=== PATIENT | male | born 1940 | race Caucasian/White ===

== ENCOUNTER 2018-07-26 14:46 | Emergency (ER) | payer MEDICARE, OTHER, SELFPAY ==
[2018-07-26 14:46] VITALS: BP 102/68; PULSE 129; RESP 18; TEMP 35.5; O2SAT 97; BMI 29.9
[2018-07-26 14:49] VITALS: BP 102/68; PULSE 129; RESP 18; TEMP 35.5; O2SAT 97
[2018-07-26 14:56] VITALS: BP 143/103; PULSE 133; RESP 18; O2SAT 91
[2018-07-26 15:02] VITALS: O2SAT 95
--- NOTE | 2018-07-26 15:19 | EKG12_ITS ---
Test Reason : PALPATIONS Blood Pressure : / mmHG Vent. Rate : 114 BPM Atrial Rate : 288 BPM P-R Int : 000 ms QRS Dur : 096 ms QT Int : 358 ms P-R-T Axes : 242 008 069 degrees QTc Int : 493 ms Atrial flutter with variable A-V block Nonspecific ST abnormality Abnormal ECG Confirmed by JUSTIN CROCKETT, MARIO ([id number]), editor at large GIBRAN WEBSTER ([id number]) on 07/29/2018 9:09:01 AM Referred By: TAD Confirmed By:MARIO ANDERSON MD
--- NOTE | 2018-07-26 15:20 | RAD_ITS ---
STUDY: X-RAY CHEST REASON FOR EXAM: Male, 78 years old. Cough TECHNIQUE: Single frontal view of the chest. COMPARISON: July 23, 2015 FINDINGS: Bipolar AICD on the right unchanged. Bilateral airspace disease slightly improved. Small bilateral pleural effusions. Normal size heart. Normal mediastinum and gino. Normal visualized pulmonary arteries. Normal visualized aortic arch and descending thoracic aorta. Normal visualized thoracic spine. Normal visualized ribs, clavicles, and shoulders. There is no demonstrated abnormality of the visualized soft tissue structures of the upper abdomen. RAD/Chest 1 View (Portable) IMPRESSION: Slight improvement in airspace disease. Electronically Signed: Rei Bates MD at 17:03 EST , Service support ,
--- NOTE | 2018-07-26 15:23 | ED.VISSUMM ---
- ER Visit Summary Date of Service: 07/26/18 Chief Complaint: Short of breath, cough History of Present Illness: The patient is a 78 M with short of breath, wheezing, cough, and occasional posttussive emesis over the past 2 weeks. He was seen by his PCP and given a 7-day course of a maroon and bah antibiotic. It may have been Keflex. Patient states he still has 2 days of this left but overall is not feeling like he is improving. His is ill with similar symptoms and is also here to be seen. Patient has a history of coronary disease, CHF, COPD, diabetes, paroxysmal A. fib, pulmonary hypertension. He does wear home oxygen as needed and is on Coumadin. Physical Examination: Vital signs include a blood pressure of 143/103, temperature 96, heart rate 133, respiratory rate 18, pulse ox 91% on room air. Patient is sitting upright in bed. He speaking full sentences. Head neck examination is grossly unremarkable. Heart is irregular and slightly tachycardic with a rate around 108 at the time of my exam. Lung sounds are slightly diminished throughout. Abdomen is soft nontender. Test Results: EKG is a flutter at [address] change. Portable chest x-ray shows slight improvement in airspace disease when compared to prior chest x-ray from 2016. He has chronic changes. CBC is normal. Chemistry studies significant only for glucose of 232. INR is therapeutic at 2.9. Emergency Department Course and Treatment: Patient was given a DuoNeb treatment along with slight IV fluids. On repeat evaluation lung sounds are grossly clear. Heart rate is between 89 and 115 at the time of my exam. He is on metoprolol twice daily and did take his dose this morning. His primary care physician is making arrangements for him to follow-up with Dr. Travis. At this time he will be treated with prednisone, Augmentin, and Zithromax. He does have home oxygen although was not requiring it currently. I do not believe he needs hospitalization at this time. Treatment Plan: [] Disposition: Discharge Impression: COPD exacerbation This note was generated with [employer] dictation software. It may contain incorrect words, spelling, and punctuation that were not noted in review of the chart prior to signing ED Disposition - Plan for ED Patient: Chief Complaint: Cough Referrals: Rik Murillo MD [Primary Care Provider] -
[2018-07-26] MEDS: 0.9% Normal Saline 1,000 ML 150 ML IV (15:28)
[2018-07-26 15:29] VITALS: PULSE 115; RESP 17
[2018-07-26] MEDS: Ipratropium/Albuterol Sulfate 3 ML AMPUL.NEB INHALATION (15:29)
[2018-07-26 15:33] LABS: Absolute Lymphocyte Count 1.42 X10^3/ul (0.83-4.51); Absolute Neutrophil Count 5.1 X10^3/uL (2.0-7.7); Basophil# 0.02 X10^3/uL; Basophil% 0.3 % (0-1); Eosinophil# 0.23 X10^3/uL; Eosinophils% 3.1 % (0-5); Hematocrit 41.7 % (40-54); Hemoglobin 14.1 g/dl (13.0-16.5); Lymphocyte # 1.42 X10^3/ul (4.0); Lymphocyte % 19.2 % (19-41); Mean Corp Hgb Conc 33.8 g/gl (32-36); Mean Corpuscular Hgb 31.1 pg (27.0-32.0); Mean Corpuscular Volume 91.9 fL (80-94); Mean Platelet Vol. 9.9 fl (6.2-12.0); Monocyte# 0.58 X10^3/uL; Monocyte% 7.8 % (0-10); Neutrophil # 5.12 X10^3/uL (2.7-7.7); Neutrophil % 69.3 % (47-70); POSITIVE COUNT NO; POSITIVE DIFFERENTIAL NO; POSITIVE MORPHOLOGY NO; Platelet Count 279 K/mm3 (150-450); RBC Distribution Width CV 13.7 % (11.6-14.6); RBC Distribution Width SD 45.5 fl (35.1-43.9); Red Blood Count 4.54 M/mm3 (4.6-6.2); White Blood Count 7.4 K/mm3 (4.4-11.0)
[2018-07-26 15:44] LABS: Anion Gap 10 (5-15); BUN 23 mg/dL (7-18); Calcium,Total 8.8 mg/dL (8.5-10.1); Chloride 103 mmol/L (98-107); Creatinine, Serum 1.28 mg/dL (0.70-1.30); EST Glomerular Filtration Rate 57 mL/min (>60); Est Glom Filt Rate - Afr Amer 70 mL/min (>60); Estimated Creatinine Clearance 46.03 ml/min; Glucose 232 mg/dL (74-106); Potassium 3.9 mmol/L (3.5-5.1); Sodium Level 137 mmol/L (136-145)
[2018-07-26 15:59] LABS: International Normalized Ratio 2.9; Prothrombin Time (Protime)PT. 30.7 SECONDS (11.7-14.9)
--- NOTE | 2018-07-26 16:01 | ED.RN ---
CANCEL SEPSIS SCREEN PER MD.
--- NOTE | 2018-07-26 17:25 | ED.DEP ---
ED Disposition - Plan for ED Patient: Disposition: Home or Assisted Living Chief Complaint: Cough Instructions: ED COPD Flare Prescriptions: Amox/Clavulanate Tablet [Augmentin Tablet] 875 mg PO Q12H #20 tablet Azithromycin [Zithromax] 250 mg PO DAILY #4 tablet Prednisone [Deltasone] 40 mg PO DAILY #10 tablet Referrals: Rik Murillo MD [Primary Care Provider] - 1 Week
[2018-07-26] MEDS: predniSONE 20 MG Tablet 40 MG PO (17:35)
[2018-07-26] MEDS: Azithromycin 250 MG Tablet 500 MG PO (17:35)
[2018-07-26] MEDS: Amox/Clavulanate 875 MG Tablet PO (17:35)
[2018-07-26 17:38] VITALS: BP 124/105; PULSE 100; RESP 20; TEMP 35.5
== END 2018-07-26 17:43 | disposition home or self-care (01) ==
PROVIDERS: Emergency Provider Emergency Medicine; Family Provider Internal Medicine; PCP Internal Medicine
DX: J44.1 Chronic obstructive pulmonary disease with (acute) exacerbation (principal); I25.10 Atherosclerotic heart disease of native coronary artery without angina pectoris; I48.0 Paroxysmal atrial fibrillation; I27.20 Pulmonary hypertension, unspecified; E11.9 Type 2 diabetes mellitus without complications; Z95.5 Presence of coronary angioplasty implant and graft; Z95.810 Presence of automatic (implantable) cardiac defibrillator; Z79.4 Long term (current) use of insulin; Z79.01 Long term (current) use of anticoagulants; Z99.81 Dependence on supplemental oxygen; Z79.899 Other long term (current) drug therapy; Z87.891 Personal history of nicotine dependence
CPT/HCPCS: 71045; 80048; 85025; 85610; 93005; 94640; 96360; 96361; 99285; J7030; A4216

== ENCOUNTER 2018-08-19 16:12 | Inpatient (IN) | payer MEDICARE, OTHER, SELFPAY ==
[2018-08-19] VITALS (10 sets, daily range): BP systolic 86–130; BP diastolic 55–80; PULSE 46–104; RESP 13–23; TEMP 36.3–36.6; O2SAT 95–100; BMI 29.0
--- NOTE | 2018-08-19 16:20 | EKG12_ITS ---
Test Reason : Blood Pressure : / mmHG Vent. Rate : 099 BPM Atrial Rate : 288 BPM P-R Int : 000 ms QRS Dur : 106 ms QT Int : 374 ms P-R-T Axes : 253 011 -02 degrees QTc Int : 479 ms Atrial flutter with variable A-V block Abnormal ECG Confirmed by JUSTIN CROCKETT, MARIO ([id number]), online content editor GIBRAN WEBSTER ([id number]) on 08/22/2018 3:23:51 PM Referred By: Romina Lilly Confirmed By:MARIO ANDERSON MD
--- NOTE | 2018-08-19 16:30 | RAD_ITS ---
STUDY: X-RAY CHEST REASON FOR EXAM: Male, 78 years old. Chest pain TECHNIQUE: Single AP portable view of the chest. COMPARISON: July 26, 2018, July 21, 2015 FINDINGS: There is a right side pacer defibrillator. There is persistent fibrotic change and pleural plaquing in the left chest. There is bilateral pleural plaquing of the hemidiaphragms. There is similar-appearing fibrosis in the right lung base. There is mild cardiac enlargement. Normal mediastinum and gino. Normal visualized pulmonary arteries. There is atherosclerotic calcification of the aortic arch with tortuosity. There are diffuse degenerative changes of the visualized thoracic spine. Normal visualized ribs, clavicles, and shoulders. There is no demonstrated abnormality of the visualized soft tissue structures of the upper abdomen. RAD/Chest 1 View (Portable) IMPRESSION: Chronic fibrotic changes in the left chest. 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 No visualized acute focal infiltrate. Pacer defibrillator. Electronically Signed: Shiela Muñoz MD at 16:47 EST Tel , Service support ,
--- NOTE | 2018-08-19 16:43 | ED.VISSUMM ---
- ER Visit Summary Date of Service: 08/19/18 Chief Complaint: Shortness of breath, chest pain History of Present Illness: The patient is a 78 M presenting with shortness of breath, chest pain. Patient states he has not been feeling well since [place] time. He states that he has had shortness of breath which is worse with exertion. He also complains of intermittent chest pain. He states today he was too weak to stand. He needed help getting dressed. He states he felt very dizzy. He has been worsening over the past week. He was seen by Dr. Garcia a week ago and his Lasix and potassium were doubled. He states this is not improving. He saw Dr. Garcia again today and was advised to come to the ED for admission for decompensated heart failure. Physical Examination: Vitals are stable. Patient is afebrile. Alert no acute distress. HEENT exam is unremarkable. Neck is supple. Lungs are rales bilateral bases Heart is irregularly irregular Abdomen is soft nontender nondistended. Extremities are unremarkable. Skin is warm and dry. No focal neurologic deficit. Remainder of exam is unremarkable. Emergency Department Course and Treatment: EKG is a flutter rate of 99 with variable AV block. Chest x-ray shows chronic changes. CBC unremarkable. Chemistries show glucose 167, BUN 23, creatinine 1.53. INR is 2.0. Troponin is negative. BNP 172.9. He was given aspirin, Lasix IV. He is unable to ambulate without significant shortness of breath. Will discuss with the hospitalist for admission. Disposition: Admission Impression: CHF exacerbation, failed outpatient treatment This note was generated with [employer] dictation software. It may contain incorrect words, spelling, and punctuation that were not noted in review of the chart prior to signing ED Disposition - Plan for ED Patient: Chief Complaint: Chest Pain Referrals: Rik Murillo MD [Primary Care Provider] -
[2018-08-19 16:49] LABS: Absolute Lymphocyte Count 1.33 X10^3/ul (0.83-4.51); Absolute Neutrophil Count 5.5 X10^3/uL (2.0-7.7); Basophil# 0.05 X10^3/uL; Basophil% 0.6 % (0-1); Eosinophil# 0.38 X10^3/uL; Eosinophils% 4.7 % (0-5); Hematocrit 44.3 % (40-54); Hemoglobin 14.8 g/dl (13.0-16.5); Lymphocyte # 1.33 X10^3/ul (4.0); Lymphocyte % 16.5 % (19-41); Mean Corp Hgb Conc 33.4 g/gl (32-36); Mean Corpuscular Volume 92.9 fL (80-94); Mean Platelet Vol. 10.1 fl (6.2-12.0); Monocyte# 0.77 X10^3/uL; Monocyte% 9.6 % (0-10); Neutrophil % 68.2 % (47-70); Platelet Count 290 K/mm3 (150-450); RBC Distribution Width CV 13.7 % (11.6-14.6); RBC Distribution Width SD 44.9 fl (35.1-43.9); Red Blood Count 4.77 M/mm3 (4.6-6.2); White Blood Count 8.1 K/mm3 (4.4-11.0)
[2018-08-19 16:50] LABS: POSITIVE COUNT NO; POSITIVE DIFFERENTIAL NO; POSITIVE MORPHOLOGY NO
[2018-08-19 17:07] LABS: Anion Gap 9 (5-15); BUN 23 mg/dL (7-18); Chloride 102 mmol/L (98-107); Creatinine, Serum 1.53 mg/dL (0.70-1.30); EST Glomerular Filtration Rate 47 mL/min (>60); Est Glom Filt Rate - Afr Amer 57 mL/min (>60); Estimated Creatinine Clearance 38.51 ml/min; Glucose 167 mg/dL (74-106); Sodium Level 137 mmol/L (136-145)
[2018-08-19 17:17] LABS: BNP,B-Type NATRIURETIC PEPTIDE 172.9 pg/mL (0-100)
[2018-08-19] MEDS: Furosemide 40 MG/4 ML Vial IV (17:50)
[2018-08-19] MEDS: Aspirin 325 MG Tablet PO (17:50)
--- NOTE | 2018-08-19 18:23 | PCM.HP.STD ---
Problem List (1) Obstructive sleep apnea Status: Chronic (2) Paroxysmal a-fib Status: Chronic (3) Pulmonary hypertension Status: Chronic (4) Dyslipidemia Status: Chronic (5) CAD (coronary artery disease) Status: Chronic (6) History of heart artery stent Status: Chronic (7) COPD (chronic obstructive pulmonary disease) Status: Chronic (8) Diabetes mellitus Status: Chronic History of Present Illness Date of Admission: 08/19/18 Chief Complaint: Shortness of breath. The patient is a 78 year old M with past medical history as mentioned above was sent from Dr. Garcia's office to the ED for evaluation for worsening shortness of breath. Patient stated has been having trouble with breathing since [place], shortness of breath on minimal exertion, only can walk for a few steps before getting short of breath, aggravated by more activity, relieved by rest, associated with dry cough without sputum production and sometimes, he has been having intermittent chest tightness. Around 1 week ago, he was called by his communications analyst office and instructed to take Lasix 40 mg 4 times a day, he was on 40 mg twice a day before that. He mentioned that this change of Lasix did not help him with his breathing and he continued to get more short of breath with exertion. In the emergency department, he was afebrile, heart rate has been around 90s, blood pressure is stable, pulse ox is 95% on 2 L. His routine blood work was remarkable for BUN of 23 and creatinine of 1.53, otherwise normal. Troponin was less than 0.015. BNP was 172. EKG revealed atrial flutter, rate has been around 100, no acute ischemic changes. Chest x-ray revealed cardiomegaly, left small pleural effusion, pulmonary vascular congestion, more on the right side. He is being admitted for acute on chronic diastolic CHF. Past Medical History Past Medical History (Chronic Problems): Chronic Problems Mesothelioma (Chronic) Heart failure (Chronic) Obstructive sleep apnea (Chronic) Paroxysmal a-fib (Chronic) Pulmonary hypertension (Chronic) Dyslipidemia (Chronic) CAD (coronary artery disease) (Chronic) History of heart artery stent (Chronic) Acute respiratory failure with hypoxia (Chronic) COPD (chronic obstructive pulmonary disease) (Chronic) Diabetes mellitus (Chronic) Allergies sulfamethoxazole [From Septra] Allergy (Verified 08/19/18 16:18) Other trimethoprim [From Septra] Allergy (Verified 08/19/18 16:18) Other niacin [From Niaspan Extended-Release] Adverse Reaction (Verified 08/19/18 16:18) Rash Home Medications: Ambulatory Orders Medication Instructions Recorded Albuterol Aerosols [Ventolin 2.5 mg INHALATION Q6H PRN PRN 07/21/15 Aerosols] Amlodipine [Norvasc] 10 mg PO DAILY 07/21/15 Aspirin E.C. [Ecotrin] 81 mg PO DAILY@0800 07/21/15 Fluticasone 0.05% [Flonase Nasal 2 spray NASAL DAILY 07/21/15 [place]] Glimepiride [Amaryl] 4 mg PO DAILY 07/21/15 Ipratropium/Albuterol Respimat 1 puff INHALATION 4X/DAY 07/21/15 [Combivent Respimat Inhal [place]] Metformin HCl [Glucophage] 1,000 mg PO BIDCM 07/21/15 Metoprolol Tartrate [Lopressor 150 mg PO BID 07/21/15 (beta jostin)] Taylor-3S/Dha/Epa/Fish Oil/D3 [Fish 1 each PO DAILY 07/21/15 Ugl-[id number]-8-Vit D Softgel] Sildenafil Citrate [Viagra] 100 mg PO PRN PRN 07/21/15 Simvastatin [Zocor] 20 mg PO QHS 07/21/15 Tamsulosin HCl [Flomax] 0.4 mg PO DAILY 07/21/15 Warfarin Sodium [Jantoven] 7 mg PO QODAY 07/21/15 hydrALAZINE [Apresoline] 25 mg PO TID 07/21/15 Oxygen, Home [Home Oxygen] 2 - 4 lpm NASAL CONT #1 unit 07/26/15 Furosemide [Lasix] 40 mg PO Q6H 08/19/18 Potassium Chloride [K-Dur] 20 meq PO BID 08/19/18 Surgical History: cholecystectomy, pacemaker implantation, - - ICD, cardiac stents. Lives: Spouse/ Significant Other Smoking Status: Former smoker Alcohol: None Drugs: None - *Family History Paternal History Items: No pertinent history Maternal History Items: No pertinent history Review of Systems Constitutional: Reports: Weakness. Denies: Anorexia, Chills, Fever Eyes: Denies: Blurred vision, Double vision, Drainage, Redness HEENT: Denies: Difficulty Hearing, Ear Pain, Eye Pain, Nasal Congestion, Sore Throat Cardiovascular: Reports: Chest Tightness. Denies: Chest Pain, Chest Pressure, Edema, Heaviness, Light Headedness, Orthopnea, Paroxysmal Noc. Dyspnea Respiratory: Reports: Cough, Shortness of Breath, Shortness of breath upon exertion. Denies: Sputum production, Wheezing Gastrointestinal: Denies: Abdominal Pain, Constipation, Diarrhea, Nausea, Vomiting Genitourinary: Denies: Dysuria, Frequency, Hematuria Musculoskeletal: Denies: Arm Pain, Back Pain, Foot Pain Skin: Denies: Dryness, Rash Neurological: Denies: Balance problems, Blurred vision, Double vision, Change in Speech, Slurred speech, Headaches, Incoordination Psychiatric: Denies: Anxiety, Depression Endocrine: Denies: Change in Body Habitus, Polydipsia VTE Information - Inpt Only VTE Present on Admission: No VTE Mechan Device Prophylaxis: None VTE Pharm Prophylaxis ordered?: No - Physical Exam General: Alert, Oriented x3, Cooperative, No apparent distress HEENT: Atraumatic, PERRLA, EOMI, Normocephalic Oral: Moist Mucosa, No Gingival or Mucosal Lesions/ Ulcerations Neck: Supple, No JVD, Negative Carotid Bruits, Trachea Midline, Thyroid Normal Size and Texture Lungs: No rhonchi, No wheeze, Diminished, Rales, Short of Breath, - - Decreased breath sounds bilateral, more at the bases, bilateral basal crackles, more on the left base. Cardiovascular: Normal S1, Normal S2, No murmurs, PMI Normal, Irregular Rate Abdomen: Bowel Sounds Present, Soft, Non Tender, Non-Distended, No Hepato-splenomegaly Extremities: No clubbing, No cyanosis, No edema Skin: No rashes, No breakdown Lymphatic: No Cervical, Supraclavicular, or Inguinal Adenopathy Neurological: Cranial nerves II-XII grossly intact, Motor Exam 5/5 strength throughout Psych/Mental Status: Normal Affect, Appropriate, Alert and oriented to time, place, person, mood and affect Vital Signs Temp Pulse Resp BP Pulse Ox 98 F 46 L 18 112/67 97 08/19/18 16:13 08/19/18 18:07 08/19/18 18:07 08/19/18 18:07 08/19/18 18:07 Oxygen Flow Rate (L/min) 2 Oxygen Delivery Method Nasal Cannula Weight: 203 lb 7.787 oz Body Mass Index (BMI) 30.0 Laboratory Tests Past 24 Hrs 08/19/18 08/19/18 08/19/18 16:38 16:38 16:38 WBC 8.1 RBC 4.77 Hgb 14.8 Hct 44.3 MCV 92.9 MCH 31.0 MCHC 33.4 RDW 13.7 RDW Differential 44.9 H Plt Count 290 MPV 10.1 Immature Gran % (Auto) 0.400 Neut % (Auto) 68.2 Lymph % (Auto) 16.5 L [place] % (Auto) 9.6 Eos % (Auto) 4.7 Baso % (Auto) 0.6 Absolute Neuts (auto) 5.5 Absolute Lymphs (auto) 1.33 Total Counted Not Reportable PT 23.0 H INR 2.0 Sodium 137 Potassium 4.0 Chloride 102 Carbon Dioxide 26.0 Anion Gap 9 BUN 23 H Creatinine 1.53 H Estim Creat Clear Calc 38.51 Est GFR (MDRD) Af Amer 57 L Est GFR (MDRD) Non-Af 47 L BUN/Creatinine Ratio 15.0 Glucose 167 H Calcium 9.0 Troponin I < 0.015 B-Natriuretic Peptide 08/19/18 16:38 WBC RBC Hgb Hct MCV MCH MCHC RDW RDW Differential Plt Count MPV Immature Gran % (Auto) Neut % (Auto) Lymph % (Auto) [place] % (Auto) Eos % (Auto) Baso % (Auto) Absolute Neuts (auto) Absolute Lymphs (auto) Total Counted PT INR Sodium Potassium Chloride Carbon Dioxide Anion Gap BUN Creatinine Estim Creat Clear Calc Est GFR (MDRD) Af Amer Est GFR (MDRD) Non-Af BUN/Creatinine Ratio Glucose Calcium Troponin I B-Natriuretic Peptide 172.9 H Clinical Impression(s) from Imaging Studies Chest X-Ray 08/19/18 16:30 IMPRESSION: Chronic fibrotic changes in the left chest. 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 No visualized acute focal infiltrate. Pacer defibrillator. Electronically Signed: Shiela Muñoz MD at 16:47 EST Tel , Service support , Assessment/Plan This is an 78 years old male patient was sent from Dr. Garcia's office for worsening exertional shortness of breath, found to have acute on chronic diastolic CHF and he is being admitted for treatment. #1 acute on chronic diastolic CHF: With failure of outpatient therapy, Lasix was increased by Dr. Garcia from 40 mg p.o. twice daily up to 40 mg p.o. 4 times daily without improvement. EKG reviewed as above. Chest x-ray revealed findings consistent with CHF. He had 2D echocardiogram on June, revealed segmental dysfunction with ejection fraction of 60%, RVSP of 66, mildly enlarged left atrium. Troponin is negative. Plan: Admit to PCU, cardiac monitoring, serial cardiac enzymes, repeat EKG tomorrow morning, start IV Lasix 60 mg every 8 hours, input output chart, repeat CBC and BMP tomorrow morning, continue aspirin, metoprolol and hydralazine, PT OT evaluation and treatment. #2 acute kidney injury: Baseline kidney function is normal, creatinine was 1.28 on July 26, 2018, admission creatinine is 1.53. This is likely because of the dose of Lasix that was increased last week. Patient is on total of 160 mg Lasix daily. Expect kidney function to worsen with IV Lasix, repeat BMP tomorrow morning. #3 paroxysmal atrial fibrillation: Rate has been around 100, EKG reviewed as above. Plan to continue metoprolol for rate control, continue Coumadin for anti-correlation, repeat INR tomorrow morning. #4 coronary artery disease status post stents: Stable, no chest pain. EKG reviewed as above. Continue aspirin, statins, beta-blockers and hydralazine. #5 COPD: DuoNeb every 6 hours, albuterol as needed, oxygen by nasal cannula to keep O2 saturation more than 92%. #6 type 2 diabetes mellitus: ADA diet, Accu-Cheks, insulin sliding scale, continue glimepiride, hold metformin. #7 hypertension: Continue Norvasc, metoprolol and hydralazine, IV Lasix as above. #8 DVT prophylaxis: On Coumadin, INR is therapeutic. This note was generated with [employer] dictation software. It may contain incorrect words, spelling, and punctuation that were not noted in checking the note before signing. Code Visit Inpatient E&M: 02736 Init Hosp L3
--- NOTE | 2018-08-19 18:27 | HP.PCM_ITS ---
Problem List (1) Obstructive sleep apnea Status: Chronic (2) Paroxysmal a-fib Status: Chronic (3) Pulmonary hypertension Status: Chronic (4) Dyslipidemia Status: Chronic (5) CAD (coronary artery disease) Status: Chronic (6) History of heart artery stent Status: Chronic (7) COPD (chronic obstructive pulmonary disease) Status: Chronic (8) Diabetes mellitus Status: Chronic History of Present Illness Date of Admission: 08/19/18 Chief Complaint: Shortness of breath. The patient is a 78 year old M with past medical history as mentioned above was sent from Dr. Garcia's office to the ED for evaluation for worsening shortness of breath. Patient stated has been having trouble with breathing since [place], shortness of breath on minimal exertion, only can walk for a few steps before getting short of breath, aggravated by more activity, relieved by rest, associated with dry cough without sputum production and sometimes, he has been having intermittent chest tightness. 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 He mentioned that this change of Lasix did not help him with his breathing and he continued to get more short of breath with exertion. In the emergency department, he was afebrile, heart rate has been around 90s, blood pressure is stable, pulse ox is 95% on 2 L. His routine blood work was remarkable for BUN of 23 and creatinine of 1.53, otherwise normal. Troponin was less than 0.015. BNP was 172. EKG revealed atrial flutter, rate has been around 100, no acute ischemic changes. Chest x-ray revealed cardiomegaly, left small pleural effusion, pulmonary vascular congestion, more on the right side. He is being admitted for acute on chronic diastolic CHF. Past Medical History Past Medical History (Chronic Problems): Chronic Problems Mesothelioma (Chronic) Heart failure (Chronic) Obstructive sleep apnea (Chronic) Paroxysmal a-fib (Chronic) Pulmonary hypertension (Chronic) Dyslipidemia (Chronic) CAD (coronary artery disease) (Chronic) History of heart artery stent (Chronic) Acute respiratory failure with hypoxia (Chronic) COPD (chronic obstructive pulmonary disease) (Chronic) Diabetes mellitus (Chronic) Allergies sulfamethoxazole [From Septra] Allergy (Verified 08/19/18 16:18) Other trimethoprim [From Septra] Allergy (Verified 08/19/18 16:18) Other niacin [From Niaspan Extended-Release] Adverse Reaction (Verified 08/19/18 16:18) Rash Home Medications: Ambulatory Orders Medication Instructions Recorded Albuterol Aerosols [Ventolin 2.5 mg INHALATION Q6H PRN PRN 07/21/15 Aerosols] Amlodipine [Norvasc] 10 mg PO DAILY 07/21/15 Aspirin E.C. [Ecotrin] 81 mg PO DAILY@0800 07/21/15 Fluticasone 0.05% [Flonase Nasal 2 spray NASAL DAILY 07/21/15 [place]] Glimepiride [Amaryl] 4 mg PO DAILY 07/21/15 Ipratropium/Albuterol Respimat 1 puff INHALATION 4X/DAY 07/21/15 [Combivent Respimat Inhal [place]] Metformin HCl [Glucophage] 1,000 mg PO BIDCM 07/21/15 Metoprolol Tartrate [Lopressor 150 mg PO BID 07/21/15 (beta jostin)] [place]-3S/Dha/Epa/Fish Oil/D3 [Fish 1 each PO DAILY 07/21/15 Ssq-Adamx-6-Vit D Softgel] Sildenafil Citrate [Viagra] 100 mg PO PRN PRN 07/21/15 Simvastatin [Zocor] 20 mg PO QHS 07/21/15 Tamsulosin HCl [Flomax] 0.4 mg PO DAILY 07/21/15 Warfarin Sodium [Jantoven] 7 mg PO QODAY 07/21/15 hydrALAZINE [Apresoline] 25 mg PO TID 07/21/15 Oxygen, Home [Home Oxygen] 2 - 4 lpm NASAL CONT #1 unit 07/26/15 Furosemide [Lasix] 40 mg PO Q6H 08/19/18 Potassium Chloride [K-Dur] 20 meq PO BID 08/19/18 Surgical History: cholecystectomy, pacemaker implantation, - - ICD, cardiac stents. Lives: Spouse/ Significant Other Smoking Status: Former smoker Alcohol: None Drugs: None - *Family History Paternal History Items: No pertinent history Maternal History Items: No pertinent history Review of Systems Constitutional: Reports: Weakness. Denies: Anorexia, Chills, Fever Eyes: Denies: Blurred vision, Double vision, Drainage, Redness HEENT: Denies: Difficulty Hearing, Ear Pain, Eye Pain, Nasal Congestion, Sore Throat Cardiovascular: Reports: Chest Tightness. Denies: Chest Pain, Chest Pressure, Edema, Heaviness, Light Headedness, Orthopnea, Paroxysmal Noc. Dyspnea Respiratory: Reports: Cough, Shortness of Breath, Shortness of breath upon exertion. Denies: Sputum production, Wheezing Gastrointestinal: Denies: Abdominal Pain, Constipation, Diarrhea, Nausea, Vomit ing Genitourinary: Denies: Dysuria, Frequency, Hematuria Musculoskeletal: Denies: Arm Pain, Back Pain, Foot Pain Skin: Denies: Dryness, Rash Neurological: Denies: Balance problems, Blurred vision, Double vision, Change in Speech, Slurred speech, Headaches, Incoordination Psychiatric: Denies: Anxiety, Depression Endocrine: Denies: Change in Body Habitus, Polydipsia VTE Information - Inpt Only VTE Present on Admission: No VTE Mechan Device Prophylaxis: None VTE Pharm Prophylaxis ordered?: No - Physical Exam General: Alert, Oriented x3, Cooperative, No apparent distress HEENT: Atraumatic, PERRLA, EOMI, Normocephalic Oral: Moist Mucosa, No Gingival or Mucosal Lesions/ Ulcerations Neck: Supple, No JVD, Negative Carotid Bruits, Trachea Midline, Thyroid Normal Size and Texture Lungs: No rhonchi, No wheeze, Diminished, Rales, Short of Breath, - - Decreased breath sounds bilateral, more at the bases, bilateral basal crackles, more on the left base. Cardiovascular: Normal S1, Normal S2, No murmurs, PMI Normal, Irregular Rate Abdomen: Bowel Sounds Present, Soft, Non Tender, Non-Distended, No Hepato- splenomegaly Extremities: No clubbing, No cyanosis, No edema Skin: No rashes, No breakdown Lymphatic: No Cervical, Supraclavicular, or Inguinal Adenopathy Neurological: Cranial nerves II-XII grossly intact, Motor Exam 5/5 strength throughout Psych/Mental Status: Normal Affect, Appropriate, Alert and oriented to time, place, person, mood and affect Vital Signs Temp Pulse Resp BP Pulse Ox 98 F 46 L 18 112/67 97 08/19/18 16:13 08/19/18 18:07 08/19/18 18:07 08/19/18 18:07 08/19/18 18:07 Oxygen Flow Rate (L/min) 2 Oxygen Delivery Method Nasal Cannula Weight: 203 lb 7.787 oz Body Mass Index (BMI) 30.0 Laboratory Tests Past 24 Hrs 08/19/18 08/19/18 08/19/18 16:38 16:38 16:38 WBC 8.1 RBC 4.77 Hgb 14.8 Hct 44.3 MCV 92.9 MCH 31.0 MCHC 33.4 RDW 13.7 RDW Differential 44.9 H Plt Count 290 MPV 10.1 Immature Gran % (Auto) 0.400 Neut % (Auto) 68.2 Lymph % (Auto) 16.5 L [place] % (Auto) 9.6 Eos % (Auto) 4.7 Baso % (Auto) 0.6 Absolute Neuts (auto) 5.5 Absolute Lymphs (auto) 1.33 Total Counted Not Reportable PT 23.0 H INR 2.0 Sodium 137 Potassium 4.0 Chloride 102 Carbon Dioxide 26.0 Anion Gap 9 BUN 23 H Creatinine 1.53 H Estim Creat Clear Calc 38.51 Est GFR (MDRD) Af Amer 57 L Est GFR (MDRD) Non-Af 47 L BUN/Creatinine Ratio 15.0 Glucose 167 H Calcium 9.0 Troponin I < 0.015 B-Natriuretic Peptide 08/19/18 16:38 WBC RBC Hgb Hct MCV MCH MCHC RDW RDW Differential Plt Count MPV Immature Gran % (Auto) Neut % (Auto) Lymph % (Auto) [place] % (Auto) Eos % (Auto) Baso % (Auto) Absolute Neuts (auto) Absolute Lymphs (auto) Total Counted PT INR Sodium Potassium Chloride Carbon Dioxide Anion Gap BUN Creatinine Estim Creat Clear Calc Est GFR (MDRD) Af Amer Est GFR (MDRD) Non-Af BUN/Creatinine Ratio Glucose Calcium Troponin I B-Natriuretic Peptide 172.9 H Clinical Impression(s) from Imaging Studies Chest X-Ray 08/19/18 16:30 IMPRESSION: Chronic fibrotic changes in the left chest. 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 No visualized acute focal infiltrate. Pacer defibrillator. Electronically Signed: Shiela Muñoz MD at 16:47 EST Tel , Service support , Assessment/Plan This is an 78 years old male patient was sent from Dr. Garcia's office for worsening exertional shortness of breath, found to have acute on chronic diastolic CHF and he is being admitted for treatment. #1 acute on chronic diastolic CHF: With failure of outpatient therapy, Lasix was increased by Dr. Garcia from 40 mg p.o. twice daily up to 40 mg p.o. 4 times daily without improvement. EKG reviewed as above. Chest x-ray revealed findings consistent with CHF. He had 2D echocardiogram on June, revealed segmental dysfunction with ejection fraction of 60%, RVSP of 66, mildly enlarged left atrium. Troponin is negative. Plan: Admit to PCU, cardiac monitoring, serial cardiac enzymes, repeat EKG tomorrow morning, start IV Lasix 60 mg every 8 hours, input output chart, repeat CBC and BMP tomorrow morning, continue aspirin, metoprolol and hydralazine, PT OT evaluation and treatment. #2 acute kidney injury: Baseline kidney function is normal, creatinine was 1.28 on July 26, 2018, admission creatinine is 1.53. This is likely because of the dose of Lasix that was increased last week. Patient is on total of 160 mg Lasix daily. Expect kidney function to worsen with IV Lasix, repeat BMP tomorrow morning. #3 paroxysmal atrial fibrillation: Rate has been around 100, EKG reviewed as above. Plan to continue metoprolol for rate control, continue Coumadin for anti-correlation, repeat INR tomorrow morning. #4 coronary artery disease status post stents: Stable, no chest pain. EKG reviewed as above. Continue aspirin, statins, beta-blockers and hydralazine. #5 COPD: DuoNeb every 6 hours, albuterol as needed, oxygen by nasal cannula to keep O2 saturation more than 92%. #6 type 2 diabetes mellitus: ADA diet, Accu-Cheks, insulin sliding scale, continue glimepiride, hold metformin. #7 hypertension: Continue Norvasc, metoprolol and hydralazine, IV Lasix as above. #8 DVT prophylaxis: On Coumadin, INR is therapeutic. This note was generated with [employer] software. It may contain incorrect words, spelling, and punctuation that were not noted in checking the note before signing. Code Visit Inpatient E&M: 44068 Init Hosp L3
[2018-08-19 23:11] LABS: Bedside Glucose 289 mg/dL (70-110)
[2018-08-19] MEDS: Atorvastatin Calcium 10 MG Tablet PO (23:18)
[2018-08-19] MEDS: Insulin Lispro 100 UNIT/ML INSULN.PEN SQ (23:19)
[2018-08-20] VITALS (19 sets, daily range): BP systolic 103–146; BP diastolic 58–115; PULSE 66–140; RESP 16–21; TEMP 36.4–36.6; O2SAT 94–98
[2018-08-20] MEDS: hydrALAZINE 25 MG Tablet PO ×3 (05:41→23:05)
[2018-08-20] MEDS: Furosemide 100 MG/10 ML Vial 60 MG IV (05:42)
[2018-08-20] MEDS: 0.9% NaCl Peripheral Flush Adult/Peds IV ×3 (05:44→23:09)
[2018-08-20 06:47] LABS: Absolute Lymphocyte Count 1.21 X10^3/ul (0.83-4.51); Absolute Neutrophil Count 3.8 X10^3/uL (2.0-7.7); Basophil# 0.02 X10^3/uL; Basophil% 0.3 % (0-1); Eosinophil# 0.29 X10^3/uL; Eosinophils% 4.9 % (0-5); Hematocrit 40.9 % (40-54); Hemoglobin 13.7 g/dl (13.0-16.5); Lymphocyte # 1.21 X10^3/ul (4.0); Lymphocyte % 20.6 % (19-41); Mean Corp Hgb Conc 33.5 g/gl (32-36); Mean Corpuscular Hgb 30.8 pg (27.0-32.0); Mean Corpuscular Volume 91.9 fL (80-94); Mean Platelet Vol. 10.3 fl (6.2-12.0); Monocyte# 0.53 X10^3/uL; Neutrophil # 3.79 X10^3/uL (2.7-7.7); Neutrophil % 64.9 % (47-70); Platelet Count 248 K/mm3 (150-450); RBC Distribution Width CV 13.4 % (11.6-14.6); RBC Distribution Width SD 44.2 fl (35.1-43.9); Red Blood Count 4.45 M/mm3 (4.6-6.2); White Blood Count 5.9 K/mm3 (4.4-11.0)
[2018-08-20 06:49] LABS: International Normalized Ratio 2.3; Prothrombin Time (Protime)PT. 25.6 SECONDS (11.7-14.9)
[2018-08-20 06:52] LABS: POSITIVE COUNT NO; POSITIVE DIFFERENTIAL NO; POSITIVE MORPHOLOGY NO
[2018-08-20 06:56] LABS: Bedside Glucose 143 mg/dL (70-110)
[2018-08-20 07:17] LABS: Anion Gap 8 (5-15); BUN 20 mg/dL (7-18); Calcium,Total 8.4 mg/dL (8.5-10.1); Chloride 103 mmol/L (98-107); Creatinine, Serum 1.05 mg/dL (0.70-1.30); EST Glomerular Filtration Rate 72 mL/min (>60); Est Glom Filt Rate - Afr Amer 87 mL/min (>60); Estimated Creatinine Clearance 56.11 ml/min; Glucose 114 mg/dL (74-106); Potassium 3.4 mmol/L (3.5-5.1); Sodium Level 139 mmol/L (136-145)
[2018-08-20] MEDS: Ipratropium/Albuterol Sulfate 3 ML AMPUL.NEB INHALATION ×2 (07:48→19:00)
[2018-08-20] MEDS: Glimepiride 4 MG Tablet PO (08:07)
[2018-08-20] MEDS: Aspirin E.C. 81 MG Tablet PO (08:07)
[2018-08-20] MEDS: Tamsulosin HCl 0.4 MG Capsule PO (08:07)
[2018-08-20] MEDS: Metoprolol Tartrate 100 MG Tablet 150 MG PO ×2 (09:33→23:07)
[2018-08-20] MEDS: amLODIPine 10 MG Tablet PO (09:33)
[2018-08-20] MEDS: Fluticasone 0.05% 1 SPRAY NASAL.SRY 2 SPRAY NASAL (09:34)
--- NOTE | 2018-08-20 10:09 | PCM.PN.HOSP ---
Subjective: Patient is an 78-year-old gentleman with multiple comorbidities including hypertension, CAD with previous stent placement, known diastolic congestive heart failure who presented with progressive shortness of breath. An assessment of acute diastolic congestive heart failure made. Admitted to a monitored bed for subsequent management Objective: GENERAL: Dyspneic at rest HEENT: Atraumatic; moist oral mucosa EYES; Anicteric, Normal Conjunctiva NECK; supple, normal thyroid, no distended JVD. RESPIRATORY: Diminished to auscultation bilaterally, bibasilar crackles CARDIOVASCULAR: Irregular S1 S2, GI: soft, non-tender, normoactive bowel sounds, : No Renal angle tenderness; EXTREMITIES: Trace edema, no clubbing, no cyanosis. MUSCULOSKELETAL: No Joint Tenderness; no muscle waisting NEURO: Awake; no lateralizing signs. SKIN: No Rash PSYCH; Normal affect Vitals/I&O's: Vital Signs Temp Pulse Resp BP Pulse Ox 97.8 F 97 16 146/115 H 95 08/20/18 09:26 08/20/18 09:33 08/20/18 09:26 08/20/18 09:33 08/20/18 09:26 Oxygen Flow Rate (L/min) 2 Oxygen Delivery Method Nasal Cannula Weight: 91 kg Body Mass Index (BMI) 29.0 Intake and Output for Last 24 Hours 08/18/18 08/19/18 08/20/18 23:59 23:59 23:59 Intake Total 120 / 120 60 / 60 Output Total 575 / 575 575 / 575 Balance -455 / -455 -515 / -515 Laboratory Results 08/19/18 16:38: WBC 8.1, RBC 4.77, Hgb 14.8, Hct 44.3, MCV 92.9, MCH 31.0, MCHC 33.4, RDW 13.7, RDW Differential 44.9 H, Plt Count 290, MPV 10.1, Immature Gran % (Auto) 0.400, Neut % (Auto) 68.2, Lymph % (Auto) 16.5 L, [place] % (Auto) 9.6, Eos % (Auto) 4.7, Baso % (Auto) 0.6, Absolute Neuts (auto) 5.5, Absolute Lymphs (auto) 1.33, Total Counted Not Reportable 08/19/18 16:38: Sodium 137, Potassium 4.0, Chloride 102, Carbon Dioxide 26.0, Anion Gap 9, BUN 23 H, Creatinine 1.53 H, Estim Creat Clear Calc 38.51, Est GFR (MDRD) Af Amer 57 L, Est GFR (MDRD) Non-Af 47 L, BUN/Creatinine Ratio 15.0, Glucose 167 H, Calcium 9.0, Troponin I < 0.015 08/19/18 16:38: PT 23.0 H, INR 2.0 08/19/18 16:38: B-Natriuretic Peptide 172.9 H 08/19/18 20:49: Troponin I < 0.015 08/19/18 23:03: Troponin I < 0.015 08/19/18 23:05: POC Glucose 289 H 08/20/18 05:55: WBC 5.9, RBC 4.45 L, Hgb 13.7, Hct 40.9, MCV 91.9, MCH 30.8, MCHC 33.5, RDW 13.4, RDW Differential 44.2 H, Plt Count 248, MPV 10.3, Immature Gran % (Auto) 0.300, Neut % (Auto) 64.9, Lymph % (Auto) 20.6, [place] % (Auto) 9.0, Eos % (Auto) 4.9, Baso % (Auto) 0.3, Absolute Neuts (auto) 3.8, Absolute Lymphs (auto) 1.21, Total Counted Not Reportable 08/20/18 05:55: PT 25.6 H, INR 2.3 08/20/18 05:55: Sodium 139, Potassium 3.4 L, Chloride 103, Carbon Dioxide 28.0, Anion Gap 8, BUN 20 H, Creatinine 1.05, Estim Creat Clear Calc 56.11, Est GFR (MDRD) Af Amer 87, Est GFR (MDRD) Non-Af 72, BUN/Creatinine Ratio 19.0, Glucose 114 H, Calcium 8.4 L 08/20/18 06:47: POC Glucose 143 H Current Medications Acetaminophen (Tylenol) 650 mg PO Q6H PRN PRN PRN Reason: Mild Pain (scale 0-3)/T>100.7 Albuterol Sulfate (Ventolin Aerosols) 2.5 mg INHALATION Q2H PRN PRN PRN Reason: Shortness of breath, wheezing Albuterol/Ipratropium (Duoneb) 3 ml INHALATION Q6H.RT [facility] Last Admin: 08/20/18 07:48 Dose: 3 ml Amlodipine Besylate (Norvasc) 10 mg PO DAILY [facility] Last Admin: 08/20/18 09:33 Dose: 10 mg Aspirin (Ecotrin) 81 mg PO DAILY@0800 [facility] Last Admin: 08/20/18 08:07 Dose: 81 mg Atorvastatin Calcium (Lipitor) 10 mg PO QHS [facility] Last Admin: 08/19/18 23:18 Dose: 10 mg Fluticasone Propionate (Flonase Nasal [place]) 2 spray NASAL DAILY [facility] Last Admin: 08/20/18 09:34 Dose: 2 spray Furosemide (Lasix) 60 mg IV Q8 [facility] Last Admin: 08/20/18 05:42 Dose: 60 mg [facility]l) [facility] Admin: 08/20/18 08:07 Dose: 4 mg Hydralazine HCl (Apresoline) 25 mg PO TID [facility] Last Admin: 08/20/18 05:41 Dose: 25 mg Insulin Human Lispro (Humalog Kwikpen (Bkc)) 0 unit SQ [facility]; Protocol Last Admin: 08/20/18 08:01 Dose: Not Given Magnesium Hydroxide (Milk Of Magnesia) 30 ml PO DAILY PRN PRN Reason: Constipation Metoprolol Tartrate (Lopressor (Beta Uriel)) 150 mg PO BID [facility] Last Admin: 08/20/18 09:33 Dose: 150 mg Nutritional Formula (Lactose Free) (Ensure Enlive) 120 ml PO 4X/DAY [facility] Last Admin: 08/20/18 09:32 Dose: Not Given Ondansetron HCl (Zofran) 4 mg IV Q8H PRN PRN PRN Reason: Nausea Potassium Chloride (K-Dur) [facility] Last Admin: 08/20/18 08:07 Dose: 20 meq Sodium Chloride () 5 - 15 ml IV UD PRN PRN Reason: SALINE FLUSH Last Admin: 08/20/18 05:44 Dose: 10 ml Tamsulosin HCl (Flomax) 0.4 mg PO DAILY@0830 [facility] Last Admin: 08/20/18 08:07 Dose: 0.4 mg Warfarin Sodium (Coumadin (Pbkc)) 5 mg PO DAILY@1700 [facility] Last Admin: 08/20/18 01:31 Dose: 5 mg Warfarin Sodium (Coumadin (Pbkc)) 2 mg PO QODAY@1700 [facility] Medical Necessity - Tobacco Use Smoking Status: Former smoker Tobacco Use: Secondhand Assessment/Plan Patient is an 78-year-old gentleman with multiple comorbidities including hypertension, CAD with previous stent placement, known diastolic congestive heart failure who presented with progressive shortness of breath. An assessment of acute diastolic congestive heart failure made. Admitted to a monitored bed for subsequent management 1. Acute on chronic systolic heart failure (heart failure with preserved ejection fraction. Patient echo on June 2018 demonstrated EF of 60% with RVSP of 66 mmHg. Patient has been admitted to monitored bed placed on fluid restriction, strict input and output, daily weights as well as IV Lasix. Patient Lasix dose adjusted this a.m. 2. Acute kidney injury secondary to cardiorenal syndrome patient kidney function did improve with diuresis 3. Paroxysmal atrial fibrillation rate controlled on systemic anticoagulation with Coumadin with a therapeutic INR 4. Diabetes mellitus type 2 held patient oral agent placed on Accu-Cheks with sliding scale coverage 5. CAD with previous stent placement 6. Hypertension-blood pressure controlled, home medications continued with dose adjustment as needed 7. COPD not in exacerbation did continue with home regimen 8. Dyslipidemia-patient is on statin therapy, continued at home dose 9. Pulmonary hypertension with RVSP of 66 mmHg 10. BPH patient on Flomax 11. DVT prophylaxis and on Coumadin no need for additional measures 12. Chronic hypoxic respiratory failure secondary to COPD patient is on baseline 4 L home oxygen Advance planning; did discuss with the patient and family regarding his advanced directives as well as CODE STATUS. Did explain the various modalities involved ( FULL CODE, DNR CCA, DNR CCA with no intubation, and DNR CC ) patient elected to be DNR CCA no intubation. Order was placed. Time spent on discussion 20 minutes. Active Medications Acetaminophen (Tylenol) 650 mg PO Q6H PRN PRN PRN Reason: Mild Pain (scale 0-3)/T>100.7 Albuterol Sulfate (Ventolin Aerosols) 2.5 mg INHALATION Q2H PRN PRN PRN Reason: Shortness of breath, wheezing Albuterol/Ipratropium (Duoneb) 3 ml INHALATION Q6H.RT [facility] Last Admin: 08/20/18 07:48 Dose: 3 ml Amlodipine Besylate (Norvasc) 10 mg PO DAILY [facility] Last Admin: 08/20/18 09:33 Dose: 10 mg Aspirin (Ecotrin) 81 mg PO DAILY@0800 [facility] Last Admin: 08/20/18 08:07 Dose: 81 mg Atorvastatin Calcium (Lipitor) 10 mg PO QHS [facility] Last Admin: 08/19/18 23:18 Dose: 10 mg Fluticasone Propionate (Flonase Nasal [place]) 2 spray NASAL DAILY [facility] Last Admin: 08/20/18 09:34 Dose: 2 spray Furosemide (Lasix) 40 mg IV Q8 [facility] Glimepiride (Amaryl) [facility] Last Admin: 08/20/18 08:07 Dose: 4 mg Hydralazine HCl (Apresoline) 25 mg PO TID [facility] Last Admin: 08/20/18 05:41 Dose: 25 mg Insulin Human Lispro (Humalog Kwikpen (Bkc)) 0 unit SQ ACHS [facility]; Protocol Last Admin: 08/20/18 08:01 Dose: Not Given Magnesium Hydroxide (Milk Of Magnesia) 30 ml PO DAILY PRN PRN Reason: Constipation Metoprolol Tartrate (Lopressor (Beta Uriel)) 150 mg PO BID [facility] Last Admin: 08/20/18 09:33 Dose: 150 mg Nutritional Formula (Lactose Free) (Ensure Enlive) 120 ml PO 4X/DAY [facility] Last Admin: 08/20/18 09:32 Dose: Not Given Ondansetron HCl (Zofran) 4 mg IV Q8H PRN PRN PRN Reason: Nausea Potassium Chloride (K-Dur) 20 meq [facility] Last Admin: 08/20/18 08:07 Dose: 20 meq Sodium Chloride () 5 - 15 ml IV UD PRN PRN Reason: SALINE FLUSH Last Admin: 08/20/18 05:44 Dose: 10 ml Tamsulosin HCl (Flomax) 0.4 mg PO DAILY@0830 [facility] Last Admin: 08/20/18 08:07 Dose: 0.4 mg Warfarin Sodium (Coumadin (Pbkc)) 5 mg PO DAILY@1700 [facility] Last Admin: 08/20/18 01:31 Dose: 5 mg Warfarin Sodium (Coumadin (Pbkc)) 2 mg PO QODAY@1700 [facility] Clinical Impression(s) from Imaging Studies Chest X-Ray 08/19/18 16:30 IMPRESSION: Chronic fibrotic changes in the left chest. 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 No visualized acute focal infiltrate. Pacer defibrillator. Electronically Signed: Shiela Muñoz MD at 16:47 EST Tel , Service support , Code Visit Inpatient E&M: 03978 Subs Hosp L3 Procedures: 87160 Advncd Care Plan 30 Min
--- NOTE | 2018-08-20 10:10 | CT_ITS ---
STUDY: CT CHEST WITHOUT CONTRAST REASON FOR EXAM: Male, 78 years old. Cough. RADIATION DOSAGE (If Supplied By Facility): CTDIvol = ( 21.15 ) mGy, DLP = ( 810.31 ) mGycm TECHNIQUE: Transaxial imaging was performed without the administration of intravenous contrast material. Multiplanar coronal and sagittal images were reformatted. Individualized dose optimization techniques were used for this CT. COMPARISON: Comparison is made with prior chest radiograph dated August 19, 2018. FINDINGS: There is evidence of emphysematous changes. Increased interstitial markings are seen in the upper lobes and lower lobes with subpleural blebs worse in the lower lobes suggestive of chronic interstitial fibrosis. Densely calcified pleural plaques worse in the left hemithorax. Sternal cerclage wires and vascular clips are present from a prior sternotomy and coronary artery bypass graft procedure (CABG). Right-sided dual-chamber pacemaker. There are calcifications of the coronary arteries. There are multiple small lymph nodes within the mediastinum, which are normal in size and morphology most compatible with reactive lymph hyperplasia. Normal hilar regions. Normal unenhanced pulmonary arteries. There is atherosclerotic calcification of the aortic arch with tortuosity and elongation of the aortic arch and descending thoracic aorta. There are multi-level degenerative changes of the thoracic spine. Hepatic cysts. Prior cholecystectomy. CT/Chest without Contrast IMPRESSION: Findings indicative of chronic tissues or fibrosis with bullous changes worse in the lower lobes. Densely calcified pleural plaques worse on the left side. Electronically Signed: Spencer Perez MD at 13:40 EST , Service support ,
--- NOTE | 2018-08-20 10:14 | CASEMGMT ---
SW met with pt and daughter in room. 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 Pt dgt states she will bring forms in for medical record. PIERRE Dc
[2018-08-20 12:01] LABS: Bedside Glucose 395 mg/dL (70-110)
[2018-08-20] MEDS: Insulin Lispro 100 UNIT/ML INSULN.PEN SQ ×3 (12:46→23:15)
--- NOTE | 2018-08-20 14:37 | CASEMGMT ---
EMILY ZHENG assessment: Face to Face with patient for initial transition planning/care coordination assessment. EMILY ZHENG introduced self and role at [facility], pt voices understanding and consents to assessment at this time. Pt is sitting up in chair in no distress at this time. Pt is A/Ox4 at this time and answers all questions appropriately at this time. Pt's daughter is at bedside during assessment. Care providers, pharmacy, and demographics verified at this time. PCP: Chidi Specialists: Angy cardio; bob Covarrubias Preferred [facility]acy: [facility] Insurance: [facility] A/B, MMO Prescription Benefit: Yes Living Will/HPOA: Pt states has LW/HPOA and his , Shasha Guzman, is HPOA. Pt is aware that AD's are not on file at [facility] at this time. LNOK: Shasha Guzman, Living Arrangements: Pt states lives with in 1 story home with 3 steps to get in and states no concerns at home at this time. Transportation: Pt states drives self and states no transportation concerns at this time. DME/HHC: Pt states has 3-4 walkers at home, cpap and home oxygen('that I don't use', per pt). Pt states that his oxygen and cpap are still set up thru [facility] and he never had them transferred. This EMILY ZHENG informed pt and daughter on how to get oxygen and cpap transferred, voice understanding. Pt states his was just set up with oxygen thru [facility] and he will probably just go with them. Pt states no hx of HHC or SNF in the past. Pt states no concerns with going home at time of discharge. 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 Pt states he does not smoke or drink ETOH. Pt states no further concerns/needs at this time. CM to follow PT/OT evals, home oxygen eval, and for any further discharge planning/needs. Advised pt to ask for CM if any further questions/concerns/needs arise, voices understanding. Plan: [place] EMILY ZHENG
[2018-08-20] MEDS: Furosemide 40 MG/4 ML Vial IV ×2 (14:55→23:05)
[2018-08-20 17:15] LABS: Bedside Glucose 156 mg/dL (70-110)
--- NOTE | 2018-08-20 17:37 | NURSING ---
1710 called and spoke with Guy in Pharmacy to clarify if coumadin was safe to administer since 5mg dose given early today at 0045 - Pharmacist stated it was safe to give with INR and patient had not taken yesterday
[2018-08-20] MEDS: Atorvastatin Calcium 10 MG Tablet PO (23:07)
[2018-08-21] VITALS (21 sets, daily range): BP systolic 97–120; BP diastolic 58–72; PULSE 69–103; RESP 16–20; TEMP 36.4–36.7; O2SAT 95–98
--- NOTE | 2018-08-21 02:46 | NURSING ---
Pt. BGT at was 329. Glucometer did not register result in compter
[2018-08-21 06:41] LABS: Hematocrit 42.5 % (40-54); Hemoglobin 14.3 g/dl (13.0-16.5); Mean Corp Hgb Conc 33.6 g/gl (32-36); Mean Platelet Vol. 10.1 fl (6.2-12.0); Platelet Count 284 K/mm3 (150-450); RBC Distribution Width CV 13.4 % (11.6-14.6); RBC Distribution Width SD 44.5 fl (35.1-43.9); Red Blood Count 4.62 M/mm3 (4.6-6.2); White Blood Count 6.9 K/mm3 (4.4-11.0)
[2018-08-21 06:46] LABS: International Normalized Ratio 2.3; Prothrombin Time (Protime)PT. 25.1 SECONDS (11.7-14.9)
[2018-08-21 06:52] LABS: Scan Indicated on CBC? Y/N NO
[2018-08-21 06:53] LABS: Anion Gap 11 (5-15); BUN 25 mg/dL (7-18); BUN/Creat Ratio 19.2 RATIO (10-20); Calcium,Total 8.5 mg/dL (8.5-10.1); Chloride 101 mmol/L (98-107); EST Glomerular Filtration Rate 56 mL/min (>60); Est Glom Filt Rate - Afr Amer 68 mL/min (>60); Estimated Creatinine Clearance 45.32 ml/min; Glucose 163 mg/dL (74-106); Potassium 3.6 mmol/L (3.5-5.1); Sodium Level 140 mmol/L (136-145)
[2018-08-21] MEDS: Furosemide 40 MG/4 ML Vial IV ×3 (07:00→21:30)
[2018-08-21] MEDS: hydrALAZINE 25 MG Tablet PO ×3 (07:03→21:30)
[2018-08-21] MEDS: 0.9% NaCl Peripheral Flush Adult/Peds IV ×2 (07:04→21:35)
[2018-08-21 07:06] LABS: Bedside Glucose 329 mg/dL (70-110)
[2018-08-21 07:06] LABS: Bedside Glucose 329 mg/dL (70-110)
[2018-08-21] MEDS: Ipratropium/Albuterol Sulfate 3 ML AMPUL.NEB INHALATION ×3 (07:13→19:10)
[2018-08-21 07:15] LABS: Bedside Glucose 154 mg/dL (70-110)
[2018-08-21] MEDS: Tamsulosin HCl 0.4 MG Capsule PO (08:09)
[2018-08-21] MEDS: Aspirin E.C. 81 MG Tablet PO (08:09)
[2018-08-21] MEDS: Glimepiride 4 MG Tablet PO (08:09)
[2018-08-21] MEDS: Insulin Lispro 100 UNIT/ML INSULN.PEN SQ ×4 (08:12→21:34)
[2018-08-21] MEDS: Metoprolol Tartrate 100 MG Tablet 150 MG PO ×2 (09:37→21:34)
[2018-08-21] MEDS: amLODIPine 10 MG Tablet PO (09:37)
[2018-08-21] MEDS: Fluticasone 0.05% 1 SPRAY NASAL.SRY 2 SPRAY NASAL (09:39)
--- NOTE | 2018-08-21 09:55 | PCM.PN.HOSP ---
Subjective: Patient seen. Breathing still remains labored at rest. CT of the chest without contrast ordered the day prior demonstrated Findings indicative of chronic tissues or fibrosis with bullous changes worse in the lower lobes.Densely calcified pleural plaques worse on the left side. Objective: GENERAL: Dyspneic at rest HEENT: Atraumatic; moist oral mucosa EYES; Anicteric, Normal Conjunctiva NECK; supple, normal thyroid, no distended JVD. RESPIRATORY: Diminished to auscultation bilaterally, bibasilar crackles CARDIOVASCULAR: Irregular S1 S2, GI: soft, non-tender, normoactive bowel sounds, : No Renal angle tenderness; EXTREMITIES: Trace edema, no clubbing, no cyanosis. MUSCULOSKELETAL: No Joint Tenderness; no muscle waisting NEURO: Awake; no lateralizing signs. SKIN: No Rash PSYCH; Normal affect Vitals/I&O's: Vital Signs Temp Pulse Resp BP Pulse Ox 97.8 F 88 20 H 116/68 96 08/21/18 07:00 08/21/18 09:37 08/21/18 07:14 08/21/18 09:37 08/21/18 07:14 Oxygen Flow Rate (L/min) 2 Oxygen Delivery Method Nasal Cannula Weight: 89 kg Body Mass Index (BMI) 29.0 Intake and Output for Last 24 Hours 08/19/18 08/20/18 08/21/18 23:59 23:59 23:59 Intake Total 120 / 120 1080 / 1080 100 / 100 Output Total 575 / 575 2625 / 2625 825 / 825 Balance -455 / -455 -1545 / -1545 -725 / -725 Laboratory Results 08/20/18 11:53: POC Glucose 395 H 08/20/18 17:05: POC Glucose 156 H 08/20/18 23:12: POC Glucose 329 H 08/20/18 23:14: POC Glucose 329 H 08/21/18 06:05: WBC 6.9, RBC 4.62, Hgb 14.3, Hct 42.5, MCV 92.0, MCH 31.0, MCHC 33.6, RDW 13.4, RDW Differential 44.5 H, Plt Count 284, MPV 10.1 08/21/18 06:05: PT 25.1 H, INR 2.3 08/21/18 06:05: Sodium 140, Potassium 3.6, Chloride 101, Carbon Dioxide 28.0, Anion Gap 11, BUN 25 H, Creatinine 1.30, Estim Creat Clear Calc 45.32, Est GFR (MDRD) Af Amer 68, Est GFR (MDRD) Non-Af 56 L, BUN/Creatinine Ratio 19.2, Glucose 163 H, Calcium 8.5, Magnesium 2.0 08/21/18 07:07: POC Glucose 154 H Current Medications Acetaminophen (Tylenol) 650 mg PO Q6H PRN PRN PRN Reason: Mild Pain (scale 0-3)/T>100.7 Albuterol Sulfate (Ventolin Aerosols) 2.5 mg INHALATION Q2H PRN PRN PRN Reason: Shortness of breath, wheezing Albuterol/Ipratropium (Duoneb) 3 ml INHALATION Q6H.RT [facility] Last Admin: 08/21/18 07:13 Dose: 3 ml Amlodipine Besylate (Norvasc) 10 mg PO DAILY [facility] Last Admin: 08/21/18 09:37 Dose: 10 mg Aspirin (Ecotrin) 81 mg PO DAILY@0800 [facility] Last Admin: 08/21/18 08:09 Dose: 81 mg Atorvastatin Calcium (Lipitor) 10 mg PO QHS [facility] Last Admin: 08/20/18 23:07 Dose: 10 mg Fluticasone Propionate (Flonase Nasal [place]) 2 spray NASAL DAILY [facility] Last Admin: 08/21/18 09:39 Dose: 2 spray Furosemide (Lasix) 40 mg IV Q8 [facility] Last Admin: 08/20/18 23:05 Dose: 40 mg Glimepiride (Amaryl) 4 mg PO DAILYCM [facility] Last Admin: 08/21/18 08:09 Dose: 4 mg Hydralazine HCl (Apresoline) 25 mg PO TID [facility] Last Admin: 08/21/18 07:03 Dose: 25 mg Insulin Human Lispro (Humalog Kwikpen (Bkc)) 0 unit SQ ACHS [facility]; Protocol Last Admin: 08/21/18 08:12 Dose: 1 u Magnesium Hydroxide (Milk Of Magnesia) 30 ml PO DAILY PRN PRN Reason: Constipation Metoprolol Tartrate (Lopressor (Beta Uriel)) 150 mg PO BID [facility] Last Admin: 08/21/18 09:37 Dose: 150 mg Ondansetron HCl (Zofran) 4 mg IV Q8H PRN PRN PRN Reason: Nausea Potassium Chloride (K-Dur) 20 meq PO BIDCM [facility] Last Admin: 08/21/18 08:09 Dose: 20 meq Sodium Chloride () 5 - 15 ml IV UD PRN PRN Reason: SALINE FLUSH Last Admin: 08/21/18 07:04 Dose: 10 ml Tamsulosin HCl (Flomax) 0.4 mg PO DAILY@0830 [facility] Last Admin: 08/21/18 08:09 Dose: 0.4 mg Warfarin Sodium (Coumadin (Pbkc)) 5 mg PO DAILY@1700 [facility] Last Admin: 08/20/18 17:10 Dose: 5 mg Warfarin Sodium (Coumadin (Pbkc)) 2 mg PO QODAY@1700 [facility] Last Admin: 08/20/18 17:10 Dose: 2 mg Medical Necessity - Tobacco Use Smoking Status: Former smoker Tobacco Use: Secondhand Assessment/Plan Patient is an 78-year-old gentleman with multiple comorbidities including hypertension, CAD with previous stent placement, known diastolic congestive heart failure who presented with progressive shortness of breath. An assessment of acute diastolic congestive heart failure made. Admitted to a monitored bed for subsequent management 1. Acute on chronic systolic heart failure (heart failure with preserved ejection fraction. Patient echo on June 2018 demonstrated EF of 60% with RVSP of 66 mmHg. Patient has been admitted to monitored bed placed on fluid restriction, strict input and output, daily weights as well as IV Lasix. Patient Lasix dose adjusted this a.m. patient still remains significantly dyspneic at rest plan is to assess patient for continuous home O2 use on discharge 2. Acute kidney injury secondary to cardiorenal syndrome patient kidney function did improve with diuresis 3. Paroxysmal atrial fibrillation rate controlled on systemic anticoagulation with Coumadin with a therapeutic INR 4. Diabetes mellitus type 2 held patient oral agent placed on Accu-Cheks with sliding scale coverage 5. CAD with previous stent placement 6. Hypertension-blood pressure controlled, home medications continued with dose adjustment as needed 7. COPD not in exacerbation did continue with home regimen 8. Dyslipidemia-patient is on statin therapy, continued at home dose 9. Pulmonary hypertension with RVSP of 66 mmHg 10. BPH patient on Flomax 11. DVT prophylaxis and on Coumadin no need for additional measures 12. Chronic hypoxic respiratory failure secondary to COPD patient is on baseline 4 L home oxygen at night 13. 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 No visualized acute focal infiltrate. Pacer defibrillator. Electronically Signed: Shiela Muñoz MD at 16:47 EST Tel , Service support , Chest CT 08/20/18 10:10 IMPRESSION: Findings indicative of chronic tissues or fibrosis with bullous changes worse in the lower lobes. Densely calcified pleural plaques worse on the left side. Electronically Signed: Spencer Preez MD at 13:40 EST , Service support , Code Visit Inpatient E&M: [id number] Subs Hosp L3
--- NOTE | 2018-08-21 10:01 | PN_ITS ---
Subjective: Patient seen. Breathing still remains labored at rest. CT of the chest without contrast ordered the day prior demonstrated Findings indicative of chronic tissues or fibrosis with bullous changes worse in the lower lobes.Densely calcified pleural plaques worse on the left side. Objective: GENERAL: Dyspneic at rest HEENT: Atraumatic; moist oral mucosa EYES; Anicteric, Normal Conjunctiva NECK; supple, normal thyroid, no distended JVD. RESPIRATORY: Diminished to auscultation bilaterally, bibasilar crackles CARDIOVASCULAR: Irregular S1 S2, GI: soft, non-tender, normoactive bowel sounds, : No Renal angle tenderness; EXTREMITIES: Trace edema, no clubbing, no cyanosis. MUSCULOSKELETAL: No Joint Tenderness; no muscle waisting NEURO: Awake; no lateralizing signs. SKIN: No Rash PSYCH; Normal affect Vitals/I&O's: Vital Signs Temp Pulse Resp BP Pulse Ox 97.8 F 88 20 H 116/68 96 08/21/18 07:00 08/21/18 09:37 08/21/18 07:14 08/21/18 09:37 08/21/18 07:14 Oxygen Flow Rate (L/min) 2 Oxygen Delivery Method Nasal Cannula Weight: 89 kg Body Mass Index (BMI) 29.0 Intake and Output for Last 24 Hours 08/19/18 08/20/18 08/21/18 23:59 23:59 23:59 Intake Total 120 / 120 1080 / 1080 100 / 100 Output Total 575 / 575 2625 / 2625 825 / 825 Balance -455 / -455 -1545 / -1545 -725 / -725 Laboratory Results 08/20/18 11:53: POC Glucose 395 H 08/20/18 17:05: POC Glucose 156 H 08/20/18 23:12: POC Glucose 329 H 08/20/18 23:14: POC Glucose 329 H 08/21/18 06:05: WBC 6.9, RBC 4.62, Hgb 14.3, Hct 42.5, MCV 92.0, MCH 31.0, MCHC 33.6, RDW 13.4, RDW Differential 44.5 H, Plt Count 284, MPV 10.1 08/21/18 06:05: PT 25.1 H, INR 2.3 08/21/18 06:05: Sodium 140, Potassium 3.6, Chloride 101, Carbon Dioxide 28.0, Anion Gap 11, BUN 25 H, Creatinine 1.30, Estim Creat Clear Calc 45.32, Est GFR (MDRD) Af Amer 68, Est GFR (MDRD) Non-Af 56 L, BUN/Creatinine Ratio 19.2, Glucose 163 H, Calcium 8.5, Magnesium 2.0 08/21/18 07:07: POC Glucose 154 H Current Medications Acetaminophen (Tylenol) 650 mg PO Q6H PRN PRN PRN Reason: Mild Pain (scale 0-3)/T>100.7 Albuterol Sulfate (Ventolin Aerosols) 2.5 mg INHALATION Q2H PRN PRN PRN Reason: Shortness of breath, wheezing Albuterol/Ipratropium (Duoneb) 3 ml INHALATION Q6H.RT [facility] Last Admin: 08/21/18 07:13 Dose: 3 ml Amlodipine Besylate (Norvasc) 10 mg PO DAILY [facility] Last Admin: 08/21/18 09:37 Dose: 10 mg Aspirin (Ecotrin) 81 mg PO DAILY@0800 [facility] Last Admin: 08/21/18 08:09 Dose: 81 mg Atorvastatin Calcium (Lipitor) 10 mg PO QHS [facility] Last Admin: 08/20/18 23:07 Dose: 10 mg Fluticasone Propionate (Flonase Nasal [place]) 2 spray NASAL DAILY [facility] Last Admin: 08/21/18 09:39 Dose: 2 spray Furosemide (Lasix) 40 mg IV Q8 [facility] Last Admin: 08/20/18 23:05 Dose: 40 mg Glimepiride (Amaryl) 4 mg PO DAILYCM [facility] Last Admin: 08/21/18 08:09 Dose: 4 mg Hydralazine HCl (Apresoline) 25 mg PO TID [facility] Last Admin: 08/21/18 07:03 Dose: 25 mg Insulin Human Lispro (Humalog Kwikpen (Bkc)) 0 unit SQ ACHS [facility]; Protocol Last Admin: 08/21/18 08:12 Dose: 1 u Magnesium Hydroxide (Milk Of Magnesia) 30 ml PO DAILY PRN PRN Reason: Constipation Metoprolol Tartrate (Lopressor (Beta Uriel)) 150 mg PO BID [facility] Last Admin: 08/21/18 09:37 Dose: 150 mg Ondansetron HCl (Zofran) 4 mg IV Q8H PRN PRN PRN Reason: Nausea Potassium Chloride (K-Dur) 20 meq PO BIDCM [facility] Last Admin: 08/21/18 08:09 Dose: 20 meq Sodium Chloride () 5 - 15 ml IV UD PRN PRN Reason: SALINE FLUSH Last Admin: 08/21/18 07:04 Dose: 10 ml Tamsulosin HCl (Flomax) 0.4 mg PO DAILY@0830 [facility] Last Admin: 08/21/18 08:09 Dose: 0.4 mg Warfarin Sodium (Coumadin (Pbkc)) 5 mg PO DAILY@1700 [facility] Last Admin: 08/20/18 17:10 Dose: 5 mg Warfarin Sodium (Coumadin (Pbkc)) 2 mg PO QODAY@1700 [facility] Last Admin: 08/20/18 17:10 Dose: 2 mg Medical Necessity - Tobacco Use Smoking Status: Former smoker Tobacco Use: Secondhand Assessment/Plan Patient is an 78-year-old gentleman with multiple comorbidities including hypertension, CAD with previous stent placement, known diastolic congestive heart failure who presented with progressive shortness of breath. An assessment of acute diastolic congestive heart failure made. Admitted to a monitored bed for subsequent management 1. Acute on chronic systolic heart failure (heart failure with preserved ejection fraction. Patient echo on June 2018 demonstrated EF of 60% with RVSP of 66 mmHg. Patient has been admitted to monitored bed placed on fluid restriction, strict input and output, daily weights as well as IV Lasix. Patient Lasix dose adjusted this a.m. patient still remains significantly dyspneic at rest plan is to assess patient for continuous home O2 use on discharge 2. Acute kidney injury secondary to cardiorenal syndrome patient kidney function did improve with diuresis 3. Paroxysmal atrial fibrillation rate controlled on systemic anticoagulation with Coumadin with a therapeutic INR 4. Diabetes mellitus type 2 held patient oral agent placed on Accu-Cheks with sliding scale coverage 5. CAD with previous stent placement 6. Hypertension-blood pressure controlled, home medications continued with dose adjustment as needed 7. COPD not in exacerbation did continue with home regimen 8. Dyslipidemia-patient is on statin therapy, continued at home dose 9. Pulmonary hypertension with RVSP of 66 mmHg 10. BPH patient on Flomax 11. DVT prophylaxis and on Coumadin no need for additional measures 12. Chronic hypoxic respiratory failure secondary to COPD patient is on baseline 4 L home oxygen at night 13. 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 No visualized acute focal infiltrate. Pacer defibrillator. Electronically Signed: Shiela Muñoz MD at 16:47 EST Tel , Service support , Chest CT 08/20/18 10:10 IMPRESSION: Findings indicative of chronic tissues or fibrosis with bullous changes worse in the lower lobes. Densely calcified pleural plaques worse on the left side. Electronically Signed: Spencer Perez MD at 13:40 EST , Service support , Code Visit Inpatient E&M: [id number] Subs Hosp L3
--- NOTE | 2018-08-21 10:56 | CASEMGMT ---
Per Dr. Cole, pt's daughter was inquiring about a portable oxygen tank at discharge. This RN CM to room and advised pt/daughter that they will need to transfer pt's oxygen order from /[facility] as he never took care of that previously. Pt states he would like home oxygen to be through [facility], as his just signed up through them. Call to [facility] and [place] faxed this RN CM a release at this time. Pt/daughter given the release and this RN CM will obtain once signed and fax back to [facility] for pt at this time. SStbraxton RN CM
[2018-08-21 11:41] LABS: Bedside Glucose 264 mg/dL (70-110)
[2018-08-21 16:30] LABS: Bedside Glucose 289 mg/dL (70-110)
[2018-08-21] MEDS: Atorvastatin Calcium 10 MG Tablet PO (21:35)
[2018-08-21 22:05] LABS: Bedside Glucose 362 mg/dL (70-110)
[2018-08-22] VITALS (14 sets, daily range): BP systolic 98–118; BP diastolic 52–72; PULSE 50–93; RESP 18–22; TEMP 36.4–36.7; O2SAT 94–98
[2018-08-22] MEDS: Ipratropium/Albuterol Sulfate 3 ML AMPUL.NEB INHALATION ×2 (00:44→07:20)
[2018-08-22] MEDS: Furosemide 40 MG/4 ML Vial IV (05:33)
[2018-08-22] MEDS: 0.9% NaCl Peripheral Flush Adult/Peds IV (05:34)
[2018-08-22 06:03] LABS: Hematocrit 41.8 % (40-54); Mean Corp Hgb Conc 33.5 g/gl (32-36); Mean Corpuscular Hgb 30.9 pg (27.0-32.0); Mean Corpuscular Volume 92.3 fL (80-94); Mean Platelet Vol. 10.1 fl (6.2-12.0); Platelet Count 284 K/mm3 (150-450); RBC Distribution Width CV 13.3 % (11.6-14.6); Red Blood Count 4.53 M/mm3 (4.6-6.2); White Blood Count 7.4 K/mm3 (4.4-11.0)
[2018-08-22] MEDS: hydrALAZINE 25 MG Tablet PO (06:03)
[2018-08-22 06:04] LABS: International Normalized Ratio 2.2; Prothrombin Time (Protime)PT. 24.8 SECONDS (11.7-14.9); Scan Indicated on CBC? Y/N NO
[2018-08-22 06:14] LABS: Anion Gap 10 (5-15); BUN 28 mg/dL (7-18); BUN/Creat Ratio 23.9 RATIO (10-20); Calcium,Total 8.4 mg/dL (8.5-10.1); Chloride 101 mmol/L (98-107); Creatinine, Serum 1.17 mg/dL (0.70-1.30); EST Glomerular Filtration Rate 64 mL/min (>60); Est Glom Filt Rate - Afr Amer 77 mL/min (>60); Estimated Creatinine Clearance 50.36 ml/min; Glucose 186 mg/dL (74-106); Potassium 3.8 mmol/L (3.5-5.1); Sodium Level 139 mmol/L (136-145)
[2018-08-22 07:11] LABS: Bedside Glucose 169 mg/dL (70-110)
[2018-08-22] MEDS: Insulin Lispro 100 UNIT/ML INSULN.PEN SQ ×2 (08:26→11:22)
[2018-08-22] MEDS: Aspirin E.C. 81 MG Tablet PO (08:28)
[2018-08-22] MEDS: Tamsulosin HCl 0.4 MG Capsule PO (08:28)
[2018-08-22] MEDS: Metoprolol Tartrate 100 MG Tablet 150 MG PO (08:28)
[2018-08-22] MEDS: Glimepiride 4 MG Tablet PO (08:28)
[2018-08-22] MEDS: Fluticasone 0.05% 1 SPRAY NASAL.SRY 2 SPRAY NASAL (08:29)
[2018-08-22] MEDS: amLODIPine 10 MG Tablet PO (08:30)
--- NOTE | 2018-08-22 10:22 | PCM.DC ---
You will use the following diet at home:: Cardiac, Fluid restricted (specify 2000 mls, 1500 mls) - 1999 Your food should be the consistency of: Regular Discharge Activity: Return to Normal Activity Allergies/Adverse Reactions: Allergies sulfamethoxazole [From Septra] Allergy (Verified 08/19/18 16:18) Other trimethoprim [From Septra] Allergy (Verified 08/19/18 16:18) Other niacin [From Niaspan Extended-Release] Adverse Reaction (Verified 08/19/18 16:18) Rash Medications to take at Discharge Albuterol Aerosols [Ventolin Aerosols] 2.5 mg INHALATION Q6H PRN PRN 07/21/15 Amlodipine [Norvasc] 10 mg PO DAILY 07/21/15 Aspirin E.C. [Ecotrin] 81 mg PO DAILY@0800 07/21/15 Fluticasone 0.05% [Flonase Nasal [place]] 2 spray NASAL DAILY 07/21/15 Glimepiride [Amaryl] 4 mg PO DAILY 07/21/15 Ipratropium/Albuterol Respimat [Combivent Respimat Inhal [place]] 1 puff INHALATION 4X/DAY 07/21/15 Metformin HCl [Glucophage] 1,000 mg PO BIDCM 07/21/15 Metoprolol Tartrate [Lopressor (beta jostin)] 150 mg PO BID 07/21/15 [place]-3S/Dha/Epa/Fish Oil/D3 [Fish Jdl-Vkdoq-4-Vit D Softgel] 1 each PO DAILY 07/21/15 Sildenafil Citrate [Viagra] 100 mg PO PRN PRN 07/21/15 Simvastatin [Zocor] 20 mg PO QHS 07/21/15 Tamsulosin HCl [Flomax] 0.4 mg PO DAILY 07/21/15 hydrALAZINE [Apresoline] 25 mg PO TID 07/21/15 Oxygen, Home [Home Oxygen] 2 - 4 lpm NASAL CONT #1 unit 07/26/15 Furosemide [Lasix] 40 mg PO Q6H 08/19/18 Potassium Chloride [K-Dur] 20 meq PO BID 08/19/18 Warfarin Sodium [Coumadin] 2 mg PO 08/20/18 Warfarin [Coumadin] 5 mg PO 08/20/18 Warfarin [Coumadin] 7 mg PO 08/20/18 Benzonatate [Tessalon Perle] 100 mg PO Q4H PRN PRN #30 capsule 08/22/18 The following prescriptions were given: Benzonatate [Tessalon Perle] 100 mg PO Q4H PRN PRN #30 capsule PRN Reason: Cough Primary Care Physician: Rik Murillo MD [Primary Care Provider] - Please follow up with your Primary Care Physician in: in 5-7days Test Results: Test results from this visit will be discussed in further detail at your follow-up appointment, if applicable. Proposed Discharge Date: 08/22/18
--- NOTE | 2018-08-22 10:25 | PCM.DC.SUM ---
Discharge Date and Diagnosis - Problem List Patient Problems: Active and Suspected Problems CHF exacerbation (Acute) Date of Admission: 08/19/18 Date of Discharge: 08/22/18 - Primary Discharge Diagnosis Active and Suspected Problems CHF exacerbation (Acute) - Secondary Discharge Diagnosis Chronic Problems Mesothelioma (Chronic) Heart failure (Chronic) Obstructive sleep apnea (Chronic) Paroxysmal a-fib (Chronic) Pulmonary hypertension (Chronic) Dyslipidemia (Chronic) CAD (coronary artery disease) (Chronic) History of heart artery stent (Chronic) Acute respiratory failure with hypoxia (Chronic) COPD (chronic obstructive pulmonary disease) (Chronic) Diabetes mellitus (Chronic) Hospital Course and Treatment Imaging Results: Clinical Impression(s) from Imaging Studies Chest X-Ray 08/19/18 16:30 IMPRESSION: Chronic fibrotic changes in the left chest. 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 No visualized acute focal infiltrate. Pacer defibrillator. Electronically Signed: Shiela Muñoz MD at 16:47 EST Tel , Service support , Chest CT 08/20/18 10:10 IMPRESSION: Findings indicative of chronic tissues or fibrosis with bullous changes worse in the lower lobes. Densely calcified pleural plaques worse on the left side. Electronically Signed: Spencer Perez MD at 13:40 EST , Service support , Operations: None Summary of Care Provided: Patient is an 78-year-old gentleman with multiple comorbidities including hypertension, CAD with previous stent placement, known diastolic congestive heart failure who presented with progressive shortness of breath. An assessment of acute diastolic congestive heart failure made. Admitted to a monitored bed for subsequent management 1. Acute on chronic diastolic heart failure (heart failure with preserved ejection fraction.) Patient echo on June 2018 demonstrated EF of 60% with RVSP of 66 mmHg. Patient has been admitted to monitored bed placed on fluid restriction, strict input and output, daily weights as well as IV Lasix.. Patient was assessed for continuous home O2 use prior to discharge. Patient did not qualify. 2. Acute kidney injury secondary to cardiorenal syndrome patient kidney function did improve with diuresis 3. Paroxysmal atrial fibrillation rate controlled on systemic anticoagulation with Coumadin with a therapeutic INR 4. Diabetes mellitus type 2 held patient oral agent placed on Accu-Cheks with sliding scale coverage 5. CAD with previous stent placement 6. Hypertension-blood pressure controlled, home medications continued with dose adjustment as needed 7. COPD not in exacerbation did continue with home regimen 8. Dyslipidemia-patient is on statin therapy, continued at home dose 9. Pulmonary hypertension with RVSP of 66 mmHg 10. BPH patient on Flomax 11. DVT prophylaxis and on Coumadin no need for additional measures 12. Chronic hypoxic respiratory failure secondary to COPD patient is on baseline 4 L home oxygen at night 13. 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 PSYCH; Normal affect - Physical Exam Vital Signs Temp Pulse Resp BP Pulse Ox 97.6 F L 71 22 H 118/68 98 08/22/18 06:00 08/22/18 08:28 08/22/18 07:20 08/22/18 08:28 08/22/18 07:20 Oxygen Flow Rate (L/min) 2 Oxygen Delivery Method Nasal Cannula Weight: 88.7 kg Body Mass Index (BMI) 29.0 Intake and Output for Last 24 Hours 08/20/18 08/21/18 08/22/18 23:59 23:59 23:59 Intake Total 1080 / 1080 1195 / 1195 100 / 100 Output Total 2625 / 2625 1725 / 1725 275 / 275 Balance -1545 / -1545 -530 / -530 -175 / -175 Laboratory Tests Past 24 Hrs 08/22/18 08/22/18 08/22/18 05:25 05:25 05:25 WBC 7.4 RBC 4.53 L Hgb 14.0 Hct 41.8 MCV 92.3 MCH 30.9 MCHC 33.5 RDW 13.3 RDW Differential 44.0 H Plt Count 284 MPV 10.1 PT 24.8 H INR 2.2 Sodium 139 Potassium 3.8 Chloride 101 Carbon Dioxide 28.0 Anion Gap 10 BUN 28 H Creatinine 1.17 Estim Creat Clear Calc 50.36 Est GFR (MDRD) Af Amer 77 Est GFR (MDRD) Non-Af 64 BUN/Creatinine Ratio 23.9 H Glucose 186 H Calcium 8.4 L POC Glucose 08/22/18 08/21/18 08/21/18 07:02 21:28 16:00 POC Glucose 169 H 362 H 289 H 08/21/18 11:10 POC Glucose 264 H Discharge Diet: Low fat/ Low Cholesterol, 8 Cup Fluid Restriciton Discharge Activity: Return to Normal Activity Home Medications: Medications to take at Discharge Albuterol Aerosols [Ventolin Aerosols] 2.5 mg INHALATION Q6H PRN PRN 07/21/15 Amlodipine [Norvasc] 10 mg PO DAILY 07/21/15 Aspirin E.C. [Ecotrin] 81 mg PO DAILY@0800 07/21/15 Fluticasone 0.05% [Flonase Nasal [place]] 2 spray NASAL DAILY 07/21/15 Glimepiride [Amaryl] 4 mg PO DAILY 07/21/15 Ipratropium/Albuterol Respimat [Combivent Respimat Inhal [place]] 1 puff INHALATION 4X/DAY 07/21/15 Metformin HCl [Glucophage] 1,000 mg PO BIDCM 07/21/15 Metoprolol Tartrate [Lopressor (beta jostin)] 150 mg PO BID 07/21/15 [place]-3S/Dha/Epa/Fish Oil/D3 [Fish Mnl-Cnwgy-7-Vit D Softgel] 1 each PO DAILY 07/21/15 Sildenafil Citrate [Viagra] 100 mg PO PRN PRN 07/21/15 Simvastatin [Zocor] 20 mg PO QHS 07/21/15 Tamsulosin HCl [Flomax] 0.4 mg PO DAILY 07/21/15 hydrALAZINE [Apresoline] 25 mg PO TID 07/21/15 Oxygen, Home [Home Oxygen] 2 - 4 lpm NASAL CONT #1 unit 07/26/15 Furosemide [Lasix] 40 mg PO Q6H 08/19/18 Potassium Chloride [K-Dur] 20 meq PO BID 08/19/18 Warfarin Sodium [Coumadin] 2 mg PO 08/20/18 Warfarin [Coumadin] 5 mg PO 08/20/18 Warfarin [Coumadin] 7 mg PO 08/20/18 Benzonatate [Tessalon Perle] 100 mg PO Q4H PRN PRN #30 capsule 08/22/18 Following Prescrptions Were Given to Patient: Benzonatate [Tessalon Perle] 100 mg PO Q4H PRN PRN #30 capsule PRN Reason: Cough Primary Care Physician: Rik Murillo MD [Primary Care Provider] - Please follow up with your Primary Care Physician in: in 5-7days Disposition: Home Minutes spent on discharge:: 35 Patient Condition:: Stable Medical Necessity - Tobacco Use Smoking Status: Former smoker Tobacco Use: Secondhand Meaningful Use Info Meaningful Use Diagnoses (Choose all that apply): CHF - CHF JUAN RAMON/ARB ordered at discharge?: No Reason JUAN RAMON/ARB not ordered?: Worsening renal disease Documented LVEF (%): 35 Code Visit Inpatient E&M: 62462 Disch Hosp
--- NOTE | 2018-08-22 10:46 | CASEMGMT ---
Addendum entered by Jennifer Rich 08/22/18 12:15: Per Luz @ [employer], in order to transfer oxygen supply company to receive from [facility], pt will need new Script for O2 and Home O2 qualification testing done. Home O2 qualification testing completed. See documented findings. Pt does not qualify for new script for O2 at this time. Pt and daughter made aware. Pt and daughter both state they will just keep [facility] (for [facility]) as pt's oxygen supplier and CPAP. Luz @ [employer] called and notified pt will be keeping [facility] for oxygen needs and CPAP. Original Note: EMILY ZHENG NOTE: Call placed to [facility] for [facility]. They state pt is currently receiving Oxygen through them and order is for 2-4 L/M continuously. Amina KAUR RN CM
[2018-08-22 11:36] LABS: Bedside Glucose 281 mg/dL (70-110)
--- NOTE | 2018-08-25 15:36 | CASEMGMT ---
RN NORM DC PHONE CALL DC DATE: 08/22/18 DC DISPOSITION: Home LACE/STRATA:06/24 Intro role of CM to patient via phone. Pt states he is feeling better, no questions re: prescriptions or instructions. reviewed f/u appointment with pt. No care improvement suggestions given. Dina SIGALAN RN ACM
== END 2018-08-22 12:36 | disposition home or self-care (01) | DRG 292 ==
LOC: ED 16:59 → PCU 18:26
PROVIDERS: Admitting Provider Hospitalist; Emergency Provider Emergency Medicine; Family Provider Internal Medicine; PCP Internal Medicine; Referring Provider Hospitalist; Visit Provider Internal Medicine
DX: I11.0 Hypertensive heart disease with heart failure (principal); N17.9 Acute kidney failure, unspecified; J96.11 Chronic respiratory failure with hypoxia; I50.33 Acute on chronic diastolic (congestive) heart failure; J44.9 Chronic obstructive pulmonary disease, unspecified; E11.9 Type 2 diabetes mellitus without complications; I25.10 Atherosclerotic heart disease of native coronary artery without angina pectoris; I48.0 Paroxysmal atrial fibrillation; Z99.81 Dependence on supplemental oxygen; N40.0 Benign prostatic hyperplasia without lower urinary tract symptoms; E78.5 Hyperlipidemia, unspecified; I27.20 Pulmonary hypertension, unspecified; Z66 Do not resuscitate; Z95.5 Presence of coronary angioplasty implant and graft; Z79.84 Long term (current) use of oral hypoglycemic drugs; Z79.899 Other long term (current) drug therapy; C45.9 Mesothelioma, unspecified; Z77.090 Contact with and (suspected) exposure to asbestos; G47.33 Obstructive sleep apnea (adult) (pediatric); Z87.891 Personal history of nicotine dependence; Z77.22 Contact with and (suspected) exposure to environmental tobacco smoke (acute) (chronic)
CPT/HCPCS: 36415; 71045; 71250; 80048; 82962; 83735; 83880; 84484; 85025; 85027; 85610; 93005; 94640; 94667; 94668; 97162; 97165; 97530; 97802; 99283; A4216; J1940

== ENCOUNTER → 2018-10-23 12:49 | Outpatient (CLI) | payer MEDICARE, OTHER, SELFPAY ==
[2018-08-19 19:45] VITALS: BMI 29.0
--- NOTE | 2018-10-23 12:50 | RAD_ITS ---
STUDY: SWALLOWING STUDY REASON FOR EXAM: Male, 78 years old. Dysphagia.. TECHNIQUE: The examination was performed with Speech Pathology in attendance. Under fluoroscopic observation, the patient ingested thin barium, thick barium, barium pudding, and barium coated cracker. FLUOROSCOPY TIME: 2:32 minutes/seconds. 2322 fluoroscopic images were obtained. RADIOLOGIST INVOLVEMENT: Radiologist was present and providing direct supervision. COMPARISON: None. FINDINGS: The following was observed during swallowing of the various mixtures of barium: Thin Barium: Transient penetration with ingestion of thin liquids. Thick Barium: There was no evidence of aspiration or laryngeal penetration. Barium Pudding: There was no evidence of aspiration or laryngeal penetration. Barium Coated Cracker: There was no evidence of aspiration or laryngeal penetration. RAD/Swallowing Function w/Video IMPRESSION: Transient penetration with ingestion of thin liquids. The swallow study findings were discussed with the patient by the speech pathologist at the conclusion of the examination. Please see speech pathology report for more information and recommendations. Electronically Signed: Spencer Perez, at 15:03 EDT , Service support ,
--- NOTE | 2018-10-23 13:51 | SP.MBSS_ITS ---
PRIMARY / SECONDARY DIAGNOSIS: Dysphagia, unspecified (R13.10) REFERRING PHYSICIAN: Dr. Rik Murillo CURRENT DIET: Regular Textures/Thin Liquids DENTITION: upper and lower dentures MENTAL STATUS: WFL RESPIRATORY STATUS: O2 via room air for MBSS PREVIOUS MODIFIED BARIUM SWALLOW STUDY: N/A REASON FOR REFERRAL: Patient referred due to coughing with liquids and food getting stuck. MEDICAL HISTORY: CHF, obstructive sleep apnea, paroxysmal a-fib, pulmonary hypertension, dyslipidemia, CAD, hx of heart artery stent, COPD, and diabetes melitis. STUDY FINDINGS: Patient participated in a Modified Barium Swallow (MBS) study on 10/23/2018. Dr. Perez was the radiologist present for this evaluation. This study was recorded in the lateral view and images were sent to PACs for storage. The following consistencies were presented to this patient for analysis of oropharyngeal swallow function: thin liquid, nectar thick liquids, pudding, and a regular textured, Rosie Doone cookie. Results of the MBS are as follows: PENETRATION / ASPIRATION SCALE (HANSEN): 1 = does not enter airway 2 = enters airway/above vocal folds/ejected 3 = enters airway/above vocal folds/not ejected 4 = enters airway/contacts vocal folds/ejected 5 = enters airway/contacts vocal folds/not ejected 6 = enters airway/below vocal folds/ejected 7 = enters airway/below vocal folds/not ejected despite effort 8 = enters airway/below vocal folds/no effort PENETRATION / ASPIRATION SCALE (SCORE): 1) thin liquids via teaspoon = 1 2) thin liquids via teaspoon = 1 3) thin liquids via small single sip from cup = 1 4) thin liquids via large single sip from cup = 1 5) thin liquids via sequential sips = 1 6) nectar thick liquids via small single sip from cup = 1 7) nectar thick liquids via large single sip from cup = 1 8) pudding = 1 9) cookie = 1 10) thin liquids via chin tuck = 1 * questionable penetration initially with all liquids, although upon closer review determined to be calcification. IMPRESSION: mild pharyngeal dysphagia (R13.13) ORAL PHASE CHARACTERIZED BY: LABIAL SEAL: no labial escape TONGUE CONTROL DURING BOLUS MANIPULATION: cohesive bolus between tongue to palatal seal BOLUS PREPARATION / MASTICATION: timely and efficient chewing and mashing BOLUS TRANSPORT / LINGUAL MOTION: brisk tongue motion ORAL RESIDUE: trace residue lining oral structures PHARYNGEAL PHASE CHARACTERIZED BY: INITIATION OF PHARYNGEAL SWALLOW: bolus head at posterior angle of ramus at first hyoid excursion SOFT PALATE ELEVATION: no bolus between soft palate and pharyngeal wall LARYNGEAL ELEVATION: partial superior movement of thyroid cartilage/partial approximation of arytenoids cartilage to epiglottic petiole ANTERIOR HYOID EXCURSION: partial anterior movement EPIGLOTTIC MOVEMENT: complete epiglottic inversion LARYNGEAL VESTIBULE CLOSURE AT HEIGHT OF SWALLOW: complete laryngeal vestibule closure with no air/contrast in laryngeal vestibule PHARYNGEAL STRIPPING WAVE: pharyngeal stripping wave present / complete PHARYNGOESOPHAGEAL SEGMENT OPENING: partial distension and partial duration; partial obstruction of flow TONGUE BASE RETRACTION: trace column of contrast between tongue base and posterior pharyngeal wall PHARYNGEAL RESIDUE: trace residue within or on pharyngeal structures ESOPHAGEAL PHASE CHARACTERIZED BY: ESOPHAGEAL BOLUS CLEARANCE IN THE UPRIGHT POSITION: * could not view EFFECTS OF TREATMENT STRATEGIES ATTEMPTED: Chin tuck posture = no change in tolerance INTERPRETATION OF RESULTS: Patient presents with mild pharyngeal dysphagia (R13.13) likely secondary to debility from CHF and/or COPD in addition to presbyphagia. Pt tolerated pudding textures and Rosie Doone shortbread cookie with adequate mastication and appropriate anterior to posterior transfer timing. Slightly decreased laryngeal elevation and hyoid excursion noted with liquids, however adequate laryngeal vestibule pressure occurred. Of note, there was calcification on the anterior surface of the laryngeal wall initially thought to be penetration of liquids however upon closer examination was not the case. Also of note, there appeared to be a pouch-like structure above the PES causing slight pooling of liquids/solids with deglutition. Would consider additional assessment of the patients esophageal functioning to explore further. No aspiration noted throughout trials this date/time. Globus sensation patient is describing possibly attributed to gathering of bolus in pouch-like structure described above and/or acid reflux. RECOMMENDATIONS: Will recommend a regular textured, thin liquid diet with the following compensatory strategies: decreased bolus size and rate, upright 90 degrees during PO intake and 30-60 minutes after meals (GERD precaution), and medications one at a time with liquid chaser or with purees per patient preference. Spoke with the patient and spouse immediately following MBSS completion regarding importance of follow-up with ordering physician to discuss MBSS results. The patient and spouse verbalized understanding and agreement with all recommendations and education provided. No further skilled speech- language services warranted at this time targeting dysphagia. IMAGE COUNT: [id number] Patricia Dey M.A., [facility]-EDUCATIONAL TECHNOLOGY COORDINATOR Speech Language Pathologist [address] [place] [address] [email or web address] [phone]
== END ==
PROVIDERS: Family Provider Internal Medicine; PCP Internal Medicine; Referring Provider Internal Medicine; Visit Provider Internal Medicine
DX: R13.10 Dysphagia, unspecified (principal)
CPT/HCPCS: 74230; 92611

== ENCOUNTER 2018-10-23 13:59 | Inpatient (IN) | payer MEDICARE, OTHER, SELFPAY ==
[2018-08-19 19:45] VITALS: BMI 29.0
[2018-10-23] VITALS (19 sets, daily range): BP systolic 110–175; BP diastolic 70–114; PULSE 70–149; RESP 12–40; TEMP 36.6–36.9; O2SAT 91–100; BMI 30.8; BMI 30.9; BMI 29.7
--- NOTE | 2018-10-23 14:08 | RAD_ITS ---
STUDY: X-RAY CHEST REASON FOR EXAM: Male, 78 years old. Shortness of breath. TECHNIQUE: Single AP portable view of the chest. COMPARISON: Comparison is made with prior study dated August 19, 2018. FINDINGS: EKG electrodes are seen. There now is evidence of a mild degree of CHF superimposed on chronic bilateral interstitial fibrosis. Blunting of both costo phrenic angles. Pleural plaque calcification bilaterally worse on the left side. Normal size heart. A right-sided ICD is seen. Normal mediastinum and gino. Normal visualized pulmonary arteries. There is atherosclerotic calcification of the aortic arch with tortuosity. There are diffuse degenerative changes of the visualized thoracic spine. There is degenerative osteoarthritis of the bilateral shoulders. There is no demonstrated abnormality of the visualized soft tissue structures of the upper abdomen. RAD/Chest 1 View (Portable) IMPRESSION: Findings suggestive of CHF superimposed on chronic interstitial scarring and bilateral pleural thickening with the calcific plaques. Electronically Signed: Spencer Perez, at 15:02 EDT , Service support ,
--- NOTE | 2018-10-23 14:09 | EKG12_ITS ---
Test Reason : SOB Blood Pressure : / mmHG Vent. Rate : 149 BPM Atrial Rate : 149 BPM P-R Int : 168 ms QRS Dur : 098 ms QT Int : 246 ms P-R-T Axes : 000 018 195 degrees QTc Int : 387 ms Atrial tachycardia Marked ST abnormality, possible anterolateral subendocardial injury Abnormal ECG Confirmed by JUSTIN CROCKETT, MARIO ([id number]), newspaper copy editor SHARAN SANDRA ([id number]) on 10/27/2018 10:49:28 AM Referred By: Rik Murillo Confirmed By:MARIO ANDERSON MD
[2018-10-23 14:29] LABS: Absolute Lymphocyte Count 0.81 X10^3/ul (0.83-4.51); Absolute Neutrophil Count 9.7 X10^3/uL (2.0-7.7); Basophil# 0.01 X10^3/uL; Basophil% 0.1 % (0-1); Eosinophil# 0.01 X10^3/uL; Eosinophils% 0.1 % (0-5); Hematocrit 40.2 % (40-54); Hemoglobin 13.3 g/dl (13.0-16.5); Lymphocyte # 0.81 X10^3/ul (4.0); Lymphocyte % 7.3 % (19-41); Mean Corp Hgb Conc 33.1 g/gl (32-36); Mean Corpuscular Hgb 30.1 pg (27.0-32.0); Mean Platelet Vol. 10.3 fl (6.2-12.0); Monocyte# 0.51 X10^3/uL; Monocyte% 4.6 % (0-10); Neutrophil # 9.69 X10^3/uL (2.7-7.7); Neutrophil % 87.6 % (47-70); Platelet Count 284 K/mm3 (150-450); RBC Distribution Width CV 14.2 % (11.6-14.6); RBC Distribution Width SD 46.6 fl (35.1-43.9); Red Blood Count 4.42 M/mm3 (4.6-6.2); White Blood Count 11.1 K/mm3 (4.4-11.0)
[2018-10-23 14:32] LABS: POSITIVE COUNT NO; POSITIVE DIFFERENTIAL NO; POSITIVE MORPHOLOGY NO
[2018-10-23 14:45] LABS: International Normalized Ratio 2.9; Prothrombin Time (Protime)PT. 30.2 SECONDS (11.7-14.9)
[2018-10-23 14:47] LABS: Partial Thromboplast Time 63.8 Seconds (24.1-36.2)
--- NOTE | 2018-10-23 14:48 | ED.VIS.GEN ---
History of Present Illness Chief Complaint: Shortness of Breath Detail of Chief Complaint: Worse over the past several days Informant: Patient, Family Onset: Days Context: Gradual Onset Timing: Continuous Quality: Shortness of breath, dyspnea on exertion, chronic orthopnea Location: Respiratory Current Severity: Severe Maximum Severity: Severe Worsened by: Activity and cough Relieved by: Nothing Associated Symptoms: Cough that is nonproductive. Narrative: Patient is an elderly male with multiple medical problems who presents with increasing shortness of breath. Pulse ox at the urgent care was 73% on room air. He occasionally will does wear oxygen. He does report chest discomfort which he cannot qualitative quantitate. He does report shortness of breath which has gotten worse over the past several days. He denies history of pulmonary embolus or DVT. He denies fever, chills night sweats. He does report mild nasal congestion. He reports chronic orthopnea. Denies PND. He was unaware that he has mild swelling of his lower extremities. States he is compliant with medication and diet. He denies GI symptoms. He denies urologic symptoms. Prior similar symptoms: No Recent Illness/Hospitalization: No - Past Medical History (1) CHF exacerbation Status: Acute (2) Acute respiratory failure with hypoxia Status: Chronic (3) CAD (coronary artery disease) Status: Chronic (4) COPD (chronic obstructive pulmonary disease) Status: Chronic (5) Diabetes mellitus Status: Chronic (6) Dyslipidemia Status: Chronic (7) Heart failure Status: Chronic (8) Mesothelioma Status: Chronic (9) Obstructive sleep apnea Status: Chronic (10) Paroxysmal a-fib Status: Chronic (11) Pulmonary hypertension Status: Chronic Past Medical History - Allergies and Home Meds Allergies/Adverse Reactions: Allergies sulfamethoxazole [From Septra] Allergy (Verified 10/23/18 14:11) Other trimethoprim [From Septra] Allergy (Verified 10/23/18 14:11) Other niacin [From Niaspan Extended-Release] Adverse Reaction (Verified 10/23/18 14:11) Rash Primary Care Physician: Rik Murillo MD [Primary Care Provider] - Prior records reviewed: Yes Surgical History: cholecystectomy, pacemaker implantation, - - ICD, cardiac stents. Lives: Spouse/ Significant Other Smoking Status: Former smoker Alcohol: None Drugs: None - Family History Paternal Family History: Reports: No pertinent history Maternal Family History: Reports: No pertinent history Review of Systems General: Reports: Malaise. Denies: Chills, Fever, Sweats, Weight loss Eyes: Denies: Visual changes - bilaterally, Blurred Vision - bilaterally, Diplopia ENT: Denies: Bilateral ear pain, Rhinorrhea, Sore throat Cardiovascular: Reports: Chest pain, Palpitations, Heart racing Respiratory: Reports: Dyspnea, Cough, Dyspnea on exertion, Orthopnea. Denies: Sputum, Paroxysmal nocturnal dyspnea Gastrointestinal: Denies: Abdominal pain, Nausea, Vomiting, Diarrhea, Melena, Hematochezia Genitourinary: Denies: Dysuria, Hematuria, Frequency Musculoskeletal: Denies: Back pain, Extremity Pain Skin: Denies: Rash, Wounds Neurological: Reports: Weakness Psych: Denies: Depression Hematologic: Denies: Easy bruising, Easy bleeding Allergy: Denies: Uticaria, Swelling of the mouth Physical Exam Vital Signs/Narrative: Vital Signs Temp Pulse Resp BP Pulse Ox 10/23/18 14:00 98.2 F 149 H 34 H 171/105 H 91 Inital Vital Signs reviewed: Yes General: Well nourished, Well developed, Obese, Acute Distress Head: Normocephalic, Atraumatic Eyes: Perrl, EOMI ENT: Moist mucous membranes, No rhinorrhea, TM's clear Neck: Supple, Nontender Cardiovascular: Regular rate, Regular rhythm, No murmurs, Tachycardia Respiratory: No distress, Chest nontender, Rales, Wheezing, Diminished, Decreased Air Movement Abdomen: Soft, Nontender, Nondistended, Normal bowel sounds Back: Nontender, Normal Inspection Extremities: Nontender, Edema - 1+ symmetric lower extremities Skin: Normal color, No rash. Negative for: Cyanosis, Jaundice Neurological: Alert, Oriented x3, Cranial nerves II-XII grossly intact, Normal Strength, Normal Sensation Psychological: Normal affect, Normal Mood Diagnostic/Tx/Re-eval Chest X-Ray - ED: 1 View, Read by ED Physician, Normal, Heart, Bony Structures, Chronic Changes, Cardiomegaly, CHF Impressions Chest X-Ray 10/23/18 14:08 IMPRESSION: Findings suggestive of CHF superimposed on chronic interstitial scarring and bilateral pleural thickening with the calcific plaques. Electronically Signed: Spencer Perez, at 15:02 EDT , Service support , 10/23/18 14:08 Chest 1 View (Portable) [RAD] Stat Laboratory Results 10/23/18 10/23/18 10/23/18 14:10 14:10 14:10 WBC 11.1 H RBC 4.42 L Hgb 13.3 Hct 40.2 MCV 91.0 MCH 30.1 MCHC 33.1 RDW 14.2 RDW Differential 46.6 H Plt Count 284 MPV 10.3 Immature Gran % (Auto) 0.300 Neut % (Auto) 87.6 H Lymph % (Auto) 7.3 L Hickman % (Auto) 4.6 Eos % (Auto) 0.1 Baso % (Auto) 0.1 Absolute Neuts (auto) 9.7 H Absolute Lymphs (auto) 0.81 L Total Counted Not Reportable PT 30.2 H INR 2.9 APTT 63.8 H Specimen Type Sample Site pH Bicarbonate Actual POC Total CO2 Base Excess O2 Saturation ABG pCO2 ABG pO2 Tae Test O2 Delivery Device Liter Flow Blood Gas Notified Whom Blood Gas Notified Time Sodium 134 L Potassium 3.8 Chloride 101 Carbon Dioxide 24.0 Anion Gap 9 BUN 18 Creatinine 1.11 Estim Creat Clear Calc 53.08 Est GFR (MDRD) Af Amer 82 Est GFR (MDRD) Non-Af 68 BUN/Creatinine Ratio 16.2 Glucose 298 H Lactic Acid Calcium 8.9 Troponin I < 0.015 B-Natriuretic Peptide 10/23/18 10/23/18 10/23/18 14:10 14:10 14:43 WBC RBC Hgb Hct MCV MCH MCHC RDW RDW Differential Plt Count MPV Immature Gran % (Auto) Neut % (Auto) Lymph % (Auto) Hickman % (Auto) Eos % (Auto) Baso % (Auto) Absolute Neuts (auto) Absolute Lymphs (auto) Total Counted PT INR APTT Specimen Type ART Sample Site L Radial pH 7.43 Bicarbonate Actual 20.4 L POC Total CO2 21 Base Excess -4 L O2 Saturation 95 ABG pCO2 31.1 L ABG pO2 74 L Tae Test POS O2 Delivery Device Nasal Can Liter Flow 6.0 Blood Gas Notified Whom ED MD Blood Gas Notified Time 236 Sodium Potassium Chloride Carbon Dioxide Anion Gap BUN Creatinine Estim Creat Clear Calc Est GFR (MDRD) Af Amer Est GFR (MDRD) Non-Af BUN/Creatinine Ratio Glucose Lactic Acid 3.2 H Calcium Troponin I B-Natriuretic Peptide 238.6 H Patient is still tachypneic on 6 L of oxygen. BiPAP was ordered to help reduce work of breathing. Since he is clinically fluid overloaded IV Lasix was ordered and IV nitroglycerin for preload reduction. Hospitalist has been paged for admission. The troponin is pending. - Rhythm Strip Rhythm Strip: Sinus Tach Rate: 139 Ectopy: None - EKG Initial EKG Interpretation: Sinus Tachycardia - Ventricular rate is 149. There is marked lateral changes consistent with ischemia. There is ST elevation in aVR which may suggest multivessel disease. FL interval is normal. QRS duration is slightly prolonged at 98 ms. QT interval is normal. [place] is normal. - Medical Decision Making Patient in obvious respiratory distress. In light of his past medical history, present history of illness, physical findings need to evaluate for pneumonia, exacerbate COPD, CHF, cardiac ischemia. Pulmonary embolus is in the differential. Appropriate blood work including troponin and BNP were obtained. Chest x-ray and he was placed on oxygen. Blood gas was obtained as well because of concern for CO2 retention. Patient CO2 is 31. In light of his respiratory rate would expect it to be lower. Probably has history of chronic CO2 retention. Base excess is -4. There is an AA gradient. PaO2 was 74 on 6 L by nasal cannula. - Critical Care Time Critical care time (excluding procedures): 30-74 minutes, Discussing w/Patient &/or Family/Water Tanker Driver, Discussing w/Consultants, Arranging Admission or Transfer, Performing Direct Patient Care at Bedside ED Disposition - Plan for ED Patient: Disposition: Acute Care [facility] Diagnosis: Acute respiratory failure with hypoxia, Acute exacerbation of congestive heart failure, EKG lateral ischemia, Sinus tachycardia by electrocardiogram, Hypertension, accelerated, with diastolic congestive heart failure, NYHA class 1 Referrals: Rik Murillo MD [Primary Care Provider] -
[2018-10-23 14:50] LABS: Allen Test POS; Base Excess -4 mmol/L (-2 to +2); Bicarbonate 20.4 mmol/L (22-26); Blood Gas Specimen Type ART; O2 Delivery Device Nasal Can; PO2 74 mmHG (75-100); SITE L Radial; SO2 95 % (95-99); Time Given 236; Total Carbon Dioxide 21 mmol/L; pCO2 31.1 mmHg (35-45); pH 7.43 (7.35-7.45)
--- NOTE | 2018-10-23 14:53 | ED.DCSUM_ITS ---
History of Present Illness Chief Complaint: Shortness of Breath Detail of Chief Complaint: Worse over the past several days Informant: Patient, Family Onset: Days Context: Gradual Onset Timing: Continuous Quality: Shortness of breath, dyspnea on exertion, chronic orthopnea Location: Respiratory Current Severity: Severe Maximum Severity: Severe Worsened by: Activity and cough Relieved by: Nothing Associated Symptoms: Cough that is nonproductive. Narrative: Patient is an elderly male with multiple medical problems who presents with increasing shortness of breath. Pulse ox at the urgent care was 73% on room air. He occasionally will does wear oxygen. He does report chest discomfort which he cannot qualitative quantitate. He does report shortness of breath which has gotten worse over the past several days. He denies history of pulmonary embolus or DVT. He denies fever, chills night sweats. He does report mild nasal congestion. He reports chronic orthopnea. Denies PND. He was unaware that he has mild swelling of his lower extremities. States he is compliant with medication and diet. He denies GI symptoms. He denies urologic symptoms. Prior similar symptoms: No Recent Illness/Hospitalization: No - Past Medical History (1) CHF exacerbation Status: Acute (2) Acute respiratory failure with hypoxia Status: Chronic (3) CAD (coronary artery disease) Status: Chronic (4) COPD (chronic obstructive pulmonary disease) Status: Chronic (5) Diabetes mellitus Status: Chronic (6) Dyslipidemia Status: Chronic (7) Heart failure Status: Chronic (8) Mesothelioma Status: Chronic (9) Obstructive sleep apnea Status: Chronic (10) Paroxysmal a-fib Status: Chronic (11) Pulmonary hypertension Status: Chronic Past Medical History - Allergies and Home Meds Allergies/Adverse Reactions: Allergies sulfamethoxazole [From Septra] Allergy (Verified 10/23/18 14:11) Other trimethoprim [From Septra] Allergy (Verified 10/23/18 14:11) Other niacin [From Niaspan Extended-Release] Adverse Reaction (Verified 10/23/18 14:11) Rash Primary Care Physician: Rik Murillo MD [Primary Care Provider] - Prior records reviewed: Yes Surgical History: cholecystectomy, pacemaker implantation, - - ICD, cardiac stents. Lives: Spouse/ Significant Other Smoking Status: Former smoker Alcohol: None Drugs: None - Family History Paternal Family History: Reports: No pertinent history Maternal Family History: Reports: No pertinent history Review of Systems General: Reports: Malaise. Denies: Chills, Fever, Sweats, Weight loss Eyes: Denies: Visual changes - bilaterally, Blurred Vision - bilaterally, Diplopia ENT: Denies: Bilateral ear pain, Rhinorrhea, Sore throat Cardiovascular: Reports: Chest pain, Palpitations, Heart racing Respiratory: Reports: Dyspnea, Cough, Dyspnea on exertion, Orthopnea. Denies: Sputum, Paroxysmal nocturnal dyspnea Gastrointestinal: Denies: Abdominal pain, Nausea, Vomiting, Diarrhea, Melena, Hematochezia Genitourinary: Denies: Dysuria, Hematuria, Frequency Musculoskeletal: Denies: Back pain, Extremity Pain Skin: Denies: Rash, Wounds Neurological: Reports: Weakness Psych: Denies: Depression Hematologic: Denies: Easy bruising, Easy bleeding Allergy: Denies: Uticaria, Swelling of the mouth Physical Exam Vital Signs/Narrative: Vital Signs Temp Pulse Resp BP Pulse Ox 10/23/18 14:00 98.2 F 149 H 34 H 171/105 H 91 Inital Vital Signs reviewed: Yes General: Well nourished, Well developed, Obese, Acute Distress Head: Normocephalic, Atraumatic Eyes: Perrl, EOMI ENT: Moist mucous membranes, No rhinorrhea, TM's clear Neck: Supple, Nontender Cardiovascular: Regular rate, Regular rhythm, No murmurs, Tachycardia Respiratory: No distress, Chest nontender, Rales, Wheezing, Diminished, Decreased Air Movement Abdomen: Soft, Nontender, Nondistended, Normal bowel sounds Back: Nontender, Normal Inspection Extremities: Nontender, Edema - 1+ symmetric lower extremities Skin: Normal color, No rash. Negative for: Cyanosis, Jaundice Neurological: Alert, Oriented x3, Cranial nerves II-XII grossly intact, Normal Strength, Normal Sensation Psychological: Normal affect, Normal Mood Diagnostic/Tx/Re-eval Chest X-Ray - ED: 1 View, Read by ED Physician, Normal, Heart, Bony Structures, Chronic Changes, Cardiomegaly, CHF Impressions Chest X-Ray 10/23/18 14:08 IMPRESSION: Findings suggestive of CHF superimposed on chronic interstitial scarring and bilateral pleural thickening with the calcific plaques. Electronically Signed: Spencer Perez, at 15:02 EDT , Service support , 10/23/18 14:08 Chest 1 View (Portable) [RAD] Stat Laboratory Results 10/23/18 10/23/18 10/23/18 14:10 14:10 14:10 WBC 11.1 H RBC 4.42 L Hgb 13.3 Hct 40.2 MCV 91.0 MCH 30.1 MCHC 33.1 RDW 14.2 RDW Differential 46.6 H Plt Count 284 MPV 10.3 Immature Gran % (Auto) 0.300 Neut % (Auto) 87.6 H Lymph % (Auto) 7.3 L [place] % (Auto) 4.6 Eos % (Auto) 0.1 Baso % (Auto) 0.1 Absolute Neuts (auto) 9.7 H Absolute Lymphs (auto) 0.81 L Total Counted Not Reportable PT 30.2 H INR 2.9 APTT 63.8 H Specimen Type Sample Site pH Bicarbonate Actual POC Total CO2 Base Excess O2 Saturation ABG pCO2 ABG pO2 Tae Test O2 Delivery Device Liter Flow Blood Gas Notified Whom Blood Gas Notified Time Sodium 134 L Potassium 3.8 Chloride 101 Carbon Dioxide 24.0 Anion Gap 9 BUN 18 Creatinine 1.11 Estim Creat Clear Calc 53.08 Est GFR (MDRD) Af Amer 82 Est GFR (MDRD) Non-Af 68 BUN/Creatinine Ratio 16.2 Glucose 298 H Lactic Acid Calcium 8.9 Troponin I < 0.015 B-Natriuretic Peptide 10/23/18 10/23/18 10/23/18 14:10 14:10 14:43 WBC RBC Hgb Hct MCV MCH MCHC RDW RDW Differential Plt Count MPV Immature Gran % (Auto) Neut % (Auto) Lymph % (Auto) [place] % (Auto) Eos % (Auto) Baso % (Auto) Absolute Neuts (auto) Absolute Lymphs (auto) Total Counted PT INR APTT Specimen Type ART Sample Site L Radial pH 7.43 Bicarbonate Actual 20.4 L POC Total CO2 21 Base Excess -4 L O2 Saturation 95 ABG pCO2 31.1 L ABG pO2 74 L Tae Test POS O2 Delivery Device Nasal Can Liter Flow 6.0 Blood Gas Notified Whom ED MD Blood Gas Notified Time 236 Sodium Potassium Chloride Carbon Dioxide Anion Gap BUN Creatinine Estim Creat Clear Calc Est GFR (MDRD) Af Amer Est GFR (MDRD) Non-Af BUN/Creatinine Ratio Glucose Lactic Acid 3.2 H Calcium Troponin I B-Natriuretic Peptide 238.6 H Patient is still tachypneic on 6 L of oxygen. BiPAP was ordered to help reduce work of breathing. Since he is clinically fluid overloaded IV Lasix was ordered and IV nitroglycerin for preload reduction. Hospitalist has been paged for admission. The troponin is pending. - Rhythm Strip Rhythm Strip: Sinus Tach Rate: 139 Ectopy: None - EKG Initial EKG Interpretation: Sinus Tachycardia - Ventricular rate is 149. There is marked lateral changes consistent with ischemia. There is ST elevation in aVR which may suggest multivessel disease. [place] interval is normal. QRS duration is slightly prolonged at 98 ms. QT interval is normal. [place] is normal. - Medical Decision Making Patient in obvious respiratory distress. In light of his past medical history, present history of illness, physical findings need to evaluate for pneumonia, exacerbate COPD, CHF, cardiac ischemia. Pulmonary embolus is in the dif ferential. Appropriate blood work including troponin and BNP were obtained. Chest x-ray and he was placed on oxygen. Blood gas was obtained as well because of concern for CO2 retention. Patient CO2 is 31. In light of his respiratory rate would expect it to be lower. Probably has history of chronic CO2 retention. Base excess is -4. There is an AA gradient. PaO2 was 74 on 6 L by nasal cannula. - Critical Care Time Critical care time (excluding procedures): 30-74 minutes, Discussing w/Patient &/or Family/Crayon Sawyer, Discussing w/Consultants, Arranging Admission or Transfer, Performing Direct Patient Care at Bedside ED Disposition - Plan for ED Patient: Disposition: Acute Care Hospital [facility] Diagnosis: Acute respiratory failure with hypoxia, Acute exacerbation of congestive heart failure, EKG lateral ischemia, Sinus tachycardia by electrocardiogram, Hyp ertension, accelerated, with diastolic congestive heart failure, NYHA class 1 Referrals: Rik Murillo MD [Primary Care Provider] -
[2018-10-23 15:00] LABS: Anion Gap 9 (5-15); BUN 18 mg/dL (7-18); BUN/Creat Ratio 16.2 RATIO (10-20); Calcium,Total 8.9 mg/dL (8.5-10.1); Chloride 101 mmol/L (98-107); Creatinine, Serum 1.11 mg/dL (0.70-1.30); EST Glomerular Filtration Rate 68 mL/min (>60); Est Glom Filt Rate - Afr Amer 82 mL/min (>60); Estimated Creatinine Clearance 53.08 ml/min; Glucose 298 mg/dL (74-106); Potassium 3.8 mmol/L (3.5-5.1); Sodium Level 134 mmol/L (136-145)
[2018-10-23 15:06] LABS: Lactic Acid 3.2 mmol/L (0.4-2.0)
[2018-10-23 15:07] LABS: BNP,B-Type NATRIURETIC PEPTIDE 238.6 pg/mL (0-100)
--- NOTE | 2018-10-23 15:40 | NURSING ---
DR BARRETT IN ROOM
--- NOTE | 2018-10-23 15:43 | NURSING ---
ICU [facility] ED RESP FAILURE, CHF, ACCELERATED HYPERTENSION
[2018-10-23] MEDS: Furosemide 40 MG/4 ML Vial IV (15:44)
--- NOTE | 2018-10-23 15:49 | ED.RN ---
zaid kinney cancels sepsis alert
--- NOTE | 2018-10-23 15:53 | NURSING ---
ICU 2
[2018-10-23 16:00] LABS: Bedside Glucose 313 mg/dL (70-110)
--- NOTE | 2018-10-23 16:02 | PCM.HP.STD ---
Problem List (1) Acute respiratory failure with hypoxia Status: Acute (2) COPD exacerbation Status: Chronic (3) (HFpEF) heart failure with preserved ejection fraction Status: Acute Qualifiers: Heart failure chronicity: acute Qualified Code(s): I50.31 - Acute diastolic (congestive) heart failure History of Present Illness Date of Admission: 10/23/18 Chief Complaint: shortness of breath. The patient is a 78 year old M who was in his normal state of health up until about a week ago where he started feeling short of breath. The shortness of breath progressively got worse. Presented in urgent care where his pulse ox was 73% and sent to the emergency room. In the emergency room, patient had a chest x-ray that was concerning for heart failure and had an elevated BNP. Patient was put on BiPAP as his pulse ox was in the low 90s on 6 L of oxygen. Patient received IV Lasix in the emergency room. Patient had been short of breath and sick for about a week. Patient had complaints of flulike illness with just cough that was nonproductive and malaise. Patient has not been weighing himself but was on Lasix but was stopped due to dehydration and dizziness. Patient denies any increased lower extremity edema. Patient does not weigh himself daily. [] Past Medical History Past Medical History (Chronic Problems): Chronic Problems COPD exacerbation (Chronic) Mesothelioma (Chronic) Heart failure (Chronic) Obstructive sleep apnea (Chronic) Paroxysmal a-fib (Chronic) Pulmonary hypertension (Chronic) Dyslipidemia (Chronic) CAD (coronary artery disease) (Chronic) History of heart artery stent (Chronic) Acute respiratory failure with hypoxia (Chronic) COPD (chronic obstructive pulmonary disease) (Chronic) Diabetes mellitus (Chronic) Allergies sulfamethoxazole [From Septra] Allergy (Verified 10/23/18 14:11) Other trimethoprim [From Septra] Allergy (Verified 10/23/18 14:11) Other niacin [From Niaspan Extended-Release] Adverse Reaction (Verified 10/23/18 14:11) Rash Home Medications: Ambulatory Orders Medication Instructions Recorded Albuterol Aerosols [Ventolin 2.5 mg INHALATION Q6H PRN PRN 07/21/15 Aerosols] Amlodipine [Norvasc] 10 mg PO DAILY 07/21/15 Aspirin E.C. [Ecotrin] 81 mg PO DAILY@0800 07/21/15 Glimepiride [Amaryl] 4 mg PO DAILY 07/21/15 Metformin HCl [Glucophage] 1,000 mg PO BIDCM 07/21/15 Metoprolol Tartrate [Lopressor 150 mg PO BID 07/21/15 (beta jostin)] [place]-3S/Dha/Epa/Fish Oil/D3 [Fish 1 each PO DAILY 07/21/15 Ylv-Rhzlr-3-Vit D Softgel] Sildenafil Citrate [Viagra] 100 mg PO PRN PRN 07/21/15 Simvastatin [Zocor] 80 mg PO QHS 07/21/15 Tamsulosin HCl [Flomax] 0.4 mg PO DAILY 07/21/15 Oxygen, Home [Home Oxygen] 2 - 4 lpm NASAL CONT #1 unit 07/26/15 Warfarin Sodium [Coumadin] 2.5 mg PO 08/20/18 Warfarin [Coumadin] 5 mg PO DAILY 08/20/18 Lisinopril 30 mg PO DAILY 10/23/18 Surgical History: cholecystectomy, pacemaker implantation, - - ICD, cardiac stents. Lives: Spouse/ Significant Other Smoking Status: Former smoker Alcohol: None Drugs: None - *Family History Paternal History Items: No pertinent history Maternal History Items: No pertinent history Review of Systems Constitutional: Reports: Malaise. Denies: Anorexia, Chills, Fever Eyes: Denies: Blurred vision, Double vision HEENT: Denies: Head Aches, Sinus Congestion, Sinus Drainage Cardiovascular: Reports: Chest Pain - Chronic. Denies: Edema Respiratory: Reports: Cough, Shortness of Breath. Denies: Sputum production Gastrointestinal: Denies: Abdominal Pain, Nausea, Vomiting Genitourinary: Denies: Dysuria Musculoskeletal: Denies: Joint Pain, Joint Tenderness Skin: Denies: Rash, Wounds Neurological: Denies: Numbness, Tingling, Focal weakness Psychiatric: Denies: Anxiety, Depression Hematologic/ Lymphatic: Denies: Easy Bruising, Easy Bleeding, Hx of blood clot Comment: A 10 point review of systems were negative except as mentioned in the history of present illness and the other review of systems. VTE Information - Inpt Only VTE Present on Admission: No VTE Pharm Prophylaxis ordered?: Yes Patient Problems: Active and Suspected Problems Sinus tachycardia by electrocardiogram (Acute) Hypertension, accelerated, with diastolic congestive heart failure, NYHA class 1 (Acute) Acute respiratory failure with hypoxia (Acute) (HFpEF) heart failure with preserved ejection fraction (Acute) CHF exacerbation (Acute) - Physical Exam General: Alert, No apparent distress, - - On BiPAP. Alert. No respiratory distress. No conversational dyspnea. HEENT: Atraumatic, Normocephalic, - - No scleral icterus Oral: Moist Mucosa, No Gingival or Mucosal Lesions/ Ulcerations Neck: No Nodes, Thyroid Normal Size and Texture Lungs: Diminished, - - Clear on BiPAP Cardiovascular: Irregular Rate, Tachycardic Abdomen: Bowel Sounds Present, Soft, Non Tender, Non-Distended, No Hepato-splenomegaly Extremities: No edema, No Calf Tenderness Skin: No rashes, No breakdown Musculoskeletal: No Tenderness to Palpation of Joints or Extremities, No Muscle Wasting Neurological: Neuro grossly intact, Muscle tone normal, Coordination normal Psych/Mental Status: Normal Affect, Appropriate Vital Signs Temp Pulse Resp BP Pulse Ox 36.8 C 108 H 16 148/114 H 98 10/23/18 14:00 10/23/18 15:47 10/23/18 15:47 10/23/18 15:47 10/23/18 15:47 Oxygen Flow Rate (L/min) 6 Oxygen Delivery Method Room Air Weight: 94.8 kg Body Mass Index (BMI) 30.8 Finger Stick Blood Glucose 313 Laboratory Tests Past 24 Hrs 10/23/18 10/23/18 10/23/18 14:10 14:10 14:10 WBC 11.1 H RBC 4.42 L Hgb 13.3 Hct 40.2 MCV 91.0 MCH 30.1 MCHC 33.1 RDW 14.2 RDW Differential 46.6 H Plt Count 284 MPV 10.3 Immature Gran % (Auto) 0.300 Neut % (Auto) 87.6 H Lymph % (Auto) 7.3 L [place] % (Auto) 4.6 Eos % (Auto) 0.1 Baso % (Auto) 0.1 Absolute Neuts (auto) 9.7 H Absolute Lymphs (auto) 0.81 L Total Counted Not Reportable PT 30.2 H INR 2.9 APTT 63.8 H Specimen Type Sample Site pH Bicarbonate Actual POC Total CO2 Base Excess O2 Saturation ABG pCO2 ABG pO2 Tae Test O2 Delivery Device Liter Flow Blood Gas Notified Whom Blood Gas Notified Time Sodium 134 L Potassium 3.8 Chloride 101 Carbon Dioxide 24.0 Anion Gap 9 BUN 18 Creatinine 1.11 Estim Creat Clear Calc 53.08 Est GFR (MDRD) Af Amer 82 Est GFR (MDRD) Non-Af 68 BUN/Creatinine Ratio 16.2 Glucose 298 H Lactic Acid Calcium 8.9 Troponin I < 0.015 B-Natriuretic Peptide 10/23/18 10/23/18 10/23/18 14:10 14:10 14:43 WBC RBC Hgb Hct MCV MCH MCHC RDW RDW Differential Plt Count MPV Immature Gran % (Auto) Neut % (Auto) Lymph % (Auto) [place] % (Auto) Eos % (Auto) Baso % (Auto) Absolute Neuts (auto) Absolute Lymphs (auto) Total Counted PT INR APTT Specimen Type ART Sample Site L Radial pH 7.43 Bicarbonate Actual 20.4 L POC Total CO2 21 Base Excess -4 L O2 Saturation 95 ABG pCO2 31.1 L ABG pO2 74 L Tae Test POS O2 Delivery Device Nasal Can Liter Flow 6.0 Blood Gas Notified Whom ED MD Blood Gas Notified Time 236 Sodium Potassium Chloride Carbon Dioxide Anion Gap BUN Creatinine Estim Creat Clear Calc Est GFR (MDRD) Af Amer Est GFR (MDRD) Non-Af BUN/Creatinine Ratio Glucose Lactic Acid 3.2 H Calcium Troponin I B-Natriuretic Peptide 238.6 H POC Glucose 10/23/18 14:04 POC Glucose 313 H Chest x-ray reviewed and showed pulmonary vascular congestion bilaterally. Assessment/Plan All Active Problems Sinus tachycardia by electrocardiogram (Acute) Hypertension, accelerated, with diastolic congestive heart failure, NYHA class 1 (Acute) Acute respiratory failure with hypoxia (Acute) (HFpEF) heart failure with preserved ejection fraction (Acute) CHF exacerbation (Acute) 1. Acute hypoxic respiratory failure Patient had a pulse ox of 73% prior to arrival. Patient did require high level oxygen with BiPAP is maintaining sats on 6 L of 91%. Improved after the BiPAP Secondary to what I feel is acute exacerbation of CHF as well as [employer] SERVICES MA[employer]GER patient currently stable on the BiPAP at this point time.D Patient will be placed in progressive care unit stepdown for now. Wean oxygen as tolerated 2. Acute heart failure with preserved ejection fraction Patient had a ejection fraction of 60% from June 2015 Continue with beta-jostin and lisinopril IV Lasix She had been taken off of Lasix about 3 weeks. Unclear how much that is contributing to his current episode. Patient's weight is up from earlier this year but unclear how accurate that is with the scales. 3. Acute exacerbation of COPD Continue with steroids and bronchodilators 4. Atrial fibrillation with RVR Likely reactive given the respiratory failure Improved with no direct treatment of his heart rate Treat the respiratory failure and the problems causing that and continue with his rate controlling medications for now. Currently anticoagulated on Coumadin 5. DVT prophylaxis: Patient is anticoagulated. 6. Disposition: Anticipated length of stay is at least 48-72 hours at this time. Code Visit Inpatient E&M: 15681 Init Hosp L3
--- NOTE | 2018-10-23 16:06 | HP.PCM_ITS ---
Problem List (1) Acute respiratory failure with hypoxia Status: Acute (2) COPD exacerbation Status: Chronic (3) (HFpEF) heart failure with preserved ejection fraction Status: Acute Qualifiers: Heart failure chronicity: acute Qualified Code(s): I50.31 - Acute diastolic (congestive) heart failure History of Present Illness Date of Admission: 10/23/18 Chief Complaint: shortness of breath. The patient is a 78 year old M who was in his normal state of health up until about a week ago where he started feeling short of breath. The shortness of breath progressively got worse. Presented in urgent care where his pulse ox was 73% and sent to the emergency room. In the emergency room, patient had a chest x-ray that was concerning for heart failure and had an elevated BNP. Patient was put on BiPAP as his pulse ox was in the low 90s on 6 L of oxygen. Patient received IV Lasix in the emergency room. Patient had been short of breath and sick for about a week. Patient had complaints of flulike illness with just cough that was nonproductive and malaise. Patient has not been weighing himself but was on Lasix but was stopped due to dehydration and dizziness. Patient denies any increased lower extremity edema. Patient does not weigh himself daily. [] Past Medical History Past Medical History (Chronic Problems): Chronic Problems COPD exacerbation (Chronic) Mesothelioma (Chronic) Heart failure (Chronic) Obstructive sleep apnea (Chronic) Paroxysmal a-fib (Chronic) Pulmonary hypertension (Chronic) Dyslipidemia (Chronic) CAD (coronary artery disease) (Chronic) History of heart artery stent (Chronic) Acute respiratory failure with hypoxia (Chronic) COPD (chronic obstructive pulmonary disease) (Chronic) Diabetes mellitus (Chronic) Allergies sulfamethoxazole [From Septra] Allergy (Verified 10/23/18 14:11) Other trimethoprim [From Septra] Allergy (Verified 10/23/18 14:11) Other niacin [From Niaspan Extended-Release] Adverse Reaction (Verified 10/23/18 14:11) Rash Home Medications: Ambulatory Orders Medication Instructions Recorded Albuterol Aerosols [Ventolin 2.5 mg INHALATION Q6H PRN PRN 07/21/15 Aerosols] Amlodipine [Norvasc] 10 mg PO DAILY 07/21/15 Aspirin E.C. [Ecotrin] 81 mg PO DAILY@0800 07/21/15 Glimepiride [Amaryl] 4 mg PO DAILY 07/21/15 Metformin HCl [Glucophage] 1,000 mg PO BIDCM 07/21/15 Metoprolol Tartrate [Lopressor 150 mg PO BID 07/21/15 (beta jostin)] [place]-3S/Dha/Epa/Fish Oil/D3 [Fish 1 each PO DAILY 07/21/15 Ieu-Ajidz-7-Vit D Softgel] Sildenafil Citrate [Viagra] 100 mg PO PRN PRN 07/21/15 Simvastatin [Zocor] 80 mg PO QHS 07/21/15 Tamsulosin HCl [Flomax] 0.4 mg PO DAILY 07/21/15 Oxygen, Home [Home Oxygen] 2 - 4 lpm NASAL CONT #1 unit 07/26/15 Warfarin Sodium [Coumadin] 2.5 mg PO 08/20/18 Warfarin [Coumadin] 5 mg PO DAILY 08/20/18 Lisinopril 30 mg PO DAILY 10/23/18 Surgical History: cholecystectomy, pacemaker implantation, - - ICD, cardiac stents. Lives: Spouse/ Significant Other Smoking Status: Former smoker Alcohol: None Drugs: None - *Family History Paternal History Items: No pertinent history Maternal History Items: No pertinent history Review of Systems Constitutional: Reports: Malaise. Denies: Anorexia, Chills, Fever Eyes: Denies: Blurred vision, Double vision HEENT: Denies: Head Aches, Sinus Congestion, Sinus Drainage Cardiovascular: Reports: Chest Pain - Chronic. Denies: Edema Respiratory: Reports: Cough, Shortness of Breath. Denies: Sputum production Gastrointestinal: Denies: Abdominal Pain, Nausea, Vomiting Genitourinary: Denies: Dysuria Musculoskeletal: Denies: Joint Pain, Joint Tenderness Skin: Denies: Rash, Wounds Neurological: Denies: Numbness, Tingling, Focal weakness Psychiatric: Denies: Anxiety, Depression Hematologic/ Lymphatic: Denies: Easy Bruising, Easy Bleeding, Hx of blood clot Comment: A 10 point review of systems were negative except as mentioned in the history of present illness and the other review of systems. VTE Information - Inpt Only VTE Present on Admission: No VTE Pharm Prophylaxis ordered?: Yes Patient Problems: Active and Suspected Problems Sinus tachycardia by electrocardiogram (Acute) Hypertension, accelerated, with diastolic congestive heart failure, NYHA class 1 (Acute) Acute respiratory failure with hypoxia (Acute) (HFpEF) heart failure with preserved ejection fraction (Acute) CHF exacerbation (Acute) - Physical Exam General: Alert, No apparent distress, - - On BiPAP. Alert. No respiratory distress. No conversational dyspnea. HEENT: Atraumatic, Normocephalic, - - No scleral icterus Oral: Moist Mucosa, No Gingival or Mucosal Lesions/ Ulcerations Neck: No Nodes, Thyroid Normal Size and Texture Lungs: Diminished, - - Clear on BiPAP Cardiovascular: Irregular Rate, Tachycardic Abdomen: Bowel Sounds Present, Soft, Non Tender, Non-Distended, No Hepato- splenomegaly Extremities: No edema, No Calf Tenderness Skin: No rashes, No breakdown Musculoskeletal: No Tenderness to Palpation of Joints or Extremities, No Muscle Wasting Neurological: Neuro grossly intact, Muscle tone normal, Coordination normal Psych/Mental Status: Normal Affect, Appropriate Vital Signs Temp Pulse Resp BP Pulse Ox 36.8 C 108 H 16 148/114 H 98 10/23/18 14:00 10/23/18 15:47 10/23/18 15:47 10/23/18 15:47 10/23/18 15:47 Oxygen Flow Rate (L/min) 6 Oxygen Delivery Method Room Air Weight: 94.8 kg Body Mass Index (BMI) 30.8 Finger Stick Blood Glucose 313 Laboratory Tests Past 24 Hrs 10/23/18 10/23/18 10/23/18 14:10 14:10 14:10 WBC 11.1 H RBC 4.42 L Hgb 13.3 Hct 40.2 MCV 91.0 MCH 30.1 MCHC 33.1 RDW 14.2 RDW Differential 46.6 H Plt Count 284 MPV 10.3 Immature Gran % (Auto) 0.300 Neut % (Auto) 87.6 H Lymph % (Auto) 7.3 L [place] % (Auto) 4.6 Eos % (Auto) 0.1 Baso % (Auto) 0.1 Absolute Neuts (auto) 9.7 H Absolute Lymphs (auto) 0.81 L Total Counted Not Reportable PT 30.2 H INR 2.9 APTT 63.8 H Specimen Type Sample Site pH Bicarbonate Actual POC Total CO2 Base Excess O2 Saturation ABG pCO2 ABG pO2 Tae Test O2 Delivery Device Liter Flow Blood Gas Notified Whom Blood Gas Notified Time Sodium 134 L Potassium 3.8 Chloride 101 Carbon Dioxide 24.0 Anion Gap 9 BUN 18 Creatinine 1.11 Estim Creat Clear Calc 53.08 Est GFR (MDRD) Af Amer 82 Est GFR (MDRD) Non-Af 68 BUN/Creatinine Ratio 16.2 Glucose 298 H Lactic Acid Calcium 8.9 Troponin I < 0.015 B-Natriuretic Peptide 10/23/18 10/23/18 10/23/18 14:10 14:10 14:43 WBC RBC Hgb Hct MCV MCH MCHC RDW RDW Differential Plt Count MPV Immature Gran % (Auto) Neut % (Auto) Lymph % (Auto) [place] % (Auto) Eos % (Auto) Baso % (Auto) Absolute Neuts (auto) Absolute Lymphs (auto) Total Counted PT INR APTT Specimen Type ART Sample Site L Radial pH 7.43 Bicarbonate Actual 20.4 L POC Total CO2 21 Base Excess -4 L O2 Saturation 95 ABG pCO2 31.1 L ABG pO2 74 L Tae Test POS O2 Delivery Device Nasal Can Liter Flow 6.0 Blood Gas Notified Whom ED MD Blood Gas Notified Time 236 Sodium Potassium Chloride Carbon Dioxide Anion Gap BUN Creatinine Estim Creat Clear Calc Est GFR (MDRD) Af Amer Est GFR (MDRD) Non-Af BUN/Creatinine Ratio Glucose Lactic Acid 3.2 H Calcium Troponin I B-Natriuretic Peptide 238.6 H POC Glucose 10/23/18 14:04 POC Glucose 313 H Chest x-ray reviewed and showed pulmonary vascular congestion bilaterally. Assessment/Plan All Active Problems Sinus tachycardia by electrocardiogram (Acute) Hypertension, accelerated, with diastolic congestive heart failure, NYHA class 1 (Acute) Acute respiratory failure with hypoxia (Acute) (HFpEF) heart failure with preserved ejection fraction (Acute) CHF exacerbation (Acute) 1. Acute hypoxic respiratory failure * Patient had a pulse ox of 73% prior to arrival. Patient did require high level oxygen with BiPAP is maintaining sats on 6 L of 91%. * Improved after the BiPAP * Secondary to what I feel is acute exacerbation of CHF as well as MFT patient currently stable on the BiPAP at this point time.D * Patient will be placed in progressive care unit stepdown for now. * Wean oxygen as tolerated 2. Acute heart failure with preserved ejection fraction * Patient had a ejection fraction of 60% from June 2015 * Continue with beta-jostin and lisinopril * IV Lasix * She had been taken off of Lasix about 3 weeks. Unclear how much that is contributing to his current episode. * Patient's weight is up from earlier this year but unclear how accurate that is with the scales. 3. Acute exacerbation of COPD * Continue with steroids and bronchodilators 4. Atrial fibrillation with RVR * Likely reactive given the respiratory failure * Improved with no direct treatment of his heart rate * Treat the respiratory failure and the problems causing that and continue with his rate controlling medications for now. * Currently anticoagulated on Coumadin 5. DVT prophylaxis: Patient is anticoagulated. 6. Disposition: Anticipated length of stay is at least 48-72 hours at this time. Code Visit Inpatient E&M: 36646 Init Hosp L3
--- NOTE | 2018-10-23 16:06 | NURSING ---
NOW GOING TO [facility]
--- NOTE | 2018-10-23 17:02 | ECHOD_ITS ---
Reason For Study: CHF Procedure This was a 2D Doppler, Color Flow transthoracic echocardiogram. The study was technically difficult. Exam performed portable in patient room. Left Ventricle Normal left ventricle. Left ventricular systolic function is normal. The estimated ejection fraction is 55 %. Stage 3 diastolic dysfunction. No regional wall motion abnormalities noted. Right Ventricle Normal RV size. ICD or pacer leads identified within the right ventricle. Normal systolic function. Atria Normal left atrium. Normal right atrium. Mitral Valve There is mild mitral annular calcification. Mild (1+) eccentric mitral valve insufficiency. Tricuspid Valve Normal tricuspid valve. Moderate (2+) tricuspid valve insufficiency. Pulmonary artery systolic pressure is 68 mmHg. Moderate pulmonary hypertension. Aortic Valve Trisinus/trileaflet aortic valve. Mild focal aortic valve calcification. Pulmonic Valve Normal pulmonic valve. Great Vessels Normal aortic root. The pulmonary artery is normal size. Normal inferior vena cava. Pericardium/Pleural No pericardial effusion. MMode/2D Measurements & Calculations LVIDd: 5.0 cm IVSd: 1.3 cm Ao root diam: 3.3 cm LVIDs: 3.1 cm FS: 38.1 % LA dimension: 4.3 cm RVDd: 3.9 cm LAV(MOD-sp4): 69.0 ml LA A4 area: 20.9 cm2 RA A4 area: 18.3 cm2 Time Measurements MV dec time: 0.17 sec Doppler Measurements & Calculations MV E max timothy: 145.6 cm/sec Lat Peak E' Timothy: 8.6 cm/sec Med Peak E' Timothy: 8.6 cm/sec MV A max timothy: 71.3 cm/sec E/E' lat: 17.0 E/E' med: 17.0 MV E/A: 2.0 MV V2 max: 167.6 cm/sec MV P1/2t max timothy: 170.5 cm/sec Ao V2 max: 109.4 cm/sec MV max P.2 mmHg MV P1/2t: 100.2 msec Ao max P.8 mmHg MV V2 mean: 77.7 cm/sec MV dec slope: 498.1 cm/sec2 MV mean P.2 mmHg MVA(P1/2t): 2.2 cm2 MV V2 VTI: 44.0 cm LV V1 max: 85.9 cm/sec PA V2 max: 78.5 cm/sec TR max timothy: 399.3 cm/sec LV V1 max P.9 mmHg TR max P.8 mmHg Interpretation Summary Normal left ventricle. Left ventricular systolic function is normal. The estimated ejection fraction is 55 %. Stage 3 diastolic dysfunction. Moderate (2+) tricuspid valve insufficiency. Pulmonary artery systolic pressure is 68 mmHg. Moderate pulmonary hypertension. Compared to prior study, there is no significant change. Ordering Physician: Evens Valenzuela Performed By: Jorge Crocker RCS
[2018-10-23 17:26] LABS: Bedside Glucose 187 mg/dL (70-110)
[2018-10-23 17:41] LABS: Base Excess 0 mmol/L (-2 to +2); Blood Gas Specimen Type ART; EPAP 5; FI02 40; IPAP 12; PO2 90 mmHG (75-100); RR 12; SITE R Brachial; SO2 97 % (95-99); Time Given 1730; Total Carbon Dioxide 25 mmol/L; pCO2 34.2 mmHg (35-45); pH 7.45 (7.35-7.45)
[2018-10-23] MEDS: Insulin Lispro 100 UNIT/ML INSULN.PEN SQ ×2 (18:08→21:48)
[2018-10-23 18:16] LABS: Reflex Lactate? Y
[2018-10-23] MEDS: metFORMIN HCl 1,000 MG Tablet 1000 MG PO (18:16)
[2018-10-23] MEDS: Ipratropium/Albuterol Sulfate 3 ML AMPUL.NEB INHALATION ×2 (18:46→23:10)
[2018-10-23] MEDS: Metoprolol Tartrate 5 MG/5 ML Vial IV (19:43)
[2018-10-23] MEDS: 0.9% NaCl Peripheral Flush Adult/Peds IV ×4 (19:44→21:35)
[2018-10-23 19:46] LABS: Lactic Acid 1.3 mmol/L (0.4-2.0)
[2018-10-23] MEDS: Metoprolol Tartrate 100 MG Tablet 150 MG PO (21:33)
[2018-10-23] MEDS: Tamsulosin HCl 0.4 MG Capsule PO (21:34)
[2018-10-23] MEDS: Atorvastatin Calcium 40 MG Tablet PO (21:34)
[2018-10-23] MEDS: guaiFENesin 1,200 MG Tablet 1200 MG PO (21:34)
[2018-10-23 22:20] LABS: Bedside Glucose 294 mg/dL (70-110)
[2018-10-23 23:25] LABS: Bedside Glucose 312 mg/dL (70-110)
[2018-10-24] VITALS (31 sets, daily range): BP systolic 111–134; BP diastolic 49–93; PULSE 56–115; RESP 12–27; TEMP 36.1–36.6; O2SAT 95–99
[2018-10-24] MEDS: 0.9% NaCl Peripheral Flush Adult/Peds IV ×6 (05:16→21:59)
[2018-10-24 05:26] LABS: Anion Gap 8 (5-15); BUN 21 mg/dL (7-18); BUN/Creat Ratio 20.2 RATIO (10-20); Calcium,Total 8.5 mg/dL (8.5-10.1); Chloride 102 mmol/L (98-107); Creatinine, Serum 1.04 mg/dL (0.70-1.30); EST Glomerular Filtration Rate 73 mL/min (>60); Est Glom Filt Rate - Afr Amer 88 mL/min (>60); Estimated Creatinine Clearance 56.65 ml/min; Glucose 298 mg/dL (74-106); International Normalized Ratio 3.1; Potassium 4.7 mmol/L (3.5-5.1); Prothrombin Time (Protime)PT. 32.2 SECONDS (11.7-14.9); Sodium Level 135 mmol/L (136-145)
[2018-10-24] MEDS: Ipratropium/Albuterol Sulfate 3 ML AMPUL.NEB INHALATION ×5 (06:48→23:12)
[2018-10-24 07:01] LABS: Bedside Glucose 290 mg/dL (70-110)
[2018-10-24] MEDS: Glucerna Shake 120 ML LIQUID PO (08:19)
[2018-10-24] MEDS: Furosemide 40 MG/4 ML Vial IV ×2 (08:21→17:06)
[2018-10-24] MEDS: Aspirin E.C. 81 MG Tablet PO (08:21)
[2018-10-24] MEDS: Glimepiride 4 MG Tablet PO (08:21)
[2018-10-24] MEDS: metFORMIN HCl 1,000 MG Tablet 1000 MG PO ×2 (08:22→17:05)
[2018-10-24] MEDS: Metoprolol Tartrate 100 MG Tablet 150 MG PO ×2 (08:22→22:00)
[2018-10-24] MEDS: guaiFENesin 1,200 MG Tablet 1200 MG PO ×2 (08:23→22:00)
[2018-10-24] MEDS: amLODIPine 10 MG Tablet PO (08:24)
[2018-10-24] MEDS: Lisinopril 20 MG Tablet 30 MG PO (08:24)
[2018-10-24] MEDS: Insulin Lispro 100 UNIT/ML INSULN.PEN SQ ×3 (08:34→17:51)
--- NOTE | 2018-10-24 11:15 | CASEMGMT ---
Pt will need new home oxygen testing for [facility] medical per April DIAZ CM and green sheet on chart for home oxygen with signed order. Aravind DIAZ CM
[2018-10-24 11:30] LABS: Bedside Glucose 369 mg/dL (70-110)
--- NOTE | 2018-10-24 12:00 | CPS ---
Pt's family stated that Dr informed them they could take Bipap mask home with them upon discharge from hospital. Family was informed that our masks do not work with home Bipap machines and were discouraged from trying to use mask. Pt and family were advised to call their home health company to obtain a new mask if pt's current mask was not fitting him and uncomfortable
--- NOTE | 2018-10-24 13:32 | PCM.PROGNOTE ---
<Edison Rosa - Last Filed: 10/24/18 13:32> Patient Problems: Active and Suspected Problems Sinus tachycardia by electrocardiogram (Acute) Hypertension, accelerated, with diastolic congestive heart failure, NYHA class 1 (Acute) Acute respiratory failure with hypoxia (Acute) (HFpEF) heart failure with preserved ejection fraction (Acute) CHF exacerbation (Acute) Subjective: Pt still somewhat SOB, overall he feels that he is improving. C/o home Bipap mask not working, states the one here works better and plans to take it home. He is still coughing, nonproductive. No fever or chills. LE edema appears resolved at this point. He is still on 3 lpm O2. He does not regularly use O2 night time babysitter at home. He also does have a nebulizer at home. Follows pulmonology at [facility]. - Physical Exam General: Alert, Oriented x3, Cooperative HEENT: Atraumatic, PERRLA, EOMI, Normocephalic Neck: Supple, No JVD, Negative Carotid Bruits Lungs: Rales Cardiovascular: Regular rate, No murmurs, Irregular Rate Abdomen: Bowel Sounds Present, Soft, Non Tender Extremities: No edema, Capillary Refill Less than 3 Seconds Skin: No rashes, No breakdown Musculoskeletal: No Tenderness to Palpation of Joints or Extremities Neurological: Cranial nerves II-XII grossly intact Psych/Mental Status: Normal Affect, Appropriate, Alert and oriented to time, place, person, mood and affect Vital Signs Temp Pulse Resp BP Pulse Ox 97.8 F 72 23 H 117/93 H 97 10/24/18 13:11 10/24/18 13:11 10/24/18 13:11 10/24/18 13:11 10/24/18 13:11 Oxygen Flow Rate (L/min) 3 Oxygen Delivery Method Nasal Cannula Weight: 201 lb 4.513 oz Body Mass Index (BMI) 29.7 Finger Stick Blood Glucose 313 Intake and Output for Last 24 Hours 10/22/18 10/23/18 10/24/18 23:59 23:59 23:59 Intake Total 220 / 220 525 / 525 Output Total 825 / 825 450 / 450 Balance -605 / -605 75 / 75 Microbiology Past 72 Hours 10/23/18 17:30 Influenza Types A,B Direct FA (JEANNE) - Final Mucosa - Nose Laboratory Tests Past 24 Hrs 0410/23/18 10/23/18 14:10 14:10 14:10 WBC 11.1 H RBC 4.42 L Hgb 13.3 Hct 40.2 MCV 91.0 MCH 30.1 MCHC 33.1 RDW 14.2 RDW Differential 46.6 H Plt Count 284 MPV 10.3 Immature Gran % (Auto) 0.300 Neut % (Auto) 87.6 H Lymph % (Auto) 7.3 L [place] % (Auto) 4.6 Eos % (Auto) 0.1 Baso % (Auto) 0.1 Absolute Neuts (auto) 9.7 H Absolute Lymphs (auto) 0.81 L Total Counted Not Reportable PT 30.2 H INR 2.9 APTT 63.8 H Specimen Type Sample Site pH Bicarbonate Actual POC Total CO2 Base Excess O2 Saturation O2 % ABG pCO2 ABG pO2 Tae Test Respiration Rate O2 Delivery Device Liter Flow EPAP IPAP Blood Gas Notified Whom Blood Gas Notified Time Sodium 134 L Potassium 3.8 Chloride 101 Carbon Dioxide 24.0 Anion Gap 9 BUN 18 Creatinine 1.11 Estim Creat Clear Calc 53.08 Est GFR (MDRD) Af Amer 82 Est GFR (MDRD) Non-Af 68 BUN/Creatinine Ratio 16.2 Glucose 298 H Lactic Acid Calcium 8.9 Troponin I < 0.015 B-Natriuretic Peptide 10/23/18 10/23/18 10/23/18 14:10 14:10 14:43 WBC RBC Hgb Hct MCV MCH MCHC RDW RDW Differential Plt Count MPV Immature Gran % (Auto) Neut % (Auto) Lymph % (Auto) [place] % (Auto) Eos % (Auto) Baso % (Auto) Absolute Neuts (auto) Absolute Lymphs (auto) Total Counted PT INR APTT Specimen Type ART Sample Site L Radial pH 7.43 Bicarbonate Actual 20.4 L POC Total CO2 21 Base Excess -4 L O2 Saturation 95 O2 % ABG pCO2 31.1 L ABG pO2 74 L Tae Test POS Respiration Rate O2 Delivery Device Nasal Can Liter Flow 6.0 EPAP IPAP Blood Gas Notified Whom ED MD Blood Gas Notified Time 236 Sodium Potassium Chloride Carbon Dioxide Anion Gap BUN Creatinine Estim Creat Clear Calc Est GFR (MDRD) Af Amer Est GFR (MDRD) Non-Af BUN/Creatinine Ratio Glucose Lactic Acid 3.2 H Calcium Troponin I B-Natriuretic Peptide 238.6 H 10/23/18 10/23/18 10/23/18 17:38 18:05 18:10 WBC RBC Hgb Hct MCV MCH MCHC RDW RDW Differential Plt Count MPV Immature Gran % (Auto) Neut % (Auto) Lymph % (Auto) [place] % (Auto) Eos % (Auto) Baso % (Auto) Absolute Neuts (auto) Absolute Lymphs (auto) Total Counted PT INR APTT Specimen Type ART Sample Site R Brachial pH 7.45 Bicarbonate Actual 24.0 POC Total CO2 25 Base Excess 0 O2 Saturation 97 O2 % 40 ABG pCO2 34.2 L ABG pO2 90 Tae Test Respiration Rate 12 O2 Delivery Device Bi / C PAP Liter Flow EPAP 5 IPAP 12 Blood Gas Notified Whom [facility] Blood Gas Notified Time 1730 Sodium Potassium Chloride Carbon Dioxide Anion Gap BUN Creatinine Estim Creat Clear Calc Est GFR (MDRD) Af Amer Est GFR (MDRD) Non-Af BUN/Creatinine Ratio Glucose Lactic Acid 1.3 Calcium Troponin I < 0.015 B-Natriuretic Peptide 10/23/18 10/24/18 10/24/18 21:10 04:28 04:28 WBC RBC Hgb Hct MCV MCH MCHC RDW RDW Differential Plt Count MPV Immature Gran % (Auto) Neut % (Auto) Lymph % (Auto) [place] % (Auto) Eos % (Auto) Baso % (Auto) Absolute Neuts (auto) Absolute Lymphs (auto) Total Counted PT 32.2 H INR 3.1 APTT Specimen Type Sample Site pH Bicarbonate Actual POC Total CO2 Base Excess O2 Saturation O2 % ABG pCO2 ABG pO2 Tae Test Respiration Rate O2 Delivery Device Liter Flow EPAP IPAP Blood Gas Notified Whom Blood Gas Notified Time Sodium 135 L Potassium 4.7 Chloride 102 Carbon Dioxide 25.0 Anion Gap 8 BUN 21 H Creatinine 1.04 Estim Creat Clear Calc 56.65 Est GFR (MDRD) Af Amer 88 Est GFR (MDRD) Non-Af 73 BUN/Creatinine Ratio 20.2 H Glucose 298 H Lactic Acid Calcium 8.5 Troponin I < 0.015 B-Natriuretic Peptide POC Glucose 10/24/18 10/24/18 10/23/18 11:20 06:44 23:19 POC Glucose 369 H 290 H 312 H 04/04/19 04/04/19 04/04/19 21:46 17:19 14:04 POC Glucose 294 H 187 H 313 H Medical Necessity - Tobacco Use Smoking Status: Former smoker Tobacco Use: Secondhand Assessment/Plan All Active Problems Sinus tachycardia by electrocardiogram (Acute) Hypertension, accelerated, with diastolic congestive heart failure, NYHA class 1 (Acute) Acute respiratory failure with hypoxia (Acute) (HFpEF) heart failure with preserved ejection fraction (Acute) CHF exacerbation (Acute) 1. Paroxysmal Afib with RVR - improved. Still in fib but rate controlled now. Continue lopressor, coumadin. 2. Acute hypoxic respiratory failure 2/2 acute diastolic CHF exacerbation and acute COPD exacerbation - continue lasix, steroids, aerosols. Improving. Remains on 3lpm o2. CXR c/w CHF. Trop neg x 3. BNP 238 at admission. Lactic acidosis 2/2 hypoxic resp failure - now resolved. Repeat echo is pending. last echo 2014 EF 60% 3. Dysphagia - upright when eating, continue PTOT. 4. RAISA - continue Bipap qhs 5. DMt2 - metformin, ssi 6. CAD prior stent DVT ppx: coumadin DC planning: PTOT, likely needs SNF This patient was seen by Edison Rosa PA-C under the supervision of Dr. Boone. <Doni Boone F - Last Filed: 10/24/18 17:20> - Physical Exam Vital Signs Temp Pulse Resp BP Pulse Ox 97.9 F 88 20 H 127/65 H 95 10/24/18 17:00 10/24/18 17:00 10/24/18 17:00 10/24/18 17:00 10/24/18 17:00 Oxygen Flow Rate (L/min) 3 Oxygen Delivery Method Nasal Cannula Weight: 201 lb 4.513 oz Body Mass Index (BMI) 29.7 Finger Stick Blood Glucose 313 Intake and Output for Last 24 Hours 10/22/18 10/23/18 10/24/18 23:59 23:59 23:59 Intake Total 220 / 220 525 / 525 Output Total 825 / 825 450 / 450 Balance -605 / -605 75 / 75 Microbiology Past 72 Hours 10/23/18 17:30 Influenza Types A,B Direct FA (JEANNE) - Final Mucosa - Nose Laboratory Tests Past 24 Hrs 10/23/18 10/23/18 10/23/18 17:38 18:05 18:10 PT INR Specimen Type ART Sample Site R Brachial pH 7.45 Bicarbonate Actual 24.0 POC Total CO2 25 Base Excess 0 O2 Saturation 97 O2 % 40 ABG pCO2 34.2 L ABG pO2 90 Respiration Rate 12 O2 Delivery Device Bi / C PAP EPAP 5 IPAP 12 Blood Gas Notified Whom HOSP MD Blood Gas Notified Time 1730 Sodium Potassium Chloride Carbon Dioxide Anion Gap BUN Creatinine Estim Creat Clear Calc Est GFR (MDRD) Af Amer Est GFR (MDRD) Non-Af BUN/Creatinine Ratio Glucose Lactic Acid 1.3 Calcium Troponin I < 0.015 10/23/18 10/24/18 10/24/18 21:10 04:28 04:28 PT 32.2 H INR 3.1 Specimen Type Sample Site pH Bicarbonate Actual POC Total CO2 Base Excess O2 Saturation O2 % ABG pCO2 ABG pO2 Respiration Rate O2 Delivery Device EPAP IPAP Blood Gas Notified Whom Blood Gas Notified Time Sodium 135 L Potassium 4.7 Chloride 102 Carbon Dioxide 25.0 Anion Gap 8 BUN 21 H Creatinine 1.04 Estim Creat Clear Calc 56.65 Est GFR (MDRD) Af Amer 88 Est GFR (MDRD) Non-Af 73 BUN/Creatinine Ratio 20.2 H Glucose 298 H Lactic Acid Calcium 8.5 Troponin I < 0.015 POC Glucose 10/24/18 10/24/18 10/24/18 16:06 11:20 06:44 POC Glucose 312 H 369 H 290 H 10/23/18 10/23/18 10/23/18 23:19 21:46 17:19 POC Glucose 312 H 294 H 187 H Code Visit Addendum: Dr. Boone I personally examined the patient and reviewed the chart. I agree with the above. 78 yo M with a h/o CHF and COPD presenting with acute hypoxic respiratory failure 2/2 acute diastolic CHF exacerbation and acute COPD exacerbation. C/w steroids and nebulizer treatments. He ran out of his lasix 4 weeks ago and never f/u with his pharmacy or PCP to see if he had refills or needed a new prescription. C/w diuresis and he can obtain an outpatient echo for further evaluation after discharge as this is likely 2/2 to a lack of medications and not worsening of his cardiac function. Inpatient E&M: 60739 Subs Hosp L2
--- NOTE | 2018-10-24 15:05 | CASEMGMT ---
RN CM METAL INSPECTOR CM to room to meet with patient for initial transition planning/care coordination assessment. RN NORM introduced self and role at [facility]. Pt voices understanding and consents to assessment at this time. Pt resting in bed in no distress at this time. DaughterElsa, @ bedside. Pt is A/O at this time and answers all questions appropriately. Care providers, pharmacy, and demographics verified/updated at this time. PCP: Chidi Specialists: Angy-cardiology, Satish-pulmonology. Preferred Pharmacy: [facility] [place] Insurance: [facility], [place] Prescription Benefit: FAST FELT Living Will/HPOA: Has both LW and HCPOA, who is his , Shasha. LNOK: , Shasha. DaughterElsa Living Arrangements: Lives with his in one-story home. 3 steps to enter. Denies difficulty. Transportation: Pt states drives self and states no transportation concerns at this time. or dtr able to transport home on d/c. DME: has the following DME: Walker (has but does not use), nebulizer, glucometer(states works properly and has all needed supplies) has O2 @ home, 4 L/M, that he uses PRN. He states he has portable tanks but that there is a broken plastic piece on the concentrator and so he cannot use. He states he has 9 portable tanks @ his home. got thru [facility] and never ended up transferring records over to [facility]. Call placed to [facility] and they state they do not have current orders. They instructed this RN CM to call Laurita @ [facility] @ [phone]. She states pt can give verbal consent to have records tx'd to [facility] if he chooses to do so. Pt stated he did want to tx to [facility] and he spoke to Laurita and gave verbal consent. Per Laurita, pt will need new home o2 qualification testing and script for O2 faxed to [facility] on d/c d/t their order is . RN CM also informed Laurita that concentrator has a broken plastic piece and that pt states he is unable to use it, and that it will need to be serviced. Pt states he likes the CPAP mask he is using @ [facility] better than the one he has at home, stating, I don't use mine at home because of the mask, but I was able to sleep well with this one here. Pt made aware often the masks can be interchangeable and made aware he can take mask from [facility] home with him to try. RN, Evy, made aware to pass along in report for CPAP mask to be sent home with pt on d/c. Pt states no need for further DME at this time. HHC/SNF: No history of either and denies needs. No needs identified. Pt wishes to return home and states has no concerns with going home at time of discharge. 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 CM to follow for home oxygen needs and any further discharge planning/needs. Pt voices no further concerns/needs at this time. Advised pt to ask for CM if any further questions/concerns/needs arise. Voices understanding. PLAN: Home. Will need Home O2 qualification testing prior to discharge. If qualifies, will need new script. Amina KAUR RN CM
--- NOTE | 2018-10-24 15:18 | NURSING ---
per respiratory therapist, pt is unable to take hospital bipap mask home. our masks do not have an exhalation valve like pt's home unit. pt and pt's family given teaching per respiratory therapy. Valente DIAZ
[2018-10-24 16:16] LABS: Bedside Glucose 312 mg/dL (70-110)
[2018-10-24] MEDS: Acetaminophen 325 MG Tablet 650 MG PO (20:13)
[2018-10-24] MEDS: Atorvastatin Calcium 40 MG Tablet PO (21:59)
[2018-10-24] MEDS: Tamsulosin HCl 0.4 MG Capsule PO (21:59)
[2018-10-24 22:11] LABS: Bedside Glucose 398 mg/dL (70-110)
[2018-10-25] VITALS (24 sets, daily range): BP systolic 101–130; BP diastolic 55–68; PULSE 67–121; RESP 12–25; TEMP 36.3–36.9; O2SAT 93–98
[2018-10-25] MEDS: 0.9% NaCl Peripheral Flush Adult/Peds IV ×6 (06:34→22:30)
[2018-10-25] MEDS: Ipratropium/Albuterol Sulfate 3 ML AMPUL.NEB INHALATION ×5 (06:36→23:17)
[2018-10-25 06:50] LABS: Bedside Glucose 328 mg/dL (70-110)
[2018-10-25 06:54] LABS: Anion Gap 11 (5-15); BUN 39 mg/dL (7-18); BUN/Creat Ratio 27.9 RATIO (10-20); Calcium,Total 8.4 mg/dL (8.5-10.1); Chloride 101 mmol/L (98-107); EST Glomerular Filtration Rate 52 mL/min (>60); Est Glom Filt Rate - Afr Amer 63 mL/min (>60); Estimated Creatinine Clearance 42.08 ml/min; Glucose 367 mg/dL (74-106); Potassium 4.4 mmol/L (3.5-5.1); Sodium Level 136 mmol/L (136-145)
[2018-10-25] MEDS: Glucerna Shake 120 ML LIQUID PO (08:21)
[2018-10-25] MEDS: metFORMIN HCl 1,000 MG Tablet 1000 MG PO (08:22)
[2018-10-25] MEDS: Glimepiride 4 MG Tablet PO (08:22)
[2018-10-25] MEDS: Aspirin E.C. 81 MG Tablet PO (08:22)
[2018-10-25] MEDS: Furosemide 40 MG/4 ML Vial IV (08:23)
[2018-10-25] MEDS: Metoprolol Tartrate 100 MG Tablet 150 MG PO ×2 (08:23→22:14)
[2018-10-25] MEDS: amLODIPine 10 MG Tablet PO (08:24)
[2018-10-25] MEDS: guaiFENesin 1,200 MG Tablet 1200 MG PO ×2 (08:24→22:14)
[2018-10-25] MEDS: Lisinopril 20 MG Tablet 30 MG PO (08:25)
[2018-10-25] MEDS: Insulin Lispro 100 UNIT/ML INSULN.PEN SQ (08:30)
--- NOTE | 2018-10-25 10:30 | RAD_ITS ---
STUDY: X-RAY CHEST REASON FOR EXAM: Male, 78 years old. Shortness of breath. TECHNIQUE: Single AP portable view of the chest. COMPARISON: 10/23/2018. FINDINGS: There again is a dual-chamber left pacemaker in stable position. Bilateral infiltrates/edema markedly worse on the left side are again seen but improved on the right side since previous examination. There may be small left pleural effusion. Normal size heart. Normal mediastinum and gino. Normal visualized pulmonary arteries. There is atherosclerotic calcification of the aortic arch with tortuosity. There are diffuse degenerative changes of the visualized thoracic spine. There is degenerative osteoarthritis of the bilateral shoulders. There is no demonstrated abnormality of the visualized soft tissue structures of the upper abdomen. RAD/Chest 1 View (Portable) IMPRESSION: Bilateral infiltrates/edema improved on the right side since previous examination. Electronically Signed: Reggie Cevallos MD at 14:41 EDT Tel , Service support ,
[2018-10-25] MEDS: Insulin Lispro 100 UNIT/ML INSULN.PEN SC ×3 (11:09→22:13)
[2018-10-25 11:17] LABS: International Normalized Ratio 4.3; Prothrombin Time (Protime)PT. 41.5 SECONDS (11.7-14.9)
[2018-10-25 11:26] LABS: Bedside Glucose 368 mg/dL (70-110)
--- NOTE | 2018-10-25 13:20 | PCM.PROGNOTE ---
<Edison Rosa - Last Filed: 10/25/18 13:20> Patient Problems: Active and Suspected Problems Sinus tachycardia by electrocardiogram (Acute) Hypertension, accelerated, with diastolic congestive heart failure, NYHA class 1 (Acute) Acute respiratory failure with hypoxia (Acute) (HFpEF) heart failure with preserved ejection fraction (Acute) CHF exacerbation (Acute) Subjective: Patient resting comfortably in bed NAD. Still on 3lpm. Breathing improved. Productive cough continues. No LE edema. No CP. No LH/Dizziness. Pt states he still has not ambulated. No fevers or chills. - Physical Exam General: Alert, Oriented x3, Cooperative HEENT: Atraumatic, PERRLA, EOMI, Normocephalic Neck: Supple, No JVD, Negative Carotid Bruits Lungs: Clear to auscultation, Normal air movement Cardiovascular: Regular rate, No murmurs Abdomen: Bowel Sounds Present, Soft, Non Tender Extremities: No edema, Capillary Refill Less than 3 Seconds Skin: No rashes, No breakdown Musculoskeletal: No Tenderness to Palpation of Joints or Extremities Neurological: Cranial nerves II-XII grossly intact Psych/Mental Status: Normal Affect, Appropriate, Alert and oriented to time, place, person, mood and affect Vital Signs Temp Pulse Resp BP Pulse Ox 97.5 F L 73 18 119/65 98 10/25/18 08:14 10/25/18 10:51 10/25/18 10:39 10/25/18 08:14 10/25/18 10:39 Oxygen Flow Rate (L/min) 3 Oxygen Delivery Method Nasal Cannula Weight: 203 lb 0.732 oz Body Mass Index (BMI) 29.7 Finger Stick Blood Glucose 313 Intake and Output for Last 24 Hours 10/23/18 10/24/18 10/25/18 23:59 23:59 23:59 Intake Total 220 / 220 1235 / 1235 745 / 745 Output Total 825 / 825 1475 / 1475 725 / 725 Balance -605 / -605 -240 / -240 20 / 20 Microbiology Past 72 Hours 10/23/18 17:30 Influenza Types A,B Direct FA (JEANNE) - Final Mucosa - Nose Laboratory Tests Past 24 Hrs 10/25/18 10/25/18 05:10 10:46 PT 41.5 H INR 4.3 H* Sodium 136 Potassium 4.4 Chloride 101 Carbon Dioxide 24.0 Anion Gap 11 BUN 39 H Creatinine 1.40 H Estim Creat Clear Calc 42.08 Est GFR (MDRD) Af Amer 63 Est GFR (MDRD) Non-Af 52 L BUN/Creatinine Ratio 27.9 H Glucose 367 H Calcium 8.4 L POC Glucose 10/25/18 10/25/18 10/24/18 11:07 06:44 21:58 POC Glucose 368 H 328 H 398 H 10/24/18 16:06 POC Glucose 312 H Medical Necessity - Tobacco Use Smoking Status: Former smoker Tobacco Use: Secondhand Assessment/Plan All Active Problems Sinus tachycardia by electrocardiogram (Acute) Hypertension, accelerated, with diastolic congestive heart failure, NYHA class 1 (Acute) Acute respiratory failure with hypoxia (Acute) (HFpEF) heart failure with preserved ejection fraction (Acute) CHF exacerbation (Acute) 1. Paroxysmal Afib with RVR - improved. Still in fib but rate controlled now. Continue lopressor, coumadin - hold for high INR. 2. Acute hypoxic respiratory failure 2/2 acute diastolic CHF exacerbation and acute COPD exacerbation, complicated by pulmonary htn - improved. lasix to po. continue steroids, bipap qhs, aerosols. Echo with stage 3 diastolic dysfxn, EF55%, 2+ TVI, PASP 68mmHg, noted no change since prior study. -repeat cxr pending 3. Dysphagia - upright when eating, continue ST. 4. RAISA - continue Bipap qhs 5. DMt2 - hold metformin, continue amaryl, SSI, resume lantus 6. CAD prior stent 7. KEON - lasix to PO, hold cyril, DVT ppx: coumadin (hold) DC planning: PTOT, likely needs SNF This patient was seen by Edison Rosa PA-C under the supervision of Dr. Boone. <Doni Boone F - Last Filed: 10/25/18 14:52> - Physical Exam Vital Signs Temp Pulse Resp BP Pulse Ox 97.4 F L 73 18 110/55 L 95 10/25/18 14:10 10/25/18 14:10 10/25/18 14:10 10/25/18 14:10 10/25/18 14:10 Oxygen Flow Rate (L/min) 3 Oxygen Delivery Method Nasal Cannula Weight: 203 lb 0.732 oz Body Mass Index (BMI) 29.7 Finger Stick Blood Glucose 313 Intake and Output for Last 24 Hours 10/23/18 10/24/18 10/25/18 23:59 23:59 23:59 Intake Total 220 / 220 1235 / 1235 745 / 745 Output Total 825 / 825 1475 / 1475 725 / 725 Balance -605 / -605 -240 / -240 20 / 20 Microbiology Past 72 Hours 10/23/18 17:30 Influenza Types A,B Direct FA (JEANNE) - Final Mucosa - Nose Laboratory Tests Past 24 Hrs 10/25/18 10/25/18 05:10 10:46 PT 41.5 H INR 4.3 H* Sodium 136 Potassium 4.4 Chloride 101 Carbon Dioxide 24.0 Anion Gap 11 BUN 39 H Creatinine 1.40 H Estim Creat Clear Calc 42.08 Est GFR (MDRD) Af Amer 63 Est GFR (MDRD) Non-Af 52 L BUN/Creatinine Ratio 27.9 H Glucose 367 H Calcium 8.4 L POC Glucose 10/25/18 10/25/18 10/24/18 11:07 06:44 21:58 POC Glucose 368 H 328 H 398 H 10/24/18 16:06 POC Glucose 312 H Code Visit Addendum: Dr. Boone I personally examined the patient and reviewed the chart. I agree with the above. 78 yo M with a h/o CHF and COPD presenting with acute hypoxic respiratory failure 2/2 acute diastolic CHF exacerbation and acute COPD exacerbation. C/w steroids and nebulizer treatments. He ran out of his lasix 4 weeks ago and never f/u with his pharmacy or PCP to see if he had refills or needed a new prescription. C/w diuresis echo was unchanged from previous. There has been interval improvement in his pleural effusion on the right, will continue with diuresis and plan for discharge tomorrow hopefully. Inpatient E&M: 80174 Subs Hosp L2
[2018-10-25 16:46] LABS: Bedside Glucose 310 mg/dL (70-110)
[2018-10-25] MEDS: Furosemide 40 MG Tablet PO (17:30)
[2018-10-25] MEDS: Tamsulosin HCl 0.4 MG Capsule PO (22:13)
[2018-10-25] MEDS: Atorvastatin Calcium 40 MG Tablet PO (22:14)
[2018-10-25 23:16] LABS: Bedside Glucose 363 mg/dL (70-110)
[2018-10-26] VITALS (18 sets, daily range): BP systolic 131–142; BP diastolic 56–80; PULSE 50–99; RESP 12–29; TEMP 36.4–37; O2SAT 86–99
[2018-10-26] MEDS: Ipratropium/Albuterol Sulfate 3 ML AMPUL.NEB INHALATION ×4 (02:53→14:39)
--- NOTE | 2018-10-26 04:47 | EKG12_ITS ---
Test Reason : CP Blood Pressure : / mmHG Vent. Rate : 088 BPM Atrial Rate : 300 BPM P-R Int : 000 ms QRS Dur : 104 ms QT Int : 368 ms P-R-T Axes : 000 016 -34 degrees QTc Int : 445 ms Atrial flutter with variable A-V block Abnormal ECG When compared with ECG of 23-OCT-2018 14:03, MANUAL COMPARISON REQUIRED, DATA IS UNCONFIRMED Confirmed by JUSTIN CROCKETT, MARIO ([id number]), publication editor SHARAN SANDRA ([id number]) on 10/28/2018 8:09:46 AM Referred By: MONICA Confirmed By:MARIO ANDERSON MD
[2018-10-26] MEDS: Calcium Carbonate 500 MG Tablet 1000 MG PO (05:44)
[2018-10-26] MEDS: 0.9% NaCl Peripheral Flush Adult/Peds IV ×4 (05:47→16:23)
[2018-10-26 06:50] LABS: Anion Gap 9 (5-15); BUN 37 mg/dL (7-18); BUN/Creat Ratio 32.7 RATIO (10-20); Calcium,Total 8.3 mg/dL (8.5-10.1); Chloride 101 mmol/L (98-107); Creatinine, Serum 1.13 mg/dL (0.70-1.30); EST Glomerular Filtration Rate 66 mL/min (>60); Est Glom Filt Rate - Afr Amer 80 mL/min (>60); Estimated Creatinine Clearance 52.14 ml/min; Glucose 314 mg/dL (74-106); International Normalized Ratio 4.1; Potassium 4.2 mmol/L (3.5-5.1); Sodium Level 136 mmol/L (136-145)
[2018-10-26 07:11] LABS: Bedside Glucose 348 mg/dL (70-110)
[2018-10-26] MEDS: Glimepiride 4 MG Tablet PO (08:40)
[2018-10-26] MEDS: Furosemide 40 MG Tablet PO ×2 (08:41→16:31)
[2018-10-26] MEDS: Aspirin E.C. 81 MG Tablet PO (08:41)
[2018-10-26] MEDS: guaiFENesin 1,200 MG Tablet 1200 MG PO (08:41)
[2018-10-26] MEDS: amLODIPine 10 MG Tablet PO (08:41)
[2018-10-26] MEDS: Glucerna Shake 120 ML LIQUID PO ×2 (08:41→12:11)
[2018-10-26] MEDS: Metoprolol Tartrate 100 MG Tablet 150 MG PO (08:41)
[2018-10-26] MEDS: Insulin Lispro 100 UNIT/ML INSULN.PEN SC ×3 (08:44→16:30)
--- NOTE | 2018-10-26 10:40 | DCINST_ITS ---
- Discharge Diagnoses Current Active Problems: Current Active and Chronic Problems Sinus tachycardia by electrocardiogram (Acute) Hypertension, accelerated, with diastolic congestive heart failure, NYHA class 1 (Acute) Acute respiratory failure with hypoxia (Acute) COPD exacerbation (Chronic) (HFpEF) heart failure with preserved ejection fraction (Acute) CHF exacerbation (Acute) Acute respiratory failure with hypoxia (Chronic) You will use the following diet at home:: Calorie/Carbohydrate Controlled (specify 1200, 1400, etc) - 1800 calories per day, Cardiac - Less than 2000 mg of sodium daily, Other - do not salt food Your food should be the consistency of: Regular Your liquids should be the consistency of: Regular/Thin Discharge Activity: Return to Normal Activity, - - Weigh yourself every day at the same time each day. If you notice a five pound fluctuation in a 24 hour period, call your doctor for further instructions. Allergies/Adverse Reactions: Allergies sulfamethoxazole [From Septra] Allergy (Verified 10/23/18 14:11) Other trimethoprim [From Septra] Allergy (Verified 10/23/18 14:11) Other niacin [From Niaspan Extended-Release] Adverse Reaction (Verified 10/23/18 14:11) Rash Medications to take at Discharge Amlodipine [Norvasc] 10 mg PO DAILY 07/21/15 Aspirin E.C. [Ecotrin] 81 mg PO DAILY@0800 07/21/15 Glimepiride [Amaryl] 4 mg PO DAILY 07/21/15 Metformin HCl [Glucophage] 1,000 mg PO BIDCM 07/21/15 Metoprolol Tartrate [Lopressor (beta jostin)] 150 mg PO BID 07/21/15 [place]-3S/Dha/Epa/Fish Oil/D3 [Fish Dmq-Ogitp-5-Vit D Softgel] 1 each PO BID 07/21/15 Tamsulosin HCl [Flomax] 0.4 mg PO QHS 07/21/15 Albuterol Aerosols [Ventolin Aerosols] 2.5 mg INHALATION Q6H PRN PRN 10/23/18 Albuterol IH (ProAir) [Proair Hfa] 2 puff INHALATION Q4H PRN PRN 10/23/18 Digoxin 250 mcg PO DAILY 10/23/18 Fluticasone Propionate 2 spray NASAL DAILY 10/23/18 Insulin Glargine,Hum.rec.anlog [Lantus] 26 unit SQ DAILY 10/23/18 Lisinopril 40 mg PO DAILY 10/23/18 Potassium Chloride [K-Dur] 20 meq PO DAILY 10/23/18 hydrALAZINE [Apresoline] 25 mg PO BID 10/23/18 Albuterol Inhaler [Ventolin Hfa] 1 puff INHALATION Q4H PRN PRN #1 inhaler 10/26/18 Furosemide [Lasix] 40 mg PO BID@1000,1800 #60 tablet 10/26/18 Prednisone 10 mg PO UD #30 tab 10/26/18 Warfarin [Coumadin] 7.5 mg PO DAILY #0 10/26/18 The following prescriptions were given: Albuterol Inhaler [Ventolin Hfa] 1 puff INHALATION Q4H PRN PRN #1 inhaler PRN Reason: Sob &/Or Wheezing Furosemide [Lasix] 40 mg PO BID@1000,1800 #60 tablet Prednisone 10 mg PO UD #30 tab Primary Care Physician: Rik Murillo MD [Primary Care Provider] - Please follow up with your Primary Care Physician in: 1-2 weeks Test Results: Test results from this visit will be discussed in further detail at your follow- up appointment, if applicable. Please Follow Up With: [facility] pulmonology When: 1-2 weeks Please Follow Up With: Maynor Travis MD When: 1-2 weeks Proposed Discharge Date: 10/26/18
[2018-10-26] MEDS: Digoxin 250 MCG Tablet PO (12:06)
[2018-10-26 12:25] LABS: Bedside Glucose 424 mg/dL (70-110)
--- NOTE | 2018-10-26 12:44 | PCM.DC.SUM ---
<Edison Rosa - Last Filed: 10/26/18 12:44> Discharge Date and Diagnosis - Problem List Patient Problems: Active and Suspected Problems Sinus tachycardia by electrocardiogram (Acute) Hypertension, accelerated, with diastolic congestive heart failure, NYHA class 1 (Acute) Acute respiratory failure with hypoxia (Acute) (HFpEF) heart failure with preserved ejection fraction (Acute) CHF exacerbation (Acute) Date of Admission: 10/23/18 Date of Discharge: 10/26/18 - Primary Discharge Diagnosis Active and Suspected Problems Afib/Flutter with RVR Acute hypoxic respiratory failure 2/2 COPD excacerbation and Acute on chronic diastolic CHF exacerbation KEON Dysphagia RAISA DMt2 CAD - Secondary Discharge Diagnosis Chronic Problems COPD exacerbation (Chronic) Mesothelioma (Chronic) Heart failure (Chronic) Obstructive sleep apnea (Chronic) Paroxysmal a-fib (Chronic) Pulmonary hypertension (Chronic) Dyslipidemia (Chronic) CAD (coronary artery disease) (Chronic) History of heart artery stent (Chronic) Acute respiratory failure with hypoxia (Chronic) COPD (chronic obstructive pulmonary disease) (Chronic) Diabetes mellitus (Chronic) Hospital Course and Treatment Imaging Results: RAD/Chest 1 View (Portable) IMPRESSION: Findings suggestive of CHF superimposed on chronic interstitial scarring and bilateral pleural thickening with the calcific plaques. Echo: Interpretation Summary Normal left ventricle. Left ventricular systolic function is normal. The estimated ejection fraction is 55 %. Stage 3 diastolic dysfunction. Moderate (2+) tricuspid valve insufficiency. Pulmonary artery systolic pressure is 68 mmHg. Moderate pulmonary hypertension. Compared to prior study, there is no significant change. RAD/Chest 1 View (Portable) IMPRESSION: Bilateral infiltrates/edema improved on the right side since previous examination. Operations: None Procedures: 2-D Echocardiogram Summary of Care Provided: Hospital course: The patient is a 78 year old M with pmhx of diastolic CHF, COPD, t2DM, HTN, dysphagia, RAISA on home bipap, who presented to the ER with increased SOB, LE edema, nonproductive cough. He was found to have elevated BNP, wheezing, CHF on CXR, and he was hypoxic requiring 3 lpm of O2 - he does not use o2 at home regularly. He was admitted for COPD exacerbation, acute hypoxic respiratory failure, and acute diastolic CHF exacerbation. He responded well to IV lasix, steroids, o2, and aerosols. He was able to be weaned off O2 at rest. He will still reqruire O2 while ambulating to maintain good sats. He was transitioned to PO lasix after he developed KEON, following which his renal function returned to near baseline. Repeat echo was performed with 55% EF, st 3 diastolic dysfunction, and other results as above. He revealed that he has a poor diet. He puts a large amount of salt on all of his food before tasting it, and he eats out daily, sometimes he eats fast food twice daily. We discussed the need to maintain <2 grams of salt in his diet daily, and to avoid fast food and eating out completely. He was also advised to check his weights daily at the same time each day and record them, and to call his doctor if he experiences a 5 lb fluctuation on a daily basis. He was discharged home in stable condition and advised to follow up with his honing machine operator Dr. Travis in 1 week, and with his PCP in 1-2 weeks. This patient was seen by Edison Rosa PA-C under the supervision of Doctor Paolo. [] Patient Problems: Active and Suspected Problems Sinus tachycardia by electrocardiogram (Acute) Hypertension, accelerated, with diastolic congestive heart failure, NYHA class 1 (Acute) Acute respiratory failure with hypoxia (Acute) (HFpEF) heart failure with preserved ejection fraction (Acute) CHF exacerbation (Acute) - Physical Exam General: Alert, Oriented x3, Cooperative HEENT: Atraumatic, PERRLA, EOMI, Normocephalic Neck: Supple, No JVD, Negative Carotid Bruits Lungs: Clear to auscultation, Normal air movement Cardiovascular: Regular rate, No murmurs Abdomen: Bowel Sounds Present, Soft, Non Tender Extremities: No edema, Capillary Refill Less than 3 Seconds Skin: No rashes, No breakdown Musculoskeletal: No Tenderness to Palpation of Joints or Extremities Neurological: Cranial nerves II-XII grossly intact Psych/Mental Status: Normal Affect, Appropriate, Alert and oriented to time, place, person, mood and affect Vital Signs Temp Pulse Resp BP Pulse Ox 97.6 F L 85 18 142/73 H 92 10/26/18 12:18 10/26/18 12:18 10/26/18 12:18 10/26/18 12:18 10/26/18 12:18 Oxygen Flow Rate (L/min) 2 Oxygen Delivery Method Room Air Weight: 205 lb 4.006 oz Body Mass Index (BMI) 29.7 Finger Stick Blood Glucose 313 Intake and Output for Last 24 Hours 10/24/18 10/25/18 10/26/18 23:59 23:59 23:59 Intake Total 1235 / 1235 1245 / 1245 485 / 485 Output Total 1475 / 1475 725 / 725 950 / 950 Balance -240 / -240 520 / 520 -465 / -465 Microbiology Past 72 Hours 10/23/18 17:30 Influenza Types A,B Direct FA (JEANNE) - Final Mucosa - Nose Laboratory Tests Past 24 Hrs 10/26/18 10/26/18 05:20 05:20 PT 40.0 H INR 4.1 H* Sodium 136 Potassium 4.2 Chloride 101 Carbon Dioxide 26.0 Anion Gap 9 BUN 37 H Creatinine 1.13 Estim Creat Clear Calc 52.14 Est GFR (MDRD) Af Amer 80 Est GFR (MDRD) Non-Af 66 BUN/Creatinine Ratio 32.7 H Glucose 314 H Calcium 8.3 L POC Glucose 10/26/18 10/26/18 10/25/18 12:09 06:54 22:11 POC Glucose 424 H 348 H 363 H 10/25/18 16:27 POC Glucose 310 H Discharge Diet: Low fat/ Low Cholesterol, 1800 Calorie Control Diet, 2000 mg Sodium Diet Discharge Activity: Return to Normal Activity, - - Weigh yourself every day at the same time each day. If you notice a five pound fluctuation in a 24 hour period, call your doctor for further instructions. Home Medications: Medications to take at Discharge Amlodipine [Norvasc] 10 mg PO DAILY 07/21/15 Aspirin E.C. [Ecotrin] 81 mg PO DAILY@0800 07/21/15 Glimepiride [Amaryl] 4 mg PO DAILY 07/21/15 Metformin HCl [Glucophage] 1,000 mg PO BIDCM 07/21/15 Metoprolol Tartrate [Lopressor (beta jostin)] 150 mg PO BID 07/21/15 [place]-3S/Dha/Epa/Fish Oil/D3 [Fish Gwf-Fzrim-0-Vit D Softgel] 1 each PO BID 07/21/15 Tamsulosin HCl [Flomax] 0.4 mg PO QHS 07/21/15 Albuterol Aerosols [Ventolin Aerosols] 2.5 mg INHALATION Q6H PRN PRN 10/23/18 Albuterol IH (ProAir) [Proair Hfa] 2 puff INHALATION Q4H PRN PRN 10/23/18 Digoxin 250 mcg PO DAILY 10/23/18 Fluticasone Propionate 2 spray NASAL DAILY 10/23/18 Insulin Glargine,Hum.rec.anlog [Lantus] 26 unit SQ DAILY 10/23/18 Lisinopril 40 mg PO DAILY 10/23/18 Potassium Chloride [K-Dur] 20 meq PO DAILY 10/23/18 hydrALAZINE [Apresoline] 25 mg PO BID 10/23/18 Albuterol Inhaler [Ventolin Hfa] 1 puff INHALATION Q4H PRN PRN #1 inhaler 10/26/18 Furosemide [Lasix] 40 mg PO BID@1000,1800 #60 tablet 10/26/18 Prednisone 10 mg PO UD #30 tab 10/26/18 Warfarin [Coumadin] 7.5 mg PO DAILY #0 10/26/18 Following Prescrptions Were Given to Patient: Albuterol Inhaler [Ventolin Hfa] 1 puff INHALATION Q4H PRN PRN #1 inhaler PRN Reason: Sob &/Or Wheezing Furosemide [Lasix] 40 mg PO BID@1000,1800 #60 tablet Prednisone 10 mg PO UD #30 tab Primary Care Physician: Rik Murillo MD [Primary Care Provider] - Please follow up with your Primary Care Physician in: 1-2 weeks Please Follow Up With: [facility] pulmonology When: 1-2 weeks Please Follow Up With: Maynor Travis MD When: 1-2 weeks Please Follow Up With: Rik Murillo MD Disposition: Home Minutes spent on discharge:: 35 Patient Condition:: Stable Medical Necessity - Tobacco Use Smoking Status: Former smoker Tobacco Use: Secondhand Meaningful Use Info Meaningful Use Diagnoses (Choose all that apply): CHF - CHF JUAN RAMON/ARB ordered at discharge?: Yes Documented LVEF (%): 55 <Doni Boone - Last Filed: 10/26/18 13:17> Discharge Date and Diagnosis - Primary Discharge Diagnosis Active and Suspected Problems Sinus tachycardia by electrocardiogram (Acute) Hypertension, accelerated, with diastolic congestive heart failure, NYHA class 1 (Acute) Acute respiratory failure with hypoxia (Acute) (HFpEF) heart failure with preserved ejection fraction (Acute) CHF exacerbation (Acute) - Secondary Discharge Diagnosis Chronic Problems COPD exacerbation (Chronic) Mesothelioma (Chronic) Heart failure (Chronic) Obstructive sleep apnea (Chronic) Paroxysmal a-fib (Chronic) Pulmonary hypertension (Chronic) Dyslipidemia (Chronic) CAD (coronary artery disease) (Chronic) History of heart artery stent (Chronic) Acute respiratory failure with hypoxia (Chronic) COPD (chronic obstructive pulmonary disease) (Chronic) Diabetes mellitus (Chronic) Hospital Course and Treatment Summary of Care Provided: The patient is a 78 year old M [] - Physical Exam Vital Signs Temp Pulse Resp BP Pulse Ox 97.6 F L 85 18 142/73 H 92 10/26/18 12:18 10/26/18 12:18 10/26/18 12:18 10/26/18 12:18 10/26/18 12:18 Oxygen Flow Rate (L/min) 2 Oxygen Delivery Method Room Air Weight: 205 lb 4.006 oz Body Mass Index (BMI) 29.7 Finger Stick Blood Glucose 313 Intake and Output for Last 24 Hours 10/24/18 10/25/18 10/26/18 23:59 23:59 23:59 Intake Total 1235 / 1235 1245 / 1245 485 / 485 Output Total 1475 / 1475 725 / 725 950 / 950 Balance -240 / -240 520 / 520 -465 / -465 Microbiology Past 72 Hours 10/23/18 17:30 Influenza Types A,B Direct FA (JEANNE) - Final Mucosa - Nose Laboratory Tests Past 24 Hrs 10/26/18 10/26/18 05:20 05:20 PT 40.0 H INR 4.1 H* Sodium 136 Potassium 4.2 Chloride 101 Carbon Dioxide 26.0 Anion Gap 9 BUN 37 H Creatinine 1.13 Estim Creat Clear Calc 52.14 Est GFR (MDRD) Af Amer 80 Est GFR (MDRD) Non-Af 66 BUN/Creatinine Ratio 32.7 H Glucose 314 H Calcium 8.3 L POC Glucose 10/26/18 10/26/18 10/25/18 12:09 06:54 22:11 POC Glucose 424 H 348 H 363 H 10/25/18 16:27 POC Glucose 310 H Code Visit Addendum: Dr. Boone I personally examined the patient and reviewed the chart. I agree with the above. 78-year-old male with a diastolic heart failure exacerbation. Echo demonstrated an EF of 55% and stage III diastolic dysfunction. He is on Lasix however he stated that he had not been on his Lasix for the last 4 weeks because he ran of the prescription and did not call Ian to see if he had a refill or his primary care physician to obtain a refill. Also of note he states that he eats salt with every meal as well as fast food twice a day. We did explain to him the significance of his diet and the role of his heart failure. However he was wanting to go home today and he does have home oxygen which she wears as needed and we did recommend that he continue to wear it until he sees his primary care doctor and can be told to take be taken off of it. He was started on IV diuresis and chest x-ray demonstrated significant improvement from admission in pleural effusion bilaterally. Inpatient E&M: [id number] [facility]
--- NOTE | 2018-10-26 12:54 | DS.PCM_ITS ---
Addendum entered and electronically signed by DIMITRIOS Schaffer 10/26/18 14:49: Code Visit Addendum: The patient requires oxygen at home and in the community going forward, and will need a concentrator and portable tanks as he was unable to be weaned off o2, 2 lpm O2 continuously via nasal cannula. Original Note: <Edison Rosa - Last Filed: 10/26/18 12:44> Discharge Date and Diagnosis - Problem List Patient Problems: Active and Suspected Problems Sinus tachycardia by electrocardiogram (Acute) Hypertension, accelerated, with diastolic congestive heart failure, NYHA class 1 (Acute) Acute respiratory failure with hypoxia (Acute) (HFpEF) heart failure with preserved ejection fraction (Acute) CHF exacerbation (Acute) Date of Admission: 10/23/18 Date of Discharge: 10/26/18 - Primary Discharge Diagnosis Active and Suspected Problems Afib/Flutter with RVR Acute hypoxic respiratory failure 2/2 COPD excacerbation and Acute on chronic diastolic CHF exacerbation KEON Dysphagia RAISA DMt2 CAD - Secondary Discharge Diagnosis Chronic Problems COPD exacerbation (Chronic) Mesothelioma (Chronic) Heart failure (Chronic) Obstructive sleep apnea (Chronic) Paroxysmal a-fib (Chronic) Pulmonary hypertension (Chronic) Dyslipidemia (Chronic) CAD (coronary artery disease) (Chronic) History of heart artery stent (Chronic) Acute respiratory failure with hypoxia (Chronic) COPD (chronic obstructive pulmonary disease) (Chronic) Diabetes mellitus (Chronic) Hospital Course and Treatment Imaging Results: RAD/Chest 1 View (Portable) IMPRESSION: Findings suggestive of CHF superimposed on chronic interstitial scarring and bilateral pleural thickening with the calcific plaques. Echo: Interpretation Summary Normal left ventricle. Left ventricular systolic function is normal. The estimated ejection fraction is 55 %. Stage 3 diastolic dysfunction. Moderate (2+) tricuspid valve insufficiency. Pulmonary artery systolic pressure is 68 mmHg. Moderate pulmonary hypertension. Compared to prior study, there is no significant change. RAD/Chest 1 View (Portable) IMPRESSION: Bilateral infiltrates/edema improved on the right side since previous examination. Operations: None Procedures: 2-D Echocardiogram Summary of Care Provided: Hospital course: The patient is a 78 year old M with pmhx of diastolic CHF, COPD, t2DM, HTN, dysphagia, RAISA on home bipap, who presented to the ER with increased SOB, LE edema, nonproductive cough. He was found to have elevated BNP, wheezing, CHF on CXR, and he was hypoxic requiring 3 lpm of O2 - he does not use o2 at home regularly. He was admitted for COPD exacerbation, acute hypoxic respiratory failure, and acute diastolic CHF exacerbation. He responded well to IV lasix, steroids, o2, and aerosols. He was able to be weaned off O2 at rest. He will still reqruire O2 while ambulating to maintain good sats. He was transitioned to PO lasix after he developed KEON, following which his renal function returned to near baseline. Repeat echo was performed with 55% EF, st 3 diastolic dysfunction, and other results as above. He revealed that he has a poor diet. He puts a large amount of salt on all of his food before tasting it, and he eats out daily, sometimes he eats fast food twice daily. We discussed the need to maintain <2 grams of salt in his diet daily, and to avoid fast food and eating out completely. He was also advised to check his weights daily at the same time each day and record them, and to call his doctor if he experiences a 5 lb fluctuation on a daily basis. He was discharged home in stable condition and advised to follow up with his oil heater installer Dr. Travis in 1 week, and with his PCP in 1-2 weeks. This patient was seen by Edison Rosa PA-C under the supervision of Doctor Boone. [] Patient Problems: Active and Suspected Problems Sinus tachycardia by electrocardiogram (Acute) Hypertension, accelerated, with diastolic congestive heart failure, NYHA class 1 (Acute) Acute respiratory failure with hypoxia (Acute) (HFpEF) heart failure with preserved ejection fraction (Acute) CHF exacerbation (Acute) - Physical Exam General: Alert, Oriented x3, Cooperative HEENT: Atraumatic, PERRLA, EOMI, Normocephalic Neck: Supple, No JVD, Negative Carotid Bruits Lungs: Clear to auscultation, Normal air movement Cardiovascular: Regular rate, No murmurs Abdomen: Bowel Sounds Present, Soft, Non Tender Extremities: No edema, Capillary Refill Less than 3 Seconds Skin: No rashes, No breakdown Musculoskeletal: No Tenderness to Palpation of Joints or Extremities Neurological: Cranial nerves II-XII grossly intact Psych/Mental Status: Normal Affect, Appropriate, Alert and oriented to time, place, person, mood and affect Vital Signs Temp Pulse Resp BP Pulse Ox 97.6 F L 85 18 142/73 H 92 10/26/18 12:18 10/26/18 12:18 10/26/18 12:18 10/26/18 12:18 10/26/18 12:18 Oxygen Flow Rate (L/min) 2 Oxygen Delivery Method Room Air Weight: 205 lb 4.006 oz Body Mass Index (BMI) 29.7 Finger Stick Blood Glucose 313 Intake and Output for Last 24 Hours 10/24/18 10/25/18 10/26/18 23:59 23:59 23:59 Intake Total 1235 / 1235 1245 / 1245 485 / 485 Output Total 1475 / 1475 725 / 725 950 / 950 Balance -240 / -240 520 / 520 -465 / -465 Microbiology Past 72 Hours 10/23/18 17:30 Influenza Types A,B Direct FA (JEANNE) - Final Mucosa - Nose Laboratory Tests Past 24 Hrs 10/26/18 10/26/18 05:20 05:20 PT 40.0 H INR 4.1 H* Sodium 136 Potassium 4.2 Chloride 101 Carbon Dioxide 26.0 Anion Gap 9 BUN 37 H Creatinine 1.13 Estim Creat Clear Calc 52.14 Est GFR (MDRD) Af Amer 80 Est GFR (MDRD) Non-Af 66 BUN/Creatinine Ratio 32.7 H Glucose 314 H Calcium 8.3 L POC Glucose 10/26/18 10/26/18 10/25/18 12:09 06:54 22:11 POC Glucose 424 H 348 H 363 H 10/25/18 16:27 POC Glucose 310 H Discharge Diet: Low fat/ Low Cholesterol, 1800 Calorie Control Diet, 2000 mg Sodium Diet Discharge Activity: Return to Normal Activity, - - Weigh yourself every day at the same time each day. If you notice a five pound fluctuation in a 24 hour period, call your doctor for further instructions. Home Medications: Medications to take at Discharge Amlodipine [Norvasc] 10 mg PO DAILY 07/21/15 Aspirin E.C. [Ecotrin] 81 mg PO DAILY@0800 07/21/15 Glimepiride [Amaryl] 4 mg PO DAILY 07/21/15 Metformin HCl [Glucophage] 1,000 mg PO BIDCM 07/21/15 Metoprolol Tartrate [Lopressor (beta jostin)] 150 mg PO BID 07/21/15 [place]-3S/Dha/Epa/Fish Oil/D3 [Fish Obp-Dbnho-9-Vit D Softgel] 1 each PO BID 07/21/15 Tamsulosin HCl [Flomax] 0.4 mg PO QHS 07/21/15 Albuterol Aerosols [Ventolin Aerosols] 2.5 mg INHALATION Q6H PRN PRN 10/23/18 Albuterol IH (ProAir) [Proair Hfa] 2 puff INHALATION Q4H PRN PRN 10/23/18 Digoxin 250 mcg PO DAILY 10/23/18 Fluticasone Propionate 2 spray NASAL DAILY 10/23/18 Insulin Glargine,Hum.rec.anlog [Lantus] 26 unit SQ DAILY 10/23/18 Lisinopril 40 mg PO DAILY 10/23/18 Potassium Chloride [K-Dur] 20 meq PO DAILY 10/23/18 hydrALAZINE [Apresoline] 25 mg PO BID 10/23/18 Albuterol Inhaler [Ventolin Hfa] 1 puff INHALATION Q4H PRN PRN #1 inhaler 10/26/18 Furosemide [Lasix] 40 mg PO BID@1000,1800 #60 tablet 10/26/18 Prednisone 10 mg PO UD #30 tab 10/26/18 Warfarin [Coumadin] 7.5 mg PO DAILY #0 10/26/18 Following Prescrptions Were Given to Patient: Albuterol Inhaler [Ventolin Hfa] 1 puff INHALATION Q4H PRN PRN #1 inhaler PRN Reason: Sob &/Or Wheezing Furosemide [Lasix] 40 mg PO BID@1000,1800 #60 tablet Prednisone 10 mg PO UD #30 tab Primary Care Physician: Rik Murillo MD [Primary Care Provider] - Please follow up with your Primary Care Physician in: 1-2 weeks Please Follow Up With: [facility] pulmonology When: 1-2 weeks Please Follow Up With: Maynor Travis MD When: 1-2 weeks Please Follow Up With: Rik Murillo MD Disposition: Home Minutes spent on discharge:: 35 Patient Condition:: Stable Medical Necessity - Tobacco Use Smoking Status: Former smoker Tobacco Use: Secondhand Meaningful Use Info Meaningful Use Diagnoses (Choose all that apply): CHF - CHF JUAN RAMON/ARB ordered at discharge?: Yes Documented LVEF (%): 55 <Kotsonis,Doni F - Last Filed: 10/26/18 13:17> Discharge Date and Diagnosis - Primary Discharge Diagnosis Active and Suspected Problems Sinus tachycardia by electrocardiogram (Acute) Hypertension, accelerated, with diastolic congestive heart failure, NYHA class 1 (Acute) Acute respiratory failure with hypoxia (Acute) (HFpEF) heart failure with preserved ejection fraction (Acute) CHF exacerbation (Acute) - Secondary Discharge Diagnosis Chronic Problems COPD exacerbation (Chronic) Mesothelioma (Chronic) Heart failure (Chronic) Obstructive sleep apnea (Chronic) Paroxysmal a-fib (Chronic) Pulmonary hypertension (Chronic) Dyslipidemia (Chronic) CAD (coronary artery disease) (Chronic) History of heart artery stent (Chronic) Acute respiratory failure with hypoxia (Chronic) COPD (chronic obstructive pulmonary disease) (Chronic) Diabetes mellitus (Chronic) Hospital Course and Treatment Summary of Care Provided: The patient is a 78 year old M [] - Physical Exam Vital Signs Temp Pulse Resp BP Pulse Ox 97.6 F L 85 18 142/73 H 92 10/26/18 12:18 10/26/18 12:18 10/26/18 12:18 10/26/18 12:18 10/26/18 12:18 Oxygen Flow Rate (L/min) 2 Oxygen Delivery Method Room Air Weight: 205 lb 4.006 oz Body Mass Index (BMI) 29.7 Finger Stick Blood Glucose 313 Intake and Output for Last 24 Hours 10/24/18 10/25/18 10/26/18 23:59 23:59 23:59 Intake Total 1235 / 1235 1245 / 1245 485 / 485 Output Total 1475 / 1475 725 / 725 950 / 950 Balance -240 / -240 520 / 520 -465 / -465 Microbiology Past 72 Hours 10/23/18 17:30 Influenza Types A,B Direct FA (JEANNE) - Final Mucosa - Nose Laboratory Tests Past 24 Hrs 10/26/18 10/26/18 05:20 05:20 PT 40.0 H INR 4.1 H* Sodium 136 Potassium 4.2 Chloride 101 Carbon Dioxide 26.0 Anion Gap 9 BUN 37 H Creatinine 1.13 Estim Creat Clear Calc 52.14 Est GFR (MDRD) Af Amer 80 Est GFR (MDRD) Non-Af 66 BUN/Creatinine Ratio 32.7 H Glucose 314 H Calcium 8.3 L POC Glucose 10/26/18 10/26/18 10/25/18 12:09 06:54 22:11 POC Glucose 424 H 348 H 363 H 10/25/18 16:27 POC Glucose 310 H Code Visit Addendum: Dr. Boone I personally examined the patient and reviewed the chart. I agree with the above. 78-year-old male with a diastolic heart failure exacerbation. Echo demonstrated an EF of 55% and stage III diastolic dysfunction. He is on Lasix however he stated that he had not been on his Lasix for the last 4 weeks because he ran of the prescription and did not call [place] to see if he had a refill or his primary care physician to obtain a refill. Also of note he states that he eats salt with every meal as well as fast food twice a day. We did explain to him the significance of his diet and the role of his heart failure. However he was wanting to go home today and he does have home oxygen which she wears as needed and we did recommend that he continue to wear it until he sees his [facility] care doctor and can be told to take be taken off of it. He was started on IV diuresis and chest x-ray demonstrated significant improvement from admission in pleural effusion bilaterally. Inpatient E&M: [id number] Disch Hosp
[2018-10-26 16:41] LABS: Bedside Glucose 339 mg/dL (70-110)
--- NOTE | 2018-10-27 13:29 | CASEMGMT ---
EMILY CM DC PHONE CALL DC DATE: 10/26/18 DC Disposition: Home LACE/STRATA: 01/11 Attempted call, no answer to phone. Dina SIGALAN RN ACM
== END 2018-10-26 18:51 | disposition home or self-care (01) | DRG 291 ==
LOC: ED 15:40 → ICU 16:06 → PCU 16:10
PROVIDERS: Physician Assistant; Emergency Provider Emergency Medicine; Family Provider Internal Medicine; PCP Internal Medicine; Visit Provider Family Medicine
DX: I11.0 Hypertensive heart disease with heart failure (principal); J96.01 Acute respiratory failure with hypoxia; J44.1 Chronic obstructive pulmonary disease with (acute) exacerbation; N17.9 Acute kidney failure, unspecified; I50.33 Acute on chronic diastolic (congestive) heart failure; G47.33 Obstructive sleep apnea (adult) (pediatric); I25.10 Atherosclerotic heart disease of native coronary artery without angina pectoris; R13.10 Dysphagia, unspecified; E11.9 Type 2 diabetes mellitus without complications; C45.9 Mesothelioma, unspecified; E78.5 Hyperlipidemia, unspecified; I27.20 Pulmonary hypertension, unspecified; I48.91 Unspecified atrial fibrillation; Z79.01 Long term (current) use of anticoagulants; Z87.891 Personal history of nicotine dependence; Z95.5 Presence of coronary angioplasty implant and graft; Z95.0 Presence of cardiac pacemaker
CPT/HCPCS: 36415; 36600; 71045; 74230; 80048; 82803; 82962; 83605; 83880; 84484; 85025; 85610; 85730; 87804; 92526; 92610; 92611; 93005; 93306; 94002; 94003; 94640; 94667; 94668; 97162; 97165; 97802; 99285; A4216; J1940

== ENCOUNTER → 2019-01-28 13:00 | Outpatient (CLI) | payer MEDICARE, OTHER, SELFPAY ==
[2018-10-23 18:20] VITALS: BMI 29.7
--- NOTE | 2019-01-28 13:00 | SP.MBSS_ITS ---
PRIMARY / SECONDARY DIAGNOSIS: dysphagia (R13.10) REFERRING PHYSICIAN: Dr. Rik Murillo MD CURRENT DIET: regular textures, thin liquids DENTITION: upper / lower dentures MENTAL STATUS: self-reported memory decline RESPIRATORY STATUS: O2 via room air REASON FOR REFERRAL: The Patient is an 78 year old male referred for a modified barium swallow (MBS) study to objectively assess the Patients oropharyngeal swallow function under fluoroscopy secondary to persistent dysphagia with both solids and liquids, with intermittent coughing during ingestion of thin liquids in addition to post prandial globus sensation following consumption of solid textures with intermittent substernal discomfort and occasional post prandial reflux of previously consumed bolus without subjective acidic qualities; furthermore the Patient reports a significant unexplained weight loss over the past 6 months (240lbs to 197lbs), with the Patient reporting a reduction in appetite and early satiety complicating diet management associated with diabetes. MEDICAL HISTORY: Chronic obstructive pulmonary disease, coronary artery disease status post stent placement, congestive heart failure, atrial fibrillation, hypertension, dyslipidemia, obstructive sleep apnea, type II diabetes mellitus. PREVIOUS MODIFIED BARIUM SWALLOW STUDY: 10/23/2018 MBS revealed mild pharyngeal dysphagia without penetration or aspiration. ASSESSMENT PARAMETERS: The Patient participated in a Modified Barium Swallow (MBS) study on 01/28/2019. Dr. Perez was the radiologist present for this evaluation. This study was recorded in the lateral view and images were sent to PACs for storage. Scoring was completed through each trial using the 8-point Penetration-Aspiration Scale (PAS), and summarized via the Modified Barium Swallow Impairment Profile (MBSImP) and the Bolus Residue Scale (BRS), with severity scoring through the Dysphagia Severity Rating Scale (DSRS) and Swallowing Performance Scale (SPS), and recommended diet textures through the International Dysphagia Diet Standardisation Initiative (IDDSI). RESULTS OF THE EVALUATION: The Patient presents with mild oropharyngeal dysphagia (DSRS: 2; SPS: 3) with intermittent shallow penetration without complete ejection of thin liquids secondary to the diagnosis of chronic obstructive pulmonary disease and secondary presbyphagia in the absence of a neurologic etiology of cause. OBJECTIVE ASSESSMENT OF SWALLOW FUNCTION (QUANTITATIVE ? PER TRIAL): PENETRATION / ASPIRATION SCALE (HANSEN): 1 = does not enter airway 2 = enters airway/above vocal folds/ejected 3 = enters airway/above vocal folds/not ejected 4 = enters airway/contacts vocal folds/ejected 5 = enters airway/contacts vocal folds/not ejected 6 = enters airway/below vocal folds/ejected 7 = enters airway/below vocal folds/not ejected despite effort 8 = enters airway/below vocal folds/no effort PENETRATION / ASPIRATION SCALE (SCORE): Thin liquid - 5 mL tsp.: 3 Thin liquids via cup (single sip): 2 Thin liquids via cup (single sip): 1 Thin liquids via cup (single sip): 3 Thin liquids via cup (sequential swallows): 1 Pudding via spoon: 1 Regular textured cookie: 1 Thin liquids via straw (chin tuck): 1 Thin liquids via straw (chin tuck): 1 OBJECTIVE ASSESSMENT OF SWALLOW FUNCTION (QUANTITATIVE ? AGGREGATE): MODIFIED BARIUM SWALLOW IMPAIRMENT PROFILE (MBSImP) LABIAL SEAL: 0 (of 4) no labial escape TONGUE CONTROL: 1 (of 3) lateral buccal cavity / floor of mouth BOLUS PREPARATION / MASTICATION: 1 (of 3) slow prolonged; complete recollection BOLUS TRANSPORT / LINGUAL MOTION: 3 (of 4) repetitive / disorganized motion ORAL RESIDUE: 2 (of 4) residue collection on oral structures INITIATION OF PHARYNGEAL SWALLOW: 2 (of 4) posterior surface of epiglottis SOFT PALATE ELEVATION: 0 (of 4) no bolus between soft palate & pharyngeal wall LARYNGEAL ELEVATION: 1 (of 3) partial superior movement / approximation ANTERIOR HYOID EXCURSION: 1 (of 2) partial movement EPIGLOTTIC MOVEMENT: 1 (of 2) partial inversion LARYNGEAL VESTIBULE CLOSURE: 1 (of 2) incomplete closure PHARYNGEAL STRIPPING WAVE: 0 (of 2) present / complete PE SEGMENT OPENIN (of 3) partial distension / duration / obstruction TONGUE BASE RETRACTION: 1 (of 4) trace column of contrast PHARYNGEAL RESIDUE: 1 (of 4) trace residue ESOPHAGEAL BOLUS CLEARANCE: could not view BOLUS RESIDUE SCALE (BRS): 1 (of 6) no residue DYSPHAGIA SEVERITY RATING SCALE (DSRS): 2 (mild) SWALLOWING PERFORMANCE SCALE (SPS): 3 (mild) OBJECTIVE ASSESSMENT OF SWALLOW FUNCTION (QUALITATIVE): ORAL PREPARATORY PHASE: mild (albeit effective) mastication inefficiency with prolonged mastication; sufficient anterior oral containment; preserved management of breathing / bolus formation. ORAL TRANSITIONAL PHASE: discoordinated lingual movements (intermittent undulations), with patterns typically identified in individuals with neurologic based dysphagia; intermittent oral phase swallow onset delay (2-3 seconds in length) most prominent during trials of thicker viscosities and with thin liquids via chin tuck; overall sufficient oral clearance; sufficient oral containment across textures. PHARYNGEAL PHASE: mild pharyngeal phase dyssynchrony contributing to intermittent shallow prandial penetration of thin liquids (ameliorated with chin tuck posture); inconsistent full hyolaryngeal excursion resulting in inconsistent laryngeal vestibule pressure generated to expel penetrated material; no signs of pharyngeal dysmotility; no signs of velopharyngeal impairments. ESOPHAGEAL PHASE: no obvious esophageal phase abnormalities observed upon initial examination; noted post prandial (~ 5 minutes following study completion) eructation, substernal discomfort, and notable eye watering, with subjective signs possibly associated with gastroesophageal reflux vs. esophageal dysmotility that would require a more appropriate assessment of gastroesophageal functioning (barium esophagram / barium swallow study). CONTRIBUTING / COMPLICATING FACTORS AND NOTABLE FINDINGS: sufficient / strong cued volitional cough intensity to expel penetrated material; very small non- obstructive cricopharyngeal bar located at the C-6 level, no impact on pharyngoesophageal motility; noted calcification along the anterior laryngeal vestibule in addition to portions of the anterior esophagus (adjacent to C-7) complicating assessment. RESPONSE TO STRATEGIES: all deficits managed successfully with reduction in bolus rate / volume adjustments, use of straws, and execution of the chin tuck posture. RECOMMENDATIONS AND CONSIDERATIONS: Would consider this Patient to be at high risk for malnutrition due to Patients suboptimal oral control and concomitant anterior fluid loss, questionable self-reported memory complications / cognitive impairments, rather significant amount of weight lost over the last 6 months (43 lbs.; 240-197 lbs.), and the Patients advanced age. The Patient may require intervention to reduce the risk of malnutrition, with considerations for food enrichment and oral nutritional supplementation. Would consider the Patient to be at higher risk of non-compliance with recommended intake precautions secondary to the reported presence of memory impairments / cognitive impairments. Will recommend continued skilled speech-language intervention targeting diet texture management and training / implementation of recommended compensatory strategies; training and implementation of a home oral care protocol to reduce the effects of xerostomia and improve / maintain the integrity of the oral mucosa reducing the risk of aspiration related pulmonary complications; considerations for implementation of thermal tactile approach to promote improved oral phase swallow onset; with considerations for assessment of the cognitive communication profile given the above mentioned complaints. Recommend a nutritional services consultation due to the Patient and Patients caregiver concern with continuing with alternative means of nutrition, with the Patient highly unlikely to be able to consistently and safely consume enough caloric intake to satisfy daily needs. Would consider consultation with a registered dietitian if weight loss or reduced intake quantities are apparel. Would further consider additional assessment of the Patients esophageal functioning, as it is outside the scope of the modified barium swallow study to objectively assess esophageal functioning (consider barium esophagram if deemed medically appropriate). DIET TEXTURE RECOMMENDATIONS: Will recommend a regular textured (IDDSI: 7), thin liquid diet (IDDSI: 0) diet RECOMMENDED COMPENSATORY STRATEGIES: Chin tuck, reduced bolus volume / rate of ingestion, straws with all liquids, seated upright at 90 degrees during PO intake, remain upright for 30-60 minutes post meal (GERD precaution), medications one at a time with a liquid chaser. IMAGE COUNT: [id number] Gil Person M.A., CCC-SUPERVISOR INSTRUMENT MAINTENANCE MBSImP Certified, LSVT Certified [facility] Speech-Language Pathology Department [email or web address]
--- NOTE | 2019-01-28 13:15 | RAD_ITS ---
STUDY: SWALLOWING STUDY REASON FOR EXAM: Male, 78 years old. Dysphagia. TECHNIQUE: The examination was performed with Speech Pathology in attendance. Under fluoroscopic observation, the patient ingested thin barium, thick barium, barium pudding, and barium coated cracker. FLUOROSCOPY TIME: 2:19 minutes/seconds. 1481 fluoroscopic images were obtained. RADIOLOGIST INVOLVEMENT: Radiologist was present and providing direct supervision. COMPARISON: Comparison is made with prior study dated October 23, 2018. FINDINGS: The following was observed during swallowing of the various mixtures of barium: Thin Barium: Transient penetration with ingestion of thin liquids. This improves with the chin tuck maneuver. Barium Pudding: There was no evidence of aspiration or laryngeal penetration. Barium Coated Cracker: There was no evidence of aspiration or laryngeal penetration. RAD/Swallowing Function w/Video IMPRESSION: Transient penetration with ingestion of thin liquids. This improves with the chin tuck maneuver. The swallow study findings were discussed with the patient by the speech pathologist at the conclusion of the examination. Please see speech pathology report for more information and recommendations. Electronically Signed: Spencer Perez, at 14:49 EDT , Service support ,
== END ==
PROVIDERS: Family Provider Internal Medicine; PCP Internal Medicine; Referring Provider Internal Medicine; Visit Provider Internal Medicine
DX: R13.10 Dysphagia, unspecified (principal)
CPT/HCPCS: 74230; 92611

== ENCOUNTER 2020-05-20 18:41 | Observation (INO) | payer MEDICARE, OTHER, SELFPAY ==
[2018-10-23 18:20] VITALS: BMI 29.7
[2020-05-20 18:42] VITALS: BP 147/74; PULSE 54; RESP 20; TEMP 35.9; O2SAT 90; BMI 21.7
--- NOTE | 2020-05-20 19:00 | RAD_ITS ---
STUDY: X-RAY CHEST REASON FOR EXAM: Male, 80 years old. Cough for approx 1 year. Recent shortness of breath, fatigue, and weight loss. TECHNIQUE: Frontal view of the chest COMPARISON: October 25 2018 FINDINGS: There is extensive chronic pulmonary disease. This makes detection of new acute disease difficult given background of extensive lung abnormality. Some diagnostic information is available. Lung volume is reduced. There is chronic irregular shaped opacity in the left mid to lower lung likely due to combination of intrinsic lung disease and dense pleural calcifications. There is increasing right lower lung and right middle lung zone disease with interstitial appearance. There is questionable nodularity in the right lower lung, increased since prior. Mediastinum is normal in size. Pacemaker is present in the right upper chest with leads terminating in the right atrium and right ventricle. There is no pneumothorax. There is possibly small left pleural effusion versus pleural scarring. Osseous structures are intact. RAD/Chest 1 View (Portable) IMPRESSION: 1. Progressive lung disease, now with involvement of the right middle and lower lobe, unclear if this is acute, subacute or chronic. Refer to chest CT. 2. Chronic left lung and pleural disease. 3. Presumably asbestos-related disease. Electronically Signed: Harriet Leblanc, at 19:53 EDT Tel , Service support ,
--- NOTE | 2020-05-20 19:00 | EKG12_ITS ---
Test Reason : N/V Blood Pressure : / mmHG Vent. Rate : 055 BPM Atrial Rate : 055 BPM P-R Int : 174 ms QRS Dur : 098 ms QT Int : 446 ms P-R-T Axes : 045 017 -40 degrees QTc Int : [address] & T wave abnormality, consider inferior ischemia Abnormal ECG Confirmed by JUSTIN CROCKETT, MARIO ([id number]), news videotape editor SHARAN SANDRA ([id number]) on 05/24/2020 11:15:06 AM Referred By: CARYN Confirmed By:MARIO ANDERSON MD
[2020-05-20] MEDS: Aspirin 325 MG Tablet PO (19:09)
--- NOTE | 2020-05-20 19:20 | ED.VIS.GEN ---
History of Present Illness Chief Complaint: Shortness of Breath Informant: Patient Onset: Weeks Context: Gradual Onset Timing: Intermittent Current Severity: Moderate Maximum Severity: Moderate Narrative: The patient is an 80-year-old male with medical history significant for coronary vascular disease, status post 5 stents, congestive heart failure, atrial flutter, permanent pacemaker placement who presents to the emergency department with multiple complaints. Patient states that he has been intermittently short of breath for the past year. He states over the past month, he feels like it is worse. He states he is had no appetite. He states if he walks a distance, he gets acutely dyspneic. He states that he has had 2 bouts of syncope when he has been exerting himself. He denies any chest pain. He does admit to orthopnea. He states he is also had significant weight loss. He denies any fevers or chills. He states his been compliant with his Coumadin. He denies any change in stools or dark tarry stools. Prior similar symptoms: Yes Recent Illness/Hospitalization: No Past Medical History - Allergies and Home Meds Allergies/Adverse Reactions: Allergies sulfamethoxazole [From Septra] Allergy (Verified 05/20/20 18:42) Other trimethoprim [From Septra] Allergy (Verified 05/20/20 18:42) Other niacin [From Niaspan Extended-Release] Adverse Reaction (Verified 05/20/20 18:42) Rash Primary Care Physician: Rik Murillo MD [Primary Care Provider] - Prior records reviewed: Yes Past Medical History: - - Coronary vascular disease with stents, congestive heart failure, hypertension, atrial flutter Surgical History: cholecystectomy, pacemaker implantation, - - ICD, cardiac stents. Smoking Status: Former smoker - Family History Paternal Family History: Reports: No pertinent history Maternal Family History: Reports: No pertinent history Review of Systems General: Denies: Chills, Fever, Sweats Eyes: Denies: Visual changes - bilaterally, Diplopia ENT: Denies: Rhinorrhea, Sore throat Cardiovascular: Denies: Chest pain, Palpitations Respiratory: Reports: Dyspnea, Cough, Dyspnea on exertion Gastrointestinal: Reports: Nausea. Denies: Abdominal pain, Vomiting, Diarrhea, Melena, Hematochezia Genitourinary: Denies: Dysuria, Hematuria, Frequency Musculoskeletal: Denies: Back pain, Extremity Pain Skin: Denies: Rash, Wounds Neurological: Denies: Headache, Weakness, Numbness Physical Exam Vital Signs/Narrative: Vital Signs Temp Pulse Resp BP Pulse Ox 05/20/20 18:42 96.7 F L 54 L 20 H 147/74 H 90 Inital Vital Signs reviewed: Yes General: Well nourished, Well developed, No Acute Distress Head: Normocephalic, Atraumatic Eyes: Perrl, EOMI ENT: Moist mucous membranes, No rhinorrhea Neck: Supple, Nontender Cardiovascular: Regular rate, Regular rhythm, No murmurs Respiratory: No distress, Chest nontender, Diminished Abdomen: Soft, Nontender, Nondistended, Normal bowel sounds Back: Nontender, Normal Inspection Extremities: Nontender, No edema Skin: Normal color, No rash Neurological: Alert, Oriented x3, Cranial nerves II-XII grossly intact, Normal Strength, Normal Sensation Psychological: Normal affect, Normal Mood Diagnostic/Tx/Re-eval Clinical Impression(s) from Imaging Studies Chest X-Ray 05/20/20 19:00 IMPRESSION: 1. Progressive lung disease, now with involvement of the right middle and lower lobe, unclear if this is acute, subacute or chronic. Refer to chest CT. 2. Chronic left lung and pleural disease. 3. Presumably asbestos-related disease. Electronically Signed: Harriet Deana, at 19:53 EDT Tel , Service support , Abnormal Lab Results 05/20/20 05/20/20 05/20/20 19:13 19:13 19:13 WBC 9.1 RBC 4.84 Hgb 14.6 Hct 43.9 MCV 90.7 MCH 30.2 MCHC 33.3 RDW Std Deviation 43.8 RDW Coeff of Felix 13.2 Plt Count 340 MPV 10.6 Immature Gran % (Auto) 0.400 Neut % (Auto) 80.8 H Lymph % (Auto) 11.3 L [place] % (Auto) 5.8 Eos % (Auto) 1.2 Baso % (Auto) 0.5 Absolute Neuts (auto) 7.3 Absolute Lymphs (auto) 1.03 Nucleated RBC % 0 PT 25.5 H INR 2.4 Sodium 135 L Potassium 4.3 Chloride 102 Carbon Dioxide 25.0 Anion Gap 8 BUN 18 Creatinine 1.20 Estim Creat Clear Calc 45.37 Est GFR (MDRD) Af Amer 75 Est GFR (MDRD) Non-Af 62 BUN/Creatinine Ratio 15.0 Glucose 254 H Calcium 9.0 Total Bilirubin 0.80 AST 30 ALT 21 Alkaline Phosphatase 96 Troponin I < 0.015 B-Natriuretic Peptide Total Protein 8.3 H Albumin 3.4 Globulin 4.9 H Albumin/Globulin Ratio 0.7 L 05/20/20 19:13 WBC RBC Hgb Hct MCV MCH MCHC RDW Std Deviation RDW Coeff of Felix Plt Count MPV Immature Gran % (Auto) Neut % (Auto) Lymph % (Auto) [place] % (Auto) Eos % (Auto) Baso % (Auto) Absolute Neuts (auto) Absolute Lymphs (auto) Nucleated RBC % PT INR Sodium Potassium Chloride Carbon Dioxide Anion Gap BUN Creatinine Estim Creat Clear Calc Est GFR (MDRD) Af Amer Est GFR (MDRD) Non-Af BUN/Creatinine Ratio Glucose Calcium Total Bilirubin AST ALT Alkaline Phosphatase Troponin I B-Natriuretic Peptide 204.7 H Total Protein Albumin Globulin Albumin/Globulin Ratio - Rhythm Strip Rhythm Strip: Sinus Rhythm Rate: 55 Ectopy: None - EKG Initial EKG Interpretation: Sinus Bradycardia, Non-Specific ST Changes Prior: Unchanged - Medical Decision Making The patient presents to the emergency department with exertional dyspnea, nausea, and syncope. He has had a 50 pound weight loss this year. He does have rather advanced mesothelioma. EKG was obtained which showed some nonspecific T wave inversions inferiorly, but unchanged from prior. Chest x-ray does show significant chronic change with questionable small effusions. BNP was mildly elevated. Patient was ambulated and had tachypnea and dyspnea. His Covid is pending. At this point, I do feel that the most prudent plan of care would be to admit the patient for diuresis and echo given his syncope. Impression 1. CHF exacerbation 2. Syncope ED Disposition - Plan for ED Patient: Referrals: Rik Murillo MD [Primary Care Provider] -
[2020-05-20 19:25] VITALS: BP 156/76; PULSE 56; RESP 18; TEMP 36.8; O2SAT 94
[2020-05-20 19:33] LABS: International Normalized Ratio 2.4; Prothrombin Time (Protime)PT. 25.5 SECONDS (11.7-14.9)
[2020-05-20 19:40] LABS: ALB/GLOB Ratio 0.7 RATIO (0.9-2.4); AST(SGOT) 30 U/L (15-37); Alanine Aminotransfer ALT/SGPT 21 U/L (16-61); Albumin, Serum 3.4 g/dL (3.2-5.0); Alkaline Phosphatase 96 U/L (45-117); Anion Gap 8 (5-15); BUN 18 mg/dL (7-18); Chloride 102 mmol/L (98-107); EST Glomerular Filtration Rate 62 mL/min (>60); Est Glom Filt Rate - Afr Amer 75 mL/min (>60); Estimated Creatinine Clearance 45.37 ml/min; Globulin 4.9 g/dL (2.2-4.2); Glucose 254 mg/dL (74-106); Potassium 4.3 mmol/L (3.5-5.1); Protein, Total 8.3 g/dL (6.4-8.2); Sodium Level 135 mmol/L (136-145)
[2020-05-20 19:41] LABS: Absolute Lymphocyte Count 1.03 X10^3/uL (0.83-4.51); Absolute Neutrophil Count 7.3 X10^3/uL (2.0-7.7); Basophil# 0.05 X10^3/uL; Basophil% 0.5 % (0-1); Eosinophil# 0.11 X10^3/uL; Eosinophils% 1.2 % (0-5); Hematocrit 43.9 % (40-54); Hemoglobin 14.6 g/dL (13.0-16.5); Lymphocyte # 1.03 X10^3/ul (4.0); Lymphocyte % 11.3 % (19-41); Mean Corp Hgb Conc 33.3 g/dL (32-36); Mean Corpuscular Hgb 30.2 pg (27.0-32.0); Mean Corpuscular Volume 90.7 fL (80-94); Mean Platelet Vol. 10.6 fl (6.2-12.0); Monocyte# 0.53 X10^3/uL; Monocyte% 5.8 % (0-10); NRBC Flagged by Analyzer 0 % (0-5); Neutrophil # 7.34 X10^3/uL (2.7-7.7); Neutrophil % 80.8 % (47-70); Platelet Count 340 K/mm3 (150-450); RBC Distribution Width CV 13.2 % (11.6-14.6); RBC Distribution Width SD 43.8 fl (35.1-43.9); Red Blood Count 4.84 M/mm3 (4.6-6.2); White Blood Count 9.1 K/mm3 (4.4-11.0)
[2020-05-20 19:50] LABS: BNP,B-Type NATRIURETIC PEPTIDE 204.7 pg/mL (0-100)
--- NOTE | 2020-05-20 21:55 | HP.PCM_ITS ---
Problem List (1) (HFpEF) heart failure with preserved ejection fraction Status: Chronic Qualifiers: Heart failure chronicity: acute Qualified Code(s): I50.31 - Acute diastolic (congestive) heart failure (2) Acute respiratory failure with hypoxia Status: Chronic (3) CAD (coronary artery disease) Status: Chronic (4) COPD (chronic obstructive pulmonary disease) Status: Chronic (5) COPD exacerbation Status: Chronic (6) Diabetes mellitus Status: Chronic (7) Dyslipidemia Status: Chronic (8) Heart failure Status: Chronic (9) History of heart artery stent Status: Chronic (10) Mesothelioma Status: Chronic (11) Obstructive sleep apnea Status: Chronic (12) Paroxysmal a-fib Status: Chronic (13) Pulmonary hypertension Status: Chronic (14) COVID-19 Status: Acute (15) SARS (severe acute respiratory syndrome) Status: Acute History of Present Illness Date of Admission: 05/20/20 Chief Complaint: nausea and vomitting The patient is a 80 year old M paroxysmal A. fib; CAD status post stents; PPM with ICD; and diabetes mellitus who presented to the emergency department with 3-week history of nausea and vomiting. Associated with his symptom is diaphoresis. Also he reports that for the past 1 and half weeks he has had 3 syncopal episodes. For the past 1 year he has been fatigue. Since July 2019 he has lost about 50 pounds. Since about September 2018 he has had a productive cough of greenish-yellowish sputum. Patient reports increased shortness of breath that occurs at rest and increases with exertion. He has home oxygen that he does not use order time. Reportedly on the day of admission he used oxygen. Past Medical History Past Medical History (Chronic Problems): Chronic Problems COPD exacerbation (Chronic) (HFpEF) heart failure with preserved ejection fraction (Chronic) Mesothelioma (Chronic) Heart failure (Chronic) Obstructive sleep apnea (Chronic) Paroxysmal a-fib (Chronic) Pulmonary hypertension (Chronic) Dyslipidemia (Chronic) CAD (coronary artery disease) (Chronic) History of heart artery stent (Chronic) Acute respiratory failure with hypoxia (Chronic) COPD (chronic obstructive pulmonary disease) (Chronic) Diabetes mellitus (Chronic) Allergies sulfamethoxazole [From Septra] Allergy (Verified 05/20/20 18:42) Other trimethoprim [From Septra] Allergy (Verified 05/20/20 18:42) Other niacin [From Niaspan Extended-Release] Adverse Reaction (Verified 05/20/20 18:42) Rash Home Medications: Ambulatory Orders Medication Instructions Recorded Amlodipine [Norvasc] 10 mg PO DAILY 07/21/15 Aspirin E.C. [Ecotrin] 81 mg PO DAILY@0800 07/21/15 Glimepiride [Amaryl] 4 mg PO DAILY 07/21/15 Metoprolol Tartrate [Lopressor 150 mg PO BID 07/21/15 (beta jostin)] [place]-3S/Dha/Epa/Fish Oil/D3 [Fish 1 each PO BID 07/21/15 Xgx-Cckfq-2-Vit D Softgel] Tamsulosin HCl [Flomax] 0.4 mg PO QHS 07/21/15 metFORMIN HCl [Glucophage] 1,000 mg PO BIDCM 07/21/15 Albuterol Aerosols [Ventolin 2.5 mg INHALATION Q6H PRN PRN 10/23/18 Aerosols] Albuterol IH (ProAir) [Proair Hfa] 2 puff INHALATION Q4H PRN PRN 10/23/18 Digoxin 250 mcg PO DAILY 10/23/18 Fluticasone Propionate 2 spray NASAL DAILY 10/23/18 Insulin Glargine,Hum.rec.anlog 26 unit SQ DAILY 10/23/18 [Lantus] Lisinopril 40 mg PO DAILY 10/23/18 Potassium Chloride [K-Dur] 20 meq PO DAILY 10/23/18 hydrALAZINE [Apresoline] 25 mg PO BID 10/23/18 Furosemide [Lasix] 40 mg PO BID@1000,1800 #60 tablet 10/26/18 Pravastatin [Pravachol] 40 mg PO DAILY 05/20/20 Warfarin [Coumadin ([facility])] 5 mg PO DAILY 05/20/20 Warfarin [Coumadin] 7.5 mg PO 05/20/20 Surgical History: cholecystectomy, pacemaker implantation, - - ICD, cardiac stents. Smoking Status: Former smoker Tobacco Use: Chew - *Family History Paternal History Items: Stroke Maternal History Items: Cancer - His father had liver cancer Review of Systems Constitutional: Reports: Weight Change - Weight loss as in HPI, Fatigue. Denies: Chills, Fever HEENT: Denies: Head Aches, Sinus Congestion, Sinus Drainage Cardiovascular: Reports: Syncope. Denies: Chest Pain, Palpitations Respiratory: Reports: Cough, Shortness of Breath, Sputum production Gastrointestinal: Denies: Abdominal Pain, Nausea, Vomiting Genitourinary: Denies: Dysuria Musculoskeletal: Denies: Joint Pain, Joint Tenderness Skin: Denies: Rash, Wounds Neurological: Denies: Numbness, Tingling, Focal weakness Psychiatric: Denies: Anxiety, Depression, Homicidal Ideations, Suicidal Ideations Hematologic/ Lymphatic: Denies: Easy Bruising, Easy Bleeding VTE Information - Inpt Only VTE Present on Admission: No VTE Mechan Device Prophylaxis: None VTE Pharm Prophylaxis ordered?: No Reason prophylaxis not ordered:: Treatment Not Indicated - Coumadin for A. fib continued. Patient Problems: Active and Suspected Problems COVID-19 (Acute) SARS (severe acute respiratory syndrome) (Acute) - Physical Exam Vitals/I&O's: Vital Signs Temp Pulse Resp BP Pulse Ox 98.3 F 56 L 18 156/76 H 94 05/20/20 19:25 05/20/20 19:25 05/20/20 19:25 05/20/20 19:25 05/20/20 19:25 Oxygen Delivery Method Room Air Weight: 67.585 kg Body Mass Index (BMI) 21.7 Finger Stick Blood Glucose 313 General: Alert, Oriented x3, Cooperative HEENT: Atraumatic, PERRLA, EOMI, Normocephalic Neck: Supple, No JVD, Negative Carotid Bruits Lungs: Clear to auscultation, Normal air movement, Diminished Cardiovascular: Regular rate, Regular Rhythm, Normal S1, Normal S2, No murmurs Abdomen: Bowel Sounds Present, Soft, Non Tender Extremities: No edema, Capillary Refill Less than 3 Seconds Skin: No rashes, No breakdown Musculoskeletal: No Tenderness to Palpation of Joints or Extremities Neurological: Cranial nerves II-XII grossly intact Psych/Mental Status: Normal Affect, Appropriate Laboratory Results 05/20/20 19:13: WBC 9.1, RBC 4.84, Hgb 14.6, Hct 43.9, MCV 90.7, MCH 30.2, MCHC 33.3, RDW Std Deviation 43.8, RDW Coeff of Felix 13.2, Plt Count 340, MPV 10.6, Immature Gran % (Auto) 0.400, Neut % (Auto) 80.8 H, Lymph % (Auto) 11.3 L, [place] % (Auto) 5.8, Eos % (Auto) 1.2, Baso % (Auto) 0.5, Absolute Neuts (auto) 7.3, Absolute Lymphs (auto) 1.03, Nucleated RBC % 0 05/20/20 19:13: PT 25.5 H, INR 2.4 05/20/20 19:13: Sodium 135 L, Potassium 4.3, Chloride 102, Carbon Dioxide 25.0, Anion Gap 8, BUN 18, Creatinine 1.20, Estim Creat Clear Calc 45.37, Est GFR (MDRD) Af Amer 75, Est GFR (MDRD) Non-Af 62, BUN/Creatinine Ratio 15.0, Glucose 254 H, Calcium 9.0, Total Bilirubin 0.80, AST 30, ALT 21, Alkaline Phosphatase 96, Troponin I < 0.015, Total Protein 8.3 H, Albumin 3.4, Globulin 4.9 H, Albumin/Globulin Ratio 0.7 L 05/20/20 19:13: B-Natriuretic Peptide 204.7 H 05/20/20 19:15: COVID-19 ([facility]) Pending Assessment/Plan All Active Problems COVID-19 (Acute) SARS (severe acute respiratory syndrome) (Acute) SARS COVID-19 infection Chest x-ray with progressive lung disease. Patient is therapeutic on Coumadin. No need for D-dimer at this time.. COVID-19 was positive. Dexamethasone 6 mg IV and then 6 mg p.o. daily ordered. Procalcitonin, strep pneumonia antigen and Legionella urine antigen ordered. Infectious disease consult and pulmonology consult. Tylenol for fever and Mucinex for cough ordered. Zofran for nausea and vomiting. Syncope Likely secondary to COVID-19. Treatment Covid as above. Heart failure with preserved ejection fraction BNP is not elevated. Stable. Echocardiogram on 10/23/2018 showed ejection fraction of 55% with stage III diastolic dysfunction. Received Lasix 40 mg IV at emergency department. Continue Lasix 40 mg twice daily. Home Lasix 40 mg p.o. twice daily continued. Chronic A. fib Stable Digoxin and metoprolol continued. Therapeutic on Coumadin. Coumadin continued Daily INR. HTN Blood pressure is stable in regard to his age. Lisinopril and hydralazine continue Metoprolol continued Trend blood pressure and adjust blood pressure medications. Diabetes mellitus Blood glucose not controlled on presentation Metformin held secondary to be in the hospital setting Lantus continued Accu-Chek with correction scale insulin ordered. CAD status post stent Aspirin continued. Lisinopril metoprolol continued. DVT prophylaxis Not indicated since patient is therapeutic on Coumadin. Coumadin continued. OBSV E&M: 28078 Initial observation care L3
[2020-05-20] MEDS: Furosemide 40 MG/4 ML Vial IV (22:09)
[2020-05-20 22:13] VITALS: BP 148/68; PULSE 59; RESP 24; TEMP 36.8; O2SAT 92
[2020-05-20 22:14] VITALS: BP 148/68; PULSE 59; RESP 24; TEMP 36.8; O2SAT 92
--- NOTE | 2020-05-20 22:59 | ED.RN ---
attempt to call the pt's daughter and to inform them that the pt is going to [facility]cu and the need for isolation if they were exposed. recieved the answering service on both phone. pt stated he would.
[2020-05-20 23:16] VITALS: BMI 27.2
[2020-05-20 23:30] VITALS: BP 138/65; PULSE 57; RESP 20; TEMP 37.1; O2SAT 94
[2020-05-20 23:34] VITALS: BMI 27.2
[2020-05-21 00:14] LABS: Procalcitonin < 0.04 ng/mL (0.00-0.09)
[2020-05-21 00:48] VITALS: BP 138/65; PULSE 57
[2020-05-21] MEDS: hydrALAZINE 25 MG Tablet PO ×2 (00:48→12:00)
[2020-05-21] MEDS: Omega-3 Acid Ethyl Esters 1 GM Capsule PO ×2 (00:48→09:35)
[2020-05-21] MEDS: dexAMETHasone 10 MG/ML Vial 6 MG IV ×2 (00:48→09:36)
[2020-05-21 00:56] LABS: Bedside Glucose 315 mg/dL (70-110)
[2020-05-21] MEDS: Insulin Lispro 100 UNIT/ML INSULN.PEN SC ×3 (01:21→12:52)
[2020-05-21 05:30] VITALS: BP 133/80; PULSE 62; RESP 19; TEMP 36.7; O2SAT 96
[2020-05-21 07:01] LABS: Bedside Glucose 412 mg/dL (70-110)
[2020-05-21 08:55] LABS: International Normalized Ratio 2.3; Prothrombin Time (Protime)PT. 25.2 SECONDS (11.7-14.9)
[2020-05-21 09:21] VITALS: BP 126/69; PULSE 55; RESP 18; TEMP 36.3; O2SAT 95
[2020-05-21] MEDS: 0.9% Saline Lock 10 ML Syringe IV (09:35)
[2020-05-21] MEDS: Glimepiride 4 MG Tablet PO (09:36)
[2020-05-21] MEDS: Aspirin E.C. 81 MG Tablet PO (09:36)
[2020-05-21] MEDS: guaiFENesin 1,200 MG Tablet 1200 MG PO (09:38)
[2020-05-21 11:51] VITALS: BP 146/70; PULSE 73; RESP 18
[2020-05-21 12:00] VITALS: BP 146/70; PULSE 73
[2020-05-21] MEDS: Digoxin 250 MCG Tablet PO (12:00)
[2020-05-21] MEDS: Furosemide 40 MG Tablet PO (12:00)
[2020-05-21] MEDS: Metoprolol Tartrate 50 MG Tablet PO (12:00)
[2020-05-21] MEDS: Lisinopril 40 MG Tablet PO (12:00)
[2020-05-21] MEDS: amLODIPine 10 MG Tablet PO (12:01)
--- NOTE | 2020-05-21 12:07 | DCINST_ITS ---
- Discharge Diagnoses Current Active Problems: Current Active and Chronic Problems COPD exacerbation (Chronic) (HFpEF) heart failure with preserved ejection fraction (Chronic) COVID-19 (Acute) SARS (severe acute respiratory syndrome) (Acute) Mesothelioma (Chronic) Heart failure (Chronic) Obstructive sleep apnea (Chronic) Paroxysmal a-fib (Chronic) Pulmonary hypertension (Chronic) Dyslipidemia (Chronic) CAD (coronary artery disease) (Chronic) History of heart artery stent (Chronic) Acute respiratory failure with hypoxia (Chronic) COPD (chronic obstructive pulmonary disease) (Chronic) Diabetes mellitus (Chronic) You will use the following diet at home:: Calorie/Carbohydrate Controlled (specify 1200, 1400, etc) - 1800 Your food should be the consistency of: Regular Your liquids should be the consistency of: Regular/Thin Discharge Activity: Return to Normal Activity, - - Get up slowly from seated position. Call your doctor if you observe: Fever of 101 or Higher, Shortness of breath, Fainting spells Additional Instructions: Self isolate for at least 10 days since symptoms began or the first postive COVID-19 test AND at least one day (24 hours) have passed since resolution of fever without the use of fever-reducing agents AND improvement of symptoms (e.g., cough, shortness of breath) When around people in the same room, wear a face mask. Individuals also in the room should wear a mask. If possible, use a different bathroom and bedroom. Perform adequate hand hygiene. Avoid sharing dishes, glasses, etc. Family members with close contact with you and/or postive for COVID-19 should follow these instructions. Allergies/Adverse Reactions: Allergies sulfamethoxazole [From Septra] Allergy (Verified 05/20/20 18:42) Other trimethoprim [From Septra] Allergy (Verified 05/20/20 18:42) Other niacin [From Niaspan Extended-Release] Adverse Reaction (Verified 05/20/20 18:42) Rash Medications to take at Discharge Aspirin E.C. [Ecotrin] 81 mg PO DAILY@0800 07/21/15 Glimepiride [Amaryl] 4 mg PO DAILY 07/21/15 Metoprolol Tartrate [Lopressor (beta jostin)] 100 mg PO BID 07/21/15 [place]-3S/Dha/Epa/Fish Oil/D3 [Fish Enx-Znzpt-2-Vit D Softgel] 1 each PO BID 07/21/15 Tamsulosin HCl [Flomax] 0.4 mg PO QHS 07/21/15 metFORMIN HCl [Glucophage] 1,000 mg PO BIDCM 07/21/15 Albuterol Aerosols [Ventolin Aerosols] 2.5 mg INHALATION Q6H PRN PRN 10/23/18 Albuterol IH (ProAir) [Proair Hfa] 2 puff INHALATION Q4H PRN PRN 10/23/18 Digoxin 250 mcg PO DAILY 10/23/18 Fluticasone Propionate 2 spray NASAL DAILY 10/23/18 Insulin Glargine,Hum.rec.anlog [Lantus] 26 unit SQ DAILY 10/23/18 Lisinopril 40 mg PO DAILY 10/23/18 Potassium Chloride [K-Dur] 20 meq PO DAILY 10/23/18 hydrALAZINE [Apresoline] 25 mg PO BID 10/23/18 Furosemide [Lasix] 40 mg PO BID@1000,1800 #60 tablet 10/26/18 Pravastatin [Pravachol] 40 mg PO DAILY 05/20/20 Warfarin [Coumadin] 5 mg PO DAILY 05/20/20 Warfarin [Coumadin] 7.5 mg PO 05/20/20 Primary Care Physician: Rik Murillo MD [Primary Care Provider] - Within 2 Weeks Test Results: Test results from this visit will be discussed in further detail at your follow- up appointment, if applicable. Please Follow Up With: Cardiology When: 4-6 weeks Proposed Discharge Date: 05/21/20
--- NOTE | 2020-05-21 12:09 | DS.PCM_ITS ---
Discharge Date and Diagnosis - Problem List Patient Problems: Active and Suspected Problems COVID-19 (Acute) Date of Admission: 05/20/20 Date of Discharge: 05/21/20 - Primary Discharge Diagnosis Acute Problems: Active Problems COVID-19 (Acute) Syncope Orthostatic hypotension - Secondary Discharge Diagnosis Chronic Problems: Chronic Problems COPD exacerbation (Chronic) (HFpEF) heart failure with preserved ejection fraction (Chronic) Mesothelioma (Chronic) Heart failure (Chronic) Obstructive sleep apnea (Chronic) Paroxysmal a-fib (Chronic) Pulmonary hypertension (Chronic) Dyslipidemia (Chronic) CAD (coronary artery disease) (Chronic) History of heart artery stent (Chronic) Acute respiratory failure with hypoxia (Chronic) COPD (chronic obstructive pulmonary disease) (Chronic) Diabetes mellitus (Chronic) Hospital Course and Treatment Imaging Results: Clinical Impression(s) from Imaging Studies Chest X-Ray 05/20/20 19:00 IMPRESSION: 1. Progressive lung disease, now with involvement of the right middle and lower lobe, unclear if this is acute, subacute or chronic. Refer to chest CT. 2. Chronic left lung and pleural disease. 3. Presumably asbestos-related disease. Electronically Signed: Harriet Leblanc, at 19:53 EDT Tel , Service support , Operations: None Procedures: None Summary of Care Provided: The patient is a 80 year old M presents with a syncopal episode. Patient states that he has been sick for roughly 2 to 3 weeks. 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 Patient said that he is try to get Covid testing but has been deferred to other places but never to any where specific. I presented with the above complaints and had a chest x-ray that was unremarkable. Orthostatic vital signs were performed in the hospital room today and his blood pressure dropped from 1 50-1 30 systolic. He was asymptomatic, however. Patient has stated that he has had some syncopal episodes at other times. Patient has remained well during the course of this hospitalization. He was started on dexamethasone and which cause blood sugars to go up. From respiratory standpoint, patient is stable and does not warrant additional dexamethasone nor remdesivir. Patient will be discharged home in stable condition. Patient has been advised to self isolate given his COVID-19 diagnosis. [] Patient Problems: Active and Suspected Problems COVID-19 (Acute) - Physical Exam Vitals/I&O's: Vital Signs Temp Pulse Resp BP Pulse Ox 36.3 C L 73 18 146/70 H 95 05/21/20 09:21 05/21/20 12:00 05/21/20 11:51 05/21/20 12:00 05/21/20 09:21 Oxygen Flow Rate (L/min) 2 Oxygen Delivery Method Nasal Cannula Weight: 83.5 kg Body Mass Index (BMI) 27.2 Finger Stick Blood Glucose 313 Intake and Output for Last 24 Hours 05/19/20 05/20/20 05/21/20 23:59 23:59 23:59 Intake Total 300 / 300 Output Total 650 / 650 Balance -350 / -350 General: Alert, No apparent distress HEENT: Atraumatic, Normocephalic Oral: Moist Mucosa, No Gingival or Mucosal Lesions/ Ulcerations Neck: No Nodes, Thyroid Normal Size and Texture Lungs: Clear to auscultation, Normal air movement, No rhonchi, No wheeze Cardiovascular: Regular rate, Regular Rhythm, Normal S1, Normal S2 Abdomen: Bowel Sounds Present, Soft, Non Tender, Non-Distended, No Hepato- splenomegaly Microbiology Past 72 Hours 05/21/20 01:25 Urine, Clean Catch Legionella Antigen - Final 05/21/20 01:25 Urine, Clean Catch Streptococcus pneumoniae Antigen (M - Final Laboratory Results 05/20/20 19:13: WBC 9.1, RBC 4.84, Hgb 14.6, Hct 43.9, MCV 90.7, MCH 30.2, MCHC 33.3, RDW Std Deviation 43.8, RDW Coeff of Felix 13.2, Plt Count 340, MPV 10.6, Immature Gran % (Auto) 0.400, Neut % (Auto) 80.8 H, Lymph % (Auto) 11.3 L, [place] % (Auto) 5.8, Eos % (Auto) 1.2, Baso % (Auto) 0.5, Absolute Neuts (auto) 7.3, Absolute Lymphs (auto) 1.03, Nucleated RBC % 0 05/20/20 19:13: PT 25.5 H, INR 2.4 05/20/20 19:13: Sodium 135 L, Potassium 4.3, Chloride 102, Carbon Dioxide 25.0, Anion Gap 8, BUN 18, Creatinine 1.20, Estim Creat Clear Calc 45.37, Est GFR (MDRD) Af Amer 75, Est GFR (MDRD) Non-Af 62, BUN/Creatinine Ratio 15.0, Glucose 254 H, Calcium 9.0, Total Bilirubin 0.80, AST 30, ALT 21, Alkaline Phosphatase 96, Troponin I < 0.015, Total Protein 8.3 H, Albumin 3.4, Globulin 4.9 H, Albumin/Globulin Ratio 0.7 L 05/20/20 19:13: B-Natriuretic Peptide 204.7 H 05/20/20 19:15: COVID-19 ([facility]) Detected 05/20/20 23:29: Procalcitonin < 0.04 05/21/20 00:50: POC Glucose 315 H 05/21/20 06:38: POC Glucose 412 H 05/21/20 07:05: PT 25.2 H, INR 2.3 Current Medications Acetaminophen (Acetaminophen 325 Mg Tablet) 650 mg PO Q6H PRN PRN PRN Reason: Pain Score 1-10/Temp > 100.7 F Albuterol Sulfate (Albuterol Sulfate 18 Gm Inhaler (200 Puffs)) 2 puff IH Q4H PRN PRN PRN Reason: sob/wheezing Amlodipine Besylate (Amlodipine 10 Mg Tablet) 10 mg PO DAILY [facility] Last Admin: 05/21/20 12:01 Dose: 10 mg Documented by: Aspirin (Aspirin E.C. 81 Mg Tablet) 81 mg PO DAILY@0800 [facility] Last Admin: 05/21/20 09:36 Dose: 81 mg Documented by: Dexamethasone Sodium Phosphate (Dexamethasone 10 Mg/Ml Vial) 6 mg IV DAILY [facility] Last Admin: 05/21/20 09:36 Dose: 6 mg Documented by: Dextrose (Dextrose 50%-Water 25 Gm/50 Ml Disp.Syrin) 0 gm IV X1 PRN; Protocol PRN Reason: Hypoglycemia Digoxin (Digoxin 250 Mcg Tablet) 250 mcg PO DAILY [facility] Last Admin: 05/21/20 12:00 Dose: 250 mcg Documented by: Furosemide (Furosemide 40 Mg Tablet) 40 mg PO BID@1000,1700 [facility] Last Admin: 05/21/20 12:00 Dose: 40 mg Documented by: Glimepiride (Glimepiride 4 Mg Tablet) 4 mg PO DAILYCM [facility] Last Admin: 05/21/20 09:36 Dose: 4 mg Documented by: Glucagon (Glucagon 1 Mg/Ml Syringe) 1 mg IM .X1 PRN PRN Reason: Hypoglycemia Guaifenesin (Guaifenesin 1,200 Mg Tablet) 1,200 mg PO BID [facility] Last Admin: 05/21/20 09:38 Dose: 1,200 mg Documented by: Hydralazine HCl (Hydralazine 25 Mg Tablet) 25 mg PO BID [facility] Last Admin: 05/21/20 12:00 Dose: 25 mg Documented by: Insulin Glargine (Insulin Glargine 100 Units/Ml Pen) 26 units SC DAILY [facility] Last Admin: 05/21/20 09:40 Dose: 26 u Documented by: Insulin Human Lispro (Insulin Lispro 100 Unit/Ml Insuln.Pen) 0 unit SC ACHS & 3AM [facility]; Protocol Last Admin: 05/21/20 06:38 Dose: 11 units Documented by: Lisinopril (Lisinopril 40 Mg Tablet) 40 mg PO DAILY [facility] Last Admin: 05/21/20 12:00 Dose: 40 mg Documented by: Metoprolol Tartrate (Metoprolol Tartrate 50 Mg Tablet) 50 mg PO BID [facility] Miscellaneous Information (Inhaler, Assist Devices 1 Each Spacer) 1 each INHALATION PRN PRN PRN Reason: WITH ALBUTEROL MDI Nutritional Formula (Lactose Free) (Ensure Enlive 120 Ml Liquid) 120 ml PO 4X/DAY [facility] Last Admin: 05/21/20 11:59 Dose: 120 ml Documented by: Tuphx-4-Byqk Ethyl Esters ([place]-3 Acid Ethyl Esters 1 Gm Capsule) 1 gm PO BID [facility] Last Admin: 05/21/20 09:35 Dose: 1 gm Documented by: Ondansetron HCl (Ondansetron 4 Mg/2 Ml Vial) 4 mg IV Q8H PRN PRN PRN Reason: NAUSEA/VOMITING Potassium Chloride (Potassium Chloride 20 Meq Tablet) [facility] Last Admin: 05/21/20 09:36 Dose: 20 meq Documented by: Pravastatin Sodium (Pravastatin 40 Mg Tablet) 40 mg PO DAILY@2200 [facility] Sodium Chloride (0.9% Saline Lock 10 Ml Syringe) 10 - 40 ml IV UD PRN PRN Reason: SALINE FLUSH Last Admin: 05/21/20 09:35 Dose: 10 ml Documented by: Warfarin Sodium (Warfarin 5 Mg Tablet) 5 mg PO SuTuThSa@1700 [facility] Warfarin Sodium (Warfarin 7.5 Mg Tablet) 7.5 mg PO MoWeFr@1700 [facility] Discharge Diet: No Restrictions Discharge Activity: Return to Normal Activity, - - Get up slowly from seated position. Call your doctor if you observe: Fever of 101 or Higher, Shortness of breath, Fainting spells Home Medications: Medications to take at Discharge Aspirin E.C. [Ecotrin] 81 mg PO DAILY@0800 07/21/15 Glimepiride [Amaryl] 4 mg PO DAILY 07/21/15 Metoprolol Tartrate [Lopressor (beta jostin)] 100 mg PO BID 07/21/15 [place]-3S/Dha/Epa/Fish Oil/D3 [Fish Jcq-Ozkti-7-Vit D Softgel] 1 each PO BID 07/21/15 Tamsulosin HCl [Flomax] 0.4 mg PO QHS 07/21/15 metFORMIN HCl [Glucophage] 1,000 mg PO BIDCM 07/21/15 Albuterol Aerosols [Ventolin Aerosols] 2.5 mg INHALATION Q6H PRN PRN 10/23/18 Albuterol IH (ProAir) [Proair Hfa] 2 puff INHALATION Q4H PRN PRN 10/23/18 Digoxin 250 mcg PO DAILY 10/23/18 Fluticasone Propionate 2 spray NASAL DAILY 10/23/18 Insulin Glargine,Hum.rec.anlog [Lantus] 26 unit SQ DAILY 10/23/18 Lisinopril 40 mg PO DAILY 10/23/18 Potassium Chloride [K-Dur] 20 meq PO DAILY 10/23/18 hydrALAZINE [Apresoline] 25 mg PO BID 10/23/18 Furosemide [Lasix] 40 mg PO BID@1000,1800 #60 tablet 10/26/18 Pravastatin [Pravachol] 40 mg PO DAILY 05/20/20 Warfarin [Coumadin] 5 mg PO DAILY 05/20/20 Warfarin [Coumadin] 7.5 mg PO 05/20/20 Primary Care Physician: Rik Murillo MD [Primary Care Provider] - Within 2 Weeks Please Follow Up With: Cardiology When: 4-6 weeks Disposition: Home Minutes spent on discharge:: 32 Patient Condition:: Good Medical Necessity - Tobacco Use Smoking Status: Former smoker Tobacco Use: Chew Meaningful Use Info Meaningful Use Diagnoses (Choose all that apply): None applicable OBSV E&M: 64196 Observation care discharge
[2020-05-21 12:56] VITALS: BP 137/71; PULSE 68; RESP 18; TEMP 36.3; O2SAT 94
[2020-05-21 16:30] LABS: Bedside Glucose > 500 mg/dL (70-110)
--- NOTE | 2020-05-24 15:57 | CASEMGMT ---
EMILY ZHENG COVID F/U Phone Call Discharge date: 05/21/2020 Call date: 05/24/2020 Call time: [phone] Admission dx: Dyspnea, COVID Pt states he is 'doing ok' since discharge, 'I am still alive.' Pt states has had similar sx's for the same amount of time as him but has not been tested. Pt states that they have someone dropping off supplies. Pt states he has been wearing oxygen since discharged on saturday. Pt still with cough on phone but able to speak in full sentences. Pt states has f/u phone appt with PCP and plans to keep. Pt voice no suggestions for [facility] at this time. Pt states that he and his are still isolated at home. Pt voices no further concerns/needs at this time. S[place]en EMILY ZHENG
== END 2020-05-21 12:08 | disposition home or self-care (01) ==
LOC: ED 19:33 → PCU 05-21 00:14
PROVIDERS: Admitting Provider Hospitalist; Emergency Provider Emergency Medicine; PCP Internal Medicine
DX: U07.1 COVID-19 (principal); I95.1 Orthostatic hypotension; Z23 Encounter for immunization; I25.10 Atherosclerotic heart disease of native coronary artery without angina pectoris; I11.0 Hypertensive heart disease with heart failure; Z87.891 Personal history of nicotine dependence; Z95.5 Presence of coronary angioplasty implant and graft; Z79.899 Other long term (current) drug therapy; Z79.82 Long term (current) use of aspirin; Z79.4 Long term (current) use of insulin; Z79.01 Long term (current) use of anticoagulants; Z95.810 Presence of automatic (implantable) cardiac defibrillator; J96.01 Acute respiratory failure with hypoxia; E11.9 Type 2 diabetes mellitus without complications; E78.5 Hyperlipidemia, unspecified; I50.32 Chronic diastolic (congestive) heart failure; G47.33 Obstructive sleep apnea (adult) (pediatric); Z85.89 Personal history of malignant neoplasm of other organs and systems; I48.0 Paroxysmal atrial fibrillation; J44.9 Chronic obstructive pulmonary disease, unspecified; I27.20 Pulmonary hypertension, unspecified; Z99.81 Dependence on supplemental oxygen
CPT/HCPCS: 36415; 71045; 80053; 82962; 83880; 84145; 84484; 85025; 85610; 87070; 87205; 87449; 87635; 93005; 96374; 96375; 96376; 99218; 99285; G0008; 90686; A4216; G0378; J1940; U0002

== ENCOUNTER 2020-06-22 16:24 | Inpatient (IN) | payer MEDICARE, OTHER, SELFPAY ==
[2020-06-22] VITALS (15 sets, daily range): BP systolic 99–148; BP diastolic 57–80; PULSE 68–95; RESP 16–26; TEMP 36.2–36.6; O2SAT 78–99; BMI 31.0; BMI 28.1
--- NOTE | 2020-06-22 16:46 | EKG12_ITS ---
Test Reason : Blood Pressure : / mmHG Vent. Rate : 079 BPM Atrial Rate : 278 BPM P-R Int : 000 ms QRS Dur : 096 ms QT Int : 384 ms P-R-T Axes : 000 009 -34 degrees QTc Int : 440 ms Atrial flutter with variable A-V block Nonspecific ST and T wave abnormality Abnormal ECG Confirmed by CHRISTIAN CROCKETT, CHEPE ([id number]), legal editor ANTON KIRBY ([id number]) on 06/24/2020 2:08:54 PM Referred By: RICCO Confirmed By:CAIT GONZALES MD
--- NOTE | 2020-06-22 16:48 | ED.DCSUM_ITS ---
- ER Visit Summary Date of Service: 06/22/20 Chief Complaint: [Shortness of breath] History of Present Illness: The patient is a 80 M [presents to the ER with shortness of breath that is been ongoing since being diagnosed with COVID-19 on May 18. Patient states that he was admitted initially for several days. Patient complains of lack of energy and exertional dyspnea. He denies any fever. He denies chest pain. Patient states that he passes out frequently with activity. Patient has history of COPD, CHF, coronary artery disease, A. fib, mesothelioma, and history of syncope.] Physical Examination: [HEENT-PERRLA, EOMI. Cranial nerves II through XII grossly intact. TMs clear. Mucous membranes moist. No adenopathy. Cardiovascular-regular rate and rhythm without murmur or ectopy Lungs-diminished bilaterally with some faint expiratory wheezes noted. Mild tachypnea. Mild conversational dyspnea. No accessory muscle use or retractions. Abdomen-normoactive bowel sounds, soft, nontender, no rebound or rigidity, no peritoneal signs. Extremities-intact ?4, normal range of motion, normal pulses, atraumatic] Test Results: [EKG obtained arrival showed atrial flutter with some nonspecific ST changes. CBC with differential showed a white count 14.3, hemoglobin 12, hematocrit 39, placed 522. Chemistries unremarkable. BUN 25 creatinine 1.22. Troponin less than 0.015. Chest x-ray read by radiology as no significant changes from prior x-ray. Patient had some chronic versus possibly new infiltrates.] Emergency Department Course and Treatment: [The line established. Patient placed on good humor vendor. Patient was given DuoNeb aerosol and Solu-Medrol 125 mg IV.] Treatment Plan: [Admit] Disposition: [Admit] Impression: [COPD exacerbation Exertional dyspnea Syncope-etiology uncertain] This note was generated with 365[employer] software. It may contain incorrect words, spelling, and punctuation that were not noted in review of the chart prior to signing ED Disposition - Plan for ED Patient: Referrals: Rik Murillo MD [Primary Care Provider] -
[2020-06-22] MEDS: MethylPREDNISolone 125 MG/2 ML Vial IV (17:09)
[2020-06-22] MEDS: Ipratropium/Albuterol Sulfate 3 ML AMPUL.NEB INHALATION (17:15)
--- NOTE | 2020-06-22 17:25 | RAD_ITS ---
STUDY: X-RAY CHEST REASON FOR EXAM: Male, 80 years old. Patient was admitted May 18 4 COVID 19 infection. Patient feels he is still sec with shortness of breath, weakness and multiple syncopal episodes at home. TECHNIQUE: Single AP portable view of the chest. COMPARISON: 05/20/2020 and 07/26/2018. FINDINGS: Telemetry wires overlie the chest. The lungs are hypoexpanded. There is persistent bilateral pulmonary infiltrates unchanged from the prior study. This is thought to be primarily chronic. Along the left heart border there is a rounded area of density not seen on the 2019 study. This is unchanged from most recent exam and is thought to represent acute infiltrate. There is no demonstrated pleural abnormality. Normal size heart. Stable cardiac pacemaker/ICD. Normal mediastinum and gino. Normal visualized pulmonary arteries. There is atherosclerotic calcification of the aortic arch with tortuosity. There are diffuse degenerative changes of the visualized thoracic spine. There is degenerative osteoarthritis of the bilateral shoulders. There is no demonstrated abnormality of the visualized soft tissue structures of the upper abdomen. RAD/Chest 1 View (Portable) IMPRESSION: No change from 05/20/2020. Question acute on chronic infiltrate. Electronically Signed: Anmol Cornell DO at 17:40 EST Tel [phone], Service support ,
[2020-06-22 17:49] LABS: Anion Gap 7 (5-15); BUN 25 mg/dL (7-18); BUN/Creat Ratio 20.5 RATIO (10-20); Calcium,Total 8.9 mg/dL (8.5-10.1); Chloride 101 mmol/L (98-107); Creatinine, Serum 1.22 mg/dL (0.70-1.30); EST Glomerular Filtration Rate 60 mL/min (>60); Est Glom Filt Rate - Afr Amer 73 mL/min (>60); Estimated Creatinine Clearance 46.68 ml/min; Glucose 242 mg/dL (74-106); Potassium 4.5 mmol/L (3.5-5.1); Sodium Level 134 mmol/L (136-145)
[2020-06-22 17:56] LABS: Absolute Lymphocyte Count 1.02 X10^3/uL (0.83-4.51); Absolute Neutrophil Count 12.3 X10^3/uL (2.0-7.7); Basophil# 0.05 X10^3/uL; Basophil% 0.4 % (0-1); Eosinophil# 0.24 X10^3/uL; Eosinophils% 1.7 % (0-5); Hematocrit 39.3 % (40-54); Hemoglobin 12.3 g/dL (13.0-16.5); Lymphocyte # 1.02 X10^3/ul (4.0); Lymphocyte % 7.1 % (19-41); Mean Corp Hgb Conc 31.3 g/dL (32-36); Mean Corpuscular Hgb 29.3 pg (27.0-32.0); Mean Corpuscular Volume 93.6 fL (80-94); Monocyte# 0.64 X10^3/uL; Monocyte% 4.5 % (0-10); NRBC Flagged by Analyzer 0 % (0-5); Neutrophil # 12.25 X10^3/uL (2.7-7.7); Neutrophil % 85.7 % (47-70); Platelet Count 522 K/mm3 (150-450); RBC Distribution Width SD 47.4 fl (35.1-43.9); White Blood Count 14.3 K/mm3 (4.4-11.0)
[2020-06-22 18:37] LABS: BNP,B-Type NATRIURETIC PEPTIDE 376.7 pg/mL (0-100)
--- NOTE | 2020-06-22 18:45 | PCM.HP.STD ---
Problem List (1) Syncope Status: Acute (2) (HFpEF) heart failure with preserved ejection fraction Status: Chronic Qualifiers: (3) CAD (coronary artery disease) Status: Chronic (4) COPD (chronic obstructive pulmonary disease) Status: Chronic (5) Diabetes mellitus Status: Chronic (6) Dyslipidemia Status: Chronic (7) Heart failure Status: Chronic (8) History of heart artery stent Status: Chronic (9) Mesothelioma Status: Chronic (10) Obstructive sleep apnea Status: Chronic (11) Paroxysmal a-fib Status: Chronic (12) Pulmonary hypertension Status: Chronic History of Present Illness Date of Admission: 06/22/20 Chief Complaint: syncope The patient is a 80 year old M with pmhx of paroxysmal afib, pacemaker/debrillator in place, diastolic CHF, COPD, chronic hypoxic respiratory failure, CAD with prior stents, DMt2, pulmonary HTN, mesothelioma, recent COVID19 who presented to the ER with c/o SOB and syncope. The patient has provided different stories regarding the syncope. He told the ER doctor he is having syncope daily then later states he has had 6 syncopal episodes over the past few weeks. He has also had ongoing SOB since he had covid. He is supposed to be on 2lpm o2 however per his family he refuses to wear it all the time and gets up and walks without it. He has not followed up with cardiology since Dr. Travis retired and does not know when he last had his pacer checked or an echo. 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 He appears SOB with conversation. He has a nonproductive cough. [] Past Medical History Past Medical History (Chronic Problems): Chronic Problems COPD exacerbation (Chronic) (HFpEF) heart failure with preserved ejection fraction (Chronic) Mesothelioma (Chronic) Heart failure (Chronic) Obstructive sleep apnea (Chronic) Paroxysmal a-fib (Chronic) Pulmonary hypertension (Chronic) Dyslipidemia (Chronic) CAD (coronary artery disease) (Chronic) History of heart artery stent (Chronic) Acute respiratory failure with hypoxia (Chronic) COPD (chronic obstructive pulmonary disease) (Chronic) Diabetes mellitus (Chronic) Allergies sulfamethoxazole [From Septra] Allergy (Verified 06/22/20 16:28) Other trimethoprim [From Septra] Allergy (Verified 06/22/20 16:28) Other niacin [From Niaspan Extended-Release] Adverse Reaction (Verified 06/22/20 16:28) Rash Home Medications: Ambulatory Orders Medication Instructions Recorded Aspirin E.C. [Ecotrin] 81 mg PO DAILY@0800 07/21/15 Glimepiride [Amaryl] 4 mg PO DAILY 07/21/15 Metoprolol Tartrate [Lopressor 100 mg PO BID 07/21/15 (beta jostin)] [place]-3S/Dha/Epa/Fish Oil/D3 [Fish 1 each PO BID 07/21/15 [place]-Cxbnl-0-Vit D Softgel] Tamsulosin HCl [Flomax] 0.4 mg PO QHS 07/21/15 metFORMIN HCl [Glucophage] 1,000 mg PO BIDCM 07/21/15 Albuterol Aerosols [Ventolin 2.5 mg INHALATION Q6H PRN PRN 10/23/18 Aerosols] Albuterol IH (ProAir) [Proair Hfa] 2 puff INHALATION Q4H PRN PRN 10/23/18 Digoxin 250 mcg PO DAILY 10/23/18 Fluticasone Propionate 2 spray NASAL DAILY 10/23/18 Insulin Glargine,Hum.rec.anlog 26 unit SQ DAILY 10/23/18 [Lantus] Lisinopril 40 mg PO DAILY 10/23/18 Potassium Chloride [K-Dur] 20 meq PO DAILY 10/23/18 hydrALAZINE [Apresoline] 25 mg PO BID 10/23/18 Furosemide [Lasix] 40 mg PO BID@1000,1800 #60 tablet 10/26/18 Pravastatin [Pravachol] 40 mg PO DAILY 05/20/20 Warfarin [Coumadin] 5 mg PO DAILY 05/20/20 Warfarin [Coumadin] 7.5 mg PO 05/20/20 Surgical History: cholecystectomy, pacemaker implantation, - - ICD, cardiac stents. Psychiatric History: No pertinent psych hx Lives: Spouse/ Significant Other Smoking Status: Never smoker Tobacco Use: Non-smoker Alcohol: None Drugs: None - *Family History Paternal History Items: Stroke Maternal History Items: Cancer - His father had liver cancer Review of Systems Constitutional: Denies: Chills, Fever, Weight Change HEENT: Denies: Head Aches, Sinus Congestion, Sinus Drainage Cardiovascular: Reports: Syncope. Denies: Chest Pain, Palpitations Respiratory: Reports: Cough, Shortness of Breath, Shortness of breath at rest, Shortness of breath upon exertion. Denies: Sputum production Gastrointestinal: Denies: Abdominal Pain, Nausea, Vomiting Genitourinary: Denies: Dysuria Musculoskeletal: Denies: Joint Pain, Joint Tenderness Skin: Denies: Rash, Wounds Neurological: Denies: Numbness, Tingling, Focal weakness Psychiatric: Denies: Anxiety, Depression, Homicidal Ideations, Suicidal Ideations Hematologic/ Lymphatic: Denies: Easy Bruising, Easy Bleeding VTE Information - Inpt Only VTE Present on Admission: No VTE Mechan Device Prophylaxis: None VTE Pharm Prophylaxis ordered?: Yes - Physical Exam Vitals/I&O's: Vital Signs Temp Pulse Resp BP Pulse Ox 97.9 F 72 21 H 125/71 H 99 06/22/20 17:28 06/22/20 17:28 06/22/20 17:28 06/22/20 17:28 06/22/20 17:28 Oxygen Flow Rate (L/min) 4 Oxygen Delivery Method Nasal Cannula Weight: 210 lb Body Mass Index (BMI) 31.0 Finger Stick Blood Glucose 313 General: Alert, Oriented x3, Cooperative HEENT: Atraumatic, PERRLA, EOMI, Normocephalic Neck: Supple, No JVD, Negative Carotid Bruits Lungs: Diminished, Rales, Short of Breath Cardiovascular: Regular rate, No murmurs Abdomen: Bowel Sounds Present, Soft, Non Tender Extremities: No edema, Capillary Refill Less than 3 Seconds Skin: No rashes, No breakdown Musculoskeletal: No Tenderness to Palpation of Joints or Extremities Neurological: Cranial nerves II-XII grossly intact Psych/Mental Status: Agitated, Alert and oriented to time, place, person, mood and affect Laboratory Results 06/22/20 17:10: WBC 14.3 H, RBC 4.20 L, Hgb 12.3 L, Hct 39.3 L, MCV 93.6, MCH 29.3, MCHC 31.3 L, RDW Std Deviation 47.4 H, RDW Coeff of Felix 14.0, Plt Count 522 H, MPV 10.0, Immature Gran % (Auto) 0.600, Neut % (Auto) 85.7 H, Lymph % (Auto) 7.1 L, [place] % (Auto) 4.5, Eos % (Auto) 1.7, Baso % (Auto) 0.4, Absolute Neuts (auto) 12.3 H, Absolute Lymphs (auto) 1.02, Nucleated RBC % 0 06/22/20 17:10: Sodium 134 L, Potassium 4.5, Chloride 101, Carbon Dioxide 26.0, Anion Gap 7, BUN 25 H, Creatinine 1.22, Estim Creat Clear Calc 46.68, Est GFR (MDRD) Af Amer 73, Est GFR (MDRD) Non-Af 60, BUN/Creatinine Ratio 20.5 H, Glucose 242 H, Calcium 8.9, Troponin I < 0.015 06/22/20 17:10: B-Natriuretic Peptide 376.7 H 06/22/20 17:10: PT Pending, INR Pending Assessment/Plan All Active Problems Orthostatic hypotension (Acute) Syncope (Acute) COVID-19 (Acute) SARS (severe acute respiratory syndrome) (Ruled-out) 1. Syncope - unclear etiology - in flutter in the ER but rate is controlled. He has a pacer / AICD. This will need interrogated. Trop is negative. This may be due to hypoxia as he takes his O2 off at home. Pt will need placed on tele. Obtain echo in AM. Check Orthostatic vitals. 2. SOB - COPD exacerbation, chronic hypoxic respiratory failure - start steroids and aerosols. Pt not compliant with home o2. 3. pAfib - rate controlled. warfarin: check INR. continue metoprolol, digoxin - EKG with aflutter. PM AICD in place. 4. CAD - prior stents. former Dr. Travis patient. Continue aspirin, statin, metoprolol, hydralazine, lisinopril 5. DMt2 - hold orals, start SSI 6. Chronic diastolic CHF - no overt edema, somewhat elevated BNP. Doubt acute exacerbation at this point - continue home lasix. 7. BPH - on flomax (raises risk of orthostatic hypotension) DVT ppx: warfarin DC planning: PTOT, pt with generalized weakness This patient was seen by Edison Rosa PA-C under the supervision of Dr. Rivers.
[2020-06-22 18:55] LABS: International Normalized Ratio 3.3; Prothrombin Time (Protime)PT. 33.4 SECONDS (11.7-14.9)
[2020-06-22 22:25] LABS: Digoxin Level 0.78 ng/mL (0.80-2.00)
[2020-06-22] MEDS: hydrALAZINE 25 MG Tablet PO (22:26)
[2020-06-22] MEDS: Tamsulosin HCl 0.4 MG Capsule PO (22:26)
[2020-06-22] MEDS: Metoprolol Tartrate 100 MG Tablet PO (22:27)
[2020-06-22] MEDS: Insulin Lispro 100 UNIT/ML INSULN.PEN SC (22:38)
[2020-06-23] VITALS (22 sets, daily range): BP systolic 114–141; BP diastolic 57–83; PULSE 65–97; RESP 16–28; TEMP 36.4–36.6; O2SAT 85–98
[2020-06-23] MEDS: 0.9% Saline Lock 10 ML Syringe IV ×4 (02:29→21:53)
[2020-06-23 06:00] LABS: Bedside Glucose 386 mg/dL (70-110)
[2020-06-23] MEDS: Insulin Lispro 100 UNIT/ML INSULN.PEN SC ×4 (06:52→21:52)
[2020-06-23 07:01] LABS: Bedside Glucose 356 mg/dL (70-110)
--- NOTE | 2020-06-23 07:02 | NURSING ---
text message sent to dr christensen for consult
[2020-06-23] MEDS: Ipratropium/Albuterol Sulfate 3 ML AMPUL.NEB INHALATION ×3 (07:13→20:11)
[2020-06-23 08:27] LABS: International Normalized Ratio 3.2; Prothrombin Time (Protime)PT. 32.5 SECONDS (11.7-14.9)
[2020-06-23] MEDS: Glimepiride 4 MG Tablet PO (08:36)
[2020-06-23] MEDS: Aspirin E.C. 81 MG Tablet PO (08:37)
--- NOTE | 2020-06-23 09:17 | CON.PCM_ITS ---
Reason for Consult Date of Consultation: 06/23/20 Reason for Consultation: COPD, pulmonary fibrosis, chronic hypoxemic re spiratory failure, RAISA History of Present Illness: The patient is an 80-year-old male, with a history as outlined below, who presented to the emergency department on June 22 with complaints of shortness of breath. The patient was last admitted to the hospital for 1 day at the end of April 2020 with Covid pneumonia. He does report that since that time he has had worsening shortness of breath. The patient does have an apparent history of COPD of unknown severity, chronic hypoxemic respiratory failure, and interstitial lung disease. He has been followed by Dr. Covarrubias at [facility], but states that he has not been seen by him for greater than 8 months. He is supposed to be wearing supplemental oxygen at his baseline but is apparently noncompliant for the most part. He does have a prior smoking history, but stated that he quit completely 30+ years ago. The patient did report having previously been employed by [employer], during which time, he does report occupatio nal exposures in the form of various chemicals. The patient also has a history of ischemic cardiomyopathy, but has not followed up with a classifier since his last provider retired 2+ years ago. On presentation to the emergency department, the patient was noted to be afebrile and hemodynamically stable. Laboratory evaluation revealed a white blood cell count of 14,000. Platelet count was elevated to 522,000. INR was therapeutic at 3.3. BNP was elevated to 376. Plain film chest x-ray revealed bilateral interstitial changes along with a density noted along the left heart border. The patient was placed on supplemental oxygen along with scheduled bronchodilators and IV steroids. He was subsequently admitted to the medical surgical floor for further management. Past Medical History Past Medical History (Chronic Problems): Chronic Problems COPD exacerbation (Chronic) (HFpEF) heart failure with preserved ejection fraction (Chronic) Mesothelioma (Chronic) Heart failure (Chronic) Obstructive sleep apnea (Chronic) Paroxysmal a-fib (Chronic) Pulmonary hypertension (Chronic) Dyslipidemia (Chronic) CAD (coronary artery disease) (Chronic) History of heart artery stent (Chronic) Acute respiratory failure with hypoxia (Chronic) COPD (chronic obstructive pulmonary disease) (Chronic) Diabetes mellitus (Chronic) Allergies sulfamethoxazole [From Septra] Allergy (Verified 06/22/20 16:28) Other trimethoprim [From Septra] Allergy (Verified 06/22/20 16:28) Other niacin [From Niaspan Extended-Release] Adverse Reaction (Verified 06/22/20 16:28) Rash Home Medications: Ambulatory Orders Medication Instructions Recorded Aspirin E.C. [Ecotrin] 81 mg PO DAILY@0800 07/21/15 Glimepiride [Amaryl] 4 mg PO DAILY 07/21/15 Metoprolol Tartrate [Lopressor 100 mg PO BID 07/21/15 (beta jostin)] Elco-3S/Dha/Epa/Fish Oil/D3 [Fish 1 each PO BID 07/21/15 Uio-Xsjzk-2-Vit D Softgel] Tamsulosin HCl [Flomax] 0.4 mg PO QHS 07/21/15 metFORMIN HCl [Glucophage] 1,000 mg PO BIDCM 07/21/15 Albuterol Aerosols [Ventolin 2.5 mg INHALATION Q6H PRN PRN 10/23/18 Aerosols] Albuterol IH (ProAir) [Proair Hfa] 2 puff INHALATION Q4H PRN PRN 10/23/18 Digoxin 250 mcg PO DAILY 10/23/18 Fluticasone Propionate 2 spray NASAL DAILY 10/23/18 Insulin Glargine,Hum.rec.anlog 26 unit SQ DAILY 10/23/18 [Lantus] Lisinopril 40 mg PO DAILY 10/23/18 Potassium Chloride [K-Dur] 20 meq PO DAILY 10/23/18 hydrALAZINE [Apresoline] 25 mg PO BID 10/23/18 Furosemide [Lasix] 40 mg PO BID@1000,1800 #60 tablet 10/26/18 Pravastatin [Pravachol] 40 mg PO DAILY 05/20/20 Warfarin [Coumadin] 5 mg PO SUTUTHSA 05/20/20 Warfarin [Coumadin] 7.5 mg PO MOWEFR 05/20/20 Surgical History: cholecystectomy, pacemaker implantation, - - ICD, cardiac stents. Psychiatric History: No pertinent psych hx Lives: Spouse/ Significant Other Smoking Status: Former smoker Tobacco Use: Cigarettes Alcohol: None Drugs: None - *Family History Paternal History Items: Stroke Maternal History Items: Cancer - His father had liver cancer Review of Systems Constitutional: Denies: Chills, Fever, Weight Change Eyes: Denies: Blurred vision, Double vision HEENT: Denies: Head Aches, Sinus Congestion, Sinus Drainage Cardiovascular: Denies: Chest Pain, Palpitations Respiratory: Reports: Cough, Shortness of Breath Gastrointestinal: Denies: Abdominal Pain, Nausea, Vomiting Genitourinary: Denies: Dysuria Musculoskeletal: Denies: Joint Pain, Joint Tenderness Skin: Denies: Rash, Wounds Neurological: Denies: Numbness, Tingling, Focal weakness Psychiatric: Denies: Anxiety, Depression, Homicidal Ideations, Suicidal Ideations Hematologic/ Lymphatic: Denies: Easy Bruising, Easy Bleeding Patient Problems: Active and Suspected Problems Syncope (Acute) Objective: The patient's most recent lab work, culture data and imaging studies have all been personally reviewed. - Physical Exam Vitals/I&O's: Vital Signs Temp Pulse Resp BP Pulse Ox 97.6 F L 75 16 114/63 91 06/23/20 05:10 06/23/20 07:37 06/23/20 07:13 06/23/20 05:10 06/23/20 07:13 Oxygen Flow Rate (L/min) 2 Oxygen Delivery Method Nasal Cannula Weight: 190 lb 8 oz Body Mass Index (BMI) 28.1 Finger Stick Blood Glucose 313 Intake and Output for Last 24 Hours 06/21/20 06/22/20 06/23/20 23:59 23:59 23:59 Intake Total 500 / 500 400 / 400 Output Total 300 / 300 550 / 550 Balance 200 / 200 -150 / -150 General: Alert, Cooperative, No apparent distress HEENT: Atraumatic, Normocephalic Oral: No Gingival or Mucosal Lesions/ Ulcerations Neck: Supple, No Nodes, Trachea Midline Lungs: Diminished, Rales Cardiovascular: Regular rate, Regular Rhythm Abdomen: Bowel Sounds Present, Soft, Non Tender Extremities: No clubbing, No cyanosis, No edema Skin: No breakdown Musculoskeletal: No Tenderness to Palpation of Joints or Extremities Lymphatic: No Cervical, Supraclavicular, or Inguinal Adenopathy Neurological: Cranial nerves II-XII grossly intact, Neuro grossly intact Psych/Mental Status: Alert and oriented to time, place, person, mood and affect Labs (Last 48 Hours) 06/22/20 06/22/20 06/22/20 17:10 17:10 17:10 WBC 14.3 H RBC 4.20 L Hgb 12.3 L Hct 39.3 L MCV 93.6 MCH 29.3 MCHC 31.3 L RDW Std Deviation 47.4 H RDW Coeff of Felix 14.0 Plt Count 522 H MPV 10.0 Immature Gran % (Auto) 0.600 Neut % (Auto) 85.7 H Lymph % (Auto) 7.1 L [place] % (Auto) 4.5 Eos % (Auto) 1.7 Baso % (Auto) 0.4 Absolute Neuts (auto) 12.3 H Absolute Lymphs (auto) 1.02 Nucleated RBC % 0 PT INR Sodium 134 L Potassium 4.5 Chloride 101 Carbon Dioxide 26.0 Anion Gap 7 BUN 25 H Creatinine 1.22 Estim Creat Clear Calc 46.68 Est GFR (MDRD) Af Amer 73 Est GFR (MDRD) Non-Af 60 BUN/Creatinine Ratio 20.5 H Glucose 242 H Calcium 8.9 Troponin I < 0.015 B-Natriuretic Peptide 376.7 H Digoxin POC Glucose 06/22/20 06/22/20 06/22/20 17:10 21:34 22:32 WBC RBC Hgb Hct MCV MCH MCHC RDW Std Deviation RDW Coeff of Felix Plt Count MPV Immature Gran % (Auto) Neut % (Auto) Lymph % (Auto) [place] % (Auto) Eos % (Auto) Baso % (Auto) Absolute Neuts (auto) Absolute Lymphs (auto) Nucleated RBC % PT 33.4 H INR 3.3 Sodium Potassium Chloride Carbon Dioxide Anion Gap BUN Creatinine Estim Creat Clear Calc Est GFR (MDRD) Af Amer Est GFR (MDRD) Non-Af BUN/Creatinine Ratio Glucose Calcium Troponin I B-Natriuretic Peptide Digoxin 0.78 L POC Glucose 386 H 06/23/20 06/23/20 06:51 07:25 WBC RBC Hgb Hct MCV MCH MCHC RDW Std Deviation RDW Coeff of Felix Plt Count MPV Immature Gran % (Auto) Neut % (Auto) Lymph % (Auto) [place] % (Auto) Eos % (Auto) Baso % (Auto) Absolute Neuts (auto) Absolute Lymphs (auto) Nucleated RBC % PT 32.5 H INR 3.2 Sodium Potassium Chloride Carbon Dioxide Anion Gap BUN Creatinine Estim Creat Clear Calc Est GFR (MDRD) Af Amer Est GFR (MDRD) Non-Af BUN/Creatinine Ratio Glucose Calcium Troponin I B-Natriuretic Peptide Digoxin POC Glucose 356 H Clinical Impression(s) from Imaging Studies Chest X-Ray 06/22/20 17:25 IMPRESSION: No change from 05/20/2020. Question acute on chronic infiltrate. Electronically Signed: Anmol Cornell DO at 17:40 EST Tel [phone], Service support , Current Medications Albuterol/Ipratropium (Ipratropium/Albuterol Sulfate 3 Ml Ampul.Neb) 3 ml INHALATION Q6H.RT [facility] Last Admin: 06/23/20 07:13 Dose: 3 ml Documented by: Aspirin (Aspirin E.C. 81 Mg Tablet) 81 mg PO DAILY@0800 [facility] Last Admin: 06/23/20 08:37 Dose: 81 mg Documented by: Furosemide (Furosemide 20 Mg Tablet) 60 mg PO BID@1000,1800 [facility] Glimepiride ([facility] 4 Mg Tablet) [facility] Last Admin: 06/23/20 08:36 Dose: 4 mg Documented by: Hydralazine HCl (Hydralazine 25 Mg Tablet) 25 mg PO BID [facility] Last Admin: 06/22/20 22:26 Dose: 25 mg Documented by: Insulin Glargine (Insulin Glargine 100 Units/Ml Pen) 20 units SC BREAKFAST [facility] Last Admin: 06/23/20 08:37 Dose: 20 u Documented by: Insulin Human Lispro (Insulin Lispro 100 Unit/Ml Insuln.Pen) 0 unit SC ACHS [facility]; Protocol Last Admin: 06/23/20 06:52 Dose: 8 u Documented by: Lisinopril (Lisinopril 40 Mg Tablet) 40 mg PO DAILY [facility] Methylprednisolone (Methylprednisolone 40 Mg/Ml Vial) 20 mg IV Q8 [facility] Last Admin: 06/23/20 05:06 Dose: 20 mg Documented by: Metoprolol Tartrate (Metoprolol Tartrate 100 Mg Tablet) 100 mg PO BID [facility] Last Admin: 06/22/20 22:27 Dose: 100 mg Documented by: Nutritional Formula (Lactose Free) (Ensure Enlive 120 Ml Liquid) 120 ml PO 4X/DAY [facility] Potassium Chloride (Potassium Chloride 20 Meq Tablet) [facility] Last Admin: 06/23/20 08:37 Dose: 20 meq Documented by: Pravastatin Sodium (Pravastatin 40 Mg Tablet) 40 mg PO DAILY [facility] Sodium Chloride (0.9% Saline Lock 10 Ml Syringe) 10 - 40 ml IV UD PRN PRN Reason: SALINE FLUSH Last Admin: 06/23/20 05:06 Dose: 10 ml Documented by: Tamsulosin HCl (Tamsulosin Hcl 0.4 Mg Capsule) 0.4 mg PO QHS [facility] Last Admin: 06/22/20 22:26 Dose: 0.4 mg Documented by: Warfarin Sodium (Warfarin 5 Mg Tablet) 5 mg PO DAILY@1700 [facility] Assessment/Plan All Active Problems Orthostatic hypotension (Acute) Syncope (Acute) COVID-19 (Acute) SARS (severe acute respiratory syndrome) (Ruled-out) RECOMMENDATIONS: 1. Obtain high-resolution chest CT for further evaluation of the patient's chest x-ray findings. 2. Obtain respiratory viral panel. 3. Continue scheduled bronchodilators. 4. Wean supplemental oxygen as tolerated to maintain saturations at or above 90%. 5. Continue attempts at diuresis as tolerated by hemodynamics and renal function. 6. Perform walking oximetry study prior to consideration for discharge home. 7. Obtain [facility] pulmonary medical records. 8. Outpatient pulmonary follow-up in 2 weeks is warranted. IMPRESSIONS: 1. Chronic hypoxemic respiratory failure/COPD of unknown severity/interstitial lung disease The patient has a multitude of chronic pulmonary medical conditions, along with a history of noncompliance with the use of supplemental oxygen. The patient does report that he has a 4 L/min baseline requirement, but has been rather noncompliant with the use of supplemental oxygen in his home environment. He has a reported history of COPD of unknown severity, having previously been followed by pulmonary medicine at [facility]. The patient does appear to have radiographic evidence of interstitial lung disease, based upon chest CT from 2019. In addition to all of the aforementioned, the patient was diagnosed with Covid at the end of April 2020. It is unclear if the patient's residual respiratory symptoms are the consequence of noncompliance with home supplemental oxygen versus underlying progression of his interstitial lung disease. At this particular juncture, I would recommend that we obtain a respiratory viral panel to rule out any other viral etiologies. In addition, a repeat noncontrasted chest CT will be obtained to evaluate for interval changes. If possible, please obtain outside pulmonary medicine medical records. The patient undoubtedly needs to follow-up in the pulmonary medicine clinic to establish care after being discharged from the hospital. 2. History of heart failure with preserved ejection fraction/pulmonary hypertension The patient does have a history of diastolic heart failure and pulmonary hypertension noted on echocardiogram from 2019. I do suspect that the vast majority of his pulmonary hypertension is likely the consequence of chronic hypoxemia and underlying obstructive lung disease. Agree with continuing diuretic therapy as tolerated by hemodynamics and renal function. 3. Advanced age/diabetes mellitus/paroxysmal atrial fibrillation/hyperlipidemia/hypertension Complicates care, management, recovery and prognosis. The patient undoubtedly needs to reestablish care with a classifier after discharge from the hospital. This note was generated with APJeT dictation software. It may contain incorrect words, spelling, and punctuation that were not noted in checking the note before signing. Inpatient E&M: 48484 Init Hosp L3
--- NOTE | 2020-06-23 09:23 | CT_ITS ---
STUDY: CT CHEST WITHOUT CONTRAST REASON FOR EXAM: Male, 80 years old. ILD, HIGH RESOLUTION RADIATION DOSAGE (If Supplied By Facility): CTDIvol = ( 16.92 ) mGy, DLP = ( 665.81 ) mGycm TECHNIQUE: Transaxial imaging was performed without the administration of intravenous contrast material. Multiplanar coronal and sagittal images were reformatted. Individualized dose optimization techniques were used for this CT. COMPARISON: Comparison is made with prior study dated 08/20/2018. FINDINGS: Since prior study, there is evidence of nonspecific groundglass appearance involving both upper lobes more prominent on the right side. Stable chronic scarring at the lung bases with the bronchiectasis and honeycombing. Once again, there is evidence of densely calcified pleural plaques. Stable left pleural thickening. Sternal cerclage wires and vascular clips are present from a prior sternotomy and coronary artery bypass graft procedure (CABG). Calcification of the coronary arteries. Right-sided dual chamber pacemaker is seen. There are multiple small lymph nodes within the mediastinum, which are normal in size and morphology most compatible with reactive lymph hyperplasia. Normal hilar regions. Normal unenhanced pulmonary arteries. There is atherosclerotic calcification of the aortic arch with tortuosity and elongation of the aortic arch and descending thoracic aorta. There are multi-level degenerative changes of the thoracic spine. Status post cholecystectomy. CT/Chest without Contrast IMPRESSION: Stable scarring at the lung bases with very new areas of groundglass appearance in the upper lobes worse on the right side. Electronically Signed: Spencer Perez, at 11:21 EST , Service support ,
[2020-06-23] MEDS: hydrALAZINE 25 MG Tablet PO ×2 (09:33→21:46)
[2020-06-23] MEDS: Metoprolol Tartrate 100 MG Tablet PO ×2 (09:33→21:46)
[2020-06-23] MEDS: Lisinopril 40 MG Tablet PO (09:33)
[2020-06-23] MEDS: Pravastatin 40 MG Tablet PO (09:33)
[2020-06-23] MEDS: Furosemide 20 MG Tablet 60 MG PO (09:33)
--- NOTE | 2020-06-23 10:01 | PCA ---
SENT REQUEST FOR MEDICAL RECORDS TO [facility] FOR PULMONARY MEDICINE REPORTS FOR DOCTOR FORBES. HAVE NOT RECEIVED ANYTHING AT THIS TIME
--- NOTE | 2020-06-23 11:05 | CASEMGMT ---
EMILY ZHENG Face to Face with patient for initial transition planning/care coordination assessment. RN CM introduced self and role at [facility]. Patient lying in bed, alert and oriented. Patient willing to participate in assessment and is able to answer all questions appropriately. Care providers, pharmacy, and demographics verified. Patient wishes to discharge home, denies need for home health at this time. Patient states he has no further needs or concerns at this time. CM to follow for discharge planning needs that may arise. PCP: Chidi Specialists: Satish sales support coordinator but transferring to Dr. Jones [facility]erred [facility]: [facility] Pres[facility] Benefit: yes Living Will/HPOA: yes, Shasha Guzman LNOK: , daughter Living Arrangements: Patient lives with in a single story home with 4-5 steps with railing to enter the home. Patient states he is independent. Transportation: self, family DME/HHC: Patient states he has cane, walker, cpap, nebulizer, and oxygen at 4 lpm with portability through [email or web address]. Paitent denies previous HHC. Disposition Plan: Patient to discharge home with family support and follow-up plans in place. Iris KAUR, RN, CM
[2020-06-23 11:40] LABS: Bedside Glucose 355 mg/dL (70-110)
--- NOTE | 2020-06-23 12:55 | CASEMGMT ---
Social Work Note SW completed Palliative Care Screening tool. Pt scored 2, no consult. Iris Lam INTERVENTION NURSE, LOG SNAKER
--- NOTE | 2020-06-23 14:26 | PCM.PROGNOTE ---
<Yecenia Patel FEATHER SEPARATOR - Last Filed: 06/23/20 14:39> Patient Problems: Active and Suspected Problems Syncope (Acute) Subjective: Patient seen and examined. Complains of shortness of breath with minimal activity. Reports nonproductive cough which has been ongoing for several months. Denies lightheadedness/syncope. - Physical Exam Vitals/I&O's: Vital Signs Temp Pulse Resp BP Pulse Ox 97.8 F 97 18 126/62 H 94 06/23/20 09:30 06/23/20 09:33 06/23/20 09:30 06/23/20 09:30 06/23/20 09:30 Oxygen Flow Rate (L/min) 4 Oxygen Delivery Method Nasal Cannula Weight: 190 lb 7.988 oz Body Mass Index (BMI) 28.1 Finger Stick Blood Glucose 313 Orthostatic Vital Signs Start: 06/23/20 09:25 Freq: q24h Status: Active Protocol: Activity Type Activity Date Activity User E-Sign Co-Sign Detail Recorded Client Recorded Date Recorded By Document 06/23/20 09:25 [id number] 06/23/20 09:32 06/23/20 09:25 Orthostatic Vitals Standing -Blood Pressure (90/60-120/80) 126/62 H -Extremity Use Right Arm -Pulse Rate (60-100) 97 Sitting -Blood Pressure (90/60-120/80) 128/73 H -Extremity Use Right Arm -Pulse Rate (60-100) 97 Lying -Blood Pressure (90/60-120/80) 129/79 H -Extremity Use Right Arm -Pulse Rate (60-100) 91 Intake and Output for Last 24 Hours 06/21/20 06/22/20 06/23/20 23:59 23:59 23:59 Intake Total 500 / 500 700 / 700 Output Total 300 / 300 900 / 900 Balance 200 / 200 -200 / -200 General: Alert, Oriented x3, Cooperative HEENT: Atraumatic, PERRLA, EOMI, Normocephalic Neck: Supple, No JVD, Negative Carotid Bruits Lungs: Diminished, Rales, - - Faint scattered crackles Cardiovascular: Regular rate, No murmurs Abdomen: Bowel Sounds Present, Soft, Non Tender Extremities: No clubbing, No cyanosis, No edema, Capillary Refill Less than 3 Seconds Skin: No rashes, No breakdown Musculoskeletal: No Tenderness to Palpation of Joints or Extremities Neurological: Cranial nerves II-XII grossly intact, Neuro grossly intact Psych/Mental Status: Normal Affect, Appropriate Microbiology Past 72 Hours 06/23/20 11:15 Mucosa - Nasopharyngeal Respiratory Panel (PCR) - Final Laboratory Results 06/22/20 17:10: WBC 14.3 H, RBC 4.20 L, Hgb 12.3 L, Hct 39.3 L, MCV 93.6, MCH 29.3, MCHC 31.3 L, RDW Std Deviation 47.4 H, RDW Coeff of Felix 14.0, Plt Count 522 H, MPV 10.0, Immature Gran % (Auto) 0.600, Neut % (Auto) 85.7 H, Lymph % (Auto) 7.1 L, Loup % (Auto) 4.5, Eos % (Auto) 1.7, Baso % (Auto) 0.4, Absolute Neuts (auto) 12.3 H, Absolute Lymphs (auto) 1.02, Nucleated RBC % 0 06/22/20 17:10: Sodium 134 L, Potassium 4.5, Chloride 101, Carbon Dioxide 26.0, Anion Gap 7, BUN 25 H, Creatinine 1.22, Estim Creat Clear Calc 46.68, Est GFR (MDRD) Af Amer 73, Est GFR (MDRD) Non-Af 60, BUN/Creatinine Ratio 20.5 H, Glucose 242 H, Calcium 8.9, Troponin I < 0.015 06/22/20 17:10: B-Natriuretic Peptide 376.7 H 06/22/20 17:10: PT 33.4 H, INR 3.3 06/22/20 21:34: Digoxin 0.78 L 06/22/20 22:32: POC Glucose 386 H 06/23/20 06:51: POC Glucose 356 H 06/23/20 07:25: PT 32.5 H, INR 3.2 06/23/20 11:32: POC Glucose 355 H Current Medications Albuterol/Ipratropium (Ipratropium/Albuterol Sulfate 3 Ml Ampul.Neb) 3 ml INHALATION Q6H.RT [facility] Last Admin: 06/23/20 07:13 Dose: 3 ml Documented by: Aspirin (Aspirin E.C. 81 Mg Tablet) 81 mg PO DAILY@0800 [facility] Last Admin: 06/23/20 08:37 Dose: 81 mg Documented by: Furosemide (Furosemide 20 Mg Tablet) 60 mg PO BID@1000,1800 [facility] Last Admin: 06/23/20 09:33 Dose: 20 mg Documented by: Glimepiride (Glimepiride 4 Mg Tablet) 4 mg PO DAILYCM [facility] Last Admin: 06/23/20 08:36 Dose: 4 mg Documented by: Hydralazine HCl (Hydralazine 25 Mg Tablet) 25 mg PO BID [facility] Last Admin: 06/23/20 09:33 Dose: 25 mg Documented by: Insulin Glargine (Insulin Glargine 100 Units/Ml Pen) 20 units SC BREAKFAST [facility] Last Admin: 06/23/20 08:37 Dose: 20 u Documented by: Insulin Human Lispro (Insulin Lispro 100 Unit/Ml Insuln.Pen) 0 unit SC ACHS [facility]; Protocol Last Admin: 06/23/20 12:23 Dose: 8 u Documented by: Lisinopril (Lisinopril 40 Mg Tablet) 40 mg PO DAILY [facility] Last Admin: 06/23/20 09:33 Dose: 40 mg Documented by: Methylprednisolone (Methylprednisolone 40 Mg/Ml Vial) 20 mg IV Q8 [facility] Last Admin: 06/23/20 05:06 Dose: 20 mg Documented by: Metoprolol Tartrate (Metoprolol Tartrate 100 Mg Tablet) 100 mg PO BID [facility] Last Admin: 06/23/20 09:33 Dose: 100 mg Documented by: Nutritional Formula (Lactose Free) (Glucerna Shake 120 Ml Liquid) 120 ml PO 4X/DAY [facility] Last Admin: 06/23/20 12:23 Dose: Not Given Documented by: Potassium Chloride (Potassium Chloride 20 Meq Tablet) [facility] Last Admin: 06/23/20 08:37 Dose: 20 meq Documented by: Pravastatin Sodium (Pravastatin 40 Mg Tablet) 40 mg PO DAILY [facility] Last Admin: 06/23/20 09:33 Dose: 40 mg Documented by: Sodium Chloride (0.9% Saline Lock 10 Ml Syringe) 10 - 40 ml IV UD PRN PRN Reason: SALINE FLUSH Last Admin: 06/23/20 05:06 Dose: 10 ml Documented by: Tamsulosin HCl (Tamsulosin Hcl 0.4 Mg Capsule) 0.4 mg PO QHS [facility] Last Admin: 06/22/20 22:26 Dose: 0.4 mg Documented by: Warfarin Sodium (Warfarin 5 Mg Tablet) 5 mg PO DAILY@1700 [facility] Medical Necessity - Tobacco Use Smoking Status: Former smoker Tobacco Use: Cigarettes Assessment/Plan All Active Problems Orthostatic hypotension (Acute) Syncope (Acute) COVID-19 (Acute) SARS (severe acute respiratory syndrome) (Ruled-out) 1. Syncope-suspect secondary to hypoxia as patient is noncompliant with home O2. Orthostatic vitals negative. 2. COPD exacerbation, chronic hypoxic respiratory failure, interstitial lung disease-IV Solu-Medrol. Albuterol DuoNeb aerosols. Continue supplement oxygen to maintain O2 at or above 90%. Repeat home O2 testing prior to discharge. Pulmonary medicine consulted. CT of chest demonstrates stable scarring at the lung bases with new areas of groundglass appearance in the upper lobes, worse on the right side. Respiratory panel negative. Patient with Covid end of April 2020. 3. Paroxysmal atrial fibrillation-continue metoprolol, digoxin, warfarin. AICD in place. 4. CAD with history of stents-continue aspirin, statin, metoprolol, hydralazine, lisinopril. 5. Type 2 diabetes [id number] with sliding scale insulin. 6. Chronic diastolic CHF-no exacerbation. Continue home Lasix regimen. 7. BPH-on Flomax. DVT prophylaxis-Coumadin This patient was seen by QASIM Do under the supervision of Dr. Swenson. <Papito Swenson - Last Filed: 06/23/20 15:11> Objective: Patient is short of breath. Patient states his shortness of breath got worse after July 2019. The COVID-19 infection in April further worsened his breathing. He has chronic dry cough. Patient is mild short of breath at rest on conversation but gets worse on exertion, dyspnea on exertion. Patient is noncompliant with oxygen that might be the reason for his pulmonary hypertension. CT chest in [address] Jones. Patient has history of COPD, chronic hypoxic respiratory failure and interstitial lung disease. Used to follow Dr Covarrubias [facility]. Physical exam General: Alert, Oriented x3, Cooperative HEENT: Atraumatic, PERRLA, EOMI, Normocephalic Oral: No Gingival or Mucosal Lesions/ Ulcerations Neck: Supple, No JVD, Negative Carotid Bruits Lungs: Air entry diminished in bilateral lungs. Dyspnea on minimal exertion bilateral coarse crepitation mainly inspiratory rales Cardiovascular: Regular rate, Regular Rhythm, Normal S1, Normal S2, No murmurs Abdomen: Bowel Sounds Present, Soft, Non Tender, Non-Distended : No renal angle tenderness. No suprapubic tenderness. Extremities: No edema, Capillary Refill Less than 3 Seconds Skin: No rashes, No breakdown Musculoskeletal: No Tenderness to Palpation of Joints or Extremities Neurological: Cranial nerves II-XII grossly intact, Deep Tendon Reflexes 2+/4 and Symmetrical, Neuro grossly intact Psych/Mental Status: Normal Affect, Appropriate. - Physical Exam Vitals/I&O's: Vital Signs Temp Pulse Resp BP Pulse Ox 97.8 F 97 18 126/62 H 94 06/23/20 09:30 06/23/20 09:33 06/23/20 09:30 06/23/20 09:30 06/23/20 09:30 Oxygen Flow Rate (L/min) 4 Oxygen Delivery Method Nasal Cannula Weight: 190 lb 7.988 oz Body Mass Index (BMI) 28.1 Finger Stick Blood Glucose 313 Orthostatic Vital Signs Start: 06/23/20 09:25 Freq: q24h Status: Active Protocol: Activity Type Activity Date Activity User E-Sign Co-Sign Detail Recorded Client Recorded Date Recorded By Document 06/23/20 09:25 ANABELA [id number] 06/23/20 09:32 ANABELA 06/23/20 09:25 Orthostatic Vitals Standing -Blood Pressure (90/60-120/80) 126/62 H -Extremity Use Right Arm -Pulse Rate (60-100) 97 Sitting -Blood Pressure (90/60-120/80) 128/73 H -Extremity Use Right Arm -Pulse Rate (60-100) 97 Lying -Blood Pressure (90/60-120/80) 129/79 H -Extremity Use Right Arm -Pulse Rate (60-100) 91 Intake and Output for Last 24 Hours 06/21/20 06/22/20 06/23/20 23:59 23:59 23:59 Intake Total 500 / 500 700 / 700 Output Total 300 / 300 900 / 900 Balance 200 / 200 -200 / -200 Microbiology Past 72 Hours 06/23/20 11:15 Mucosa - Nasopharyngeal Respiratory Panel (PCR) - Final Laboratory Results 06/22/20 17:10: WBC 14.3 H, RBC 4.20 L, Hgb 12.3 L, Hct 39.3 L, MCV 93.6, MCH 29.3, MCHC 31.3 L, RDW Std Deviation 47.4 H, RDW Coeff of Felix 14.0, Plt Count 522 H, MPV 10.0, Immature Gran % (Auto) 0.600, Neut % (Auto) 85.7 H, Lymph % (Auto) 7.1 L, Loup % (Auto) 4.5, Eos % (Auto) 1.7, Baso % (Auto) 0.4, Absolute Neuts (auto) 12.3 H, Absolute Lymphs (auto) 1.02, Nucleated RBC % 0 06/22/20 17:10: Sodium 134 L, Potassium 4.5, Chloride 101, Carbon Dioxide 26.0, Anion Gap 7, BUN 25 H, Creatinine 1.22, Estim Creat Clear Calc 46.68, Est GFR (MDRD) Af Amer 73, Est GFR (MDRD) Non-Af 60, BUN/Creatinine Ratio 20.5 H, Glucose 242 H, Calcium 8.9, Troponin I < 0.015 06/22/20 17:10: B-Natriuretic Peptide 376.7 H 06/22/20 17:10: PT 33.4 H, INR 3.3 06/22/20 21:34: Digoxin 0.78 L 06/22/20 22:32: POC Glucose 386 H 06/23/20 06:51: POC Glucose 356 H 06/23/20 07:25: PT 32.5 H, INR 3.2 06/23/20 11:32: POC Glucose 355 H Current Medications Albuterol/Ipratropium (Ipratropium/Albuterol Sulfate 3 Ml Ampul.Neb) 3 ml INHALATION Q6H.RT [facility] Last Admin: 06/23/20 07:13 Dose: 3 ml Documented by: Aspirin (Aspirin E.C. 81 Mg Tablet) 81 mg PO DAILY@0800 [facility] Last Admin: 06/23/20 08:37 Dose: 81 mg Documented by: Furosemide (Furosemide 20 Mg Tablet) 60 mg PO BID@1000,1800 [facility] Last Admin: 06/23/20 09:33 Dose: 20 mg Documented by: Glimepiride (Glimepiride 4 Mg Tablet) 4 mg PO DAILYCM [facility] Last Admin: 06/23/20 08:36 Dose: 4 mg Documented by: Hydralazine HCl (Hydralazine 25 Mg Tablet) 25 mg PO BID [facility] Last Admin: 06/23/20 09:33 Dose: 25 mg Documented by: Insulin Glargine (Insulin Glargine 100 Units/Ml Pen) 20 units SC BREAKFAST [facility] Last Admin: 06/23/20 08:37 Dose: 20 u Documented by: Insulin Human Lispro (Insulin Lispro 100 Unit/Ml Insuln.Pen) 0 unit SC ACHS [facility]; Protocol Last Admin: 06/23/20 12:23 Dose: 8 u Documented by: Lisinopril (Lisinopril 40 Mg Tablet) 40 mg PO DAILY [facility] Last Admin: 06/23/20 09:33 Dose: 40 mg Documented by: Methylprednisolone (Methylprednisolone 40 Mg/Ml Vial) 20 mg IV Q8 [facility] Last Admin: 06/23/20 05:06 Dose: 20 mg Documented by: Metoprolol Tartrate (Metoprolol Tartrate 100 Mg Tablet) 100 mg PO BID [facility] Last Admin: 06/23/20 09:33 Dose: 100 mg Documented by: Nutritional Formula (Lactose Free) (Glucerna Shake 120 Ml Liquid) 120 ml PO 4X/DAY [facility] Last Admin: 06/23/20 12:23 Dose: Not Given Documented by: Potassium Chloride (Potassium Chloride 20 Meq Tablet) [facility] Last Admin: 06/23/20 08:37 Dose: 20 meq Documented by: Pravastatin Sodium (Pravastatin 40 Mg Tablet) 40 mg PO DAILY [facility] Last Admin: 06/23/20 09:33 Dose: 40 mg Documented by: Sodium Chloride (0.9% Saline Lock 10 Ml Syringe) 10 - 40 ml IV UD PRN PRN Reason: SALINE FLUSH Last Admin: 06/23/20 05:06 Dose: 10 ml Documented by: Tamsulosin HCl (Tamsulosin Hcl 0.4 Mg Capsule) 0.4 mg PO QHS [facility] Last Admin: 06/22/20 22:26 Dose: 0.4 mg Documented by: Warfarin Sodium (Warfarin 5 Mg Tablet) 5 mg PO DAILY@1700 [facility] Assessment/Plan This patient was seen in conjunction with Yecenia SANTA. I have independently interviewed and examined the patient and reviewed pertinent history, examination findings, laboratory and plan of management. I have reviewed the note and agree with the documented findings with the few additional points. In brief, patient is 80-year-old gentleman with history of smoking quit 30 years ago, COPD, interstitial lung disease, chronic artery disease post stents was admitted with shortness of breath and syncope. The patient has been noncompliant with oxygen. CT chest August 20, 2018 showed chronic fibrosis with bullous changes worse in lower lobes. Patient was seen by gang ripsaw operator and discussed with him. HRCT was done and reported stable scarring in the lung bases with new areas of groundglass appearance in upper lobes worse on the right side. Will obtain medical record from [facility] Dr Covarrubias and cardiology work-up. Diuresis as per tolerated by kidney function and intake and output. Patient is on scheduled bronchodilator, IV Solu-Medrol, incentive spirometry and chest physiotherapy. Coronary artery disease status post PCI and stents, paroxysmal A. fib on Coumadin and chronic HFpEF status post AICD: Patient used to follow Dr. Garcia [facility] but do not see a new paint mixer or treatment determined. Last echo in October 2018 reported as EF 55% with a stage III diastolic dysfunction, 2+ TR, RVSP 68 mmHg sensitive of moderate pulmonary hypertension. INR is therapeutic. Continue Lasix. Other comorbidities type 2 diabetes mellitus BPH: Glucose elevated about 350 insulin increased. I have discussed my assessment with FEATHER SEPARATORYecenia and orders have been reviewed. Clinical Impression(s) from Imaging Studies Chest X-Ray 06/22/20 17:25 IMPRESSION: No change from 05/20/2020. Question acute on chronic infiltrate. Chest CT 06/23/20 09:23 IMPRESSION: Stable scarring at the lung bases with very new areas of groundglass appearance in the upper lobes worse on the right side. Inpatient E&M: 71057 Subs Hosp L2
[2020-06-23] MEDS: Glucerna Shake 120 ML LIQUID PO ×2 (15:48→17:43)
[2020-06-23 17:30] LABS: Bedside Glucose 339 mg/dL (70-110)
--- NOTE | 2020-06-23 18:44 | NURSING ---
attempted to reach daughter jailyn again, since shes called in two more times since we spoke earlier this afternoon. call went to , and box was full.
[2020-06-23] MEDS: guaiFENesin 1,200 MG Tablet 1200 MG PO (21:46)
[2020-06-23] MEDS: Tamsulosin HCl 0.4 MG Capsule PO (21:47)
[2020-06-23 22:41] LABS: Bedside Glucose 354 mg/dL (70-110)
[2020-06-24] VITALS (25 sets, daily range): BP systolic 119–140; BP diastolic 54–99; PULSE 63–88; RESP 20–30; TEMP 36.3–36.8; O2SAT 93–98
[2020-06-24] MEDS: Ipratropium/Albuterol Sulfate 3 ML AMPUL.NEB INHALATION ×3 (04:36→19:46)
[2020-06-24 06:05] LABS: Hematocrit 32.4 % (40-54); Hemoglobin 10.4 g/dL (13.0-16.5); Mean Corp Hgb Conc 32.1 g/dL (32-36); Mean Corpuscular Hgb 29.4 pg (27.0-32.0); Mean Corpuscular Volume 91.5 fL (80-94); Platelet Count 435 K/mm3 (150-450); RBC Distribution Width CV 13.9 % (11.6-14.6); RBC Distribution Width SD 47.1 fl (35.1-43.9); Red Blood Count 3.54 M/mm3 (4.6-6.2); White Blood Count 18.5 K/mm3 (4.4-11.0)
[2020-06-24] MEDS: Insulin Lispro 100 UNIT/ML INSULN.PEN SC ×4 (06:15→22:33)
[2020-06-24] MEDS: 0.9% Saline Lock 10 ML Syringe IV ×4 (06:17→17:20)
[2020-06-24 06:40] LABS: Anion Gap 5 (5-15); BUN 33 mg/dL (7-18); Calcium,Total 9.1 mg/dL (8.5-10.1); Chloride 102 mmol/L (98-107); Creatinine, Serum 1.22 mg/dL (0.70-1.30); EST Glomerular Filtration Rate 60 mL/min (>60); Est Glom Filt Rate - Afr Amer 73 mL/min (>60); Estimated Creatinine Clearance 46.68 ml/min; Glucose 305 mg/dL (74-106); Potassium 5.1 mmol/L (3.5-5.1); Sodium Level 133 mmol/L (136-145)
[2020-06-24 06:46] LABS: Bedside Glucose 339 mg/dL (70-110)
--- NOTE | 2020-06-24 07:38 | ECHOD_ITS ---
Version 2 Reason For Study: Dyspnea/SOB Procedure This was a 2D Doppler, Color Flow transthoracic echocardiogram. Technically difficult study, unable to utilize Definity due to increased pressures. The study was technically difficult. Exam performed portable in patient room. Left Ventricle Normal LV size. Left ventricular systolic function is normal. The estimated ejection fraction is 65 %. No regional wall motion abnormalities noted. Right Ventricle Normal RV size. ICD or pacer leads identified within the right ventricle. Normal systolic function. Atria Normal left atrium. Normal right atrium. ICD or pacer leads identified within the right atrium. No doppler evidence for ASD. Mitral Valve There is moderate mitral annular calcification. Extension of the mitral annular calcification onto the base of the posterior mitral valve leaflet. The mitral valve chordae are thickened and/or calcified. Mild-Moderate (1-2+) mitral valve insufficiency. Tricuspid Valve Normal tricuspid valve. Moderate (2+) tricuspid valve insufficiency. Right ventricular systolic pressure estimated to be 103 mmHg. Aortic Valve Trisinus/trileaflet aortic valve. Mild focal aortic valve calcification. Pulmonic Valve The pulmonic valve is not well visualized. Trivial pulmonic valve insufficiency. Great Vessels The aortic root is not well visualized. Pericardium/Pleural No pericardial effusion. MMode/2D Measurements & Calculations LVIDd: 4.4 cm IVSd: 1.4 cm LA dimension: 4.0 cm LVIDs: 3.3 cm FS: 25.1 % RVDd: 3.9 cm LAV(MOD-sp4): 51.5 ml LA A4 area: 18.0 cm2 RA A4 area: 19.8 cm2 Time Measurements MV dec time: 0.21 sec Doppler Measurements & Calculations MV E max timothy: 139.6 cm/sec Lat Peak E' Timothy: 6.6 cm/sec Med Peak E' Timothy: 4.9 cm/sec MV A max timothy: 73.9 cm/sec E/E' lat: 21.2 E/E' med: 28.5 MV E/A: 1.9 MV V2 max: 149.1 cm/sec MV P1/2t max timothy: 151.3 cm/sec Ao V2 max: 86.8 cm/sec MV max P.9 mmHg MV P1/2t: 88.8 msec Ao max P.0 mmHg MV V2 mean: 81.7 cm/sec MV dec slope: 499.2 cm/sec2 MV mean P.1 mmHg MVA(P1/2t): 2.5 cm2 MV V2 VTI: 41.7 cm LV V1 max: 92.7 cm/sec PA V2 max: 74.0 cm/sec TR max timothy: 487.0 cm/sec LV V1 max P.4 mmHg TR max P.9 mmHg Interpretation Summary The study was technically difficult. Left ventricular systolic function is normal. The estimated ejection fraction is 65 %. There is moderate mitral annular calcification. Extension of the mitral annular calcification onto the base of the posterior mitral valve leaflet. The mitral valve chordae are thickened and/or calcified. Mild-Moderate (1-2+) mitral valve insufficiency. Moderate (2+) tricuspid valve insufficiency. Mild focal aortic valve calcification. Trivial pulmonic valve insufficiency. Right ventricular systolic pressure estimated to be 103 mmHg c/w severe pulmonary hypertension. Transmitral diastolic flow velocities suggest diastolic dysfunction (pseudonormal pattern). ICD or pacer leads identified within the right atrium ICD or pacer leads identified within the right ventricle. Ordering Physician: Josue Jones Referring Physician: Rik Murillo M.D. Performed By: Jorge Crocker RCS
[2020-06-24] MEDS: Glimepiride 4 MG Tablet PO (08:07)
[2020-06-24] MEDS: Aspirin E.C. 81 MG Tablet PO (08:08)
[2020-06-24] MEDS: guaiFENesin 1,200 MG Tablet 1200 MG PO ×2 (08:11→22:30)
[2020-06-24] MEDS: Glucerna Shake 120 ML LIQUID PO ×4 (08:11→22:30)
[2020-06-24] MEDS: Metoprolol Tartrate 100 MG Tablet PO ×2 (08:11→22:30)
[2020-06-24] MEDS: Lisinopril 40 MG Tablet PO (08:12)
[2020-06-24] MEDS: Pravastatin 40 MG Tablet PO (08:12)
[2020-06-24] MEDS: hydrALAZINE 25 MG Tablet PO ×2 (08:18→22:30)
[2020-06-24] MEDS: Furosemide 40 MG/4 ML Vial IV ×2 (08:18→17:05)
[2020-06-24 08:53] LABS: Prothrombin Time (Protime)PT. 30.7 SECONDS (11.7-14.9)
--- NOTE | 2020-06-24 11:33 | PN_ITS ---
<Yecenia Patel [employer] - Last Filed: 06/24/20 11:47> Patient Problems: Active and Suspected Problems Syncope (Acute) Subjective: Patient seen and examined. Patient reports continued shortness of breath. Reports cough with bloody sputum. Denies fever, chills. - Physical Exam Vitals/I&O's: Vital Signs Temp Pulse Resp BP Pulse Ox 97.3 F L 75 24 H 130/65 H 93 06/24/20 07:57 06/24/20 11:00 06/24/20 11:00 06/24/20 08:18 06/24/20 11:00 Oxygen Flow Rate (L/min) 50 Oxygen Delivery Method Airvo Weight: 190 lb 7.988 oz Body Mass Index (BMI) 28.1 Finger Stick Blood Glucose 313 Orthostatic Vital Signs Start: 06/23/20 09:25 Freq: q24h Status: Active Protocol: Activity Type Activity Date Activity User E-Sign Co-Sign Detail Recorded Client Recorded Date Recorded By Document 06/23/20 09:25 [id number] 06/23/20 09:32 06/23/20 09:25 Orthostatic Vitals Standing -Blood Pressure (90/60-120/80) 126/62 H -Extremity Use Right Arm -Pulse Rate (60-100) 97 Sitting -Blood Pressure (90/60-120/80) 128/73 H -Extremity Use Right Arm -Pulse Rate (60-100) 97 Lying -Blood Pressure (90/60-120/80) 129/79 H -Extremity Use Right Arm -Pulse Rate (60-100) 91 Intake and Output for Last 24 Hours 06/22/20 06/23/20 06/24/20 23:59 23:59 23:59 Intake Total 500 / 500 1300 / 1300 400 / 400 Output Total 300 / 300 1925 / 1925 625 / 625 Balance 200 / 200 -625 / -625 -225 / -225 General: Alert, Oriented x3, Cooperative HEENT: Atraumatic, PERRLA, EOMI, Normocephalic Neck: Supple, No JVD, Negative Carotid Bruits Lungs: Diminished, Rales, - - Scattered crackles Cardiovascular: Regular rate, No murmurs Abdomen: Bowel Sounds Present, Soft, Non Tender, Non-Distended Extremities: No clubbing, No cyanosis, No edema, Capillary Refill Less than 3 Seconds Skin: No rashes, No breakdown Musculoskeletal: No Tenderness to Palpation of Joints or Extremities Neurological: Cranial nerves II-XII grossly intact, Neuro grossly intact Psych/Mental Status: Normal Affect, Appropriate Microbiology Past 72 Hours 06/23/20 11:15 Mucosa - Nasopharyngeal Respiratory Panel (PCR) - Final Laboratory Results 06/23/20 11:32: POC Glucose 355 H 06/23/20 17:25: POC Glucose 339 H 06/23/20 21:51: POC Glucose 354 H 06/24/20 05:30: WBC 18.5 H, RBC 3.54 L, Hgb 10.4 L, Hct 32.4 L, MCV 91.5, MCH 29.4, MCHC 32.1, RDW Std Deviation 47.1 H, RDW Coeff of Felix 13.9, Plt Count 435, MPV 10.0 06/24/20 05:30: Sodium 133 L, Potassium 5.1, Chloride 102, Carbon Dioxide 26.0, Anion Gap 5, BUN 33 H, Creatinine 1.22, Estim Creat Clear Calc 46.68, Est GFR (MDRD) Af Amer 73, Est GFR (MDRD) Non-Af 60, BUN/Creatinine Ratio 27.0 H, Glucose 305 H, Calcium 9.1 06/24/20 06:14: POC Glucose 339 H 06/24/20 08:36: PT 30.7 H, INR 3.0 Current Medications Albuterol/Ipratropium (Ipratropium/Albuterol Sulfate 3 Ml Ampul.Neb) 3 ml INHALATION Q6H.RT [facility] Last Admin: 06/24/20 11:00 Dose: 3 ml Documented by: Aspirin (Aspirin E.C. 81 Mg Tablet) 81 mg PO DAILY@0800 [facility] Last Admin: 06/24/20 08:08 Dose: 81 mg Documented by: Furosemide (Furosemide 40 Mg/4 Ml Vial) 40 mg IV BID@1000,1800 [facility] Last Admin: 06/24/20 08:18 Dose: 40 mg Documented by: Glimepiride (Glimepiride 4 Mg Tablet) [facility] Last Admin: 06/24/20 08:07 Dose: 4 mg Documented by: Guaifenesin (Guaifenesin 1,200 Mg Tablet) 1,200 mg PO BID [facility] Last Admin: 06/24/20 08:11 Dose: 1,200 mg Documented by: Hydralazine HCl (Hydralazine 25 Mg Tablet) 25 mg PO BID [facility] Last Admin: 06/24/20 08:18 Dose: 25 mg Documented by: Insulin Glargine (Insulin Glargine 100 Units/Ml Pen) 20 units SC BREAKFAST [facility] Last Admin: 06/24/20 08:08 Dose: 20 u Documented by: Insulin Human Lispro (Insulin Lispro 100 Unit/Ml Insuln.Pen) 0 unit SC ACHS [facility]; Protocol Last Admin: 06/24/20 06:15 Dose: 8 u Documented by: Lisinopril (Lisinopril 40 Mg Tablet) 40 mg PO DAILY [facility] Last Admin: 06/24/20 08:12 Dose: 40 mg Documented by: Methylprednisolone (Methylprednisolone 40 Mg/Ml Vial) 40 mg IV Q6 [facility] Metoprolol Tartrate (Metoprolol Tartrate 100 Mg Tablet) 100 mg PO BID [facility] Last Admin: 06/24/20 08:11 Dose: 100 mg Documented by: Nutritional Formula (Lactose Free) (Glucerna Shake 120 Ml Liquid) 120 ml PO 4X/DAY [facility] Last Admin: 06/24/20 08:11 Dose: 120 ml Documented by: Potassium Chloride (Potassium Chloride 20 Meq Tablet) 20 meq PO BIDCM [facility] Last Admin: 06/24/20 08:08 Dose: 20 meq Documented by: Pravastatin Sodium (Pravastatin 40 Mg Tablet) 40 mg PO DAILY [facility] Last Admin: 06/24/20 08:12 Dose: 40 mg Documented by: Sodium Chloride (0.9% Saline Lock 10 Ml Syringe) 10 - 40 ml IV UD PRN PRN Reason: SALINE FLUSH Last Admin: 06/24/20 08:18 Dose: 10 ml Documented by: Tamsulosin HCl (Tamsulosin Hcl 0.4 Mg Capsule) 0.4 mg PO QHS [facility] Last Admin: 06/23/20 21:47 Dose: 0.4 mg Documented by: Warfarin Sodium (Warfarin 5 Mg Tablet) 5 mg PO DAILY@1700 [facility] Last Admin: 06/23/20 17:43 Dose: 5 mg Documented by: Medical Necessity - Tobacco Use Smoking Status: Former smoker Tobacco Use: Cigarettes Assessment/Plan All Active Problems Orthostatic hypotension (Acute) Syncope (Acute) COVID-19 (Acute) SARS (severe acute respiratory syndrome) (Ruled-out) 1. COPD exacerbation, acute on chronic hypoxic respiratory failure, interstitial lung disease-IV Solu-Medrol. Albuterol DuoNeb aerosols. Continue supplement oxygen to maintain O2 at or above 90%. Repeat home O2 testing prior to discharge. Pulmonary medicine consulted. CT of chest demonstrates stable scarring at the lung bases with new areas of groundglass appearance in the upper lobes, worse on the right side. Respiratory panel negative. Patient with Covid end of April 2020. 2. Syncope-suspect secondary to hypoxia as patient is noncompliant with home O2. Orthostatic vitals negative. 3. Acute on Chronic diastolic CHF-suspect component of mild CHF contributing to acute on chronic hypoxic respiratory failure. Transition to IV Lasix. 4. Paroxysmal atrial fibrillation-continue metoprolol, digoxin, warfarin. AICD in place. 5. CAD with history of stents-continue aspirin, statin, metoprolol, hydralazine, lisinopril. 6. Type 2 diabetes [id number] with sliding scale insulin. 7. BPH-on Flomax. DVT prophylaxis-Coumadin This patient was seen by QASIM Do under the supervision of Dr. Swenson. <Papito Swenson - Last Filed: 06/24/20 14:44> Objective: Patient on high flow airvo to 60% FiO2. Patient is still tachypneic 20 to 24/min. Patient objectively looks very short of breath. CT chest is reviewed and shows groundglass opacity in both upper lobes more prominent right side with honeycombing and chronic scarring at lung bases with bronchiectasis Physical exam General: Alert, Oriented x3, Cooperative. Very short of breath HEENT: Atraumatic, PERRLA, EOMI, Normocephalic Oral: No Gingival or Mucosal Lesions/ Ulcerations Neck: Supple, No JVD, Negative Carotid Bruits Lungs: Air entry diminished in bilaterally. Bilateral coarse inspiratory rales present. Tachypneic. Cardiovascular: Regular rate, Regular Rhythm, Normal S1, Normal S2, No murmurs Abdomen: Bowel Sounds Present, Soft, Non Tender, Non-Distended : No renal angle tenderness. No suprapubic tenderness. Extremities: No edema, Capillary Refill Less than 3 Seconds Skin: No rashes, No breakdown Musculoskeletal: No Tenderness to Palpation of Joints or Extremities. Mild peripheral limb muscle atrophy Neurological: Cranial nerves II-XII grossly intact, Deep Tendon Reflexes 2+/4 and Symmetrical, Neuro grossly intact Psych/Mental Status: Normal Affect, Appropriate. - Physical Exam Vitals/I&O's: Vital Signs Temp Pulse Resp BP Pulse Ox 97.4 F L 72 20 H 122/54 H 96 06/24/20 14:00 06/24/20 14:00 06/24/20 14:00 06/24/20 14:00 06/24/20 14:00 Oxygen Flow Rate (L/min) 50 Oxygen Delivery Method Airvo Weight: 190 lb 7.988 oz Body Mass Index (BMI) 28.1 Finger Stick Blood Glucose 313 Orthostatic Vital Signs Start: 06/23/20 09:25 Freq: q24h Status: Active Protocol: Activity Type Activity Date Activity User E-Sign Co-Sign Detail Recorded Client Recorded Date Recorded By Document 06/23/20 09:25 ANABELA [id number] 06/23/20 09:32 06/23/20 09:25 Orthostatic Vitals Standing -Blood Pressure (90/60-120/80) 126/62 H -Extremity Use Right Arm -Pulse Rate (60-100) 97 Sitting -Blood Pressure (90/60-120/80) 128/73 H -Extremity Use Right Arm -Pulse Rate (60-100) 97 Lying -Blood Pressure (90/60-120/80) 129/79 H -Extremity Use Right Arm -Pulse Rate (60-100) 91 Intake and Output for Last 24 Hours 06/22/20 06/23/20 06/24/20 23:59 23:59 23:59 Intake Total 500 / 500 1300 / 1300 400 / 400 Output Total 300 / 300 1925 / 1925 1500 / 1500 Balance 200 / 200 -625 / -625 -1100 / -1100 Microbiology Past 72 Hours 06/23/20 11:15 Mucosa - Nasopharyngeal Respiratory Panel (PCR) - Final Laboratory Results 06/23/20 17:25: POC Glucose 339 H 06/23/20 21:51: POC Glucose 354 H 06/24/20 05:30: WBC 18.5 H, RBC 3.54 L, Hgb 10.4 L, Hct 32.4 L, MCV 91.5, MCH 29.4, MCHC 32.1, RDW Std Deviation 47.1 H, RDW Coeff of Felix 13.9, Plt Count 435, MPV 10.0 06/24/20 05:30: Sodium 133 L, Potassium 5.1, Chloride 102, Carbon Dioxide 26.0, Anion Gap 5, BUN 33 H, Creatinine 1.22, Estim Creat Clear Calc 46.68, Est GFR (MDRD) Af Amer 73, Est GFR (MDRD) Non-Af 60, BUN/Creatinine Ratio 27.0 H, Glucose 305 H, Calcium 9.1 06/24/20 06:14: POC Glucose 339 H 06/24/20 08:36: PT 30.7 H, INR 3.0 06/24/20 11:34: POC Glucose 355 H Current Medications Albuterol/Ipratropium (Ipratropium/Albuterol Sulfate 3 Ml Ampul.Neb) 3 ml INHALATION Q6H.RT [facility] Last Admin: 06/24/20 11:00 Dose: 3 ml Documented by: Aspirin (Aspirin E.C. 81 Mg Tablet) 81 mg PO DAILY@0800 [facility] Last Admin: 06/24/20 08:08 Dose: 81 mg Documented by: Furosemide (Furosemide 40 Mg/4 Ml Vial) 40 mg IV BID@1000,1800 [facility] Last Admin: 06/24/20 08:18 Dose: 40 mg Documented by: Glimepiride (Glimepiride 4 Mg Tablet) 4 mg PO DAILYCM [facility] Last Admin: 06/24/20 08:07 Dose: 4 mg Documented by: Guaifenesin (Guaifenesin 1,200 Mg Tablet) 1,200 mg PO BID [facility] Last Admin: 06/24/20 08:11 Dose: 1,200 mg Documented by: Hydralazine HCl (Hydralazine 25 Mg Tablet) 25 mg PO BID [facility] Last Admin: 06/24/20 08:18 Dose: 25 mg Documented by: Insulin Glargine (Insulin Glargine 100 Units/Ml Pen) 20 units SC BREAKFAST [facility] Last Admin: 06/24/20 08:08 Dose: 20 u Documented by: Insulin Human Lispro (Insulin Lispro 100 Unit/Ml Insuln.Pen) 0 unit SC ACHS [facility]; Protocol Last Admin: 06/24/20 11:35 Dose: 8 u Documented by: Lisinopril (Lisinopril 40 Mg Tablet) 40 mg PO DAILY [facility] Last Admin: 06/24/20 08:12 Dose: 40 mg Documented by: Methylprednisolone (Methylprednisolone 40 Mg/Ml Vial) 40 mg IV Q6 [facility] Last Admin: 06/24/20 11:36 Dose: 40 mg Documented by: Metoprolol Tartrate (Metoprolol Tartrate 100 Mg Tablet) 100 mg PO BID [facility] Last Admin: 06/24/20 08:11 Dose: 100 mg Documented by: Nutritional Formula (Lactose Free) (Glucerna Shake 120 Ml Liquid) 120 ml PO 4X/DAY [facility] Last Admin: 06/24/20 11:35 Dose: 120 ml Documented by: Potassium Chloride (Potassium Chloride 20 Meq Tablet) 20 meq PO BIDCM [facility] Last Admin: 06/24/20 08:08 Dose: 20 meq Documented by: Pravastatin Sodium (Pravastatin 40 Mg Tablet) 40 mg PO DAILY [facility] Last Admin: 06/24/20 08:12 Dose: 40 mg Documented by: Sodium Chloride (0.9% Saline Lock 10 Ml Syringe) 10 - 40 ml IV UD PRN PRN Reason: SALINE FLUSH Last Admin: 06/24/20 11:37 Dose: 10 ml Documented by: Tamsulosin HCl (Tamsulosin Hcl 0.4 Mg Capsule) 0.4 mg PO QHS [facility] Last Admin: 06/23/20 21:47 Dose: 0.4 mg Documented by: Warfarin Sodium (Warfarin 5 Mg Tablet) 5 mg PO DAILY@1700 [facility] Last Admin: 06/23/20 17:43 Dose: 5 mg Documented by: Assessment/Plan This patient was seen in conjunction with [employer], Yecenia. I have independently interviewed and examined the patient and reviewed pertinent history, examination findings, laboratory and plan of management. I have reviewed the note and agree with the documented findings with the few additional points. In brief, patient is 80-year-old gentleman with history of smoking quit 30 years ago, COPD, interstitial lung disease, chronic artery disease post stents was admitted with shortness of breath and syncope. The patient has been noncompliant with oxygen. CT chest August 20, 2018 showed chronic fibrosis with bullous changes worse in lower lobes. Patient was seen by scuba dive training instructor and discussed with him. HRCT was done and reported stable scarring in the lung bases with new areas of groundglass appearance in upper lobes worse on the right side. Will try obtain medical record from [facility] Dr Covarrubias and cardiology work-up. Diuresis as per tolerated by kidney function and intake and output. Patient is on scheduled bronchodilator, IV Solu-Medrol, incentive spirometry and chest physiotherapy. Diagnosis: Chronic hypoxic respiratory failure secondary to COPD, interstitial lung disease and severe pulmonary hypertension Coronary artery disease status post PCI and stents, paroxysmal A. fib on Coumadin and chronic HFpEF status post AICD: Patient used to follow Dr. Garcia [facility] but do not see a new hedge fund accountant or treatment determined. Last echo in October 2018 reported as EF 55% with a stage III diastolic dysfunction, 2+ TR, RVSP 68 mmHg sensitive of moderate pulmonary hypertension. INR is therapeutic. Continue Lasix. 2D echo was done and shows EF 65% with normal RV size and systolic function. Mild to moderate MR, moderate TR RVSP 103 consistent with severe pulmonary hypertension. Other comorbidities type 2 diabetes mellitus BPH: Glucose elevated about 350 insulin increased. I have discussed my assessment with CONTRACTOR GENERAL ENGINEERINGYecenia and orders have been reviewed. Clinical Impression(s) from Imaging Studies Chest X-Ray 06/22/20 17:25 IMPRESSION: No change from 05/20/2020. Question acute on chronic infiltrate. Chest CT 06/23/20 09:23 IMPRESSION: Stable scarring at the lung bases with very new areas of groundglass appearance in the upper lobes worse on the right side. Inpatient E&M: [id number] Subs Hosp L2
[2020-06-24 11:51] LABS: Bedside Glucose 355 mg/dL (70-110)
--- NOTE | 2020-06-24 12:47 | PCM.PN.PUL ---
Patient Problems: Active and Suspected Problems Syncope (Acute) Subjective: The patient was seen and examined at the bedside this morning. Events from the last 24 hours have been reviewed. The patient is currently afebrile, hemodynamically stable and maintaining appropriate oxygen saturations on Airvo heated high flow supplemental oxygen with an FiO2 requirement of 55%. Creatinine is stable. INR is therapeutic at 3.0. CT chest was reviewed and did reveal significant chronic interstitial changes with groundglass changes bilaterally with basilar subpleural reticular changes and subpleural honeycombing. The patient does remain short of breath. Objective: The patient's most recent lab work, culture data and imaging studies have all been personally reviewed. Respiratory viral panel was negative. Blood cultures have shown no growth to date. - Physical Exam Vitals/I&O's: Vital Signs Temp Pulse Resp BP Pulse Ox 97.3 F L 75 24 H 130/65 H 93 06/24/20 07:57 06/24/20 11:00 06/24/20 11:00 06/24/20 08:18 06/24/20 11:00 Oxygen Flow Rate (L/min) 50 Oxygen Delivery Method Airvo Weight: 190 lb 7.988 oz Body Mass Index (BMI) 28.1 Finger Stick Blood Glucose 313 Orthostatic Vital Signs Start: 06/23/20 09:25 Freq: q24h Status: Active Protocol: Activity Type Activity Date Activity User E-Sign Co-Sign Detail Recorded Client Recorded Date Recorded By Document 06/23/20 09:25 [id number] 06/23/20 09:32 06/23/20 09:25 Orthostatic Vitals Standing -Blood Pressure (90/60-120/80) 126/62 H -Extremity Use Right Arm -Pulse Rate (60-100) 97 Sitting -Blood Pressure (90/60-120/80) 128/73 H -Extremity Use Right Arm -Pulse Rate (60-100) 97 Lying -Blood Pressure (90/60-120/80) 129/79 H -Extremity Use Right Arm -Pulse Rate (60-100) 91 Intake and Output for Last 24 Hours 06/22/20 06/23/20 06/24/20 23:59 23:59 23:59 Intake Total 500 / 500 1300 / 1300 400 / 400 Output Total 300 / 300 1925 / 1925 1225 / 1225 Balance 200 / 200 -625 / -625 -825 / -825 General: Alert, Cooperative HEENT: Atraumatic, Normocephalic Oral: No Gingival or Mucosal Lesions/ Ulcerations Neck: Supple Lungs: Diminished, Rales, Tachypneic Cardiovascular: Regular rate, Regular Rhythm Abdomen: Bowel Sounds Present, Soft, Non Tender Extremities: No clubbing, No cyanosis, No edema Skin: No breakdown Musculoskeletal: No Tenderness to Palpation of Joints or Extremities Lymphatic: No Cervical, Supraclavicular, or Inguinal Adenopathy Neurological: Cranial nerves II-XII grossly intact, Neuro grossly intact Psych/Mental Status: Normal Affect, Appropriate Labs (Last 48 Hours) 06/22/20 06/22/20 06/22/20 17:10 17:10 17:10 WBC 14.3 H RBC 4.20 L Hgb 12.3 L Hct 39.3 L MCV 93.6 MCH 29.3 MCHC 31.3 L RDW Std Deviation 47.4 H RDW Coeff of Felix 14.0 Plt Count 522 H MPV 10.0 Immature Gran % (Auto) 0.600 Neut % (Auto) 85.7 H Lymph % (Auto) 7.1 L [place] % (Auto) 4.5 Eos % (Auto) 1.7 Baso % (Auto) 0.4 Absolute Neuts (auto) 12.3 H Absolute Lymphs (auto) 1.02 Nucleated RBC % 0 PT INR Sodium 134 L Potassium 4.5 Chloride 101 Carbon Dioxide 26.0 Anion Gap 7 BUN 25 H Creatinine 1.22 Estim Creat Clear Calc 46.68 Est GFR (MDRD) Af Amer 73 Est GFR (MDRD) Non-Af 60 BUN/Creatinine Ratio 20.5 H Glucose 242 H Calcium 8.9 Troponin I < 0.015 B-Natriuretic Peptide 376.7 H Digoxin POC Glucose 06/22/20 06/22/20 06/22/20 17:10 21:34 22:32 WBC RBC Hgb Hct MCV MCH MCHC RDW Std Deviation RDW Coeff of Felix Plt Count MPV Immature Gran % (Auto) Neut % (Auto) Lymph % (Auto) [place] % (Auto) Eos % (Auto) Baso % (Auto) Absolute Neuts (auto) Absolute Lymphs (auto) Nucleated RBC % PT 33.4 H INR 3.3 Sodium Potassium Chloride Carbon Dioxide Anion Gap BUN Creatinine Estim Creat Clear Calc Est GFR (MDRD) Af Amer Est GFR (MDRD) Non-Af BUN/Creatinine Ratio Glucose Calcium Troponin I B-Natriuretic Peptide Digoxin 0.78 L POC Glucose 386 H 06/23/20 06/23/20 06/23/20 06:51 07:25 11:32 WBC RBC Hgb Hct MCV MCH MCHC RDW Std Deviation RDW Coeff of Felix Plt Count MPV Immature Gran % (Auto) Neut % (Auto) Lymph % (Auto) [place] % (Auto) Eos % (Auto) Baso % (Auto) Absolute Neuts (auto) Absolute Lymphs (auto) Nucleated RBC % PT 32.5 H INR 3.2 Sodium Potassium Chloride Carbon Dioxide Anion Gap BUN Creatinine Estim Creat Clear Calc Est GFR (MDRD) Af Amer Est GFR (MDRD) Non-Af BUN/Creatinine Ratio Glucose Calcium Troponin I B-Natriuretic Peptide Digoxin POC Glucose 356 H 355 H 06/23/20 06/23/20 06/24/20 17:25 21:51 05:30 WBC 18.5 H RBC 3.54 L Hgb 10.4 L Hct 32.4 L MCV 91.5 MCH 29.4 MCHC 32.1 RDW Std Deviation 47.1 H RDW Coeff of Felix 13.9 Plt Count 435 MPV 10.0 Immature Gran % (Auto) Neut % (Auto) Lymph % (Auto) [place] % (Auto) Eos % (Auto) Baso % (Auto) Absolute Neuts (auto) Absolute Lymphs (auto) Nucleated RBC % PT INR Sodium Potassium Chloride Carbon Dioxide Anion Gap BUN Creatinine Estim Creat Clear Calc Est GFR (MDRD) Af Amer Est GFR (MDRD) Non-Af BUN/Creatinine Ratio Glucose Calcium Troponin I B-Natriuretic Peptide Digoxin POC Glucose 339 H 354 H 06/24/20 06/24/20 06/24/20 05:30 06:14 08:36 WBC RBC Hgb Hct MCV MCH MCHC RDW Std Deviation RDW Coeff of Felix Plt Count MPV Immature Gran % (Auto) Neut % (Auto) Lymph % (Auto) [place] % (Auto) Eos % (Auto) Baso % (Auto) Absolute Neuts (auto) Absolute Lymphs (auto) Nucleated RBC % PT 30.7 H INR 3.0 Sodium 133 L Potassium 5.1 Chloride 102 Carbon Dioxide 26.0 Anion Gap 5 BUN 33 H Creatinine 1.22 Estim Creat Clear Calc 46.68 Est GFR (MDRD) Af Amer 73 Est GFR (MDRD) Non-Af 60 BUN/Creatinine Ratio 27.0 H Glucose 305 H Calcium 9.1 Troponin I B-Natriuretic Peptide Digoxin POC Glucose 339 H 06/24/20 11:34 WBC RBC Hgb Hct MCV MCH MCHC RDW Std Deviation RDW Coeff of Felix Plt Count MPV Immature Gran % (Auto) Neut % (Auto) Lymph % (Auto) [place] % (Auto) Eos % (Auto) Baso % (Auto) Absolute Neuts (auto) Absolute Lymphs (auto) Nucleated RBC % PT INR Sodium Potassium Chloride Carbon Dioxide Anion Gap BUN Creatinine Estim Creat Clear Calc Est GFR (MDRD) Af Amer Est GFR (MDRD) Non-Af BUN/Creatinine Ratio Glucose Calcium Troponin I B-Natriuretic Peptide Digoxin POC Glucose 355 H Microbiology 06/23/20 11:15 Mucosa - Nasopharyngeal Respiratory Panel (PCR) - Final Clinical Impression(s) from Imaging Studies Chest X-Ray 06/22/20 17:25 IMPRESSION: No change from 05/20/2020. Question acute on chronic infiltrate. Electronically Signed: Anmol Cornell DO at 17:40 EST Tel [phone], Service support , Chest CT 06/23/20 09:23 IMPRESSION: Stable scarring at the lung bases with very new areas of groundglass appearance in the upper lobes worse on the right side. Electronically Signed: Spencer Perez, at 11:21 EST , Service support , Current Medications Albuterol/Ipratropium (Ipratropium/Albuterol Sulfate 3 Ml Ampul.Neb) 3 ml INHALATION Q6H.RT [facility] Last Admin: 06/24/20 11:00 Dose: 3 ml Documented by: Aspirin (Aspirin E.C. 81 Mg Tablet) 81 mg PO DAILY@0800 [facility] Last Admin: 06/24/20 08:08 Dose: 81 mg Documented by: Furosemide (Furosemide 40 Mg/4 Ml Vial) 40 mg IV BID@1000,1800 [facility] Last Admin: 06/24/20 08:18 Dose: 40 mg Documented by: Glimepiride (Glimepiride 4 Mg Tablet) [facility] Last Admin: 06/24/20 08:07 Dose: 4 mg Documented by: Guaifenesin (Guaifenesin 1,200 Mg Tablet) 1,200 mg PO BID [facility] Last Admin: 06/24/20 08:11 Dose: 1,200 mg Documented by: Hydralazine HCl (Hydralazine 25 Mg Tablet) 25 mg PO BID [facility] Last Admin: 06/24/20 08:18 Dose: 25 mg Documented by: Insulin Glargine (Insulin Glargine 100 Units/Ml Pen) 20 units SC BREAKFAST [facility] Last Admin: 06/24/20 08:08 Dose: 20 u Documented by: Insulin Human Lispro (Insulin Lispro 100 Unit/Ml Insuln.Pen) 0 unit SC ACHS [facility]; Protocol Last Admin: 06/24/20 11:35 Dose: 8 u Documented by: Lisinopril (Lisinopril 40 Mg Tablet) 40 mg PO DAILY [facility] Last Admin: 06/24/20 08:12 Dose: 40 mg Documented by: Methylprednisolone (Methylprednisolone 40 Mg/Ml Vial) 40 mg IV Q6 [facility] Last Admin: 06/24/20 11:36 Dose: 40 mg Documented by: Metoprolol Tartrate (Metoprolol Tartrate 100 Mg Tablet) 100 mg PO BID [facility] Last Admin: 06/24/20 08:11 Dose: 100 mg Documented by: Nutritional Formula (Lactose Free) (Glucerna Shake 120 Ml Liquid) 120 ml PO 4X/DAY [facility] Last Admin: 06/24/20 11:35 Dose: 120 ml Documented by: Potassium Chloride (Potassium Chloride 20 Meq Tablet) [facility] Last Admin: 06/24/20 08:08 Dose: 20 meq Documented by: Pravastatin Sodium (Pravastatin 40 Mg Tablet) 40 mg PO DAILY [facility] Last Admin: 06/24/20 08:12 Dose: 40 mg Documented by: Sodium Chloride (0.9% Saline Lock 10 Ml Syringe) 10 - 40 ml IV UD PRN PRN Reason: SALINE FLUSH Last Admin: 06/24/20 11:37 Dose: 10 ml Documented by: Tamsulosin HCl (Tamsulosin Hcl 0.4 Mg Capsule) 0.4 mg PO QHS [facility] Last Admin: 06/23/20 21:47 Dose: 0.4 mg Documented by: Warfarin Sodium (Warfarin 5 Mg Tablet) 5 mg PO DAILY@1700 [facility] Last Admin: 06/23/20 17:43 Dose: 5 mg Documented by: Medical Necessity - Tobacco Use Smoking Status: Former smoker Tobacco Use: Cigarettes Assessment/Plan All Active Problems Orthostatic hypotension (Acute) Syncope (Acute) COVID-19 (Acute) SARS (severe acute respiratory syndrome) (Ruled-out) RECOMMENDATIONS: 1. Stop p.o. Lasix regimen and transition to 40 mg IV twice daily. 2. Increase steroids to Solu-Medrol 40 mg every 6 hours. 3. Continue bronchodilators. 4. Obtain repeat surface echocardiogram. 5. Wean supplemental oxygen as tolerated to maintain saturations at or above 90%. 6. Perform walking oximetry study prior to consideration for discharge home. 7. Outpatient pulmonary follow-up in 2 weeks is warranted. IMPRESSIONS: 1. Chronic hypoxemic respiratory failure/COPD of unknown severity/interstitial lung disease The patient has a multitude of chronic pulmonary medical conditions, along with a history of noncompliance with the use of supplemental oxygen. The patient does report that he has a 4 L/min baseline requirement, but has been rather noncompliant with the use of supplemental oxygen in his home environment. He has a reported history of COPD of unknown severity, having previously been followed by pulmonary medicine at [facility]. The patient does appear to have radiographic evidence of interstitial lung disease, based upon chest CT from 2019. In addition to all of the aforementioned, the patient was diagnosed with Covid at the end of April 2020. It is unclear if the patient's residual respiratory symptoms are the consequence of noncompliance with home supplemental oxygen versus underlying progression of his interstitial lung disease. Repeat chest CT did reveal significant interstitial changes along with groundglass changes bilaterally. The patient did have an elevated BNP so I am going to increase his diuretic regimen to IV Lasix twice daily. He will be continued on bronchodilator therapy and IV steroids. Repeat echocardiogram will also be obtained. 2. History of heart failure with preserved ejection fraction/pulmonary hypertension The patient does have a history of diastolic heart failure and pulmonary hypertension noted on echocardiogram from 2019. I do suspect that the vast majority of his pulmonary hypertension is likely the consequence of chronic hypoxemia and underlying obstructive lung disease. Agree with continuing diuretic therapy as tolerated by hemodynamics and renal function. 3. Advanced age/diabetes mellitus/paroxysmal atrial fibrillation/hyperlipidemia/hypertension Complicates care, management, recovery and prognosis. The patient undoubtedly needs to reestablish care with a mumps developer after discharge from the hospital. This note was generated with [employer] dictation software. It may contain incorrect words, spelling, and punctuation that were not noted in checking the note before signing. Inpatient E&M: [id number] [facility]
[2020-06-24 17:21] LABS: Bedside Glucose 394 mg/dL (70-110)
[2020-06-24] MEDS: Tamsulosin HCl 0.4 MG Capsule PO (22:31)
[2020-06-24 22:40] LABS: Bedside Glucose 354 mg/dL (70-110)
[2020-06-25] VITALS (18 sets, daily range): BP systolic 126–155; BP diastolic 54–72; PULSE 63–89; RESP 16–30; TEMP 35.9–36.8; O2SAT 91–97
[2020-06-25] MEDS: 0.9% Saline Lock 10 ML Syringe IV ×5 (00:18→23:38)
[2020-06-25] MEDS: Ipratropium/Albuterol Sulfate 3 ML AMPUL.NEB INHALATION ×4 (03:04→20:00)
[2020-06-25] MEDS: Insulin Lispro 100 UNIT/ML INSULN.PEN SC ×4 (06:38→21:29)
[2020-06-25 06:46] LABS: Bedside Glucose 221 mg/dL (70-110)
--- NOTE | 2020-06-25 06:52 | PCM.PN.PUL ---
Patient Problems: Active and Suspected Problems Syncope (Acute) Subjective: The patient was seen and examined at the bedside this morning. Events from the last 24 hours have been reviewed. The patient is currently afebrile, hemodynamically stable and maintaining appropriate oxygen saturations on Airvo heated high flow oxygen with an FiO2 requirement of 65% and flow rate of 55 L/min. The patient remains on twice daily scheduled IV Lasix, along with bronchodilators and IV steroids. The patient remains short of breath and does have a cough with blood-streaked sputum. Outside pulmonary medical records from Dr. Covarrubias at [facility] were obtained and reviewed: The patient has a history of coronary artery disease and atrial fibrillation. He has a [id number] smoking history, having quit completely 30+ years ago. Spirometry completed in May 2015 revealed a mild obstructive ventilatory impairment with reduced diffusing capacity at 59% of predicted. Surface echocardiogram from 2014 revealed an estimated right ventricular systolic pressure of 62 mmHg. The patient appears to have had progressive pulmonary hypertension with time. In addition, a diagnostic polysomnogram from November 2011 revealed severe obstructive sleep apnea with an AHI of 64 events per minute. A follow-up titration study was completed for which nocturnal CPAP with a pressure support of 8 cm of water was recommended. In work-up for the patient's pulmonary hypertension autoimmune/vasculitis work-up was undertaken. 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 The patient does appear to have last been seen by his outside register of deeds in July 2019, at which time, he was noted to be noncompliant with the use of supplemental oxygen and nocturnal Pap therapy. The patient last had an FEV1 noted to be 1.98 L or 70% of predicted in January 2019. His pulmonary hypertension was felt to be secondary to untreated RAISA and heart failure with preserved ejection fraction. He was being treated with Lasix as well as an outpatient. Objective: The patient's most recent lab work, culture data and imaging studies have all been personally reviewed. Surface echocardiogram revealed normal LV size with an ejection fraction of 65%. Right ventricular systolic pressure was estimated to be 103 mmHg. Respiratory viral panel was negative. Blood cultures have shown no growth to date. - Physical Exam Vitals/I&O's: Vital Signs Temp Pulse Resp BP Pulse Ox 98.2 F 63 26 H 126/54 H 91 06/25/20 03:03 06/25/20 03:05 06/25/20 03:05 06/25/20 03:03 06/25/20 03:05 Oxygen Flow Rate (L/min) 55 Oxygen Delivery Method Airvo Weight: 190 lb 7.988 oz Body Mass Index (BMI) 28.1 Finger Stick Blood Glucose 313 Orthostatic Vital Signs Start: 06/23/20 09:25 Freq: q24h Status: Active Protocol: Activity Type Activity Date Activity User E-Sign Co-Sign Detail Recorded Client Recorded Date Recorded By Document 06/23/20 09:25 [id number] 06/23/20 09:32 06/23/20 09:25 Orthostatic Vitals Standing -Blood Pressure (90/60-120/80) 126/62 H -Extremity Use Right Arm -Pulse Rate (60-100) 97 Sitting -Blood Pressure (90/60-120/80) 128/73 H -Extremity Use Right Arm -Pulse Rate (60-100) 97 Lying -Blood Pressure (90/60-120/80) 129/79 H -Extremity Use Right Arm -Pulse Rate (60-100) 91 Intake and Output for Last 24 Hours 06/23/20 06/24/20 06/25/20 23:59 23:59 23:59 Intake Total 1300 / 1300 1200 / 1200 150 / 150 Output Total 1925 / 1925 3925 / 3925 250 / 250 Balance -625 / -625 -2725 / -2725 -100 / -100 General: Alert, Cooperative, No apparent distress, - - Currently receiving an aerosol treatment HEENT: Atraumatic, PERRLA, Normocephalic Oral: No Gingival or Mucosal Lesions/ Ulcerations Neck: Supple, No Nodes, Trachea Midline Lungs: Diminished, Rales, Tachypneic Cardiovascular: Regular rate, Regular Rhythm Abdomen: Bowel Sounds Present, Soft, Non Tender Extremities: No clubbing, No cyanosis, No edema Skin: No breakdown Musculoskeletal: No Tenderness to Palpation of Joints or Extremities, No Muscle Wasting Lymphatic: No Cervical, Supraclavicular, or Inguinal Adenopathy Neurological: Cranial nerves II-XII grossly intact, Neuro grossly intact Psych/Mental Status: Normal Affect, Appropriate Labs (Last 48 Hours) 06/23/20 06/23/20 06/23/20 06:51 07:25 11:32 WBC RBC Hgb Hct MCV MCH MCHC RDW Std Deviation RDW Coeff of Felix Plt Count MPV PT 32.5 H INR 3.2 Sodium Potassium Chloride Carbon Dioxide Anion Gap BUN Creatinine Estim Creat Clear Calc Est GFR (MDRD) Af Amer Est GFR (MDRD) Non-Af BUN/Creatinine Ratio Glucose Calcium POC Glucose 356 H 355 H 06/23/20 06/23/20 06/24/20 17:25 21:51 05:30 WBC 18.5 H RBC 3.54 L Hgb 10.4 L Hct 32.4 L MCV 91.5 MCH 29.4 MCHC 32.1 RDW Std Deviation 47.1 H RDW Coeff of Felix 13.9 Plt Count 435 MPV 10.0 PT INR Sodium Potassium Chloride Carbon Dioxide Anion Gap BUN Creatinine Estim Creat Clear Calc Est GFR (MDRD) Af Amer Est GFR (MDRD) Non-Af BUN/Creatinine Ratio Glucose Calcium POC Glucose 339 H 354 H 06/24/20 06/24/20 06/24/20 05:30 06:14 08:36 WBC RBC Hgb Hct MCV MCH MCHC RDW Std Deviation RDW Coeff of Felix Plt Count MPV PT 30.7 H INR 3.0 Sodium 133 L Potassium 5.1 Chloride 102 Carbon Dioxide 26.0 Anion Gap 5 BUN 33 H Creatinine 1.22 Estim Creat Clear Calc 46.68 Est GFR (MDRD) Af Amer 73 Est GFR (MDRD) Non-Af 60 BUN/Creatinine Ratio 27.0 H Glucose 305 H Calcium 9.1 POC Glucose 339 H 06/24/20 06/24/20 06/24/20 11:34 17:02 22:27 WBC RBC Hgb Hct MCV MCH MCHC RDW Std Deviation RDW Coeff of Felix Plt Count MPV PT INR Sodium Potassium Chloride Carbon Dioxide Anion Gap BUN Creatinine Estim Creat Clear Calc Est GFR (MDRD) Af Amer Est GFR (MDRD) Non-Af BUN/Creatinine Ratio Glucose Calcium POC Glucose 355 H 394 H 354 H 06/25/20 06:36 WBC RBC Hgb Hct MCV MCH MCHC RDW Std Deviation RDW Coeff of Felix Plt Count MPV PT INR Sodium Potassium Chloride Carbon Dioxide Anion Gap BUN Creatinine Estim Creat Clear Calc Est GFR (MDRD) Af Amer Est GFR (MDRD) Non-Af BUN/Creatinine Ratio Glucose Calcium POC Glucose 221 H Microbiology 06/22/20 17:10 Blood Culture (Wb) #2 - Arm Right Blood Culture - Preliminary No growth in 48 hours. 06/22/20 17:10 Blood Culture (Wb) - Arm Left Blood Culture - Preliminary No growth in 48 hours. 06/23/20 11:15 Mucosa - Nasopharyngeal Respiratory Panel (PCR) - Final Clinical Impression(s) from Imaging Studies Chest X-Ray 06/22/20 17:25 IMPRESSION: No change from 05/20/2020. Question acute on chronic infiltrate. Electronically Signed: Anmol Cornell, at 17:40 EST Tel [phone], Service support , Chest CT 06/23/20 09:23 IMPRESSION: Stable scarring at the lung bases with very new areas of groundglass appearance in the upper lobes worse on the right side. Electronically Signed: Spencer Perez, at 11:21 EST , Service support , Current Medications Albuterol/Ipratropium (Ipratropium/Albuterol Sulfate 3 Ml Ampul.Neb) 3 ml INHALATION Q6H.RT [facility] Last Admin: 06/25/20 03:04 Dose: 3 ml Documented by: Aspirin (Aspirin E.C. 81 Mg Tablet) 81 mg PO DAILY@0800 [facility] Last Admin: 06/24/20 08:08 Dose: 81 mg Documented by: Furosemide (Furosemide 40 Mg/4 Ml Vial) 40 mg IV BID@1000,1800 [facility] Last Admin: 06/24/20 17:05 Dose: 40 mg Documented by: Glimepiride (Glimepiride 4 Mg Tablet) 4 mg PO DAILYCM [facility] Last Admin: 06/24/20 08:07 Dose: 4 mg Documented by: Guaifenesin (Guaifenesin 1,200 Mg Tablet) 1,200 mg PO BID [facility] Last Admin: 06/24/20 22:30 Dose: 1,200 mg Documented by: Hydralazine HCl (Hydralazine 25 Mg Tablet) 25 mg PO BID [facility] Last Admin: 06/24/20 22:30 Dose: 25 mg Documented by: Insulin Glargine (Insulin Glargine 100 Units/Ml Pen) 20 units SC BREAKFAST [facility] Last Admin: 06/24/20 08:08 Dose: 20 u Documented by: Insulin Human Lispro (Insulin Lispro 100 Unit/Ml Insuln.Pen) 0 unit SC ACHS [facility]; Protocol Last Admin: 06/25/20 06:38 Dose: 4 u Documented by: Lisinopril (Lisinopril 40 Mg Tablet) 40 mg PO DAILY [facility] Last Admin: 06/24/20 08:12 Dose: 40 mg Documented by: Methylprednisolone (Methylprednisolone 40 Mg/Ml Vial) 40 mg IV Q6 [facility] Last Admin: 06/25/20 06:10 Dose: 40 mg Documented by: Metoprolol Tartrate (Metoprolol Tartrate 100 Mg Tablet) 100 mg PO BID [facility] Last Admin: 06/24/20 22:30 Dose: 100 mg Documented by: Nutritional Formula (Lactose Free) (Glucerna Shake 120 Ml Liquid) 120 ml PO 4X/DAY [facility] Last Admin: 06/24/20 22:30 Dose: 120 ml Documented by: Potassium Chloride (Potassium Chloride 20 Meq Tablet) 20 meq PO BIDCM [facility] Last Admin: 06/24/20 17:04 Dose: 20 meq Documented by: Pravastatin Sodium (Pravastatin 40 Mg Tablet) 40 mg PO DAILY [facility] Last Admin: 06/24/20 08:12 Dose: 40 mg Documented by: Sodium Chloride (0.9% Saline Lock 10 Ml Syringe) 10 - 40 ml IV UD PRN PRN Reason: SALINE FLUSH Last Admin: 06/25/20 00:18 Dose: 10 ml Documented by: Tamsulosin HCl (Tamsulosin Hcl 0.4 Mg Capsule) 0.4 mg PO QHS [facility] Last Admin: 06/24/20 22:31 Dose: 0.4 mg Documented by: Warfarin Sodium (Warfarin 5 Mg Tablet) 5 mg PO DAILY@1700 [facility] Last Admin: 06/24/20 17:07 Dose: 5 mg Documented by: Medical Necessity - Tobacco Use Smoking Status: Former smoker Tobacco Use: Cigarettes Assessment/Plan All Active Problems Orthostatic hypotension (Acute) Syncope (Acute) COVID-19 (Acute) SARS (severe acute respiratory syndrome) (Ruled-out) RECOMMENDATIONS: 1. Continue IV diuretic therapy as tolerated by hemodynamics and renal function. 2. Given hemoptysis, will discontinue Coumadin and transition patient to heparin drip. 3. Start empiric antimicrobials. 4. Continue scheduled bronchodilator therapy and IV steroids. 5. Consider starting empiric BiPAP therapy on a nightly basis if the patient is agreeable. 6. Obtain sputum culture. 7. Wean FiO2 to maintain oxygen saturations at or above 90%. IMPRESSIONS: 1. Chronic hypoxemic respiratory failure/COPD/interstitial lung disease The patient has a multitude of chronic pulmonary medical conditions, along with a history of noncompliance with the use of supplemental oxygen. The patient does report that he has a 4 L/min baseline requirement, but has been rather noncompliant with the use of supplemental oxygen in his home environment. He has a reported history of COPD, along with obstructive sleep apnea with nocturnal Pap noncompliance and significant pulmonary hypertension. In addition, the patient does appear to have a component of interstitial lung disease based upon his most recent CT chest. The patient was diagnosed with Covid at the end of April 2020. I do suspect that his current respiratory status is likely the consequence of noncompliance with home supplemental oxygen and nocturnal Pap therapy along with what is likely underlying interstitial lung disease progression. Echocardiogram did reveal significant pulmonary hypertension, for which the patient will be continued on twice daily IV diuretics. Bronchodilators and IV steroids will be continued. Empiric antimicrobials will also be continued, pending infectious work-up. 2. History of heart failure with preserved ejection fraction/severe pulmonary hypertension The patient does have a history of diastolic heart failure and pulmonary hypertension. I do suspect that the vast majority of his pulmonary hypertension is likely the consequence of chronic hypoxemia and underlying obstructive lung disease. Agree with continuing diuretic therapy as tolerated by hemodynamics and renal function. 3. History of severe obstructive sleep apnea The patient was previously diagnosed with severe obstructive sleep apnea, but has been noncompliant with the use of nocturnal Pap therapy. Empiric BiPAP therapy can be utilized on a nightly basis if the patient is agreeable to use. 4. Advanced age/diabetes mellitus/paroxysmal atrial fibrillation/hyperlipidemia/hypertension Complicates care, management, recovery and prognosis. The patient undoubtedly needs to reestablish care with a turning sander operator after discharge from the hospital. CODE status: Discussed CODE status at length including difference between FULL code, DNR-CCA and DNR-CC status. Following discussions about the differences in these status, patient requested DNR-CCA no intubation CODE STATUS. Advanced Care Planning Face to Face Time: 12 minutes This note was generated with Dragon dictation software. It may contain incorrect words, spelling, and punctuation that were not noted in checking the note before signing. Inpatient E&M: 01468 Subs Hosp L3 Procedures: 28201 Advncd Care Plan 30 Min
[2020-06-25 08:07] LABS: Hematocrit 33.5 % (40-54); Hemoglobin 10.9 g/dL (13.0-16.5); Mean Corp Hgb Conc 32.5 g/dL (32-36); Mean Corpuscular Hgb 29.5 pg (27.0-32.0); Mean Corpuscular Volume 90.8 fL (80-94); Platelet Count 437 K/mm3 (150-450); RBC Distribution Width CV 13.9 % (11.6-14.6); RBC Distribution Width SD 46.7 fl (35.1-43.9); Red Blood Count 3.69 M/mm3 (4.6-6.2); White Blood Count 18.5 K/mm3 (4.4-11.0)
--- NOTE | 2020-06-25 08:11 | NURSING ---
supervisor motorcycle repair shop and primary RN informed Per Yecenia Patel [employer] PROGRAMMER ANALYST transfering patient to PCU
--- NOTE | 2020-06-25 08:24 | NURSING ---
Primary RN updated PCU bed 105, lion tamer also informed.
[2020-06-25 08:31] LABS: Anion Gap 5 (5-15); BUN 37 mg/dL (7-18); BUN/Creat Ratio 36.3 RATIO (10-20); Calcium,Total 8.8 mg/dL (8.5-10.1); Chloride 101 mmol/L (98-107); Creatinine, Serum 1.02 mg/dL (0.70-1.30); EST Glomerular Filtration Rate 74 mL/min (>60); Est Glom Filt Rate - Afr Amer 90 mL/min (>60); Estimated Creatinine Clearance 55.84 ml/min; Glucose 202 mg/dL (74-106); Potassium 4.5 mmol/L (3.5-5.1); Sodium Level 135 mmol/L (136-145)
[2020-06-25] MEDS: Aspirin E.C. 81 MG Tablet PO (08:53)
[2020-06-25] MEDS: Glimepiride 4 MG Tablet PO (08:53)
[2020-06-25] MEDS: hydrALAZINE 25 MG Tablet PO ×2 (08:56→21:30)
[2020-06-25] MEDS: Furosemide 40 MG/4 ML Vial IV ×2 (08:57→16:49)
[2020-06-25] MEDS: Metoprolol Tartrate 100 MG Tablet PO ×2 (08:57→21:30)
[2020-06-25] MEDS: Pravastatin 40 MG Tablet PO (08:58)
[2020-06-25] MEDS: guaiFENesin 1,200 MG Tablet 1200 MG PO ×2 (08:58→21:30)
[2020-06-25] MEDS: Lisinopril 40 MG Tablet PO (08:58)
[2020-06-25 09:36] LABS: Bedside Glucose 319 mg/dL (70-110)
[2020-06-25] MEDS: HEPARIN/D5w 25,000 UNITS 25,000 UNITS/250 ML IV.SOLN. 12 UNITS IV (10:00)
[2020-06-25] MEDS: Glucerna Shake 120 ML LIQUID PO ×3 (10:00→16:44)
[2020-06-25 10:19] LABS: Partial Thromboplast Time 56.1 Seconds (24.1-36.2)
[2020-06-25 11:50] LABS: Bedside Glucose 327 mg/dL (70-110)
--- NOTE | 2020-06-25 13:19 | NURSING ---
Spoke with pharmacist about zosyn being hung late this morning. Stated that 1400 dose should be given at 1600
--- NOTE | 2020-06-25 14:33 | PN_ITS ---
<JorgeCrisYecenia WELT CUTTER - Last Filed: 06/25/20 14:52> Patient Problems: Active and Suspected Problems Syncope (Acute) Subjective: Patient seen and examined. Reports intermittent hemoptysis. Denies improvement in shortness of breath. Denies fever, chills. Reports ongoing generalized weakness and fatigue. - Physical Exam Vitals/I&O's: Vital Signs Temp Pulse Resp BP Pulse Ox 97.5 F L 77 20 H 141/62 H 94 06/25/20 09:46 06/25/20 09:46 06/25/20 09:46 06/25/20 09:46 06/25/20 09:46 Oxygen Flow Rate (L/min) 55 Oxygen Delivery Method Airvo Weight: 190 lb 7.988 oz Body Mass Index (BMI) 28.1 Finger Stick Blood Glucose 313 Orthostatic Vital Signs Start: 06/23/20 09:25 Freq: q24h Status: Active Protocol: Activity Type Activity Date Activity User E-Sign Co-Sign Detail Recorded Client Recorded Date Recorded By Document 06/23/20 09:25 [id number] 06/23/20 09:32 06/23/20 09:25 Orthostatic Vitals Standing -Blood Pressure (90/60-120/80) 126/62 H -Extremity Use Right Arm -Pulse Rate (60-100) 97 Sitting -Blood Pressure (90/60-120/80) 128/73 H -Extremity Use Right Arm -Pulse Rate (60-100) 97 Lying -Blood Pressure (90/60-120/80) 129/79 H -Extremity Use Right Arm -Pulse Rate (60-100) 91 Intake and Output for Last 24 Hours 06/23/20 06/24/20 06/25/20 23:59 23:59 23:59 Intake Total 1300 / 1300 1200 / 1200 270 / 270 Output Total 1925 / 1925 3925 / 3925 1150 / 1150 Balance -625 / -625 -2725 / -2725 -880 / -880 General: Alert, Oriented x3, Cooperative HEENT: Atraumatic, PERRLA, EOMI, Normocephalic Neck: Supple, No JVD, Negative Carotid Bruits Lungs: Diminished, Rales, - - Scattered faint crackles Cardiovascular: Regular rate, No murmurs Abdomen: Bowel Sounds Present, Soft, Non Tender Extremities: No clubbing, No cyanosis, No edema, Capillary Refill Less than 3 Seconds Skin: No rashes, No breakdown Musculoskeletal: No Tenderness to Palpation of Joints or Extremities Neurological: Cranial nerves II-XII grossly intact, Neuro grossly intact Psych/Mental Status: Normal Affect, Appropriate Microbiology Past 72 Hours 06/22/20 17:10 Blood Culture (Wb) #2 - Arm Right Blood Culture - Preliminary No growth in 48 hours. 06/22/20 17:10 Blood Culture (Wb) - Arm Left Blood Culture - Preliminary No growth in 48 hours. 06/23/20 11:15 Mucosa - Nasopharyngeal Respiratory Panel (PCR) - Final Laboratory Results 06/24/20 17:02: POC Glucose 394 H 06/24/20 22:27: POC Glucose 354 H 06/25/20 06:36: POC Glucose 221 H 06/25/20 07:39: GUERITA Screen Pending, CASI-1 Antibody Pending, SS-A/Ro IgG Antibody Pending, SS-B/La IgG Antibody Pending, Sm (Hill) Antibody Pending, FRAMING CONSULTANT Antibody Pending, Scl-70 Scleroderma Ab Pending, Double Strand DNA Ab Pending, Centromere B Antibody Pending 06/25/20 07:39: c-ANCA Antibody Pending, p-ANCA Antibody Pending 06/25/20 07:48: WBC 18.5 H, RBC 3.69 L, Hgb 10.9 L, Hct 33.5 L, MCV 90.8, MCH 29.5, MCHC 32.5, RDW Std Deviation 46.7 H, RDW Coeff of Felix 13.9, Plt Count 437, MPV 10.0 06/25/20 07:48: PT 31.0 H, INR 3.0 06/25/20 07:48: Sodium 135 L, Potassium 4.5, Chloride 101, Carbon Dioxide 29.0, Anion Gap 5, BUN 37 H, Creatinine 1.02, Estim Creat Clear Calc 55.84, Est GFR (MDRD) Af Amer 90, Est GFR (MDRD) Non-Af 74, BUN/Creatinine Ratio 36.3 H, Glucose 202 H, Calcium 8.8 06/25/20 07:48: APTT 56.1 H 06/25/20 08:52: POC Glucose 319 H 06/25/20 11:16: POC Glucose 327 H Current Medications Albuterol/Ipratropium (Ipratropium/Albuterol Sulfate 3 Ml Ampul.Neb) 3 ml INHALATION Q6H.RT [facility] Last Admin: 06/25/20 14:29 Dose: 3 ml Documented by: Aspirin (Aspirin E.C. 81 Mg Tablet) 81 mg PO DAILY@0800 [facility] Last Admin: 06/25/20 08:53 Dose: 81 mg Documented by: Furosemide (Furosemide 40 Mg/4 Ml Vial) 40 mg IV BID@1000,1800 [facility] Last Admin: 06/25/20 08:57 Dose: 40 mg Documented by: Glimepiride (Glimepiride 4 Mg Tablet) 4 mg PO DAILYCM [facility] Last Admin: 06/25/20 08:53 Dose: 4 mg Documented by: Guaifenesin (Guaifenesin 1,200 Mg Tablet) 1,200 mg PO BID [facility] Last Admin: 06/25/20 08:58 Dose: 1,200 mg Documented by: Heparin Sodium (Porcine) (Heparin Injection (Vial) 5,000 Unit/Ml Vial) 0 unit IV UD PRN; Protocol PRN Reason: dose adjustment Hydralazine HCl (Hydralazine 25 Mg Tablet) 25 mg PO BID [facility] Last Admin: 06/25/20 08:56 Dose: 25 mg Documented by: Piperacillin Sod/Tazobactam (Sod 3.375 gm/ Sodium Chloride) 50 mls @ 12.5 mls/hr IV Q8 [facility] Last Admin: 06/25/20 10:32 Dose: 12.5 mls/hr Documented by: Heparin Sodium/Dextrose () 25,000 units in 250 mls @ 12 mls/hr IV .[id number] [facility]; Protocol Last Admin: 06/25/20 10:00 Dose: 1,200 units/hr, 12 mls/hr Documented by: Insulin Glargine (Insulin Glargine 100 Units/Ml Pen) 20 units SC BREAKFAST [facility] Last Admin: 06/25/20 08:55 Dose: 20 u Documented by: Insulin Human Lispro (Insulin Lispro 100 Unit/Ml Insuln.Pen) 0 unit SC ACHS [facility]; Protocol Last Admin: 06/25/20 11:20 Dose: 8 u Documented by: Lisinopril (Lisinopril 40 Mg Tablet) 40 mg PO DAILY [facility] Last Admin: 06/25/20 08:58 Dose: 40 mg Documented by: Methylprednisolone (Methylprednisolone 40 Mg/Ml Vial) 40 mg IV Q6 [facility] Last Admin: 06/25/20 11:20 Dose: 40 mg Documented by: Metoprolol Tartrate (Metoprolol Tartrate 100 Mg Tablet) 100 mg PO BID [facility] Last Admin: 06/25/20 08:57 Dose: 100 mg Documented by: Nutritional Formula (Lactose Free) (Glucerna Shake 120 Ml Liquid) 120 ml PO 4X/DAY [facility] Last Admin: 06/25/20 13:20 Dose: 120 ml Documented by: Potassium Chloride (Potassium Chloride 20 Meq Tablet) 20 meq PO BIDCM [facility] Last Admin: 06/25/20 08:53 Dose: 20 meq Documented by: Pravastatin Sodium (Pravastatin 40 Mg Tablet) 40 mg PO DAILY [facility] Last Admin: 06/25/20 08:58 Dose: 40 mg Documented by: Sodium Chloride (0.9% Saline Lock 10 Ml Syringe) 10 - 40 ml IV UD PRN PRN Reason: SALINE FLUSH Last Admin: 06/25/20 11:21 Dose: 10 ml Documented by: Tamsulosin HCl (Tamsulosin Hcl 0.4 Mg Capsule) 0.4 mg PO QHS [facility] Last Admin: 06/24/20 22:31 Dose: 0.4 mg Documented by: Medical Necessity - Tobacco Use Smoking Status: Former smoker Tobacco Use: Cigarettes Assessment/Plan All Active Problems Orthostatic hypotension (Acute) Syncope (Acute) COVID-19 (Acute) SARS (severe acute respiratory syndrome) (Ruled-out) 1. Acute on chronic hypoxic respiratory failure secondary to exacerbation of COPD and acute on chronic diastolic CHF complicated by underlying interstitial lung disease, severe RAISA, severe pulmonary hypertension-IV Solu-Medrol. Albuterol DuoNeb aerosols. Continue supplement oxygen to maintain O2 at or above 90%. Repeat home O2 testing prior to discharge. Pulmonary medicine consulted. CT of chest demonstrates stable scarring at the lung bases with new areas of groundglass appearance in the upper lobes, worse on the right side. Respiratory panel negative. Patient with Covid end of April 2020. Coumadin on hold due to hemoptysis. IV antibiotics initiated empirically. BiPAP nightly. Patient has a history of noncompliance with BiPAP and supplemental oxygen. Echocardiogram completed which demonstrates an EF of 65%, RVSP 103 mmHg. Continue with IV diuresis. Immunology labs pending. 2. Acute on Chronic diastolic CHF-suspect component of CHF contributing to acute on chronic hypoxic respiratory failure. Continue IV Lasix. Echo as noted above. 3. Severe RAISA-BiPAP nightly and with naps. 4. Severe pulmonary hypertension-as noted on echo above. Continue with diuresis. 5. Syncope-suspect secondary to hypoxia as a result of noncompliance with oxygen. 6. Paroxysmal atrial fibrillation-continue metoprolol, digoxin, warfarin. AICD in place. 7. CAD with history of stents-continue aspirin, statin, metoprolol, hydralazine, lisinopril. 8. Type 2 diabetes ekpwiwfi-Iuct-Nasin with sliding scale insulin. 9. BPH-on Flomax. 10. Dysphagia-barium swallow ordered. Speech therapy consult. Continue dietary modifications per speech therapy recommendations. DVT prophylaxis-Coumadin on hold due to hemoptysis This patient was seen by QASIM Do under the supervision of Dr. Swenson. <Papito Swenson - Last Filed: 06/25/20 15:49> Objective: Patient is still very short of breath on high flow 68% FiO2 AIRVO Pulmonary note reviewed and as per outside Dr Covarrubias medical record reviewed. Patient also had mild hemoptysis for which Coumadin was discontinued and started on IV heparin. Patient was transferred to PCU. Physical exam General: Alert, Oriented x3, Cooperative, very short of breath HEENT: Atraumatic, PERRLA, EOMI, Normocephalic Oral: No Gingival or Mucosal Lesions/ Ulcerations Neck: Supple, No JVD, Negative Carotid Bruits Lungs: Air entry diminished in bilateral lung bases. Bilateral coarse inspiratory rales present in both lungs diffuse in nature. Cardiovascular: Regular rate, Regular Rhythm, Normal S1, Normal S2, No murmurs Abdomen: Bowel Sounds Present, Soft, Non Tender, Non-Distended : No renal angle tenderness. No suprapubic tenderness. Extremities: No edema, Capillary Refill Less than 3 Seconds Skin: No rashes, No breakdown Musculoskeletal: No Tenderness to Palpation of Joints or Extremities. Mild muscle atrophy of extremities. Neurological: Cranial nerves II-XII grossly intact, Deep Tendon Reflexes 2+/4 and Symmetrical, Neuro grossly intact Psych/Mental Status: Normal Affect, Appropriate. - Physical Exam Vitals/I&O's: Vital Signs Temp Pulse Resp BP Pulse Ox 97.5 F L 65 20 H 141/62 H 94 06/25/20 09:46 06/25/20 14:59 06/25/20 14:51 06/25/20 09:46 06/25/20 09:46 Oxygen Flow Rate (L/min) 55 Oxygen Delivery Method Airvo Weight: 190 lb 7.988 oz Body Mass Index (BMI) 28.1 Finger Stick Blood Glucose 313 Orthostatic Vital Signs Start: 06/23/20 09:25 Freq: q24h Status: Active Protocol: Activity Type Activity Date Activity User E-Sign Co-Sign Detail Recorded Client Recorded Date Recorded By Document 06/23/20 09:25 [id number] 06/23/20 09:32 ANABELA 06/23/20 09:25 Orthostatic Vitals Standing -Blood Pressure (90/60-120/80) 126/62 H -Extremity Use Right Arm -Pulse Rate (60-100) 97 Sitting -Blood Pressure (90/60-120/80) 128/73 H -Extremity Use Right Arm -Pulse Rate (60-100) 97 Lying -Blood Pressure (90/60-120/80) 129/79 H -Extremity Use Right Arm -Pulse Rate (60-100) 91 Intake and Output for Last 24 Hours 06/23/20 06/24/20 06/25/20 23:59 23:59 23:59 Intake Total 1300 / 1300 1200 / 1200 320 / 320 Output Total 1925 / 1925 3925 / 3925 1150 / 1150 Balance -625 / -625 -2725 / -2725 -830 / -830 Microbiology Past 72 Hours 06/22/20 17:10 Blood Culture (Wb) #2 - Arm Right Blood Culture - Preliminary No growth in 48 hours. 06/22/20 17:10 Blood Culture (Wb) - Arm Left Blood Culture - Preliminary No growth in 48 hours. 06/23/20 11:15 Mucosa - Nasopharyngeal Respiratory Panel (PCR) - Final Laboratory Results 06/24/20 17:02: POC Glucose 394 H 06/24/20 22:27: POC Glucose 354 H 06/25/20 06:36: POC Glucose 221 H 06/25/20 07:39: GUERITA Screen Pending, CASI-1 Antibody Pending, SS-A/Ro IgG Antibody Pending, SS-B/La IgG Antibody Pending, Sm (Hill) Antibody Pending, FRAMING CONSULTANT Antibody Pending, Scl-70 Scleroderma Ab Pending, Double Strand DNA Ab Pending, Centromere B Antibody Pending 06/25/20 07:39: c-ANCA Antibody Pending, p-ANCA Antibody Pending 06/25/20 07:48: WBC 18.5 H, RBC 3.69 L, Hgb 10.9 L, Hct 33.5 L, MCV 90.8, MCH 29.5, MCHC 32.5, RDW Std Deviation 46.7 H, RDW Coeff of Felix 13.9, Plt Count 437, MPV 10.0 06/25/20 07:48: PT 31.0 H, INR 3.0 06/25/20 07:48: Sodium 135 L, Potassium 4.5, Chloride 101, Carbon Dioxide 29.0, Anion Gap 5, BUN 37 H, Creatinine 1.02, Estim Creat Clear Calc 55.84, Est GFR (MDRD) Af Amer 90, Est GFR (MDRD) Non-Af 74, BUN/Creatinine Ratio 36.3 H, Glu cose 202 H, Calcium 8.8 06/25/20 07:48: APTT 56.1 H 06/25/20 08:52: POC Glucose 319 H 06/25/20 11:16: POC Glucose 327 H Current Medications Albuterol/Ipratropium (Ipratropium/Albuterol Sulfate 3 Ml Ampul.Neb) 3 ml INHALATION Q6H.RT [facility] Last Admin: 06/25/20 14:29 Dose: 3 ml Documented by: Aspirin (Aspirin E.C. 81 Mg Tablet) 81 mg PO DAILY@0800 [facility] Last Admin: 06/25/20 08:53 Dose: 81 mg Documented by: Furosemide (Furosemide 40 Mg/4 Ml Vial) 40 mg IV BID@1000,1800 [facility] Last Admin: 06/25/20 08:57 Dose: 40 mg Documented by: Glimepiride (Glimepiride 4 Mg Tablet) 4 mg PO DAILYCM [facility] Last Admin: 06/25/20 08:53 Dose: 4 mg Documented by: Guaifenesin (Guaifenesin 1,200 Mg Tablet) 1,200 mg PO BID [facility] Last Admin: 06/25/20 08:58 Dose: 1,200 mg Documented by: Heparin Sodium (Porcine) (Heparin Injection (Vial) 5,000 Unit/Ml Vial) 0 unit IV UD PRN; Protocol PRN Reason: dose adjustment Hydralazine HCl (Hydralazine 25 Mg Tablet) 25 mg PO BID [facility] Last Admin: 06/25/20 08:56 Dose: 25 mg Documented by: Piperacillin Sod/Tazobactam (Sod 3.375 gm/ Sodium Chloride) 50 mls @ 12.5 mls/hr IV Q8 [facility] Last Infusion: 06/25/20 14:39 Dose: Infused Documented by: Heparin Sodium/Dextrose () 25,000 units in 250 mls @ 12 mls/hr IV .[id number] [facility]; Protocol Last Admin: 06/25/20 10:00 Dose: 1,200 units/hr, 12 mls/hr Documented by: Insulin Glargine (Insulin Glargine 100 Units/Ml Pen) 20 units SC BREAKFAST [facility] Last Admin: 06/25/20 08:55 Dose: 20 u Documented by: Insulin Human Lispro (Insulin Lispro 100 Unit/Ml Insuln.Pen) 0 unit SC ACHS [facility]; Protocol Last Admin: 06/25/20 11:20 Dose: 8 u Documented by: Lisinopril (Lisinopril 40 Mg Tablet) 40 mg PO DAILY [facility] Last Admin: 06/25/20 08:58 Dose: 40 mg Documented by: Methylprednisolone (Methylprednisolone 40 Mg/Ml Vial) 40 mg IV Q6 [facility] Last Admin: 06/25/20 11:20 Dose: 40 mg Documented by: Metoprolol Tartrate (Metoprolol Tartrate 100 Mg Tablet) 100 mg PO BID [facility] Last Admin: 06/25/20 08:57 Dose: 100 mg Documented by: Nutritional Formula (Lactose Free) (Glucerna Shake 120 Ml Liquid) 120 ml PO 4X/DAY [facility] Last Admin: 06/25/20 13:20 Dose: 120 ml Documented by: Potassium Chloride (Potassium Chloride 20 Meq Tablet) 20 meq PO BIDCM [facility] Last Admin: 06/25/20 08:53 Dose: 20 meq Documented by: Pravastatin Sodium (Pravastatin 40 Mg Tablet) 40 mg PO DAILY [facility] Last Admin: 06/25/20 08:58 Dose: 40 mg Documented by: Sodium Chloride (0.9% Saline Lock 10 Ml Syringe) 10 - 40 ml IV UD PRN PRN Reason: SALINE FLUSH Last Admin: 06/25/20 11:21 Dose: 10 ml Documented by: Tamsulosin HCl (Tamsulosin Hcl 0.4 Mg Capsule) 0.4 mg PO QHS [facility] Last Admin: 06/24/20 22:31 Dose: 0.4 mg Documented by: Assessment/Plan This patient was seen in conjunction with WELT CUTTER, Yecenia. I have independently interviewed and examined the patient and reviewed pertinent history, examination findings, laboratory and plan of management. I have reviewed the note and agree with the documented findings with the few additional points. In brief, patient is 80-year-old gentleman with history of smoking quit 30 years ago, COPD, interstitial lung disease, coronary artery disease post stents was admitted with shortness of breath and syncope. The patient has been noncompliant with oxygen. CT chest August 20, 2018 showed chronic fibrosis with bullous changes worse in lower lobes. HRCT was done and reported stable scarring in the lung bases with new areas of groundglass appearance in upper lobes worse on the right side. Diuresis as per tolerated by kidney function and intake and output. Patient is on scheduled bronchodilator, IV Solu-Medrol, incentive spirometry and chest physiotherapy. Diagnosis: Chronic hypoxic respiratory failure secondary to COPD, interstitial lung disease and severe progressive pulmonary hypertension. RVSP 103 mmHg this time, previous 62 in 2014[address] Covarrubias office record: Patient has mild obstructive ventilatory defect with reduced DLCO 59% in September 2014. Echo in 2014 shows RVSP 62 mmHg. P Patient also had diagnostic polysomnogram in November 2011 which showed AHI 64 events per minute consistent with severe RAISA. Patient found noncompliant to CPAP which was recommended 8 cm of water. Patient last saw nuclear reactor engineer Dr Covarrubias intermittently 2019. Last FEV1 1.98 L or 70% or greater in January 2019. Pulmonary hypertension was felt to be secondary to untreated RAISA and HFpEF. Patient was treated with Lasix in outpatient setting. 06/25/2020. Patient transferred to PCU. On IV heparin drip. Coumadin discontinued. Rest of medications are same. Sputum culture, ANCA and GUERITA are ordered. Coronary artery disease status post PCI and stents, paroxysmal A. fib on Co umadin and chronic HFpEF status post AICD: Patient used to follow Dr. Garcia [facility] but do not see a new unit assembler or treatment determined. Last echo in October 2018 reported as EF 55% with a stage III diastolic dysfunction, 2+ TR, RVSP 68 mmHg sensitive of moderate pulmonary hypertension. INR is therapeutic. Continue Lasix. 2D echo was done and shows EF 65% with normal RV size and systolic function. Mild to moderate MR, moderate TR RVSP 103 consistent with severe pulmonary hypertension. Other comorbidities type 2 diabetes mellitus BPH: Glucose elevated about 350 insulin increased. I have discussed my assessment with WELT CUTTERYecenia and orders have been reviewed. Inpatient E&M: 77847 Subs Hosp L2
[2020-06-25 16:20] LABS: Bedside Glucose 259 mg/dL (70-110)
[2020-06-25] MEDS: Tamsulosin HCl 0.4 MG Capsule PO (21:30)
[2020-06-25 21:50] LABS: Bedside Glucose 381 mg/dL (70-110)
[2020-06-25 23:32] LABS: Partial Thromboplast Time 117.5 Seconds (24.1-36.2)
[2020-06-26] VITALS (17 sets, daily range): BP systolic 109–145; BP diastolic 43–62; PULSE 35–70; RESP 18–40; TEMP 36.4–36.6; O2SAT 93–99
[2020-06-26] MEDS: Ipratropium/Albuterol Sulfate 3 ML AMPUL.NEB INHALATION ×4 (00:53→20:16)
[2020-06-26] MEDS: Insulin Lispro 100 UNIT/ML INSULN.PEN SC ×4 (06:23→21:38)
[2020-06-26] MEDS: 0.9% Saline Lock 10 ML Syringe IV ×4 (06:23→17:58)
[2020-06-26 07:00] LABS: Bedside Glucose 223 mg/dL (70-110)
[2020-06-26 07:01] LABS: Hematocrit 32.6 % (40-54); Hemoglobin 10.4 g/dL (13.0-16.5); Mean Corp Hgb Conc 31.9 g/dL (32-36); Mean Corpuscular Hgb 29.1 pg (27.0-32.0); Mean Corpuscular Volume 91.3 fL (80-94); Mean Platelet Vol. 10.1 fl (6.2-12.0); Platelet Count 427 K/mm3 (150-450); RBC Distribution Width CV 14.1 % (11.6-14.6); RBC Distribution Width SD 47.5 fl (35.1-43.9); Red Blood Count 3.57 M/mm3 (4.6-6.2); White Blood Count 13.4 K/mm3 (4.4-11.0)
[2020-06-26 07:08] LABS: Partial Thromboplast Time 64.3 Seconds (24.1-36.2)
[2020-06-26 07:19] LABS: Anion Gap 4 (5-15); BUN 40 mg/dL (7-18); BUN/Creat Ratio 35.4 RATIO (10-20); Calcium,Total 8.7 mg/dL (8.5-10.1); Chloride 99 mmol/L (98-107); Creatinine, Serum 1.13 mg/dL (0.70-1.30); EST Glomerular Filtration Rate 66 mL/min (>60); Est Glom Filt Rate - Afr Amer 80 mL/min (>60); Glucose 224 mg/dL (74-106); Potassium 4.6 mmol/L (3.5-5.1); Sodium Level 135 mmol/L (136-145)
[2020-06-26] MEDS: Aspirin E.C. 81 MG Tablet PO (08:01)
[2020-06-26] MEDS: Glimepiride 4 MG Tablet PO (08:01)
[2020-06-26] MEDS: Glucerna Shake 120 ML LIQUID PO ×4 (08:03→21:37)
--- NOTE | 2020-06-26 08:14 | PCM.PN.PUL ---
Patient Problems: Active and Suspected Problems Syncope (Acute) Subjective: The patient was seen and examined at the bedside this morning. Events from the last 24 hours have been reviewed. The patient is currently afebrile, hemodynamically stable and maintaining appropriate oxygen saturations on Airvo heated high flow supplemental oxygen with an FiO2 requirement of 55% and flow rate of 55 L/min. The patient is currently documented to be overall net negative approximately 5 L for the hospital admission. The patient remains short of breath. Outside pulmonary medical records from Dr. Covarrubias at [facility] were obtained and reviewed: The patient has a history of coronary artery disease and atrial fibrillation. He has a [id number] smoking history, having quit completely 30+ years ago. Spirometry completed in May 2015 revealed a mild obstructive ventilatory impairment with reduced diffusing capacity at 59% of predicted. Surface echocardiogram from 2014 revealed an estimated right ventricular systolic pressure of 62 mmHg. The patient appears to have had progressive pulmonary hypertension with time. In addition, a diagnostic polysomnogram from November 2011 revealed severe obstructive sleep apnea with an AHI of 64 events per minute. A follow-up titration study was completed for which nocturnal CPAP with a pressure support of 8 cm of water was recommended. In work-up for the patient's pulmonary hypertension autoimmune/vasculitis work-up was undertaken. 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 The patient does appear to have last been seen by his outside team primary care physician in July 2019, at which time, he was noted to be noncompliant with the use of supplemental oxygen and nocturnal Pap therapy. The patient last had an FEV1 noted to be 1.98 L or 70% of predicted in January 2019. His pulmonary hypertension was felt to be secondary to untreated RAISA and heart failure with preserved ejection fraction. He was being treated with Lasix as well as an outpatient. Objective: The patient's most recent lab work, culture data and imaging studies have all been personally reviewed. Surface echocardiogram revealed normal LV size with an ejection fraction of 65%. Right ventricular systolic pressure was estimated to be 103 mmHg. Respiratory viral panel was negative. Blood cultures have shown no growth to date. - Physical Exam Vitals/I&O's: Vital Signs Temp Pulse Resp BP Pulse Ox 97.8 F 56 L 40 H 116/60 95 06/26/20 03:30 06/26/20 07:02 06/26/20 07:02 06/26/20 03:30 06/26/20 07:02 Oxygen Flow Rate (L/min) 55 Oxygen Delivery Method Airvo Weight: 190 lb 7.988 oz Body Mass Index (BMI) 28.1 Finger Stick Blood Glucose 313 Intake and Output for Last 24 Hours 06/24/20 06/25/20 06/26/20 23:59 23:59 23:59 Intake Total 1200 / 1200 1036.17 / 1036.17 50 / 50 Output Total 3925 / 3925 2700 / 2700 350 / 350 Balance -2725 / -2725 -1663.83 / -1663.83 -300 / -300 General: Alert, Cooperative HEENT: Atraumatic, Normocephalic Oral: Moist Mucosa, No Gingival or Mucosal Lesions/ Ulcerations Neck: Supple, No Nodes, Trachea Midline Lungs: No rhonchi, No wheeze, Diminished, Rales, Tachypneic Cardiovascular: Regular rate, Regular Rhythm Abdomen: Bowel Sounds Present, Soft, Non Tender Extremities: No clubbing, No cyanosis, No edema Skin: No breakdown Musculoskeletal: No Tenderness to Palpation of Joints or Extremities Lymphatic: No Cervical, Supraclavicular, or Inguinal Adenopathy Neurological: Cranial nerves II-XII grossly intact, Neuro grossly intact Psych/Mental Status: Normal Affect, Appropriate Labs (Last 48 Hours) 06/24/20 06/24/20 06/24/20 08:36 11:34 17:02 WBC RBC Hgb Hct MCV MCH MCHC RDW Std Deviation RDW Coeff of Felix Plt Count MPV PT 30.7 H INR 3.0 APTT Sodium Potassium Chloride Carbon Dioxide Anion Gap BUN Creatinine Estim Creat Clear Calc Est GFR (MDRD) Af Amer Est GFR (MDRD) Non-Af BUN/Creatinine Ratio Glucose Calcium GUERITA Screen c-ANCA Antibody p-ANCA Antibody CASI-1 Antibody SS-A/Ro IgG Antibody SS-B/La IgG Antibody Sm (Hill) Antibody COMPONENT INSPECTOR Antibody Scl-70 Scleroderma Ab Double Strand DNA Ab Centromere B Antibody POC Glucose 355 H 394 H 06/24/20 06/25/20 06/25/20 22:27 06:36 07:39 WBC RBC Hgb Hct MCV MCH MCHC RDW Std Deviation RDW Coeff of Felix Plt Count MPV PT INR APTT Sodium Potassium Chloride Carbon Dioxide Anion Gap BUN Creatinine Estim Creat Clear Calc Est GFR (MDRD) Af Amer Est GFR (MDRD) Non-Af BUN/Creatinine Ratio Glucose Calcium GUERITA Screen Pending c-ANCA Antibody p-ANCA Antibody CASI-1 Antibody Pending SS-A/Ro IgG Antibody Pending SS-B/La IgG Antibody Pending Sm (Hill) Antibody Pending COMPONENT INSPECTOR Antibody Pending Scl-70 Scleroderma Ab Pending Double Strand DNA Ab Pending Centromere B Antibody Pending POC Glucose 354 H 221 H 06/25/20 06/25/20 06/25/20 07:39 07:48 07:48 WBC 18.5 H RBC 3.69 L Hgb 10.9 L Hct 33.5 L MCV 90.8 MCH 29.5 MCHC 32.5 RDW Std Deviation 46.7 H RDW Coeff of Felix 13.9 Plt Count 437 MPV 10.0 PT 31.0 H INR 3.0 APTT Sodium Potassium Chloride Carbon Dioxide Anion Gap BUN Creatinine Estim Creat Clear Calc Est GFR (MDRD) Af Amer Est GFR (MDRD) Non-Af BUN/Creatinine Ratio Glucose Calcium GUERITA Screen c-ANCA Antibody Pending p-ANCA Antibody Pending CASI-1 Antibody SS-A/Ro IgG Antibody SS-B/La IgG Antibody Sm (Hill) Antibody COMPONENT INSPECTOR Antibody Scl-70 Scleroderma Ab Double Strand DNA Ab Centromere B Antibody POC Glucose 06/25/20 06/25/20 06/25/20 07:48 07:48 08:52 WBC RBC Hgb Hct MCV MCH MCHC RDW Std Deviation RDW Coeff of Felix Plt Count MPV PT INR APTT 56.1 H Sodium 135 L Potassium 4.5 Chloride 101 Carbon Dioxide 29.0 Anion Gap 5 BUN 37 H Creatinine 1.02 Estim Creat Clear Calc 55.84 Est GFR (MDRD) Af Amer 90 Est GFR (MDRD) Non-Af 74 BUN/Creatinine Ratio 36.3 H Glucose 202 H Calcium 8.8 GUERITA Screen c-ANCA Antibody p-ANCA Antibody CASI-1 Antibody SS-A/Ro IgG Antibody SS-B/La IgG Antibody Sm (Hill) Antibody COMPONENT INSPECTOR Antibody Scl-70 Scleroderma Ab Double Strand DNA Ab Centromere B Antibody POC Glucose 319 H 06/25/20 06/25/20 06/25/20 11:16 16:00 16:17 WBC RBC Hgb Hct MCV MCH MCHC RDW Std Deviation RDW Coeff of Felix Plt Count MPV PT INR APTT 81.0 H Sodium Potassium Chloride Carbon Dioxide Anion Gap BUN Creatinine Estim Creat Clear Calc Est GFR (MDRD) Af Amer Est GFR (MDRD) Non-Af BUN/Creatinine Ratio Glucose Calcium GUERITA Screen c-ANCA Antibody p-ANCA Antibody CASI-1 Antibody SS-A/Ro IgG Antibody SS-B/La IgG Antibody Sm (Hill) Antibody COMPONENT INSPECTOR Antibody Scl-70 Scleroderma Ab Double Strand DNA Ab Centromere B Antibody POC Glucose 327 H 259 H 06/25/20 06/25/20 06/26/20 21:26 22:55 06:20 WBC RBC Hgb Hct MCV MCH MCHC RDW Std Deviation RDW Coeff of Felix Plt Count MPV PT INR APTT 117.5 H* Sodium Potassium Chloride Carbon Dioxide Anion Gap BUN Creatinine Estim Creat Clear Calc Est GFR (MDRD) Af Amer Est GFR (MDRD) Non-Af BUN/Creatinine Ratio Glucose Calcium GUERITA Screen c-ANCA Antibody p-ANCA Antibody CASI-1 Antibody SS-A/Ro IgG Antibody SS-B/La IgG Antibody Sm (Hlil) Antibody COMPONENT INSPECTOR Antibody Scl-70 Scleroderma Ab Double Strand DNA Ab Centromere B Antibody POC Glucose 381 H 223 H 06/26/20 06/26/20 06/26/20 06:30 06:30 06:30 WBC 13.4 H RBC 3.57 L Hgb 10.4 L Hct 32.6 L MCV 91.3 MCH 29.1 MCHC 31.9 L RDW Std Deviation 47.5 H RDW Coeff of Felix 14.1 Plt Count 427 MPV 10.1 PT INR APTT 64.3 H Sodium 135 L Potassium 4.6 Chloride 99 Carbon Dioxide 32.0 Anion Gap 4 L BUN 40 H Creatinine 1.13 Estim Creat Clear Calc 50.40 Est GFR (MDRD) Af Amer 80 Est GFR (MDRD) Non-Af 66 BUN/Creatinine Ratio 35.4 H Glucose 224 H Calcium 8.7 GUERITA Screen c-ANCA Antibody p-ANCA Antibody CASI-1 Antibody SS-A/Ro IgG Antibody SS-B/La IgG Antibody Sm (Hill) Antibody COMPONENT INSPECTOR Antibody Scl-70 Scleroderma Ab Double Strand DNA Ab Centromere B Antibody POC Glucose Microbiology 06/22/20 17:10 Blood Culture (Wb) #2 - Arm Right Blood Culture - Preliminary No growth in 48 hours. 06/22/20 17:10 Blood Culture (Wb) - Arm Left Blood Culture - Preliminary No growth in 48 hours. Clinical Impression(s) from Imaging Studies Chest X-Ray 06/22/20 17:25 IMPRESSION: No change from 05/20/2020. Question acute on chronic infiltrate. Electronically Signed: Anmol Cornell DO at 17:40 EST Tel [phone], Service support , Chest CT 06/23/20 09:23 IMPRESSION: Stable scarring at the lung bases with very new areas of groundglass appearance in the upper lobes worse on the right side. Electronically Signed: Spencer Perez, at 11:21 EST , Service support , Current Medications Albuterol/Ipratropium (Ipratropium/Albuterol Sulfate 3 Ml Ampul.Neb) 3 ml INHALATION Q6H.RT [facility] Last Admin: 06/26/20 07:01 Dose: 3 ml Documented by: Aspirin (Aspirin E.C. 81 Mg Tablet) 81 mg PO DAILY@0800 [facility] Last Admin: 06/26/20 08:01 Dose: 81 mg Documented by: Furosemide (Furosemide 40 Mg/4 Ml Vial) 40 mg IV BID@1000,1800 [facility] Last Admin: 06/25/20 16:49 Dose: 40 mg Documented by: Glimepiride (Glimepiride 4 Mg Tablet) 4 mg PO DAILYCM [facility] Last Admin: 06/26/20 08:01 Dose: 4 mg Documented by: Guaifenesin (Guaifenesin 1,200 Mg Tablet) 1,200 mg PO BID [facility] Last Admin: 06/25/20 21:30 Dose: 1,200 mg Documented by: Heparin Sodium (Porcine) (Heparin Injection (Vial) 5,000 Unit/Ml Vial) 0 unit IV UD PRN; Protocol PRN Reason: dose adjustment Hydralazine HCl (Hydralazine 25 Mg Tablet) 25 mg PO BID [facility] Last Admin: 06/25/20 21:30 Dose: 25 mg Documented by: Piperacillin Sod/Tazobactam (Sod 3.375 gm/ Sodium Chloride) 50 mls @ 12.5 mls/hr IV Q8 [facility] Last Admin: 06/26/20 06:23 Dose: 12.5 mls/hr Documented by: Heparin Sodium/Dextrose () 25,000 units in 250 mls @ 12 mls/hr IV .[id number] [facility]; Protocol Last Titration: 06/26/20 01:35 Dose: 800 units/hr, 8 mls/hr Documented by: Insulin Glargine (Insulin Glargine 100 Units/Ml Pen) 20 units SC BREAKFAST [facility] Last Admin: 06/26/20 08:01 Dose: 20 u Documented by: Insulin Human Lispro (Insulin Lispro 100 Unit/Ml Insuln.Pen) 0 unit SC ACHS [facility]; Protocol Last Admin: 06/26/20 06:23 Dose: 4 u Documented by: Lisinopril (Lisinopril 40 Mg Tablet) 40 mg PO DAILY [facility] Last Admin: 06/25/20 08:58 Dose: 40 mg Documented by: Methylprednisolone (Methylprednisolone 40 Mg/Ml Vial) 40 mg IV Q6 [facility] Last Admin: 06/26/20 06:23 Dose: 40 mg Documented by: Metoprolol Tartrate (Metoprolol Tartrate 100 Mg Tablet) 100 mg PO BID [facility] Last Admin: 06/25/20 21:30 Dose: 100 mg Documented by: Nutritional Formula (Lactose Free) (Glucerna Shake 120 Ml Liquid) 120 ml PO 4X/DAY [facility] Last Admin: 06/26/20 08:03 Dose: 120 ml Documented by: Potassium Chloride (Potassium Chloride 20 Meq Tablet) 20 meq PO BIDCM [facility] Last Admin: 06/26/20 08:01 Dose: 20 meq Documented by: Pravastatin Sodium (Pravastatin 40 Mg Tablet) 40 mg PO DAILY [facility] Last Admin: 06/25/20 08:58 Dose: 40 mg Documented by: Sodium Chloride (0.9% Saline Lock 10 Ml Syringe) 10 - 40 ml IV UD PRN PRN Reason: SALINE FLUSH Last Admin: 06/26/20 06:23 Dose: 10 ml Documented by: Tamsulosin HCl (Tamsulosin Hcl 0.4 Mg Capsule) 0.4 mg PO QHS [facility] Last Admin: 06/25/20 21:30 Dose: 0.4 mg Documented by: Medical Necessity - Tobacco Use Smoking Status: Former smoker Tobacco Use: Cigarettes Assessment/Plan All Active Problems Orthostatic hypotension (Acute) Syncope (Acute) COVID-19 (Acute) SARS (severe acute respiratory syndrome) (Ruled-out) RECOMMENDATIONS: 1. Continue IV diuretic therapy as tolerated by hemodynamics and renal function. 2. Continue heparin infusion. 3. Continue empiric antimicrobials. 4. Continue scheduled bronchodilator therapy and IV steroids. 5. Consider starting empiric BiPAP therapy on a nightly basis if the patient is agreeable. 6. Wean FiO2 to maintain oxygen saturations at or above 90%. IMPRESSIONS: 1. Chronic hypoxemic respiratory failure/COPD/interstitial lung disease The patient has a multitude of chronic pulmonary medical conditions, along with a history of noncompliance with the use of supplemental oxygen. The patient does report that he has a 4 L/min baseline requirement, but has been rather noncompliant with the use of supplemental oxygen in his home environment. He has a reported history of COPD, along with obstructive sleep apnea with nocturnal Pap noncompliance and significant pulmonary hypertension. In addition, the patient does appear to have a component of interstitial lung disease based upon his most recent CT chest. The patient was diagnosed with Covid at the end of April 2020. I do suspect that his current respiratory status is likely the consequence of noncompliance with home supplemental oxygen and nocturnal Pap therapy along with what is likely underlying interstitial lung disease progression. Echocardiogram did reveal significant pulmonary hypertension, for which the patient will be continued on twice daily IV diuretics. Bronchodilators and IV steroids will be continued. Empiric antimicrobials will also be continued, pending infectious work-up. 2. History of heart failure with preserved ejection fraction/severe pulmonary hypertension The patient does have a history of diastolic heart failure and pulmonary hypertension. I do suspect that the vast majority of his pulmonary hypertension is likely the consequence of chronic hypoxemia and underlying obstructive lung disease. Agree with continuing diuretic therapy as tolerated by hemodynamics and renal function. 3. History of severe obstructive sleep apnea The patient was previously diagnosed with severe obstructive sleep apnea, but has been noncompliant with the use of nocturnal Pap therapy. Empiric BiPAP therapy can be utilized on a nightly basis if the patient is agreeable to use. 4. Advanced age/diabetes mellitus/paroxysmal atrial fibrillation/hyperlipidemia/hypertension/CODE STATUS Complicates care, management, recovery and prognosis. The patient undoubtedly needs to reestablish care with a clinic office manager after discharge from the hospital. Patient remains DNR CCA without plans for intubation. This note was generated with Dragon dictation software. It may contain incorrect words, spelling, and punctuation that were not noted in checking the note before signing. Inpatient E&M: 24066 Subs Hosp L3
[2020-06-26] MEDS: hydrALAZINE 25 MG Tablet PO ×2 (09:26→21:37)
[2020-06-26] MEDS: guaiFENesin 1,200 MG Tablet 1200 MG PO ×2 (09:26→21:38)
[2020-06-26] MEDS: Metoprolol Tartrate 100 MG Tablet PO ×2 (09:26→21:38)
[2020-06-26] MEDS: Lisinopril 40 MG Tablet PO (09:27)
[2020-06-26] MEDS: Furosemide 40 MG/4 ML Vial IV ×2 (09:27→17:58)
[2020-06-26] MEDS: Pravastatin 40 MG Tablet PO (09:27)
[2020-06-26 12:21] LABS: Bedside Glucose 365 mg/dL (70-110)
[2020-06-26 13:01] LABS: Partial Thromboplast Time 52.6 Seconds (24.1-36.2)
--- NOTE | 2020-06-26 13:19 | PN_ITS ---
<Yecenia Patel VEGETABLE GRADER - Last Filed: 06/26/20 13:22> Patient Problems: Active and Suspected Problems Syncope (Acute) Subjective: Patient seen and examined. States his breathing is improved. Continues to require airvo. Patient reports ongoing cough however denies further hemoptysis. Patient interested in going home with hospice however will discuss with family further. - Physical Exam Vitals/I&O's: Vital Signs Temp Pulse Resp BP Pulse Ox 97.6 F L 70 18 109/43 L 94 06/26/20 09:25 06/26/20 09:26 06/26/20 09:25 06/26/20 09:26 06/26/20 09:25 Oxygen Flow Rate (L/min) 55 Oxygen Delivery Method Airvo Weight: 190 lb 7.988 oz Body Mass Index (BMI) 28.1 Finger Stick Blood Glucose 313 Intake and Output for Last 24 Hours 06/24/20 06/25/20 06/26/20 23:59 23:59 23:59 Intake Total 1200 / 1200 1036.17 / 1036.17 460 / 460 Output Total 3925 / 3925 2700 / 2700 1150 / 1150 Balance -2725 / -2725 -1663.83 / -1663.83 -690 / -690 General: Alert, Oriented x3, Cooperative HEENT: Atraumatic, PERRLA, EOMI, Normocephalic Neck: Supple, No JVD, Negative Carotid Bruits Lungs: Diminished, Rales Cardiovascular: Regular rate, No murmurs Abdomen: Bowel Sounds Present, Soft, Non Tender, Non-Distended Extremities: No clubbing, No cyanosis, No edema, Capillary Refill Less than 3 Seconds Skin: No rashes, No breakdown Musculoskeletal: No Tenderness to Palpation of Joints or Extremities Neurological: Cranial nerves II-XII grossly intact, Neuro grossly intact Psych/Mental Status: Normal Affect, Appropriate Microbiology Past 72 Hours 06/25/20 16:50 Sputum, Expectorated/Coughed Gram Stain - Final 06/22/20 17:10 Blood Culture (Wb) #2 - Arm Right Blood Culture - Preliminary No growth in 48 hours. 06/22/20 17:10 Blood Culture (Wb) - Arm Left Blood Culture - Preliminary No growth in 48 hours. 06/23/20 11:15 Mucosa - Nasopharyngeal Respiratory Panel (PCR) - Final Laboratory Results 06/25/20 16:00: APTT 81.0 H 06/25/20 16:17: POC Glucose 259 H 06/25/20 21:26: POC Glucose 381 H 06/25/20 22:55: APTT 117.5 H* 06/26/20 06:20: POC Glucose 223 H 06/26/20 06:30: WBC 13.4 H, RBC 3.57 L, Hgb 10.4 L, Hct 32.6 L, MCV 91.3, MCH 29 .1, MCHC 31.9 L, RDW Std Deviation 47.5 H, RDW Coeff of Felix 14.1, Plt Count 427, MPV 10.1 06/26/20 06:30: Sodium 135 L, Potassium 4.6, Chloride 99, Carbon Dioxide 32.0, Anion Gap 4 L, BUN 40 H, Creatinine 1.13, Estim Creat Clear Calc 50.40, Est GFR (MDRD) Af Amer 80, Est GFR (MDRD) Non-Af 66, BUN/Creatinine Ratio 35.4 H, Glucose 224 H, Calcium 8.7 06/26/20 06:30: APTT 64.3 H 06/26/20 12:11: POC Glucose 365 H 06/26/20 12:25: APTT 52.6 H Current Medications Albuterol/Ipratropium (Ipratropium/Albuterol Sulfate 3 Ml Ampul.Neb) 3 ml INHALATION Q6H.RT [facility] Last Admin: 06/26/20 07:01 Dose: 3 ml Documented by: Aspirin (Aspirin E.C. 81 Mg Tablet) 81 mg PO DAILY@0800 [facility] Last Admin: 06/26/20 08:01 Dose: 81 mg Documented by: Furosemide (Furosemide 40 Mg/4 Ml Vial) 40 mg IV BID@1000,1800 [facility] Last Admin: 06/26/20 09:27 Dose: 40 mg Documented by: Glimepiride (Glimepiride 4 Mg Tablet) 4 mg PO DAILYCM [facility] Last Admin: 06/26/20 08:01 Dose: 4 mg Documented by: Guaifenesin (Guaifenesin 1,200 Mg Tablet) 1,200 mg PO BID [facility] Last Admin: 06/26/20 09:26 Dose: 1,200 mg Documented by: Heparin Sodium (Porcine) (Heparin Injection (Vial) 5,000 Unit/Ml Vial) 0 unit IV UD PRN; Protocol PRN Reason: dose adjustment Hydralazine HCl (Hydralazine 25 Mg Tablet) 25 mg PO BID [facility] Last Admin: 06/26/20 09:26 Dose: 25 mg Documented by: Piperacillin Sod/Tazobactam (Sod 3.375 gm/ Sodium Chloride) 50 mls @ 12.5 mls/hr IV Q8 [facility] Last Infusion: 06/26/20 10:24 Dose: Infused Documented by: Heparin Sodium/Dextrose () 25,000 units in 250 mls @ 12 mls/hr IV .[id number] [facility]; Protocol Last Titration: 06/26/20 01:35 Dose: 800 units/hr, 8 mls/hr Documented by: Insulin Glargine (Insulin Glargine 100 Units/Ml Pen) 20 units SC BREAKFAST [facility] Last Admin: 06/26/20 08:01 Dose: 20 u Documented by: Insulin Human Lispro (Insulin Lispro 100 Unit/Ml Insuln.Pen) 0 unit SC ACHS [facility]; Protocol Last Admin: 06/26/20 12:12 Dose: 8 u Documented by: Lisinopril (Lisinopril 40 Mg Tablet) 40 mg PO DAILY [facility] Last Admin: 06/26/20 09:27 Dose: 40 mg Documented by: Methylprednisolone (Methylprednisolone 40 Mg/Ml Vial) 40 mg IV Q6 [facility] Last Admin: 06/26/20 12:13 Dose: 40 mg Documented by: Metoprolol Tartrate (Metoprolol Tartrate 100 Mg Tablet) 100 mg PO BID [facility] Last Admin: 06/26/20 09:26 Dose: 100 mg Documented by: Nutritional Formula (Lactose Free) (Glucerna Shake 120 Ml Liquid) 120 ml PO 4X/DAY [facility] Last Admin: 06/26/20 08:03 Dose: 120 ml Documented by: Potassium Chloride (Potassium Chloride 20 Meq Tablet) 20 meq PO BIDCM [facility] Last Admin: 06/26/20 08:01 Dose: 20 meq Documented by: Pravastatin Sodium (Pravastatin 40 Mg Tablet) 40 mg PO DAILY [facility] Last Admin: 06/26/20 09:27 Dose: 40 mg Documented by: Sodium Chloride (0.9% Saline Lock 10 Ml Syringe) 10 - 40 ml IV UD PRN PRN Reason: SALINE FLUSH Last Admin: 06/26/20 12:16 Dose: 10 ml Documented by: Tamsulosin HCl (Tamsulosin Hcl 0.4 Mg Capsule) 0.4 mg PO QHS [facility] Last Admin: 06/25/20 21:30 Dose: 0.4 mg Documented by: Medical Necessity - Tobacco Use Smoking Status: Former smoker Tobacco Use: Cigarettes Assessment/Plan All Active Problems Orthostatic hypotension (Acute) Syncope (Acute) COVID-19 (Acute) SARS (severe acute respiratory syndrome) (Ruled-out) 1. Acute on chronic hypoxic respiratory failure secondary to exacerbation of COPD and acute on chronic diastolic CHF complicated by underlying interstitial lung disease, severe RAISA, severe pulmonary hypertension-IV Solu-Medrol. Albuterol DuoNeb aerosols. Continue supplement oxygen to maintain O2 at or above 90%. Repeat home O2 testing prior to discharge. Pulmonary medicine consulted. CT of chest demonstrates stable scarring at the lung bases with new areas of groundglass appearance in the upper lobes, worse on the right side. Respiratory panel negative. Patient with Covid end of April 2020. Coumadin on hold due to hemoptysis. IV antibiotics initiated empirically. BiPAP nightly. Patient has a history of noncompliance with BiPAP and supplemental oxygen. Echocardiogram completed which demonstrates an EF of 65%, RVSP 103 mmHg. Continue with IV diuresis. Immunology labs pending. 2. Acute on Chronic diastolic CHF-suspect component of CHF contributing to acute on chronic hypoxic respiratory failure. Continue IV Lasix. Echo as noted above. 3. Severe RAISA-BiPAP nightly and with naps. 4. Severe pulmonary hypertension-as noted on echo above. Continue with diuresis. 5. Syncope-suspect secondary to hypoxia as a result of noncompliance with oxygen. 6. Paroxysmal atrial fibrillation-continue metoprolol, digoxin, warfarin. AICD in place. 7. CAD with history of stents-continue aspirin, statin, metoprolol, hydralazine, lisinopril. 8. Type 2 diabetes [id number] with sliding scale insulin. 9. BPH-on Flomax. 10. Dysphagia-barium swallow ordered. Speech therapy consult. Continue dietary modifications per speech therapy recommendations. DVT prophylaxis-Coumadin on hold due to hemoptysis Discharge planning: Patient requesting home with hospice however would like further discussion with family. This patient was seen by QASIM Do under the supervision of Dr. Swenson. Carmina Alejandrash - Last Filed: 06/26/20 14:29> Objective: Seen and examined. Patient continued to be short of breath, tachypneic and hypoxic. Pulse ox 96% on 55% FiO2 high flow humidified oxygen. Chronic cough. Patient had hemoptysis yesterday but not today Physical exam General: Alert, Oriented x3, Cooperative HEENT: Atraumatic, PERRLA, EOMI, Normocephalic Oral: No Gingival or Mucosal Lesions/ Ulcerations Neck: Supple, No JVD, Negative Carotid Bruits Lungs: Air entry diminished in bilateral lungs. Bilateral inspiratory rales present predominantly at lung bases. Dyspnea at rest Cardiovascular: Regular rate, Regular Rhythm, Normal S1, Normal S2, No murmurs Abdomen: Bowel Sounds Present, Soft, Non Tender, Non-Distended : No renal angle tenderness. No suprapubic tenderness. Extremities: No edema, Capillary Refill Less than 3 Seconds Skin: No rashes, No breakdown Musculoskeletal: No Tenderness to Palpation of Joints or Extremities Neurological: Cranial nerves II-XII grossly intact, Deep Tendon Reflexes 2+/4 and Symmetrical, Neuro grossly intact Psych/Mental Status: Normal Affect, Appropriate. - Physical Exam Vitals/I&O's: Vital Signs Temp Pulse Resp BP Pulse Ox 97.6 F L 63 24 H 109/43 L 96 06/26/20 09:25 06/26/20 13:22 06/26/20 13:22 06/26/20 09:26 06/26/20 13:22 Oxygen Flow Rate (L/min) 55 Oxygen Delivery Method Airvo Weight: 190 lb 7.988 oz Body Mass Index (BMI) 28.1 Finger Stick Blood Glucose 313 Intake and Output for Last 24 Hours 06/24/20 06/25/20 06/26/20 23:59 23:59 23:59 Intake Total 1200 / 1200 1036.17 / 1036.17 554.50 / 554.50 Output Total 3925 / 3925 2700 / 2700 1150 / 1150 Balance -2725 / -2725 -1663.83 / -1663.83 -595.50 / -595.50 Microbiology Past 72 Hours 06/25/20 16:50 Sputum, Expectorated/Coughed Gram Stain - Final 06/25/20 16:50 Sputum, Expectorated/Coughed Respiratory Culture - Pre liminary Appears to be normal respiratory debbie. Further studies to follow. 06/22/20 17:10 Blood Culture (Wb) #2 - Arm Right Blood Culture - Preliminary No growth in 48 hours. 06/22/20 17:10 Blood Culture (Wb) - Arm Left Blood Culture - Preliminary No growth in 48 hours. 06/23/20 11:15 Mucosa - Nasopharyngeal Respiratory Panel (PCR) - Final Laboratory Results 06/25/20 16:00: APTT 81.0 H 06/25/20 16:17: POC Glucose 259 H 06/25/20 21:26: POC Glucose 381 H 06/25/20 22:55: APTT 117.5 H* 06/26/20 06:20: POC Glucose 223 H 06/26/20 06:30: WBC 13.4 H, RBC 3.57 L, Hgb 10.4 L, Hct 32.6 L, MCV 91.3, MCH 29.1, MCHC 31.9 L, RDW Std Deviation 47.5 H, RDW Coeff of Felix 14.1, Plt Count 427, MPV 10.1 06/26/20 06:30: Sodium 135 L, Potassium 4.6, Chloride 99, Carbon Dioxide 32.0, Anion Gap 4 L, BUN 40 H, Creatinine 1.13, Estim Creat Clear Calc 50.40, Est GFR (MDRD) Af Amer 80, Est GFR (MDRD) Non-Af 66, BUN/Creatinine Ratio 35.4 H, Glucose 224 H, Calcium 8.7 06/26/20 06:30: APTT 64.3 H 06/26/20 12:11: POC Glucose 365 H 06/26/20 12:25: APTT 52.6 H Current Medications Albuterol/Ipratropium (Ipratropium/Albuterol Sulfate 3 Ml Ampul.Neb) 3 ml INHALATION Q6H.RT [facility] Last Admin: 06/26/20 13:21 Dose: 3 ml Documented by: Aspirin (Aspirin E.C. 81 Mg Tablet) 81 mg PO DAILY@0800 [facility] Last Admin: 06/26/20 08:01 Dose: 81 mg Documented by: Furosemide (Furosemide 40 Mg/4 Ml Vial) 40 mg IV BID@1000,1800 [facility] Last Admin: 06/26/20 09:27 Dose: 40 mg Documented by: Glimepiride (Glimepiride 4 Mg Tablet) 4 mg PO DAILYCM [facility] Last Admin: 06/26/20 08:01 Dose: 4 mg Documented by: Guaifenesin (Guaifenesin 1,200 Mg Tablet) 1,200 mg PO BID [facility] Last Admin: 06/26/20 09:26 Dose: 1,200 mg Documented by: Heparin Sodium (Porcine) (Heparin Injection (Vial) 5,000 Unit/Ml Vial) 0 unit IV UD PRN; Protocol PRN Reason: dose adjustment Last Admin: 06/26/20 13:34 Dose: 1,000 unit Documented by: Hydralazine HCl (Hydralazine 25 Mg Tablet) 25 mg PO BID [facility] Last Admin: 06/26/20 09:26 Dose: 25 mg Documented by: Piperacillin Sod/Tazobactam (Sod 3.375 gm/ Sodium Chloride) 50 mls @ 12.5 mls/hr IV Q8 [facility] Last Admin: 06/26/20 13:30 Dose: 12.5 mls/hr Documented by: Heparin Sodium/Dextrose () 25,000 units in 250 mls @ 12 mls/hr IV .[id number] [facility]; Protocol Last Titration: 06/26/20 13:35 Dose: 900 units/hr, 9 mls/hr Documented by: Insulin Glargine (Insulin Glargine 100 Units/Ml Pen) 20 units SC BREAKFAST [facility] Last Admin: 06/26/20 08:01 Dose: 20 u Documented by: Insulin Human Lispro (Insulin Lispro 100 Unit/Ml Insuln.Pen) 0 unit SC ACHS [facility]; Protocol Last Admin: 06/26/20 12:12 Dose: 8 u Documented by: Lisinopril (Lisinopril 40 Mg Tablet) 40 mg PO DAILY [facility] Last Admin: 06/26/20 09:27 Dose: 40 mg Documented by: Methylprednisolone (Methylprednisolone 40 Mg/Ml Vial) 40 mg IV Q6 [facility] Last Admin: 06/26/20 12:13 Dose: 40 mg Documented by: Metoprolol Tartrate (Metoprolol Tartrate 100 Mg Tablet) 100 mg PO BID [facility] Last Admin: 06/26/20 09:26 Dose: 100 mg Documented by: Nutritional Formula (Lactose Free) (Glucerna Shake 120 Ml Liquid) 120 ml PO 4X/DAY [facility] Last Admin: 12/06/20 13:30 Dose: 120 ml Documented by: Potassium Chloride (Potassium Chloride 20 Meq Tablet) 20 meq PO BIDCM [facility] Last Admin: 06/26/20 08:01 Dose: 20 meq Documented by: Pravastatin Sodium (Pravastatin 40 Mg Tablet) 40 mg PO DAILY [facility] Last Admin: 06/26/20 09:27 Dose: 40 mg Documented by: Sodium Chloride (0.9% Saline Lock 10 Ml Syringe) 10 - 40 ml IV UD PRN PRN Reason: SALINE FLUSH Last Admin: 06/26/20 12:16 Dose: 10 ml Documented by: Tamsulosin HCl (Tamsulosin Hcl 0.4 Mg Capsule) 0.4 mg PO QHS [facility] Last Admin: 06/25/20 21:30 Dose: 0.4 mg Documented by: Assessment/Plan This patient was seen in conjunction with VEGETABLE GRADER, Yecenia. I have independently interviewed and examined the patient and reviewed pertinent history, examination findings, laboratory and plan of management. I have reviewed the note and agree with the documented findings with the few additional points. In brief, patient is 80-year-old gentleman with history of smoking quit 30 years ago, COPD, interstitial lung disease, coronary artery disease post stents was admitted with shortness of breath and syncope. The patient has been noncompliant with oxygen. CT chest August 20, 2018 showed chronic fibrosis with bullous changes worse in lower lobes. HRCT was done and reported stable scarring in the lung bases with new areas of groundglass appearance in upper lobes worse on the right side. Patient is on scheduled bronchodilator, IV Solu- Medrol, incentive spirometry and chest physiotherapy. Patient on Lasix as tolerated by hemodynamics parameters and kidney function. Patient interested in palliative/hospice care but will decide after discussion with the family and . On IV heparin drip. Coumadin discontinued. Rest of medications are same. Sputum culture, ANCA and GUERITA and autoimmune antibodies are pending. Diagnosis: Chronic hypoxic respiratory failure secondary to COPD, interstitial lung disease and severe progressive pulmonary hypertension. RVSP 103 mmHg this time, previous 62 in [address] Covarrubias office record: Patient has mild obstructive ventilatory defect with reduced DLCO 59% in September 2014. Echo in 2014 shows RVSP 62 mmHg. P Patient also had diagnostic polysomnogram in November 2011 which showed AHI 64 events per minute consistent with severe RAISA. Patient found noncompliant to CPAP which was recommended 8 cm of water. Patient last saw tribal judge Dr Covarrubias intermittently 2019. Last FEV1 1.98 L or 70% or greater in January 2019. Pulmonary hypertension was felt to be secondary to untreated RAISA and HFpEF. Patient was treated with Lasix in outpatient setting. Coronary artery disease status post PCI and stents, paroxysmal A. fib on Coumadin and chronic HFpEF status post AICD: Patient used to follow Dr. Garcia [facility] but do not see a new supervisor forming department or treatment determined. Last echo in October 2018 reported as EF 55% with a stage III diastolic dysfunction, 2+ TR, RVSP 68 mmHg sensitive of moderate pulmonary hypertension. INR is therapeutic. Continue Lasix. 2D echo was done and shows EF 65% with normal RV size and systolic function. Mild to moderate MR, moderate TR RVSP 103 consistent with severe pulmonary hypertension. Other comorbidities type 2 diabetes mellitus BPH: Glucose elevated about 350 insulin increased. I have discussed my assessment with VEGETABLE GRADERYecenia and orders have been reviewed. Inpatient E&M: 09931 Subs Hosp L2
[2020-06-26] MEDS: HEPARIN/D5w 25,000 UNITS 25,000 UNITS/250 ML IV.SOLN. 8 UNITS IV (13:30)
[2020-06-26] MEDS: Heparin Injection (Vial) 5,000 UNIT/ML VIAL IV (13:34)
[2020-06-26 16:55] LABS: Bedside Glucose 365 mg/dL (70-110)
[2020-06-26 20:19] LABS: Partial Thromboplast Time 65.9 Seconds (24.1-36.2)
[2020-06-26] MEDS: Tamsulosin HCl 0.4 MG Capsule PO (21:38)
[2020-06-26 22:31] LABS: Bedside Glucose 357 mg/dL (70-110)
[2020-06-27] VITALS (15 sets, daily range): BP systolic 109–135; BP diastolic 46–66; PULSE 52–97; RESP 18–22; TEMP 36.3–36.6; O2SAT 94–98
[2020-06-27] MEDS: 0.9% Saline Lock 10 ML Syringe IV ×2 (00:05→06:15)
[2020-06-27 02:02] LABS: Hemoglobin 10.2 g/dL (13.0-16.5); Mean Corp Hgb Conc 31.9 g/dL (32-36); Mean Corpuscular Hgb 29.5 pg (27.0-32.0); Mean Corpuscular Volume 92.5 fL (80-94); Mean Platelet Vol. 10.3 fl (6.2-12.0); Platelet Count 399 K/mm3 (150-450); RBC Distribution Width CV 14.1 % (11.6-14.6); RBC Distribution Width SD 46.9 fl (35.1-43.9); Red Blood Count 3.46 M/mm3 (4.6-6.2)
[2020-06-27 02:15] LABS: Anion Gap 3 (5-15); BUN 45 mg/dL (7-18); BUN/Creat Ratio 37.8 RATIO (10-20); Calcium,Total 8.5 mg/dL (8.5-10.1); Chloride 99 mmol/L (98-107); Creatinine, Serum 1.19 mg/dL (0.70-1.30); EST Glomerular Filtration Rate 62 mL/min (>60); Est Glom Filt Rate - Afr Amer 75 mL/min (>60); Estimated Creatinine Clearance 47.86 ml/min; Glucose 303 mg/dL (74-106); Potassium 5.2 mmol/L (3.5-5.1); Sodium Level 135 mmol/L (136-145)
[2020-06-27] MEDS: Insulin Lispro 100 UNIT/ML INSULN.PEN SC ×2 (06:16→12:04)
[2020-06-27 06:41] LABS: Bedside Glucose 262 mg/dL (70-110)
[2020-06-27] MEDS: Ipratropium/Albuterol Sulfate 3 ML AMPUL.NEB INHALATION ×2 (06:50→12:51)
[2020-06-27 08:17] LABS: Partial Thromboplast Time 58.8 Seconds (24.1-36.2)
--- NOTE | 2020-06-27 10:39 | CASEMGMT ---
POWER SUPPLY ENGINEER said patient has agreed to home with Hospice. SW met with patient, introduced self and role at [facility]. SW confirmed he would like to go home with Hospice. He said if there is nothing else they can do for him then he might as well go home on Hospice. SW explained to him how it works that SW will make a referral and they will contact him and/or his to set up a meeting to talk about their services. SW told him we would then make arrangements from there. He gave SW permission to call his . SW called patient's and introduced self. She was in agreement with home on Hospice. SW explained to her how this works. She thanked SW for letting her know. PAIGE then faxed referral to Hospice. PAIGE also called and spoke with Kristin regarding referral. Await Hospice. Regi CRAWFORD MSW
[2020-06-27] MEDS: Aspirin E.C. 81 MG Tablet PO (10:42)
[2020-06-27] MEDS: Glimepiride 4 MG Tablet PO (10:42)
[2020-06-27] MEDS: Furosemide 40 MG/4 ML Vial IV (10:42)
[2020-06-27] MEDS: hydrALAZINE 25 MG Tablet PO (10:42)
[2020-06-27] MEDS: Pravastatin 40 MG Tablet PO (10:43)
[2020-06-27] MEDS: Lisinopril 40 MG Tablet PO (10:43)
[2020-06-27] MEDS: Metoprolol Tartrate 100 MG Tablet PO (10:43)
[2020-06-27] MEDS: guaiFENesin 1,200 MG Tablet 1200 MG PO (10:43)
[2020-06-27] MEDS: Glucerna Shake 120 ML LIQUID PO (10:44)
--- NOTE | 2020-06-27 11:48 | DCINST_ITS ---
- Discharge Diagnoses Current Active Problems: Current Active and Chronic Problems Syncope (Acute) (HFpEF) heart failure with preserved ejection fraction (Chronic) Mesothelioma (Chronic) Heart failure (Chronic) Obstructive sleep apnea (Chronic) Paroxysmal a-fib (Chronic) Pulmonary hypertension (Chronic) Dyslipidemia (Chronic) CAD (coronary artery disease) (Chronic) History of heart artery stent (Chronic) COPD (chronic obstructive pulmonary disease) (Chronic) Diabetes mellitus (Chronic) You will use the following diet at home:: No restrictions Allergies/Adverse Reactions: Allergies sulfamethoxazole [From Septra] Allergy (Verified 06/22/20 16:28) Other trimethoprim [From Septra] Allergy (Verified 06/22/20 16:28) Other niacin [From Niaspan Extended-Release] Adverse Reaction (Verified 06/22/20 16:28) Rash Medications to take at Discharge Aspirin E.C. [Ecotrin] 81 mg PO DAILY@0800 07/21/15 Glimepiride [Amaryl] 4 mg PO DAILY 07/21/15 Metoprolol Tartrate [Lopressor (beta jostin)] 100 mg PO BID 07/21/15 [place]-3S/Dha/Epa/Fish Oil/D3 [Fish Knq-Ritxs-6-Vit D Softgel] 1 each PO BID 07/21/15 Tamsulosin HCl [Flomax] 0.4 mg PO QHS 07/21/15 metFORMIN HCl [Glucophage] 1,000 mg PO BIDCM 07/21/15 Albuterol Aerosols [Ventolin Aerosols] 2.5 mg INHALATION Q6H PRN PRN 10/23/18 Albuterol IH (ProAir) [Proair Hfa] 2 puff INHALATION Q4H PRN PRN 10/23/18 Digoxin 250 mcg PO DAILY 10/23/18 Fluticasone Propionate 2 spray NASAL DAILY 10/23/18 Insulin Glargine,Hum.rec.anlog [Lantus] 26 unit SQ DAILY 10/23/18 Lisinopril 40 mg PO DAILY 10/23/18 Potassium Chloride [K-Dur] 20 meq PO DAILY 10/23/18 hydrALAZINE [Apresoline] 25 mg PO BID 10/23/18 Furosemide [Lasix] 40 mg PO BID@1000,1800 #60 tablet 10/26/18 Pravastatin [Pravachol] 40 mg PO DAILY 05/20/20 Warfarin [Coumadin] 5 mg PO SUTUTHSA 05/20/20 Warfarin [Coumadin] 7.5 mg PO MOWEFR 05/20/20 Prednisone See Taper PO DAILY #30 tab 06/27/20 The following prescriptions were given: Prednisone See Taper PO DAILY #30 tab Prescription Printed Test Results: Test results from this visit will be discussed in further detail at your follow- up appointment, if applicable. Please Follow Up With: Home with hospice Proposed Discharge Date: 06/27/20
--- NOTE | 2020-06-27 12:05 | PCM.PN.PUL ---
Patient Problems: Active and Suspected Problems Syncope (Acute) Subjective: Patient overall feels subjectively improved compared to previous as long as I have my oxygen. Patient is not reporting any hemoptysis. Patient denies any fever overnight. Blood sugars have been marginally controlled, but patient is not reporting any GI symptomatology. - Physical Exam Vitals/I&O's: Vital Signs Temp Pulse Resp BP Pulse Ox 36.3 C L 55 L 20 H 125/65 H 94 06/27/20 10:36 06/27/20 11:05 06/27/20 11:05 06/27/20 10:36 06/27/20 11:05 Oxygen Flow Rate (L/min) 45 Oxygen Delivery Method Room Air Weight: 86.409 kg Body Mass Index (BMI) 28.1 Finger Stick Blood Glucose 313 Intake and Output for Last 24 Hours 06/25/20 06/26/20 06/27/20 23:59 23:59 23:59 Intake Total 1036.17 / 1036.17 904.50 / 1204.50 399.79 / 399.79 Output Total 2700 / 2700 1275 / 2325 1650 / 1650 Balance -1663.83 / -1663.83 -370.50 / -1120.50 -1250.21 / -1250.21 General: Alert, Oriented x3, Cooperative, No apparent distress - On Airvo, - - Appears stated age. HEENT: Atraumatic, PERRLA, EOMI, Normocephalic, - - Slight scleral injection without icterus Oral: Moist Mucosa, No Gingival or Mucosal Lesions/ Ulcerations Neck: Supple, No JVD, No Nodes, Trachea Midline Lungs: No rhonchi, No wheeze, No rales, Diminished Cardiovascular: Regular rate, Regular Rhythm, Normal S1, Normal S2, Murmur - Grade 3 out of 6 diastolic ejection murmur at the left sternal border, No rub noted, No Gallop Abdomen: Bowel Sounds Present, Soft, Non Tender, Non-Distended, Obese Extremities: No cyanosis, Edema Skin: No rashes, No breakdown Musculoskeletal: No Tenderness to Palpation of Joints or Extremities Lymphatic: No Cervical, Supraclavicular, or Inguinal Adenopathy Neurological: Cranial nerves II-XII grossly intact, Neuro grossly intact, Motor Exam 5/5 strength throughout Psych/Mental Status: Alert and oriented to time, place, person, mood and affect Microbiology Past 72 Hours 06/25/20 16:50 Sputum, Expectorated/Coughed Gram Stain - Final 06/25/20 16:50 Sputum, Expectorated/Coughed Respiratory Culture - Preliminary Staphylococcus aureus 06/22/20 17:10 Blood Culture (Wb) #2 - Arm Right Blood Culture - Preliminary No growth in 48 hours. 06/22/20 17:10 Blood Culture (Wb) - Arm Left Blood Culture - Preliminary No growth in 48 hours. Laboratory Results 06/26/20 12:11: POC Glucose 365 H 06/26/20 12:25: APTT 52.6 H 06/26/20 16:39: POC Glucose 365 H 06/26/20 19:47: APTT 65.9 H 06/26/20 21:36: POC Glucose 357 H 06/27/20 01:50: WBC 14.0 H, RBC 3.46 L, Hgb 10.2 L, Hct 32.0 L, MCV 92.5, MCH 29.5, MCHC 31.9 L, RDW Std Deviation 46.9 H, RDW Coeff of Felix 14.1, Plt Count 399, MPV 10.3 06/27/20 01:50: Sodium 135 L, Potassium 5.2 H, Chloride 99, Carbon Dioxide 33.0 H, Anion Gap 3 L, BUN 45 H, Creatinine 1.19, Estim Creat Clear Calc 47.86, Est GFR (MDRD) Af Amer 75, Est GFR (MDRD) Non-Af 62, BUN/Creatinine Ratio 37.8 H, Glucose 303 H, Calcium 8.5 06/27/20 01:50: APTT 69.0 H 06/27/20 06:12: POC Glucose 262 H 06/27/20 07:40: APTT 58.8 H Current Medications Albuterol/Ipratropium (Ipratropium/Albuterol Sulfate 3 Ml Ampul.Neb) 3 ml INHALATION Q6H.RT [facility] Last Admin: 06/27/20 06:50 Dose: 3 ml Documented by: Aspirin (Aspirin E.C. 81 Mg Tablet) 81 mg PO DAILY@0800 [facility] Last Admin: 06/27/20 10:42 Dose: 81 mg Documented by: Furosemide (Furosemide 40 Mg/4 Ml Vial) 40 mg IV BID@1000,1800 [facility] Last Admin: 06/27/20 10:42 Dose: 40 mg Documented by: Glimepiride (Glimepiride 4 Mg Tablet) 4 mg PO DAILYCM [facility] Last Admin: 06/27/20 10:42 Dose: 4 mg Documented by: Guaifenesin (Guaifenesin 1,200 Mg Tablet) 1,200 mg PO BID [facility] Last Admin: 06/27/20 10:43 Dose: 1,200 mg Documented by: Heparin Sodium (Porcine) (Heparin Injection (Vial) 5,000 Unit/Ml Vial) 0 unit IV UD PRN; Protocol PRN Reason: dose adjustment Last Admin: 06/26/20 13:34 Dose: 1,000 unit Documented by: Hydralazine HCl (Hydralazine 25 Mg Tablet) 25 mg PO BID [facility] Last Admin: 06/27/20 10:42 Dose: 25 mg Documented by: Piperacillin Sod/Tazobactam (Sod 3.375 gm/ Sodium Chloride) 50 mls @ 12.5 mls/hr IV Q8 [facility] Last Infusion: 06/27/20 10:51 Dose: Infused Documented by: Heparin Sodium/Dextrose () 25,000 units in 250 mls @ 12 mls/hr IV .[id number] [facility]; Protocol Last Titration: 06/26/20 13:35 Dose: 900 units/hr, 9 mls/hr Documented by: Insulin Glargine (Insulin Glargine 100 Units/Ml Pen) 20 units SC BREAKFAST [facility] Last Admin: 06/27/20 09:26 Dose: Not Given Documented by: Insulin Human Lispro (Insulin Lispro 100 Unit/Ml Insuln.Pen) 0 unit SC ACHS [facility]; Protocol Last Admin: 06/27/20 06:16 Dose: 6 u Documented by: Lisinopril (Lisinopril 40 Mg Tablet) 40 mg PO DAILY [facility] Last Admin: 06/27/20 10:43 Dose: 40 mg Documented by: Methylprednisolone (Methylprednisolone 40 Mg/Ml Vial) 40 mg IV Q6 [facility] Last Admin: 06/27/20 06:15 Dose: 40 mg Documented by: Metoprolol Tartrate (Metoprolol Tartrate 100 Mg Tablet) 100 mg PO BID [facility] Last Admin: 06/27/20 10:43 Dose: 100 mg Documented by: Nutritional Formula (Lactose Free) (Glucerna Shake 120 Ml Liquid) 120 ml PO 4X/DAY [facility] Last Admin: 06/27/20 10:44 Dose: 120 ml Documented by: Potassium Chloride (Potassium Chloride 20 Meq Tablet) 20 meq PO BIDCM [facility] Last Admin: 06/27/20 10:42 Dose: 20 meq Documented by: Pravastatin Sodium (Pravastatin 40 Mg Tablet) 40 mg PO DAILY [facility] Last Admin: 06/27/20 10:43 Dose: 40 mg Documented by: Sodium Chloride (0.9% Saline Lock 10 Ml Syringe) 10 - 40 ml IV UD PRN PRN Reason: SALINE FLUSH Last Admin: 06/27/20 06:15 Dose: 10 ml Documented by: Tamsulosin HCl (Tamsulosin Hcl 0.4 Mg Capsule) 0.4 mg PO QHS [facility] Last Admin: 06/26/20 21:38 Dose: 0.4 mg Documented by: Medical Necessity - Tobacco Use Smoking Status: Former smoker Tobacco Use: Cigarettes Assessment/Plan All Active Problems Orthostatic hypotension (Acute) Syncope (Acute) COVID-19 (Acute) SARS (severe acute respiratory syndrome) (Ruled-out) RECOMMENDATIONS: 1. Continue IV diuretic therapy as tolerated by hemodynamics and renal function. 2. Continue heparin infusion and empiric antibiotics. 3. Await decision on hospice therapy 4. Continue scheduled bronchodilator therapy and IV steroids. 5. Consider starting empiric BiPAP therapy on a nightly basis if the patient is agreeable. 6. Wean FiO2 to maintain oxygen saturations at or above 90%. IMPRESSIONS: 1. Chronic hypoxemic respiratory failure/COPD/interstitial lung disease Clinical suspicion for multifactorial etiology. Patient has a history of noncompliance with supplemental oxygen is likely developed significant pulmonary hypertension as a result of this and underlying lung disease. Patient has had extensive work-up at the [facility]. Patient also has developed what appears to be early interstitial lung disease that may be significant for IPF. This cannot be evaluated as an inpatient. Patient has been responding well to diuretic, bronchodilator and IV steroid therapy. Empiric antimicrobials have been continued pending infectious disease work-up. Anticipate slow recovery moving forward. Patient is reportedly contemplating hospice. Other discharge options would possibly include an LTAC, but await clinical response to current therapy. 2. History of heart failure with preserved ejection fraction/severe pulmonary hypertension The patient does have a history of diastolic heart failure and pulmonary hypertension. I do suspect that the vast majority of his pulmonary hypertension is likely the consequence of chronic hypoxemia and underlying obstructive lung disease. Agree with continuing diuretic therapy as tolerated by hemodynamics and renal function. 3. History of severe obstructive sleep apnea The patient was previously diagnosed with severe obstructive sleep apnea, but has been noncompliant with the use of nocturnal Pap therapy. Empiric BiPAP therapy can be utilized on a nightly basis if the patient is agreeable to use. Could use AVAPS with a targeted tidal volume of 500 given lack of recent sleep study. 4. Advanced age/diabetes mellitus/paroxysmal atrial fibrillation/hyperlipidemia/hypertension/CODE STATUS Complicates care, management, recovery and prognosis. The patient undoubtedly needs to reestablish care with a home hospice rn after discharge from the hospital. Patient remains DNR [facility] without plans for intubation, but is reportedly considering hospice measures. Inpatient E&M: [id number] [facility] L3
[2020-06-27 12:26] LABS: Bedside Glucose 282 mg/dL (70-110)
--- NOTE | 2020-06-27 13:08 | CASEMGMT ---
PAIGE received a call from Krystina at Hospice and she said they would get stuff set up for patient today and then he can go tomorrow. PAIGE explained that the physician was planning on sending him today if everything could be set up in his home. PAIGE said if they cannot set up everything today then we can send him tomorrow. She said she will check with the nurse and get back with PAIGE. Regi BOLAND
--- NOTE | 2020-06-27 13:11 | DCINST_ITS ---
- Discharge Diagnoses Current Active Problems: Current Active and Chronic Problems Syncope (Acute) (HFpEF) heart failure with preserved ejection fraction (Chronic) Mesothelioma (Chronic) Heart failure (Chronic) Obstructive sleep apnea (Chronic) Paroxysmal a-fib (Chronic) Pulmonary hypertension (Chronic) Dyslipidemia (Chronic) CAD (coronary artery disease) (Chronic) History of heart artery stent (Chronic) COPD (chronic obstructive pulmonary disease) (Chronic) Diabetes mellitus (Chronic) You will use the following diet at home:: No restrictions Allergies/Adverse Reactions: Allergies sulfamethoxazole [From Septra] Allergy (Verified 06/22/20 16:28) Other trimethoprim [From Septra] Allergy (Verified 06/22/20 16:28) Other niacin [From Niaspan Extended-Release] Adverse Reaction (Verified 06/22/20 16:28) Rash Medications to take at Discharge Aspirin E.C. [Ecotrin] 81 mg PO DAILY@0800 07/21/15 Glimepiride [Amaryl] 4 mg PO DAILY 07/21/15 Metoprolol Tartrate [Lopressor (beta jostin)] 100 mg PO BID 07/21/15 [place]-3S/Dha/Epa/Fish Oil/D3 [Fish Jzn-Icigw-1-Vit D Softgel] 1 each PO BID 07/21/15 Tamsulosin HCl [Flomax] 0.4 mg PO QHS 07/21/15 metFORMIN HCl [Glucophage] 1,000 mg PO BIDCM 07/21/15 Albuterol Aerosols [Ventolin Aerosols] 2.5 mg INHALATION Q6H PRN PRN 10/23/18 Albuterol IH (ProAir) [Proair Hfa] 2 puff INHALATION Q4H PRN PRN 10/23/18 Digoxin 250 mcg PO DAILY 10/23/18 Fluticasone Propionate 2 spray NASAL DAILY 10/23/18 Insulin Glargine,Hum.rec.anlog [Lantus] 26 unit SQ DAILY 10/23/18 Lisinopril 40 mg PO DAILY 10/23/18 Potassium Chloride [K-Dur] 20 meq PO DAILY 10/23/18 hydrALAZINE [Apresoline] 25 mg PO BID 10/23/18 Furosemide [Lasix] 40 mg PO BID@1000,1800 #60 tablet 10/26/18 Pravastatin [Pravachol] 40 mg PO DAILY 05/20/20 Warfarin [Coumadin] 5 mg PO SUTUTHSA 05/20/20 Warfarin [Coumadin] 7.5 mg PO MOWEFR 05/20/20 Prednisone See Taper PO DAILY #30 tab 06/27/20 The following prescriptions were given: Prednisone See Taper PO DAILY #30 tab Prescription Printed Test Results: Test results from this visit will be discussed in further detail at your follow- up appointment, if applicable. Please Follow Up With: Home with Hospice Proposed Discharge Date: 06/27/20
--- NOTE | 2020-06-27 13:27 | DS.PCM_ITS ---
<JorgeYecenia [employer]NER - Last Filed: 06/27/20 13:35> Discharge Date and Diagnosis - Problem List Patient Problems: Active and Suspected Problems Syncope (Acute) Date of Admission: 06/22/20 Date of Discharge: 06/27/20 - Primary Discharge Diagnosis Acute Problems: Active Problems 1. Acute on chronic hypoxic respiratory failure secondary to exacerbation of COPD and acute on chronic diastolic CHF complicated by underlying interstitial lung disease, severe RAISA, severe pulmonary hypertension 2. Acute on Chronic diastolic CHF 3. Severe RAISA 4. Severe pulmonary hypertension 5. Syncope-suspect secondary to hypoxia as a result of noncompliance with oxygen. 6. Paroxysmal atrial fibrillation 7. CAD with history of stents 8. Type 2 diabetes mellitus 9. BPH 10. Dysphagia 11. Hospice transition - Secondary Discharge Diagnosis Chronic Problems: Chronic Problems COPD exacerbation (Chronic) (HFpEF) heart failure with preserved ejection fraction (Chronic) Mesothelioma (Chronic) Heart failure (Chronic) Obstructive sleep apnea (Chronic) Paroxysmal a-fib (Chronic) Pulmonary hypertension (Chronic) Dyslipidemia (Chronic) CAD (coronary artery disease) (Chronic) History of heart artery stent (Chronic) Acute respiratory failure with hypoxia (Chronic) COPD (chronic obstructive pulmonary disease) (Chronic) Diabetes mellitus (Chronic) Hospital Course and Treatment Imaging Results: Diagnostic Data Chest X-Ray 06/22/20 17:25 IMPRESSION: No change from 05/20/2020. Question acute on chronic infiltrate. Electronically Signed: Anmol Cornell DO at 17:40 EST Tel [phone], Service support , Chest CT 06/23/20 09:23 IMPRESSION: Stable scarring at the lung bases with very new areas of groundglass appearance in the upper lobes worse on the right side. Electronically Signed: Spencer Perez, at 11:21 EST , Service support , Dr. Jones- Pulmonary medicine Operations: None Procedures: 2-D Echocardiogram Summary of Care Provided: The patient is a 80 year old M admitted 06/22/2020 due to syncope. 1. Acute on chronic hypoxic respiratory failure secondary to exacerbation of COPD and acute on chronic diastolic CHF complicated by underlying interstitial lung disease, severe RAISA, severe pulmonary hypertension-IV Solu-Medrol. Albuterol DuoNeb aerosols. Continue supplement oxygen to maintain O2 at or above 90%. Pulmonary medicine consulted. CT of chest demonstrates stable scarring at the lung bases with new areas of groundglass appearance in the upper lobes, worse on the right side. Respiratory panel negative. Patient with Covid end of April 2020. Coumadin on hold due to hemoptysis. IV antibiotics initiated empirically during admission. Patient has a history of noncompliance with BiPAP and supplemental oxygen. Echocardiogram completed which demonstrates an EF of 65%, RVSP 103 mmHg. Patient brought up hospice services and discussed plan of care, prognosis. Patient and decided on home with hospice services. 2. Acute on Chronic diastolic CHF-suspect component of CHF contributing to acute on chronic hypoxic respiratory failure. IV Lasix during admission. Echo as noted above. 3. Severe RAISA-continue BiPAP as needed. 4. Severe pulmonary hypertension-as noted on echo above. Continue home Lasix regimen. 5. Syncope-suspect secondary to hypoxia as a result of noncompliance with oxygen. 6. Paroxysmal atrial fibrillation-continue metoprolol, digoxin, warfarin. AICD in place. 7. CAD with history of stents-continue aspirin, statin, metoprolol, hydralazine, lisinopril. 8. Type 2 diabetes mellitus-continue home insulin regimen. 9. BPH-on Flomax. 10. Dysphagia-Speech therapy consulted during admission. General: Alert, Oriented x3, Cooperative HEENT: Atraumatic, PERRLA, EOMI, Normocephalic Neck: Supple, No JVD, Negative Carotid Bruits Lungs: Diminished, Rales Cardiovascular: Regular rate, No murmurs Abdomen: Bowel Sounds Present, Soft, Non Tender, Non-Distended Extremities: No clubbing, No cyanosis, No edema, Capillary Refill Less than 3 Seconds Skin: No rashes, No breakdown Musculoskeletal: No Tenderness to Palpation of Joints or Extremities Neurological: Cranial nerves II-XII grossly intact, Neuro grossly intact Psych/Mental Status: Normal Affect, Appropriate Patient seen and examined prior to discharge. Physical assessment as noted above. This patient was seen by QASIM Do under the supervision of Dr. Lilly. Patient Problems: Active and Suspected Problems Syncope (Acute) - Physical Exam Vitals/I&O's: Vital Signs Temp Pulse Resp BP Pulse Ox 97.4 F L 56 L 20 H 125/65 H 98 06/27/20 10:36 06/27/20 12:51 06/27/20 12:51 06/27/20 10:36 06/27/20 12:51 Oxygen Flow Rate (L/min) 45 Oxygen Delivery Method Room Air Weight: 190 lb 7.988 oz Body Mass Index (BMI) 28.1 Finger Stick Blood Glucose 313 Intake and Output for Last 24 Hours 06/25/20 06/26/20 06/27/20 23:59 23:59 23:59 Intake Total 1036.17 / 1036.17 904.50 / 1204.50 608.44 / 608.44 Output Total 2700 / 2700 1275 / 2325 2275 / 2275 Balance -1663.83 / -1663.83 -370.50 / -1120.50 -1666.56 / -1666.56 Microbiology Past 72 Hours 06/25/20 16:50 Sputum, Expectorated/Coughed Gram Stain - Final 06/25/20 16:50 Sputum, Expectorated/Coughed Respiratory Culture - Preliminary Staphylococcus aureus 06/22/20 17:10 Blood Culture (Wb) #2 - Arm Right Blood Culture - Preliminary No growth in 48 hours. 06/22/20 17:10 Blood Culture (Wb) - Arm Left Blood Culture - Preliminary No growth in 48 hours. Laboratory Results 06/26/20 16:39: POC Glucose 365 H 06/26/20 19:47: APTT 65.9 H 06/26/20 21:36: POC Glucose 357 H 06/27/20 01:50: WBC 14.0 H, RBC 3.46 L, Hgb 10.2 L, Hct 32.0 L, MCV 92.5, MCH 29.5, MCHC 31.9 L, RDW Std Deviation 46.9 H, RDW Coeff of Felix 14.1, Plt Count 399, MPV 10.3 06/27/20 01:50: Sodium 135 L, Potassium 5.2 H, Chloride 99, Carbon Dioxide 33.0 H, Anion Gap 3 L, BUN 45 H, Creatinine 1.19, Estim Creat Clear Calc 47.86, Est GFR (MDRD) Af Amer 75, Est GFR (MDRD) Non-Af 62, BUN/Creatinine Ratio 37.8 H, Glucose 303 H, Calcium 8.5 06/27/20 01:50: APTT 69.0 H 06/27/20 06:12: POC Glucose 262 H 06/27/20 07:40: APTT 58.8 H 06/27/20 12:03: POC Glucose 282 H Current Medications Albuterol/Ipratropium (Ipratropium/Albuterol Sulfate 3 Ml Ampul.Neb) 3 ml INHALATION Q6H.RT [facility] [place] Last Admin: 06/27/20 12:51 Dose: 3 ml Documented by: Aspirin (Aspirin E.C. 81 Mg Tablet) 81 mg PO DAILY@0800 [facility] [place] Last Admin: 06/27/20 10:42 Dose: 81 mg Documented by: Furosemide (Furosemide 40 Mg/4 Ml Vial) 40 mg IV BID@1000,1800 [facility] [place] Last Admin: 06/27/20 10:42 Dose: 40 mg Documented by: Glimepiride (Glimepiride 4 Mg Tablet) 4 mg PO DAILYCM [facility] [place] Last Admin: 06/27/20 10:42 Dose: 4 mg Documented by: Guaifenesin (Guaifenesin 1,200 Mg Tablet) 1,200 mg PO BID [facility] [place] Last Admin: 06/27/20 10:43 Dose: 1,200 mg Documented by: Hydralazine HCl (Hydralazine 25 Mg Tablet) 25 mg PO BID [facility] [place] Last Admin: 06/27/20 10:42 Dose: 25 mg Documented by: Piperacillin Sod/Tazobactam (Sod 3.375 gm/ Sodium Chloride) 50 mls @ 12.5 mls/hr IV Q8 [facility] [place] Last Infusion: 06/27/20 10:51 Dose: Infused Documented by: Insulin Glargine (Insulin Glargine 100 Units/Ml Pen) 20 units SC BREAKFAST [facility] [place] Last Admin: 06/27/20 09:26 Dose: Not Given Documented by: Insulin Human Lispro (Insulin Lispro 100 Unit/Ml Insuln.Pen) 0 unit SC ACHS [facility] [place]; Protocol Last Admin: 06/27/20 12:04 Dose: 6 u Documented by: Lisinopril (Lisinopril 40 Mg Tablet) 40 mg PO DAILY [facility] [place] Last Admin: 06/27/20 10:43 Dose: 40 mg Documented by: Methylprednisolone (Methylprednisolone 40 Mg/Ml Vial) 40 mg IV Q6 [facility] [place] Last Admin: 06/27/20 12:04 Dose: 40 mg Documented by: Metoprolol Tartrate (Metoprolol Tartrate 100 Mg Tablet) 100 mg PO BID [facility] [place] Last Admin: 06/27/20 10:43 Dose: 100 mg Documented by: Nutritional Formula (Lactose Free) (Glucerna Shake 120 Ml Liquid) 120 ml PO 4X/DAY [facility] [place] Last Admin: 06/27/20 10:44 Dose: 120 ml Documented by: Potassium Chloride (Potassium Chloride 20 Meq Tablet) 20 meq PO BIDCM [facility] [place] Last Admin: 06/27/20 10:42 Dose: 20 meq Documented by: Pravastatin Sodium (Pravastatin 40 Mg Tablet) 40 mg PO DAILY [facility] [place] Last Admin: 06/27/20 10:43 Dose: 40 mg Documented by: Sodium Chloride (0.9% Saline Lock 10 Ml Syringe) 10 - 40 ml IV UD PRN PRN Reason: SALINE FLUSH Last Admin: 06/27/20 06:15 Dose: 10 ml Documented by: Tamsulosin HCl (Tamsulosin Hcl 0.4 Mg Capsule) 0.4 mg PO QHS [facility] [place] Last Admin: 06/26/20 21:38 Dose: 0.4 mg Documented by: Home Medications: Medications to take at Discharge Aspirin E.C. [Ecotrin] 81 mg PO DAILY@0800 07/21/15 Glimepiride [Amaryl] 4 mg PO DAILY 07/21/15 Metoprolol Tartrate [Lopressor (beta jostin)] 100 mg PO BID 07/21/15 [place]-3S/Dha/Epa/Fish Oil/D3 [Fish Jkm-Czbbw-7-Vit D Softgel] 1 each PO BID 07/21/15 Tamsulosin HCl [Flomax] 0.4 mg PO QHS 07/21/15 metFORMIN HCl [Glucophage] 1,000 mg PO BIDCM 07/21/15 Albuterol Aerosols [Ventolin Aerosols] 2.5 mg INHALATION Q6H PRN PRN 10/23/18 Albuterol IH (ProAir) [Proair Hfa] 2 puff INHALATION Q4H PRN PRN 10/23/18 Digoxin 250 mcg PO DAILY 10/23/18 Fluticasone Propionate 2 spray NASAL DAILY 10/23/18 Insulin Glargine,Hum.rec.anlog [Lantus] 26 unit SQ DAILY 10/23/18 Lisinopril 40 mg PO DAILY 10/23/18 Potassium Chloride [K-Dur] 20 meq PO DAILY 10/23/18 hydrALAZINE [Apresoline] 25 mg PO BID 10/23/18 Furosemide [Lasix] 40 mg PO BID@1000,1800 #60 tablet 10/26/18 Pravastatin [Pravachol] 40 mg PO DAILY 05/20/20 Warfarin [Coumadin] 5 mg PO SUTUTHSA 05/20/20 Warfarin [Coumadin] 7.5 mg PO MOWEFR 05/20/20 Prednisone 10 mg PO UD #30 tab 06/27/20 Following Prescriptions Were Given to Patient: Prednisone 10 mg PO UD #30 tab Prescription Printed Primary Care Physician: Rik Murillo MD [Primary Care Provider] - Please Follow Up With: Home with hospice Disposition: Home with Hospice Minutes spent on discharge:: 35 Patient Condition:: Guarded Medical Necessity - Tobacco Use Smoking Status: Former smoker Tobacco Use: Cigarettes Meaningful Use Info Meaningful Use Diagnoses (Choose all that apply): CHF - CHF JUAN RAMON/ARB ordered at discharge?: Yes Documented LVEF (%): 65 <Romina Lilly E - Last Filed: 06/27/20 14:48> Discharge Date and Diagnosis - Primary Discharge Diagnosis Acute Problems: Active Problems Syncope (Acute) - Secondary Discharge Diagnosis Chronic Problems: Chronic Problems COPD exacerbation (Chronic) (HFpEF) heart failure with preserved ejection fraction (Chronic) Mesothelioma (Chronic) Heart failure (Chronic) Obstructive sleep apnea (Chronic) Paroxysmal a-fib (Chronic) Pulmonary hypertension (Chronic) Dyslipidemia (Chronic) CAD (coronary artery disease) (Chronic) History of heart artery stent (Chronic) Acute respiratory failure with hypoxia (Chronic) COPD (chronic obstructive pulmonary disease) (Chronic) Diabetes mellitus (Chronic) Hospital Course and Treatment Imaging Results: 06/27/20 14:58 Upper GI w/BA Swallow [RAD] Urgent Summary of Care Provided: Hospitalist note: Discharge summary above reviewed and I concur with above discharge treatment plan. Patient presented to the emergency room because of shortness of breath and she was found to have acute on chronic hypoxic respiratory failure which was multifactorial secondary to acute COPD exacerbation, acute on chronic gastric CHF in addition to the history of interstitial lung disease, obstructive sleep apnea and pulmonary hypertension. Patient was treated with IV steroids, bronchodilators, IV diuresis with IV Lasix, noninvasive ventilation with Airvo and IV antibiotics. Patient had COVID-19 at the end of April, which was treated. Respiratory panel for viruses were negative. 2D echocardiogram revealed ejection fraction of 65%, RVSP of 103 indicating severe pulmonary hypertension. During this hospital stay, patient was interested in talking with hospice services which were consulted. Hospice team spoke with the patient about the plan of care and prognosis and patient and his agreed to go home with hospice services. Patient discharged home with hospice on Lasix and prednisone. - Physical Exam General: Alert, Oriented x3, Cooperative, minimal shortness of breath. HEENT: Atraumatic, PERRLA, EOMI. Neck: Supple, No JVD, Negative Carotid Bruits, Trachea Midline, Thyroid Normal. Lungs decreased breath sounds bilateral, no rhonchi, No wheeze, faint rales. Cardiovascular: Regular rate, Regular Rhythm, Normal S1, Normal S2, PMI Normal. Abdomen: Bowel Sounds Present, Soft, Non Tender, Non-Distended, No Hepato- splenomegaly. Extremities: No clubbing, No cyanosis, No edema Skin: No rashes, No breakdown Neurological: Cranials are intact, neuro grossly intact This note was generated with [employer] dictation software. It may contain incorrect words, spelling, and punctuation that were not noted in checking the note before signing. - Physical Exam Vitals/I&O's: Vital Signs Temp Pulse Resp BP Pulse Ox 97.5 F L 97 18 109/46 L 96 06/27/20 14:06 06/27/20 14:06 06/27/20 14:06 06/27/20 14:06 06/27/20 14:06 Oxygen Flow Rate (L/min) 45 Oxygen Delivery Method Airvo Weight: 190 lb 7.988 oz Body Mass Index (BMI) 28.1 Finger Stick Blood Glucose 313 Intake and Output for Last 24 Hours 06/25/20 06/26/20 06/27/20 23:59 23:59 23:59 Intake Total 1036.17 / 1036.17 904.50 / 1204.50 608.44 / 608.44 Output Total 2700 / 2700 1275 / 2325 2275 / 2275 Balance -1663.83 / -1663.83 -370.50 / -1120.50 -1666.56 / -1666.56 Microbiology Past 72 Hours 06/25/20 16:50 Sputum, Expectorated/Coughed Gram Stain - Final 06/25/20 16:50 Sputum, Expectorated/Coughed Respiratory Culture - Preliminary Staphylococcus aureus 06/22/20 17:10 Blood Culture (Wb) #2 - Arm Right Blood Culture - Preliminary No growth in 48 hours. 06/22/20 17:10 Blood Culture (Wb) - Arm Left Blood Culture - Preliminary No growth in 48 hours. Laboratory Results 06/26/20 16:39: POC Glucose 365 H 06/26/20 19:47: APTT 65.9 H 06/26/20 21:36: POC Glucose 357 H 06/27/20 01:50: WBC 14.0 H, RBC 3.46 L, Hgb 10.2 L, Hct 32.0 L, MCV 92.5, MCH 29.5, MCHC 31.9 L, RDW Std Deviation 46.9 H, RDW Coeff of Felix 14.1, Plt Count 399, MPV 10.3 06/27/20 01:50: Sodium 135 L, Potassium 5.2 H, Chloride 99, Carbon Dioxide 33.0 H, Anion Gap 3 L, BUN 45 H, Creatinine 1.19, Estim Creat Clear Calc 47.86, Est GFR (MDRD) Af Amer 75, Est GFR (MDRD) Non-Af 62, BUN/Creatinine Ratio 37.8 H, Glucose 303 H, Calcium 8.5 06/27/20 01:50: APTT 69.0 H 06/27/20 06:12: POC Glucose 262 H 06/27/20 07:40: APTT 58.8 H 06/27/20 12:03: POC Glucose 282 H Current Medications Albuterol/Ipratropium (Ipratropium/Albuterol Sulfate 3 Ml Ampul.Neb) 3 ml INHALATION Q6H.RT [facility] [place] Last Admin: 06/27/20 12:51 Dose: 3 ml Documented by: Aspirin (Aspirin E.C. 81 Mg Tablet) 81 mg PO DAILY@0800 [facility] [place] Last Admin: 06/27/20 10:42 Dose: 81 mg Documented by: Furosemide (Furosemide 40 Mg/4 Ml Vial) 40 mg IV BID@1000,1800 [facility] [place] Last Admin: 06/27/20 10:42 Dose: 40 mg Documented by: Glimepiride (Glimepiride 4 Mg Tablet) 4 mg PO DAILYCM [facility] [place] Last Admin: 06/27/20 10:42 Dose: 4 mg Documented by: Guaifenesin (Guaifenesin 1,200 Mg Tablet) 1,200 mg PO BID [facility] [place] Last Admin: 06/27/20 10:43 Dose: 1,200 mg Documented by: Hydralazine HCl (Hydralazine 25 Mg Tablet) 25 mg PO BID [facility] [place] Last Admin: 06/27/20 10:42 Dose: 25 mg Documented by: Piperacillin Sod/Tazobactam (Sod 3.375 gm/ Sodium Chloride) 50 mls @ 12.5 mls/hr IV Q8 [facility] [place] Last Admin: 06/27/20 14:01 Dose: 12.5 mls/hr Documented by: Insulin Glargine (Insulin Glargine 100 Units/Ml Pen) 20 units SC BREAKFAST [facility] [place] Last Admin: 06/27/20 09:26 Dose: Not Given Documented by: Insulin Human Lispro (Insulin Lispro 100 Unit/Ml Insuln.Pen) 0 unit SC ACHS [facility] [place]; Protocol Last Admin: 06/27/20 12:04 Dose: 6 u Documented by: Lisinopril (Lisinopril 40 Mg Tablet) 40 mg PO DAILY [facility] [place] Last Admin: 06/27/20 10:43 Dose: 40 mg Documented by: Methylprednisolone (Methylprednisolone 40 Mg/Ml Vial) 40 mg IV Q6 [facility] [place] Last Admin: 06/27/20 12:04 Dose: 40 mg Documented by: Metoprolol Tartrate (Metoprolol Tartrate 100 Mg Tablet) 100 mg PO BID [facility] [place] Last Admin: 06/27/20 10:43 Dose: 100 mg Documented by: Nutritional Formula (Lactose Free) (Glucerna Shake 120 Ml Liquid) 120 ml PO 4X/DAY [facility] [place] Last Admin: 06/27/20 14:03 Dose: Not Given Documented by: Potassium Chloride (Potassium Chloride 20 Meq Tablet) 20 meq PO BIDCM [facility] [place] Last Admin: 06/27/20 10:42 Dose: 20 meq Documented by: Pravastatin Sodium (Pravastatin 40 Mg Tablet) 40 mg PO DAILY [facility] [place] Last Admin: 06/27/20 10:43 Dose: 40 mg Documented by: Sodium Chloride (0.9% Saline Lock 10 Ml Syringe) 10 - 40 ml IV UD PRN PRN Reason: SALINE FLUSH Last Admin: 06/27/20 06:15 Dose: 10 ml Documented by: Tamsulosin HCl (Tamsulosin Hcl 0.4 Mg Capsule) 0.4 mg PO QHS [facility] [place] Last Admin: 06/26/20 21:38 Dose: 0.4 mg Documented by: Disposition: Home with Hospice Minutes spent on discharge:: 33 Patient Condition:: Guarded Meaningful Use Info Meaningful Use Diagnoses (Choose all that apply): CHF - CHF JUAN RAMON/ARB ordered at discharge?: Yes Documented LVEF (%): 65 Inpatient E&M: 72892 Disch Hosp
[2020-06-27 14:08] LABS: ANTINUCLEAR ANTIBODIES DIRECT Positive (Negative); Anti-Centromere B Ab <0.2 AI (0.0-0.9); Anti-Chromatin <0.2 AI (0.0-0.9); Anti-Jo <0.2 AI (0.0-0.9); Anti-Scleroderma-70 AB 0.2 AI (0.0-0.9); RNP Ab 7.8 AI (0.0-0.9); SJOGREN'S Anti-SS-A test < 0.2 AI (0.0-0.9); SJOGREN'S Anti-SS-B test < 0.2 AI (0.0-0.9); Smith Ab <0.2 AI (0.0-0.9)
--- NOTE | 2020-06-27 14:12 | PHA.DC.MR ---
Pharmacy Service has performed discharge medication reconciliation for this patient. The patient's discharge medication list was reviewed for discrepancies and discrepancies were resolved. Home Medications Aspirin E.C. [Ecotrin] 81 mg PO DAILY@0800 07/21/15 Glimepiride [Amaryl] 4 mg PO DAILY 07/21/15 Metoprolol Tartrate [Lopressor (beta jostin)] 100 mg PO BID 07/21/15 [place]-3S/Dha/Epa/Fish Oil/D3 [Fish Iqg-Ceugv-6-Vit D Softgel] 1 each PO BID 07/21/15 Tamsulosin HCl [Flomax] 0.4 mg PO QHS 07/21/15 metFORMIN HCl [Glucophage] 1,000 mg PO BIDCM 07/21/15 Albuterol Aerosols [Ventolin Aerosols] 2.5 mg INHALATION Q6H PRN PRN 10/23/18 Albuterol IH (ProAir) [Proair Hfa] 2 puff INHALATION Q4H PRN PRN 10/23/18 Digoxin 250 mcg PO DAILY 10/23/18 Fluticasone Propionate 2 spray NASAL DAILY 10/23/18 Insulin Glargine,Hum.rec.anlog [Lantus] 26 unit SQ DAILY 10/23/18 Lisinopril 40 mg PO DAILY 10/23/18 Potassium Chloride [K-Dur] 20 meq PO DAILY 10/23/18 hydrALAZINE [Apresoline] 25 mg PO BID 10/23/18 Furosemide [Lasix] 40 mg PO BID@1000,1800 #60 tablet 10/26/18 Pravastatin [Pravachol] 40 mg PO DAILY 05/20/20 Warfarin [Coumadin] 5 mg PO SUTUTHSA 05/20/20 Warfarin [Coumadin] 7.5 mg PO MOWEFR 05/20/20 Prednisone 10 mg PO UD #30 tab 06/27/20
[2020-06-27 15:35] LABS: Anti-dsDNA Ab <1 IU/mL (0-9)
--- NOTE | 2020-06-27 15:48 | CASEMGMT ---
Patient is able to go home on Hospice today. The oxygen will be delivered by 5p so anytime after that would be fine. PAIGE faxed d/c summary to Hospice. PAIGE called [facility] and arranged for patient to get picked up at 1730 via cot due to the high flow O2 he required. PAIGE asked that they put him on a non-rebreather mask. SW notified patient of this information. PAIGE called patient's and let her know. She asked SW to ask patient if he wants a hospital bed. PAIGE did and he said he was not sure. SW let her know. PAIGE called Hospice and let Kristin know patient is being picked up at 1730. She thanked PAIGE for the update. Plan: d/c home on [facility]. [facility] transported patient via cot due to the high flow O2 he requires. Regi [employer]
[2020-06-27 20:07] LABS: Cytoplasmic Ab (C-ANCA) <1:20 titer (Neg:<1:20)
[2020-06-27 20:26] LABS: Perinuclear Ab (P-ANCA) <1:20 titer (Neg:<1:20)
== END 2020-06-27 19:30 | disposition hospice, home (50) | DRG 190 ==
LOC: ED 17:13 → MS3 18:58 → PCU 06-27 07:15
PROVIDERS: Internal Medicine; Internal Medicine Critical Care Medicine; Nurse Practitioner Family; Admitting Provider Internal Medicine; Emergency Provider Emergency Medicine; PCP Internal Medicine; Visit Provider Hospitalist
DX: J44.1 Chronic obstructive pulmonary disease with (acute) exacerbation (principal); J96.21 Acute and chronic respiratory failure with hypoxia; I50.33 Acute on chronic diastolic (congestive) heart failure; R04.2 Hemoptysis; D68.32 Hemorrhagic disorder due to extrinsic circulating anticoagulants; T45.515A Adverse effect of anticoagulants, initial encounter; Y92.230 Patient room in hospital as the place of occurrence of the external cause; I11.0 Hypertensive heart disease with heart failure; J84.10 Pulmonary fibrosis, unspecified; G47.33 Obstructive sleep apnea (adult) (pediatric); I27.20 Pulmonary hypertension, unspecified; R55 Syncope and collapse; Z91.19 Patient's noncompliance with other medical treatment and regimen; I48.0 Paroxysmal atrial fibrillation; I25.10 Atherosclerotic heart disease of native coronary artery without angina pectoris; E11.9 Type 2 diabetes mellitus without complications; N40.0 Benign prostatic hyperplasia without lower urinary tract symptoms; R13.10 Dysphagia, unspecified; Z66 Do not resuscitate; E78.5 Hyperlipidemia, unspecified; Z86.19 Personal history of other infectious and parasitic diseases; Z95.5 Presence of coronary angioplasty implant and graft; Z95.810 Presence of automatic (implantable) cardiac defibrillator; Z85.831 Personal history of malignant neoplasm of soft tissue; Z79.4 Long term (current) use of insulin; Z79.01 Long term (current) use of anticoagulants; Z79.82 Long term (current) use of aspirin; Z79.899 Other long term (current) drug therapy; Z87.891 Personal history of nicotine dependence
CPT/HCPCS: 36415; 71045; 71250; 80048; 80162; 82962; 83880; 84484; 85025; 85027; 85610; 85730; 86038; 86225; 86235; 86256; 87040; 87070; 87077; 87186; 87205; 87633; 92526; 92610; 93005; 93306; 94640; 94660; 94667; 94668; 94762; 97110; 97162; 97530; 97802; 99251; 99285; J7040; Q9957; A4216; G0463; J1940